=== PATIENT | female | born 1955 | race Caucasian/White ===

== ENCOUNTER 2016-04-29 13:07 | Inpatient (IN) | payer MEDICARE ==
[2016-04-29] MEDS ORDERED: Zithromax 500 MG/ 250 ML NaCl Premix 250 ML IV ONE ×2 (13:36→14:13)
[2016-04-29] MEDS ORDERED: DUONEB 0.5-3 MG/3 ml Neb IH ONE ×2 (13:36→13:44)
[2016-04-29] MEDS ORDERED: solu-MEDROL 125 MG IV ONE (13:36)
[2016-04-29] MEDS ORDERED: ROCEPHIN 1 Gm-D5w 50 ml Bag** 50 ML IV ONE ×2 (13:36→14:13)
[2016-04-29] MEDS ORDERED: Sodium Chloride 0.9% 1000 ML 1,000 ML IV SCH (13:45)
[2016-04-29 13:57] LABS: INR 1.05 (0.8-3.0); Mean Cell Volume 76.1 fl (78-100); Mean Platelet Volume 9.9 fl (6-9.5); PROTIME 11.7 SECONDS (9.95-12.35); Platelet Count 793 K/mm3 (150-450); Red Blood Count 4.47 M/mm3 (4.1-5.4); Red Cell Distribution Width 16.5 % (11.5-14.0); White Blood Count 11.4 K/mm3 (4.0-10.5)
[2016-04-29 14:02] LABS: Mean Corpuscular Hemoglobin 22.5 pg (26-32)
[2016-04-29 14:04] LABS: Eosinophil 5 % (0.00-3.0); Platelet Estimate NORMAL (NORMAL); Total Cells Counted 100
[2016-04-29 14:11] LABS: ALKALINE PHOSPHATASE 93 U/L (46-116); BILIRUBIN,TOTAL 0.1 mg/dL (0.2-1.0); BLOOD UREA NITROGEN 7 mg/dL (9-20); CHLORIDE 103 mEq/L (98-107); Carbon Dioxide 29.5 mEq/L (21-32); Glucose 93 MG/DL (70-110); MAGNESIUM 1.8 mg/dL (1.8-2.4); SGOT/AST 79 U/L (15-37); SGPT/ALT 92 U/L (12-78); SODIUM 142 mEq/L (136-145); Total Protein 7.9 gm/dL (6.4-8.2)
[2016-04-29] MEDS ORDERED: Zofran 4 MG/2 ML VIAL IV ONE (14:12)
[2016-04-29] MEDS ORDERED: Zofran 4 MG/2 ML VIAL ONE (14:12)
[2016-04-29] MEDS ORDERED: Sodium Chloride 0.9% 1000 ML 1,000 ML ONE (14:13)
[2016-04-29] MEDS ORDERED: SUBLIMAZE 100 MCG/2 ML ONE (14:13)
[2016-04-29] MEDS ORDERED: SUBLIMAZE 100 MCG/2 ML IV ONE (14:13)
[2016-04-29 14:16] LABS: TROPONIN < 0.017 ng/ml (0.000-0.056)
[2016-04-29 14:17] LABS: A-aADO2 73; ARTERIAL BLOOD GAS BASE EXCESS 5.9 (-2.0-2.0); ARTERIAL BLOOD GAS FIO2 32 %; ARTERIAL BLOOD GAS PO2 106 mmHg (75-100); ARTERIAL BLOOD GAS pH 7.49 (7.35-7.45); Lactic Acid 0.9 (0.4-2.0)
[2016-04-29 14:18] LABS: ALLEN TEST OK? YES
[2016-04-29] MEDS ORDERED: solu-MEDROL 125 MG ONE (14:21)
--- NOTE | 2016-04-29 15:00 | ERPHSYRPT ---
- History of Present Illness Time Seen by Provider: 04/29/16 13:15 Source: patient Exam Limitations: clinical condition Patient Subjective Stated Complaint: STATES HAS HAD NUMBNESS TO RIGHT SIDE OF FACE AND PAIN TO RIGHT ARM AND LEG FOR TWO DAYS. ALSO HAVING INCREASED SOB TODAY. HX COPD. Triage Nursing Assessment: TO ROOM PER EMS. SKIN W/D, COLOR NORMAL, RESP SLIGHTLY LABORED. WEARS O2 AT HOME. EXP WHEEZES HEARD ANTERIOR CHEST. GOOD ROTOR WINDER EQUAL BILATERAL. MOVING LEGS NORMALLY. Physician History: PATIENT WITH HISTORY OF COPD, COMPLAINS OF PROGRESSIVE DYSPNEA, PRODUCTIVE COUGH FOR 3-4 DAYS ASSOCIATED WITH RIGHT SIDED NUMBNESS AND WEAKNESS OVER FACE AND EXTREMITIES. SON STATES PAIN HAD TRANSIENT SLURRED SPEECH YESTERDAY. Timing/Duration: day(s) Activities at Onset: none Severity of Dyspnea-Max: moderate Severity of Dyspnea-Current: moderate Possible Cause: occasional episodes Modifying Factors: Improves With: activity, coughing, deep breath Associated Symptoms: cough, productive cough Allergies/Adverse Reactions: Iodinated Contrast Media - Oral and [Iodinated Contrast Media - IV Dye] Allergy (Verified 04/29/16 13:20) iodine Allergy (Verified 04/29/16 13:20) propoxyphene [From Darvon] Allergy (Verified 04/29/16 13:20) acetaminophen [From Vicodin] Adverse Reaction (Verified 04/29/16 13:20) hydrocodone [From Vicodin] Adverse Reaction (Verified 04/29/16 13:20) Home Medications: Albuterol/Ipratropium Mdi [Combivent Inhaler] 2 puff IH Q4HPRN PRN 11/29/12 [History] Enalapril Maleate 10 mg [Vasotec 10 MG] 10 mg PO DAILY 11/29/12 [History] Omeprazole 20 MG [Prilosec 20 mg] 20 mg PO DAILY 11/29/12 [History] Pravastatin Sodium 20 mg PO HS 11/29/12 [History] Albuterol 2.5 mg/3 ml Neb [Proventil 2.5 mg/3 ml Neb] 1 neb IH Q6HPRN PRN 07/30/13 [History] Sucralfate [Carafate] 1 g PO QID 03/28/14 [History] Fluticasone/Vilanterol [Breo Ellipta 200-25 Mcg INH] 1 each IH DAILY 02/09/16 [ History] Hx Tetanus, Diphtheria Vaccination/Date Given: No Hx Influenza Vaccination/Date Given: Yes Hx Pneumococcal Vaccination/Date Given: Yes - Review of Systems Constitutional: No Fever, No Chills Eyes: No Symptoms Ears, Nose, & Throat: No Symptoms Respiratory: No Cough, No Dyspnea Cardiac: No Symptoms, No Chest Pain, No Edema, No Syncope Abdominal/Gastrointestinal: No Symptoms, No Abdominal Pain, No Nausea, No Vomiting, No Diarrhea Genitourinary Symptoms: No Symptoms, No Dysuria Musculoskeletal: No Symptoms, No Back Pain, No Neck Pain Skin: No Symptoms, No Rash Neurological: Parasthesia, No Dizziness, No Focal Weakness, No Sensory Changes Psychological: No Symptoms Endocrine: No Symptoms All Other Systems: Reviewed and Negative - Past Medical History Pertinent Past Medical History: Yes Neurological History: TIA ENT History: No Pertinent History Cardiac History: High Cholesterol, Hypertension Respiratory History: COPD, Other Endocrine Medical History: No Pertinent History Musculoskeletal History: Degenerative Disk Disease, Osteoarthritis GI Medical History: GERD, Hernia History: No Pertinent History Psycho-Social History: No Pertinent History Female Reproductive Disorders: No Pertinent History Other Medical History: hiatal hernia - Past Surgical History Past Surgical History: Yes Neuro Surgical History: No Pertinent History Cardiac: No Pertinent History Respiratory: No Pertinent History Gastrointestinal: Appendectomy, Cholecystectomy Genitourinary: No Pertinent History Musculoskeletal: Orthopedic Surgery Female Surgical History: Hysterectomy Other Surgical History: RIGHT FOOT SURGERY - Social History Smoking Status: Former smoker How long have you smoked: 30 yrs Exposure to second hand smoke: Yes Drug Use: none Patient Lives Alone: No - Female History Hx Now: No - Nursing Vital Signs Nursing Vital Signs: Initial Vital Signs Temperature 97.9 F Temperature Source Oral Pulse Rate 121 Respiratory Rate 24 Blood Pressure [] 137/81 Pain Intensity 5 - Physical Exam General Appearance: no apparent distress, alert Eye Exam: PERRL/EOMI Ears, Nose, Throat Exam: hearing grossly normal Neck Exam: normal inspection, supple Respiratory Exam: diminished breath sounds, wheezing Cardiovascular/Chest Exam: normal heart sounds, regular rate/rhythm Abdominal/Gastrointestinal Exam: soft, normal bowel sounds, No tenderness, No distention, No mass Extremity Exam: non-tender, normal range of motion, normal inspection, no calf tenderness, no pedal edema Peripheral Pulses Exam: carotid (R): 2+, carotid (L): 2+, femoral (R): 2+, femoral (L): 2+, dorsalis-pedis (R): 2+ Neurologic Exam: alert, oriented x 3, cooperative, oil tester II-XII nml as tested, normal mood/affect, other (THERE IS A RIGHT HEMIPARESIS, MINIMAL WEAKNESS RIGHT 4/5, COMPARED TO LEFT 5/5) Skin Exam: normal color, warm, No dry SpO2 Interpretation: normal SpO2: 97 Oxygen Delivery: Nasal Cannula - Course EKG Interpreted by Me: RATE, Sinus Rhythm, Sinus Tach, NORMAL AXIS - Radiology Exams Chest X-ray Interpretation: Interpreted by me (COPD, FLAT DIAPHRAMS, NO INFILTRATE) - CT Exams Head CT Interpretation: Discussed w/radiologist (THERE IS STABLE NONACUTE SENILE BRAIN WITH A REMOTE LEFT EXTERNAL CAPSULAR LACUNAR INFARCT) Ordered Tests: Active Orders 24 hr Category Date Time Status Bedrest with BRP/BSC TOLERATED Activity 04/29/16 17:41 Active Admission/Status Order ROUTINE Care 04/29/16 17:41 Active Cylinder Checker STAT Care 04/29/16 13:36 Active Code Status Order ROUTINE Care 04/29/16 17:41 Active EKG-ER Only STAT Care 04/29/16 13:36 Active IV Insertion STAT Care 04/29/16 13:36 Active Neuro Checks Q4H Care 04/29/16 17:41 Active Oxygen-ED Only NASAL CANNULA 2 lpm Care 04/29/16 13:36 Active Telemetry CONTINUOUS Care 04/29/16 17:42 Active Vital Signs Q4H Care 04/29/16 17:41 Active Cardiac Diet Diet 04/29/16 Breakfast Active CHEST 1 VIEW (PORTABLE) Stat Exams 04/29/16 13:37 Taken HEAD WITHOUT CONTRAST [CT] Stat Exams 04/29/16 14:34 Taken ARTERIAL BLOOD GASES Stat Lab 04/29/16 13:47 Ordered ARTERIAL BLOOD GASES Urgent Lab 04/29/16 13:36 Completed BLOOD CULTURE Stat Lab 04/29/16 13:46 Received CBC W DIFF Stat Lab 04/29/16 13:36 Completed CMP Stat Lab 04/29/16 13:36 Completed Lactic Acid Urgent Lab 04/29/16 13:36 Completed MAGNESIUM Stat Lab 04/29/16 13:36 Completed Manual Differential NC Stat Lab 04/29/16 13:36 Completed NT PRO BNP Stat Lab 04/29/16 13:36 Completed PROTIME WITH INR Stat Lab 04/29/16 13:36 Completed TROPONIN Stat Lab 04/29/16 13:36 Completed Oxygen NASAL CANNULA 2 lpm RT 04/29/16 17:41 Active Respiratory Nebulizer STAT RT 04/29/16 13:39 Completed Transfer Order Routine Transfer 04/29/16 17:41 Ordered Medication Summary Generic Name Dose Route Start Last Admin Trade Name Freq PRN Reason Stop Dose Admin Acetaminophen 650 mg 04/29/16 17:41 Tylenol 325 Mg PO 05/29/16 17:40 Q4H PRN PRN PAIN, FEVER, HEADACHE Albuterol/Ipratropium 3 ml 04/29/16 17:45 Duoneb 0.5-3 Mg/3 Ml Neb IH 05/29/16 17:44 Q4HPRN PRN SHORTNESS OF BREATH/WHEEZING Aspirin 81 mg 04/30/16 10:00 Baby Aspirin 81 Mg Chew PO 05/30/16 09:59 DAILY MONICA Enalapril Maleate 10 mg 04/30/16 10:00 Vasotec 10 Mg PO 05/30/16 09:59 DAILY MONICA Sodium Chloride 1,000 mls @ 100 mls/hr 04/29/16 13:45 04/29/16 14:15 Sodium Chloride 0.9% 1000 Ml IV 05/29/16 13:44 100 mls/hr .Q10H MONICA Administration Sodium Chloride 1,000 mls @ 50 mls/hr 04/29/16 17:45 Sodium Chloride 0.9% 1000 Ml IV 05/29/16 17:44 .Q20H MONICA Levalbuterol HCl 1.25 mg 04/29/16 17:45 Xopenex 1.25 Mg/0.5 Ml Ud Nebule IH 05/29/16 17:44 Q2HPRN PRN DIFFICULTY BREATHING Oxycodone/Acetaminophen 1 tab 04/29/16 17:44 Percocet Tablet 5/325mg PO 05/04/16 17:43 Q4H PRN PRN PAIN Sucralfate 1 g 04/29/16 22:00 Carafate 1 Gm PO 05/29/16 21:59 ACHS MONICA Discontinued Medications Generic Name Dose Route Start Last Admin Trade Name Shauna PRN Reason Stop Dose Admin Albuterol/Ipratropium 3 ml 04/29/16 13:36 04/29/16 14:00 Duoneb 0.5-3 Mg/3 Ml Neb IH 04/29/16 13:37 3 ml STAT ONE Administration Albuterol/Ipratropium Confirm 04/29/16 13:44 Duoneb 0.5-3 Mg/3 Ml Neb Administered 04/29/16 13:45 Dose 3 ml IH .STK-MED ONE Fentanyl Citrate 50 mcg 04/29/16 14:13 04/29/16 14:17 Sublimaze 100 Mcg/2 Ml IV 04/29/16 14:14 50 mcg STAT ONE Administration Fentanyl Citrate Confirm 04/29/16 14:13 Sublimaze 100 Mcg/2 Ml Administered 04/29/16 14:14 Dose 100 mcg .ROUTE .STK-MED ONE Azithromycin 250 mls @ 125 mls/hr 04/29/16 13:36 04/29/16 14:22 Zithromax 500 Mg/ 250 Ml Nacl Premix IV 04/29/16 15:35 125 mls/hr STAT ONE Administration Ceftriaxone Sodium/Dextrose 50 mls @ 100 mls/hr 04/29/16 13:36 04/29/16 14:19 Rocephin 1 Gm-D5w 50 Ml Bag IV 04/29/16 14:05 100 mls/hr STAT ONE Administration Azithromycin Confirm 04/29/16 14:13 Zithromax 500 Mg/ 250 Ml Nacl Premix Administered 04/29/16 14:14 Dose 250 mls @ ud IV .STK-MED ONE Sodium Chloride Confirm 04/29/16 14:13 Sodium Chloride 0.9% 1000 Ml Administered 04/29/16 14:14 Dose 1,000 mls @ ud .ROUTE .STK-MED ONE Ceftriaxone Sodium/Dextrose Confirm 04/29/16 14:13 Rocephin 1 Gm-D5w 50 Ml Bag Administered 04/29/16 14:14 Dose 50 mls @ ud IV .STK-MED ONE Methylprednisolone Sodium Succinate 125 mg 04/29/16 13:36 04/29/16 14:22 Solu-Medrol 125 Mg IV 04/29/16 13:37 125 mg STAT ONE Administration Methylprednisolone Sodium Succinate Confirm 04/29/16 14:21 Solu-Medrol 125 Mg Administered 04/29/16 14:22 Dose 125 mg .ROUTE .STK-MED ONE Ondansetron HCl 4 mg 04/29/16 14:12 04/29/16 14:16 Zofran 4 Mg/2 Ml Vial IV 04/29/16 14:13 4 mg STAT ONE Administration Ondansetron HCl Confirm 04/29/16 14:12 Zofran 4 Mg/2 Ml Vial Administered 04/29/16 14:13 Dose 4 mg .ROUTE .STK-MED ONE Lab/Rad Data: Laboratory Result Diagrams 04/29/16 13:36 04/29/16 13:36 Laboratory Results 04/29/16 04/29/16 04/29/16 Range/Units 13:36 13:36 13:36 WBC (4.0-10.5) K/mm3 RBC (4.1-5.4) M/mm3 Hgb (12.0-16.0) gm/dl Hct (35-47) % MCV (78-100) fl MCH (26-32) pg MCHC (32-36) g/dl RDW (11.5-14.0) % Plt Count (150-450) K/mm3 MPV (6-9.5) fl Segmented Neutrophils (36.0-66.0) % Lymphocytes (Manual) (24-44) % Monocytes (Manual) (0.0-12.0) % Eosinophils (Manual) (0.00-3.0) % Differential Comment Platelet Estimate (NORMAL) INR 1.05 (0.8-3.0) Puncture Site RIGHT RADIAL pCO2 39 (35-45) mmHg pO2 106 H (75-100) mmHg Base Excess 5.9 H (-2.0-2.0) O2 Saturation 96.0 (94-100) g/dF ABG pH 7.49 H (7.35-7.45) ABG HCO3 29.7 H* (22-28) ABG O2 Sat (Measured) 99.0 (95-100) % Fuad Test YES A-a Gradient 73 a/A Ratio 0.59 Hemoglobin 9.7 Carboxyhemoglobin 1.5 (0.0-6.9) % THgb Methemoglobin 1.5 (1.4-1.5) % Potassium 3.9 4.0 (3.5-5.1) Temperature 37.0 C POC O2 Flow Rate 32 % Sodium 142 (136-145) mEq/L Chloride 103 (98-107) mEq/L Carbon Dioxide 29.5 (21-32) mEq/L Anion Gap 13.0 (5-15) MEQ/L BUN 7 L (9-20) mg/dL Creatinine 0.76 (0.55-1.30) mg/dl Estimated GFR > 60 ML/MIN Glucose 93 (70-110) MG/DL Lactic Acid 0.9 (0.4-2.0) Calcium 9.2 (8.5-10.1) mg/dL Magnesium 1.8 (1.8-2.4) mg/dL Total Bilirubin 0.1 L (0.2-1.0) mg/dL AST 79 H (15-37) U/L ALT 92 H (12-78) U/L Alkaline Phosphatase 93 (46-116) U/L Troponin I < 0.017 (0.000-0.056) ng/ml NT-Pro-B Natriuret Pep 27 (0-125) pg/ml Serum Total Protein 7.9 (6.4-8.2) gm/dL Albumin 4.0 (3.4-5.0) g/dL 04/29/16 Range/Units 13:36 WBC 11.4 H (4.0-10.5) K/mm3 RBC 4.47 (4.1-5.4) M/mm3 Hgb 10.1 L (12.0-16.0) gm/dl Hct 34.0 L (35-47) % MCV 76.1 L (78-100) fl MCH 22.5 L (26-32) pg MCHC 29.7 L (32-36) g/dl RDW 16.5 H (11.5-14.0) % Plt Count 793 H (150-450) K/mm3 MPV 9.9 H (6-9.5) fl Segmented Neutrophils 60 (36.0-66.0) % Lymphocytes (Manual) 27 (24-44) % Monocytes (Manual) 8 (0.0-12.0) % Eosinophils (Manual) 5 H (0.00-3.0) % Differential Comment NORMAL Platelet Estimate NORMAL (NORMAL) INR (0.8-3.0) Puncture Site pCO2 (35-45) mmHg pO2 (75-100) mmHg Base Excess (-2.0-2.0) O2 Saturation (94-100) g/dF ABG pH (7.35-7.45) ABG HCO3 (22-28) ABG O2 Sat (Measured) (95-100) % Fuad Test A-a Gradient a/A Ratio Hemoglobin Carboxyhemoglobin (0.0-6.9) % THgb Methemoglobin (1.4-1.5) % Potassium (3.5-5.1) Temperature C POC O2 Flow Rate % Sodium (136-145) mEq/L Chloride (98-107) mEq/L Carbon Dioxide (21-32) mEq/L Anion Gap (5-15) MEQ/L BUN (9-20) mg/dL Creatinine (0.55-1.30) mg/dl Estimated GFR ML/MIN Glucose (70-110) MG/DL Lactic Acid (0.4-2.0) Calcium (8.5-10.1) mg/dL Magnesium (1.8-2.4) mg/dL Total Bilirubin (0.2-1.0) mg/dL AST (15-37) U/L ALT (12-78) U/L Alkaline Phosphatase (46-116) U/L Troponin I (0.000-0.056) ng/ml NT-Pro-B Natriuret Pep (0-125) pg/ml Serum Total Protein (6.4-8.2) gm/dL Albumin (3.4-5.0) g/dL - Progress Air Movement: good Progress Note: 04/29/16 15:01 PATIENT GIVEN IV NORMAL SALINE 100ML/HR SOLUMEDROL 125MG. ROCEPHIN 1GM, ZITHROMAX 500MG IVPB, DUONEB AEROSOL TREATMENT 04/29/16 17:36 Blood Culture(s) Obtained: Yes Antibiotics given: Yes Discussed with DrJorge: Other (DISCUSSED WITH DR Manuel BUCHANAN AT 1715 FOR ADMISSION) - Departure Time of Disposition: 17:37 Departure Disposition: Observation Clinical Impression: ACUTE EXACERBATION COPD, TRANSIENT ISCHEMIC ATTACK Condition: Stable Critical Care Time: No Referrals: KENNETH POWELL MD [Primary Care Provider] -
[2016-04-29] MEDS ORDERED: TYLENOL 325 MG PO PRN (17:41)
[2016-04-29] MEDS ORDERED: PERCOCET TABLET 5/325MG PO PRN (17:44)
[2016-04-29] MEDS ORDERED: Xopenex 1.25 MG/0.5 ML UD NEBULE IH PRN (17:45)
--- NOTE | 2016-04-29 19:55 | XRAY ---
Indication: Right-sided pain, numbness, and weakness. Multiple contiguous axial images obtained through the head without contrast. Comparison: June 13, 2015. Stable age-appropriate global atrophy and minimal periventricular degenerative microvascular ischemia. Remote lacunar infarct in the left external capsule. No acute intracranial hemorrhage, abnormal extra-axial fluid collection, or mass effect. Leyva-white matter differentiation maintained. Fourth ventricle is midline without hydrocephalus. Bony calvarium intact. Visualized paranasal sinuses and mastoid air cells are clear. Impression: Stable nonacute senile brain with remote left external capsule lacunar infarct. CTDI 68.81
--- NOTE | 2016-04-29 19:59 | XRAY ---
Indication: Cough. Comparison: February 09, 2016. Portable chest again hyperinflated and clear. Heart and mediastinal structures within normal limits. Bony thorax intact again with mild osteopenia and degenerative changes. Impression: Stable nonacute hyperinflated chest.
[2016-04-29] MEDS: Carafate 1 GM PO SCH (21:30)
[2016-04-29] MEDS: ZOFRAN ODT 4 MG PO PRN (21:31)
[2016-04-29] MEDS: Levofloxacin 500MG/100ML D5W 100 ML IV SCH (21:31)
[2016-04-29] MEDS: PERCOCET TABLET 5/325MG PO PRN (23:59)
[2016-04-30] MEDS: Sodium Chloride 0.9% 1000 ML 1,000 ML IV SCH ×2 (04:05→21:02)
[2016-04-30] MEDS: DUONEB 0.5-3 MG/3 ml Neb IH PRN ×2 (04:06→07:03)
[2016-04-30] MEDS: PERCOCET TABLET 5/325MG PO PRN ×4 (06:12→20:36)
[2016-04-30] MEDS: Advair Hfa 115/21 Common canister IH SCH ×3 (07:03→22:14)
[2016-04-30] MEDS: Carafate 1 GM PO SCH ×4 (08:10→23:35)
[2016-04-30] MEDS: ZOFRAN ODT 4 MG PO PRN ×2 (08:42→18:06)
[2016-04-30] MEDS ORDERED: ECOTRIN 81 MG PO SCH (10:00)
[2016-04-30] MEDS ORDERED: BABY ASPIRIN 81 MG CHEW PO SCH (10:00)
[2016-04-30] MEDS: Vasotec 10 MG PO SCH (10:25)
[2016-04-30] MEDS: DUONEB 0.5-3 MG/3 ml Neb IH SCH ×3 (10:39→18:47)
--- NOTE | 2016-04-30 13:03 | PCM.HP ---
History of Present Illness - Chief Complaint Chief Complaint: c/o shortness of breath History of Present Illness: is a 61 year old female came to ER with c/o shortness of breath and slurred speech. c/o generalised weakness - Review of Systems Constitutional: No Fever, No Chills Eyes: No Symptoms Ears, Nose, & Throat: No Symptoms Respiratory: No Cough, No Short Of Breath Cardiac: No Chest Pain, No Edema, No Syncope Abdominal/Gastrointestinal: No Abdominal Pain, No Nausea, No Vomiting, No Diarrhea Genitourinary Symptoms: No Dysuria Musculoskeletal: No Back Pain, No Neck Pain Skin: No Rash Neurological: No Dizziness, No Focal Weakness, No Sensory Changes Psychological: No Symptoms Endocrine: No Symptoms Hematologic/Lymphatic: No Symptoms Immunological/Allergic: No Symptoms Medications & Allergies Home Medications: Home Medication List Albuterol/Ipratropium Mdi [Combivent Inhaler] 2 puff IH Q4HPRN PRN 11/29/12 [History Confirmed 04/29/16] Enalapril Maleate 10 mg [Vasotec 10 MG] 10 mg PO DAILY 11/29/12 [History Confirmed 04/29/16] Omeprazole 20 MG [Prilosec 20 mg] 20 mg PO DAILY 11/29/12 [History Confirmed ] Pravastatin Sodium 20 mg PO HS 11/29/12 [History Confirmed 04/29/16] Albuterol 2.5 mg/3 ml Neb [Proventil 2.5 mg/3 ml Neb] 1 neb IH Q6HPRN PRN 07/30/13 [History Confirmed 04/29/16] Sucralfate [Carafate] 1 g PO QID 03/28/14 [History Confirmed 04/29/16] Fluticasone/Vilanterol [Breo Ellipta 200-25 Mcg INH] 1 each IH DAILY 02/09/16 [ History Confirmed 04/29/16] Zolpidem Tartrate [Ambien] 10 mg PO HS 04/29/16 [History Confirmed 04/29/16] Allergies/Adverse Reactions: Allergies Allergy/AdvReac Type Severity Reaction Status Date / Time Iodinated Contrast Media - Allergy Verified 04/29/16 13:20 Oral and [Iodinated Contrast Media - IV Dye] iodine Allergy Verified 04/29/16 13:20 propoxyphene [From Darvon] Allergy Verified 04/29/16 13:20 acetaminophen [From Vicodin] AdvReac Verified 04/29/16 13:20 hydrocodone [From Vicodin] AdvReac Verified 04/29/16 13:20 - Past Medical History Past Medical History: Yes Neurological History: TIA ENT History: No Pertinent History Cardiac History: High Cholesterol, Hypertension Respiratory History: COPD, Other Endocrine Medical History: No Pertinent History Musculoskelatal History: Degenerative Disk Disease, Osteoarthritis GI Medical History: GERD, Hernia History: No Pertinent History Pyscho-Social History: No Pertinent History Reproductive Disorders: No Pertinent History Comment: hiatal hernia - Female History Are you now?: No - Past Surgical History Past Surgical History: Yes Neuro Surgical History: No Pertinent History Cardiac History: No Pertinent History Respiratory Surgery: No Pertinent History GI Surgical History: Appendectomy, Cholecystectomy Genitourinary Surgical Hx: No Pertinent History Musculskeletal Surgical Hx: Orthopedic Surgery Female Surgical History: Hysterectomy Other Surgical History: RIGHT FOOT SURGERY - Social History Smoking Status: Former smoker How long have you smoked: 30 yrs Exposure to second hand smoke: Yes Alcohol: None Drug Use: none - Physical Exam Vital Signs: Vital Signs - 24 hr Temp Pulse Resp BP Pulse Ox 04/30/16 12:20 98 F 108 H 22 158/99 96 04/30/16 10:39 98 H 20 97 04/30/16 10:00 20 04/30/16 08:02 97.5 F 82 20 149/68 92 L 04/30/16 07:05 96 H 20 95 04/30/16 05:47 22 04/30/16 04:06 80 22 97 04/30/16 04:00 97.6 F 82 16 137/63 98 04/30/16 02:00 24 04/30/16 00:00 97.5 F 95 H 24 144/79 96 04/29/16 22:50 87 20 96 04/29/16 22:00 16 04/29/16 18:34 98.8 F 103 H 16 146/77 96 04/29/16 17:49 97 04/29/16 16:45 121 H 24 95 04/29/16 15:03 86 22 137/81 96 04/29/16 15:02 78 18 96 04/29/16 14:06 98 H 22 142/72 97 04/29/16 13:11 20 94 L 04/29/16 13:08 97.9 F 105 H 20 142/72 94 L Oxygen-Last 24 hours O2 Percentage 3 Liters = 32% O2 Percentage 2 Liters = 28% O2 Percentage 2 Liters = 28% O2 Percentage 2 Liters = 28% O2 Percentage 3 Liters = 32% O2 Percentage 3 Liters = 32% O2 Percentage 3 Liters = 32% O2 Percentage 2 Liters = 28% O2 Percentage 3 Liters = 32% General Appearance: no apparent distress, alert Neurologic Exam: alert, oriented x 3, cooperative, normal mood/affect, nml cerebellar function, nml station & gait, sensation nml, No motor deficits Eye Exam: PERRL/EOMI, eyes nml inspection Ears, Nose, Throat Exam: normal ENT inspection, TMs normal, pharynx normal, moist mucous membranes Neck Exam: normal inspection, non-tender, supple, full range of motion Respiratory Exam: diminished breath sounds, crackles/rales, rhonchi, No respiratory distress Cardiovascular Exam: regular rate/rhythm, normal heart sounds, normal peripheral pulses Gastrointestinal/Abdomen Exam: soft, normal bowel sounds, No tenderness, No mass Back Exam: normal inspection, normal range of motion, No CVA tenderness, No vertebral tenderness Extremity Exam: normal inspection, normal range of motion, pelvis stable Skin Exam: normal color, warm, dry, No rash Lymphatic Exam: No adenopathy Results - Other Procedures and Tests Respiratory Therapy 04/29/16 17:41 Oxygen NASAL CANNULA 2 lpm 04/30/16 00:42 neb [Respiratory Nebulizer] QID 04/30/16 01:48 Respiratory MDI BID Assessment/Plan (1) Acute exacerbation of chronic obstructive pulmonary disease (COPD) Current Visit: Yes Status: Acute Code(s): J44.1 - CHRONIC OBSTRUCTIVE PULMONARY DISEASE W (ACUTE) EXACERBATION (2) Gastroesophageal reflux disease Current Visit: No Status: Chronic Code(s): K21.9 - GASTRO-ESOPHAGEAL REFLUX DISEASE WITHOUT ESOPHAGITIS (3) Hypertension Current Visit: No Status: Chronic Qualifiers: Hypertension type: essential hypertension Qualified Code(s): I10 - Essential (primary) hypertension Code(s): I10 - ESSENTIAL (PRIMARY) HYPERTENSION
[2016-04-30] MEDS ORDERED: PREVNAR 13 SYRINGE IM ONE (14:00)
[2016-04-30] MEDS ORDERED: PROVENTIL 2.5 MG/3 ML NEB IH PRN (16:47)
[2016-04-30] MEDS: Protonix 40MG Tablet PO SCH (17:00)
[2016-04-30] MEDS ORDERED: Ecotrin 325 MG PO SCH (20:00)
[2016-04-30 20:10] LABS: BASOPHIL % 0.2 % (0.0-0.4); Eosinophil % 0.2 % (0.00-5.0); Granulocytes % 77.3 % (36.0-66.0); Lymphocytes % 15.4 % (24.0-44.0); Mean Cell Volume 76.9 fl (78-100); Mean Corpuscular Hemoglobin 23.1 pg (26-32); Mean Platelet Volume 8.8 fl (6-9.5); Monocytes % 6.9 % (0.0-12.0); Platelet Count 655 K/mm3 (150-450); Red Blood Count 3.63 M/mm3 (4.1-5.4); Red Cell Distribution Width 16.4 % (11.5-14.0); White Blood Count 18.9 K/mm3 (4.0-10.5)
[2016-04-30 20:54] LABS: ALBUMIN 3.5 g/dL (3.4-5.0); ALKALINE PHOSPHATASE 64 U/L (46-116); ANION GAP 10.8 MEQ/L (5-15); BLOOD UREA NITROGEN 14 mg/dL (9-20); CHLORIDE 105 mEq/L (98-107); Glucose 137 MG/DL (70-110); Potassium 3.8 mEq/L (3.5-5.1); SGOT/AST 29 U/L (15-37); SGPT/ALT 63 U/L (12-78); SODIUM 141 mEq/L (136-145); Total Protein 6.9 gm/dL (6.4-8.2)
[2016-04-30 21:09] LABS: BILIRUBIN,TOTAL < 0.1 mg/dL (0.2-1.0); TROPONIN < 0.017 ng/ml (0.000-0.056)
[2016-04-30] MEDS ORDERED: NON-FORMULARY ITEM (Pravastatin Sodium [Pravastatin Sodium] 20 MG) PO SCH (22:00)
--- NOTE | 2016-04-30 22:25 | PCM.NOTE ---
Date and Time: 04/30/162219 Subjective Assessment: patient developed sudden onset of right side weakness upper and lower extrimity. CT head reveal possible hemorrhagic stroke in ternal capsule which is new change. MRI ordered. SCD boots ordered. plavix and aspirin given, - Review of Systems Neurological: Focal Weakness Objective Exam Neurologic Exam: alert, oriented x 3, cooperative, motor weakness (right upper and lower extrimity) OBJECTIVE DATA Vital Signs: Vital Signs - 24 hr Temp Pulse Resp BP Pulse Ox 04/30/16 19:54 98.7 F 91 H 19 130/60 100 04/30/16 18:52 89 16 98 04/30/16 18:00 20 04/30/16 16:25 97.8 F 100 H 20 157/80 96 04/30/16 14:58 105 H 16 97 04/30/16 14:19 98 F 04/30/16 14:00 16 04/30/16 12:20 98 F 108 H 22 158/99 96 04/30/16 10:39 98 H 20 97 04/30/16 10:00 20 04/30/16 08:02 97.5 F 82 20 149/68 92 L 04/30/16 07:05 96 H 20 95 04/30/16 05:47 22 04/30/16 04:06 80 22 97 04/30/16 04:00 97.6 F 82 16 137/63 98 04/30/16 02:00 24 04/30/16 00:00 97.5 F 95 H 24 144/79 96 04/29/16 22:50 87 20 96 Oxygen-Last 24 hours O2 Percentage 3 Liters = 32% O2 Percentage 3 Liters = 32% O2 Percentage 2 Liters = 28% O2 Percentage 2 Liters = 28% O2 Percentage 2 Liters = 28% Pain Assessment - Last Documented Pain Intensity 9 Pain Scale Used 0-10 Pain Scale Intake and Output: Intake & Output 04/28/16 04/29/16 04/30/16 05/01/16 11:59 11:59 11:59 11:59 Intake Total 1084 1706 Balance 1084 1706 Weight 81.284 kg Lab Results: Lab Results-Last 24 Hours 04/30/16 04/30/16 Range/Units 20:05 20:05 WBC 18.9 H (4.0-10.5) K/mm3 RBC 3.63 L (4.1-5.4) M/mm3 Hgb 8.4 L (12.0-16.0) gm/dl Hct 27.9 L (35-47) % MCV 76.9 L (78-100) fl MCH 23.1 L (26-32) pg MCHC 30.1 L (32-36) g/dl RDW 16.4 H (11.5-14.0) % Plt Count 655 H (150-450) K/mm3 MPV 8.8 (6-9.5) fl Gran % 77.3 H (36.0-66.0) % Lymphocytes % 15.4 L (24.0-44.0) % Monocytes % 6.9 (0.0-12.0) % Eosinophils % 0.2 (0.00-5.0) % Basophils % 0.2 (0.0-0.4) % Basophils # 0.03 (0-0.4) Sodium 141 (136-145) mEq/L Potassium 3.8 (3.5-5.1) mEq/L Chloride 105 (98-107) mEq/L Carbon Dioxide 29.0 (21-32) mEq/L Anion Gap 10.8 (5-15) MEQ/L BUN 14 (9-20) mg/dL Creatinine 0.93 (0.55-1.30) mg/dl Estimated GFR > 60 ML/MIN Glucose 137 H (70-110) MG/DL Calcium 8.9 (8.5-10.1) mg/dL Total Bilirubin < 0.1 L (0.2-1.0) mg/dL AST 29 (15-37) U/L ALT 63 (12-78) U/L Alkaline Phosphatase 64 (46-116) U/L Troponin I < 0.017 (0.000-0.056) ng/ml Serum Total Protein 6.9 (6.4-8.2) gm/dL Albumin 3.5 (3.4-5.0) g/dL Radiology Exams: Radiology Procedures Category Date Time Status HEAD WITHOUT CONTRAST [CT] Stat Exams 04/30/16 19:53 Taken MRI BRAIN W & W/O CONTRAST [MRI] Routine Exams 04/30/16 21:49 Ordered Assessment/Plan (1) CVA (cerebral vascular accident) Current Visit: Yes Status: Acute Qualifiers: CVA mechanism: unspecified Qualified Code(s): I63.9 - Cerebral infarction, unspecified Assessment & Plan: neurocheck q4hrs, MRI of brain, teleneuro consult Code(s): I63.9 - CEREBRAL INFARCTION, UNSPECIFIED (2) Acute exacerbation of chronic obstructive pulmonary disease (COPD) Current Visit: Yes Status: Acute Code(s): J44.1 - CHRONIC OBSTRUCTIVE PULMONARY DISEASE W (ACUTE) EXACERBATION (3) Gastroesophageal reflux disease Current Visit: No Status: Chronic Code(s): K21.9 - GASTRO-ESOPHAGEAL REFLUX DISEASE WITHOUT ESOPHAGITIS (4) Hypertension Current Visit: No Status: Chronic Qualifiers: Hypertension type: essential hypertension Qualified Code(s): I10 - Essential (primary) hypertension Code(s): I10 - ESSENTIAL (PRIMARY) HYPERTENSION
[2016-04-30] MEDS: PLAVIX 75 MG Tablet PO SCH (23:34)
[2016-04-30] MEDS: Levofloxacin 500MG/100ML D5W 100 ML IV SCH (23:34)
[2016-04-30] MEDS: ZOCOR 20MG PO SCH (23:35)
[2016-04-30] MEDS: Ambien 10 MG PO SCH (23:35)
[2016-04-30] MEDS: BABY ASPIRIN 81 MG CHEW PO SCH (23:36)
[2016-05-01] MEDS: DUONEB 0.5-3 MG/3 ml Neb IH SCH ×4 (07:19→19:03)
[2016-05-01] MEDS: Advair Hfa 115/21 Common canister IH SCH ×2 (07:24→19:05)
[2016-05-01] MEDS: Carafate 1 GM PO SCH ×4 (07:46→22:46)
--- NOTE | 2016-05-01 08:52 | XRAY ---
Indication: Worsening weakness. Possible TIA. Multiple contiguous axial images obtained through the head without contrast. Comparison: One day earlier. Stable normal aging brain including global atrophy and minimal periventricular degenerative micro-ischemia. In the right posterior basal ganglia adjacent to the perimesencephalic cistern, there is new 10 mm focus of petechial hyperdensities concerning for hemorrhage. No mass effect, midline shift, or hydrocephalus. Bony calvarium remains intact. Impression: 1. New tiny focus of petechial hemorrhage in the right posterior basal ganglia as detailed. 2. Stable age-appropriate atrophy and degenerative micro-ischemia. Comment: Preliminary interpretation was made by [facility]. No discrepancy. CTDI 67.80
[2016-05-01] MEDS ORDERED: NON-FORMULARY ITEM (Omeprazole 20 Mg [Prilosec 20 Mg] 20 MG) PO SCH (10:00)
[2016-05-01 10:02] LABS: Mean Cell Volume 77.9 fl (78-100); Platelet Count 669 K/mm3 (150-450); Red Blood Count 3.76 M/mm3 (4.1-5.4); Red Cell Distribution Width 16.6 % (11.5-14.0); White Blood Count 13.2 K/mm3 (4.0-10.5)
[2016-05-01 10:04] LABS: Mean Corpuscular Hemoglobin 22.8 pg (26-32)
[2016-05-01] MEDS: PERCOCET TABLET 5/325MG PO PRN ×3 (10:49→22:47)
[2016-05-01] MEDS: Protonix 40MG Tablet PO SCH (10:50)
[2016-05-01] MEDS: Vasotec 10 MG PO SCH (10:50)
[2016-05-01] MEDS: PLAVIX 75 MG Tablet PO SCH (10:50)
[2016-05-01] MEDS: BABY ASPIRIN 81 MG CHEW PO SCH (10:50)
[2016-05-01] MEDS ORDERED: DUONEB 0.5-3 MG/3 ml Neb IH ONE (10:56)
--- NOTE | 2016-05-01 11:09 | XRAY ---
Indication: Right-sided weakness. Two-dimensional sonogram and color Doppler imaging of the carotid arteries of the neck was performed. Comparison: None Examination of the right carotid circulation demonstrates minimal heterogeneous eccentric plaquing at the level of the bulb slightly extending into the origin of internal and external carotid arteries. PSV of the CCA is 85 cm/s. PSV of the ICA is 160 cm/s. ICA/CCA ratio is 1.9. Normal antegrade vertebral artery flow. Examination of the left carotid circulation demonstrates mild heterogeneous plaquing at the level of the bulb extending into the origin of the internal and external carotid arteries. PSV of the CCA is 115 cm/s. PSV of the ICA is 89 cm/s. ICA/CCA ratio is 0.8. Normal antegrade vertebral artery flow. Impression: Minimal/mild arteriosclerotic plaquing bilaterally. Velocity measurements and ratios suggest 50-69% stenosis on the right. No hemodynamically significant flow-limiting stenosis on the left.
--- NOTE | 2016-05-01 11:27 | PCM.NOTE ---
Date and Time: 05/01/16 1125 Subjective Assessment: last 24 hours events noted, patient is feeling better - Review of Systems Constitutional: No Fever, No Chills Eyes: No Symptoms Ears, Nose, & Throat: No Symptoms Respiratory: No Cough, No Short Of Breath Cardiac: No Chest Pain, No Edema, No Syncope Abdominal/Gastrointestinal: No Abdominal Pain, No Nausea, No Vomiting, No Diarrhea Genitourinary Symptoms: No Dysuria Musculoskeletal: No Back Pain, No Neck Pain Skin: No Rash Neurological: Focal Weakness, No Dizziness, No Sensory Changes Psychological: No Symptoms Endocrine: No Symptoms Hematologic/Lymphatic: No Symptoms Immunological/Allergic: No Symptoms Objective Exam General Appearance: no apparent distress, alert Neurologic Exam: alert, oriented x 3, cooperative, normal mood/affect, sensation nml, motor deficits (right side weakness) Skin Exam: normal color, warm, dry Eye Exam: PERRL, EOMI, eyes nml inspection Ears, Nose, Throat Exam: normal ENT inspection, pharynx normal, moist mucous membranes Neck Exam: normal inspection, non-tender, supple, full range of motion Respiratory Exam: normal breath sounds, lungs clear, No respiratory distress Cardiovascular Exam: regular rate/rhythm, normal heart sounds Gastrointestinal/Abdomen Exam: soft, No tenderness, No mass Extremity Exam: normal inspection, normal range of motion Back Exam: normal inspection, normal range of motion, No CVA tenderness, No vertebral tenderness Pelvic Exam: deferred Rectal Exam: deferred OBJECTIVE DATA Vital Signs: Vital Signs - 24 hr Temp Pulse Resp BP Pulse Ox 05/01/16 11:07 86 20 96 05/01/16 08:00 97.9 F 101 H 24 144/67 94 L 05/01/16 07:29 101 H 24 94 L 05/01/16 06:00 19 05/01/16 04:00 98.1 F 82 19 146/65 95 05/01/16 02:00 19 05/01/16 00:00 98.6 F 91 H 18 140/74 96 04/30/16 22:00 20 04/30/16 19:54 98.7 F 91 H 19 130/60 100 04/30/16 18:52 89 16 98 04/30/16 18:00 20 04/30/16 16:25 97.8 F 100 H 20 157/80 96 04/30/16 14:58 105 H 16 97 04/30/16 14:19 98 F 04/30/16 14:00 16 04/30/16 12:20 98 F 108 H 22 158/99 96 Oxygen-Last 24 hours O2 Percentage 3 Liters = 32% O2 Percentage 3 Liters = 32% O2 Percentage 3 Liters = 32% O2 Percentage 3 Liters = 32% O2 Percentage 3 Liters = 32% Pain Assessment - Last Documented Pain Intensity 10 Pain Scale Used 0-10 Pain Scale Intake and Output: Intake & Output 04/28/16 04/29/16 04/30/16 05/01/16 11:59 11:59 11:59 11:59 Intake Total 1084 2600 Balance 1084 2600 Weight 81.284 kg Lab Results: Lab Results-Last 24 Hours 04/30/16 04/30/16 05/01/16 Range/Units 20:05 20:05 09:45 WBC 18.9 H 13.2 H (4.0-10.5) K/mm3 RBC 3.63 L 3.76 L (4.1-5.4) M/mm3 Hgb 8.4 L 8.6 L (12.0-16.0) gm/dl Hct 27.9 L 29.3 L (35-47) % MCV 76.9 L 77.9 L (78-100) fl MCH 23.1 L 22.8 L (26-32) pg MCHC 30.1 L 29.4 L (32-36) g/dl RDW 16.4 H 16.6 H (11.5-14.0) % Plt Count 655 H 669 H (150-450) K/mm3 MPV 8.8 9.0 (6-9.5) fl Gran % 77.3 H (36.0-66.0) % Lymphocytes % 15.4 L (24.0-44.0) % Monocytes % 6.9 (0.0-12.0) % Eosinophils % 0.2 (0.00-5.0) % Basophils % 0.2 (0.0-0.4) % Basophils # 0.03 (0-0.4) Sodium 141 (136-145) mEq/L Potassium 3.8 (3.5-5.1) mEq/L Chloride 105 (98-107) mEq/L Carbon Dioxide 29.0 (21-32) mEq/L Anion Gap 10.8 (5-15) MEQ/L BUN 14 (9-20) mg/dL Creatinine 0.93 (0.55-1.30) mg/dl Estimated GFR > 60 ML/MIN Glucose 137 H (70-110) MG/DL Calcium 8.9 (8.5-10.1) mg/dL Total Bilirubin < 0.1 L (0.2-1.0) mg/dL AST 29 (15-37) U/L ALT 63 (12-78) U/L Alkaline Phosphatase 64 (46-116) U/L Troponin I < 0.017 (0.000-0.056) ng/ml Serum Total Protein 6.9 (6.4-8.2) gm/dL Albumin 3.5 (3.4-5.0) g/dL Radiology Exams: Radiology Procedures Category Date Time Status CAROTID BILATERAL [US] Urgent Exams 05/01/16 09:22 Completed ECHO W/2D AND DOPPLER [US] Urgent Exams 05/01/16 09:17 Taken HEAD WITHOUT CONTRAST [CT] Stat Exams 04/30/16 19:53 Completed MRI BRAIN W & W/O CONTRAST [MRI] Routine Exams 05/02/16 Ordered Assessment/Plan (1) CVA (cerebral vascular accident) Current Visit: Yes Status: Acute Qualifiers: CVA mechanism: unspecified Qualified Code(s): I63.9 - Cerebral infarction, unspecified Assessment & Plan: [facility] stroke protocol. Code(s): I63.9 - CEREBRAL INFARCTION, UNSPECIFIED (2) Acute exacerbation of chronic obstructive pulmonary disease (COPD) Current Visit: Yes Status: Acute Code(s): J44.1 - CHRONIC OBSTRUCTIVE PULMONARY DISEASE W (ACUTE) EXACERBATION (3) Gastroesophageal reflux disease Current Visit: No Status: Chronic Code(s): K21.9 - GASTRO-ESOPHAGEAL REFLUX DISEASE WITHOUT ESOPHAGITIS (4) Hypertension Current Visit: No Status: Chronic Qualifiers: Hypertension type: essential hypertension Qualified Code(s): I10 - Essential (primary) hypertension Code(s): I10 - ESSENTIAL (PRIMARY) HYPERTENSION
[2016-05-01] MEDS: ZOFRAN ODT 4 MG PO PRN (12:48)
[2016-05-01] MEDS: Sodium Chloride 0.9% 1000 ML 1,000 ML IV SCH (18:11)
[2016-05-01] MEDS: Ambien 10 MG PO SCH (22:30)
[2016-05-01] MEDS: Levofloxacin 500MG/100ML D5W 100 ML IV SCH (22:30)
[2016-05-01] MEDS: ZOCOR 20MG PO SCH (22:31)
[2016-05-02] MEDS: ZOFRAN ODT 4 MG PO PRN ×2 (00:33→17:22)
[2016-05-02] MEDS: PERCOCET TABLET 5/325MG PO PRN ×3 (04:25→20:22)
[2016-05-02] MEDS: DUONEB 0.5-3 MG/3 ml Neb IH SCH ×4 (06:59→19:03)
[2016-05-02] MEDS: Advair Hfa 115/21 Common canister IH SCH ×2 (07:00→19:03)
[2016-05-02] MEDS: Carafate 1 GM PO SCH ×4 (07:34→22:53)
[2016-05-02 08:02] LABS: COMPLETE URINE MICROSCOPIC? NO; Collection Type VOID
[2016-05-02] MEDS ORDERED: Valium 5 MG PO SCH (09:15)
[2016-05-02] MEDS: Vasotec 10 MG PO SCH (09:34)
[2016-05-02] MEDS: PLAVIX 75 MG Tablet PO SCH (09:34)
[2016-05-02] MEDS: ENOXAPARIN SODIUM SQ SCH (09:34)
[2016-05-02] MEDS: Protonix 40MG Tablet PO SCH (09:34)
[2016-05-02] MEDS: Ecotrin 325 MG PO SCH (09:34)
[2016-05-02] MEDS: solu-MEDROL 40 MG IV SCH ×2 (09:34→22:53)
--- NOTE | 2016-05-02 11:14 | XRAY ---
Indication: Weakness. Possible stroke. Sagittal, coronal, and axial MRI brain was performed without contrast using T1, T2, FLAIR, diffusion, and ADC sequences. Examination was ordered with contrast but patient reports known contrast allergy. Comparison: April 06, 2010. Stable age-appropriate global atrophy and mild periventricular degenerative micro-ischemia bilaterally. Stable left external capsule remote lacunar infarct. No acute intracranial hemorrhage, abnormal extra-axial fluid collection, or mass effect. Diffusion images are negative for restricted signal. Fourth ventricle is midline without hydrocephalus. 7/8 cranial nerve complex bilaterally symmetric. Normal flow void signal within the major intracerebral circulation. Normal-appearing craniocervical junction and sella turcica. Visualized paranasal sinuses are essentially clear. There is again fluid signal in the right mastoid air cells. Impression: 1. No acute intracranial abnormalities or evidence for evolving large vessel territorial stroke. 2. Stable normal aging brain with again atrophy and degenerative micro-ischemia. Also stable left external capsule remote lacunar infarct. 3. Stable right mastoid air cell fluid signal again presumed inflammatory.
--- NOTE | 2016-05-02 20:01 | PCM.NOTE ---
Date and Time: 05/02/161999 Subjective Assessment: doing better - Review of Systems Constitutional: No Fever, No Chills Eyes: No Symptoms Ears, Nose, & Throat: No Symptoms Respiratory: No Cough, No Short Of Breath Cardiac: No Chest Pain, No Edema, No Syncope Abdominal/Gastrointestinal: No Abdominal Pain, No Nausea, No Vomiting, No Diarrhea Genitourinary Symptoms: No Dysuria Musculoskeletal: No Back Pain, No Neck Pain Skin: No Rash Neurological: No Dizziness, No Focal Weakness, No Sensory Changes Psychological: No Symptoms Endocrine: No Symptoms Hematologic/Lymphatic: No Symptoms Immunological/Allergic: No Symptoms Objective Exam General Appearance: no apparent distress, alert Neurologic Exam: alert, oriented x 3, cooperative, normal mood/affect, nml cerebellar function, sensation nml, No motor deficits Skin Exam: normal color, warm, dry Eye Exam: PERRL, EOMI, eyes nml inspection Ears, Nose, Throat Exam: normal ENT inspection, pharynx normal, moist mucous membranes Neck Exam: normal inspection, non-tender, supple, full range of motion Respiratory Exam: normal breath sounds, lungs clear, No respiratory distress Cardiovascular Exam: regular rate/rhythm, normal heart sounds Gastrointestinal/Abdomen Exam: soft, No tenderness, No mass Extremity Exam: normal inspection, normal range of motion Back Exam: normal inspection, normal range of motion, No CVA tenderness, No vertebral tenderness Pelvic Exam: deferred Rectal Exam: deferred OBJECTIVE DATA Vital Signs: Vital Signs - 24 hr Temp Pulse Resp BP Pulse Ox 05/02/16 19:06 120 H 20 95 05/02/16 16:00 96.9 F 103 H 19 166/70 97 05/02/16 14:41 94 H 18 96 05/02/16 12:00 98.9 F 89 18 175/77 98 05/02/16 11:12 89 20 98 05/02/16 08:00 98.3 F 82 20 127/61 99 05/02/16 07:07 87 20 96 05/02/16 04:00 98.3 F 61 20 135/63 99 05/02/16 00:00 20 05/01/16 23:34 98.0 F 87 20 133/57 100 Oxygen-Last 24 hours O2 Percentage 3 Liters = 32% O2 Percentage 3 Liters = 32% O2 Percentage 3 Liters = 32% O2 Percentage 2 Liters = 28% O2 Percentage 2 Liters = 28% Pain Assessment - Last Documented Pain Intensity 3 Pain Scale Used 0-10 Pain Scale Intake and Output: Intake & Output 04/30/16 05/01/16 05/02/16 05/03/16 11:59 11:59 11:59 11:59 Intake Total 3278 960 Output Total 2099 1999 Balance 1178 -1040 Lab Results: Lab Results-Last 24 Hours 05/02/16 Range/Units 07:37 Ur Collection Type VOID Urine Color YELLOW (YELLOW) Urine Appearance CLEAR (CLEAR) Urine pH 5.0 (5-6) Ur Specific [place] 1.010 (1.005-1.025) Urine Protein NEGATIVE (Negative) Urine Glucose (UA) NEGATIVE (NEGATIVE) mg/dL Urine Ketones NEGATIVE (NEGATIVE) Urine Nitrite NEGATIVE (NEGATIVE) Urine Bilirubin NEGATIVE (NEGATIVE) Urine Urobilinogen 0.2 (0-1) mg/dL Urine WBC (Auto) NEGATIVE (NEGATIVE) Urine RBC (Auto) NEGATIVE (0-5) [place]/ul Specimen Received 05/02/16 0737 Assessment/Plan (1) CVA (cerebral vascular accident) Current Visit: Yes Status: Acute Qualifiers: CVA mechanism: unspecified Qualified Code(s): I63.9 - Cerebral infarction, unspecified Code(s): I63.9 - CEREBRAL INFARCTION, UNSPECIFIED (2) Acute exacerbation of chronic obstructive pulmonary disease (COPD) Current Visit: Yes Status: Acute Code(s): J44.1 - CHRONIC OBSTRUCTIVE PULMONARY DISEASE W (ACUTE) EXACERBATION (3) Gastroesophageal reflux disease Current Visit: Yes Status: Chronic Code(s): K21.9 - GASTRO-ESOPHAGEAL REFLUX DISEASE WITHOUT ESOPHAGITIS (4) Hypertension Current Visit: Yes Status: Chronic Qualifiers: Hypertension type: essential hypertension Qualified Code(s): I10 - Essential (primary) hypertension Code(s): I10 - ESSENTIAL (PRIMARY) HYPERTENSION
[2016-05-02] MEDS: Ambien 10 MG PO SCH (22:53)
[2016-05-02] MEDS: ZOCOR 20MG PO SCH (22:53)
[2016-05-02] MEDS: Levofloxacin 500MG/100ML D5W 100 ML IV SCH (22:53)
[2016-05-02] MEDS: Sodium Chloride 0.9% 10 ML FLUSH Syringe IV SCH (22:54)
[2016-05-03] MEDS: PERCOCET TABLET 5/325MG PO PRN ×5 (01:20→21:52)
[2016-05-03] MEDS: Sodium Chloride 0.9% 10 ML FLUSH Syringe IV SCH ×3 (05:46→22:16)
[2016-05-03] MEDS: DUONEB 0.5-3 MG/3 ml Neb IH SCH ×4 (06:54→18:44)
[2016-05-03] MEDS: Advair Hfa 115/21 Common canister IH SCH ×2 (06:55→18:44)
[2016-05-03] MEDS: Carafate 1 GM PO SCH ×4 (08:25→21:53)
[2016-05-03] MEDS: ZOFRAN ODT 4 MG PO PRN ×2 (08:29→16:52)
[2016-05-03] MEDS: solu-MEDROL 40 MG IV SCH ×2 (09:40→21:53)
[2016-05-03] MEDS: Ecotrin 325 MG PO SCH (09:40)
[2016-05-03] MEDS: ENOXAPARIN SODIUM SQ SCH (09:40)
[2016-05-03] MEDS: Protonix 40MG Tablet PO SCH (09:40)
[2016-05-03] MEDS: Vasotec 10 MG PO SCH (09:40)
[2016-05-03] MEDS: PLAVIX 75 MG Tablet PO SCH (09:45)
--- NOTE | 2016-05-03 12:24 | PCM.NOTE ---
Date and Time: 05/03/16 1223 Subjective Assessment: doing better - Review of Systems Constitutional: No Fever, No Chills Eyes: No Symptoms Ears, Nose, & Throat: No Symptoms Respiratory: No Cough, No Short Of Breath Cardiac: No Chest Pain, No Edema, No Syncope Abdominal/Gastrointestinal: No Abdominal Pain, No Nausea, No Vomiting, No Diarrhea Genitourinary Symptoms: No Dysuria Musculoskeletal: No Back Pain, No Neck Pain Skin: No Rash Neurological: No Dizziness, No Focal Weakness, No Sensory Changes Psychological: No Symptoms Endocrine: No Symptoms Hematologic/Lymphatic: No Symptoms Immunological/Allergic: No Symptoms Objective Exam General Appearance: no apparent distress, alert Neurologic Exam: alert, oriented x 3, cooperative, normal mood/affect, nml cerebellar function, sensation nml, No motor deficits Skin Exam: normal color, warm, dry Eye Exam: PERRL, EOMI, eyes nml inspection Ears, Nose, Throat Exam: normal ENT inspection, pharynx normal, moist mucous membranes Neck Exam: normal inspection, non-tender, supple, full range of motion Respiratory Exam: normal breath sounds, lungs clear, No respiratory distress Cardiovascular Exam: regular rate/rhythm, normal heart sounds Gastrointestinal/Abdomen Exam: soft, No tenderness, No mass Extremity Exam: normal inspection, normal range of motion Back Exam: normal inspection, normal range of motion, No CVA tenderness, No vertebral tenderness Pelvic Exam: deferred Rectal Exam: deferred OBJECTIVE DATA Vital Signs: Vital Signs - 24 hr Temp Pulse Resp BP Pulse Ox 05/03/16 11:54 98.5 F 100 H 19 143/65 95 05/03/16 10:47 98 H 20 96 05/03/16 07:35 98.3 F 93 H 20 153/67 95 05/03/16 06:56 83 20 97 05/03/16 04:00 98.4 F 87 20 139/64 99 05/03/16 00:00 98.2 F 91 H 22 131/65 100 05/02/16 20:00 97.9 F 96 H 22 153/69 99 05/02/16 19:06 120 H 20 95 05/02/16 16:00 96.9 F 103 H 19 166/70 97 05/02/16 14:41 94 H 18 96 Oxygen-Last 24 hours O2 Percentage 3 Liters = 32% O2 Percentage 3 Liters = 32% O2 Percentage 2 Liters = 28% O2 Percentage 2 Liters = 28% O2 Percentage 2 Liters = 28% O2 Percentage 3 Liters = 32% Pain Assessment - Last Documented Pain Intensity 4 Pain Scale Used 0-10 Pain Scale Intake and Output: Intake & Output 05/01/16 05/02/16 05/03/16 05/04/16 11:59 11:59 11:59 11:59 Intake Total 3278 2110 Output Total 2100 2000 Balance 1178 110 Weight 81.284 kg Lab Results: Lab Results-Last 24 Hours 05/01/16 Range/Units 15:38 C-Reactive Prot, Quant 2.43 (0.00-10.00) mg/L CODI IgG Screen Pending Assessment/Plan (1) CVA (cerebral vascular accident) Current Visit: Yes Status: Resolved Qualifiers: CVA mechanism: unspecified Qualified Code(s): I63.9 - Cerebral infarction, unspecified Code(s): I63.9 - CEREBRAL INFARCTION, UNSPECIFIED (2) Acute exacerbation of chronic obstructive pulmonary disease (COPD) Current Visit: Yes Status: Acute Code(s): J44.1 - CHRONIC OBSTRUCTIVE PULMONARY DISEASE W (ACUTE) EXACERBATION (3) Gastroesophageal reflux disease Current Visit: Yes Status: Resolved Code(s): K21.9 - GASTRO-ESOPHAGEAL REFLUX DISEASE WITHOUT ESOPHAGITIS (4) Hypertension Current Visit: Yes Status: Chronic Qualifiers: Hypertension type: essential hypertension Qualified Code(s): I10 - Essential (primary) hypertension Code(s): I10 - ESSENTIAL (PRIMARY) HYPERTENSION
[2016-05-03] MEDS: Levofloxacin 500MG/100ML D5W 100 ML IV SCH (21:53)
[2016-05-03] MEDS: Ambien 10 MG PO SCH (21:53)
[2016-05-03] MEDS: ZOCOR 20MG PO SCH (21:53)
[2016-05-04] MEDS: ZOFRAN ODT 4 MG PO PRN ×2 (05:13→12:17)
[2016-05-04] MEDS: Sodium Chloride 0.9% 10 ML FLUSH Syringe IV SCH ×2 (05:13→08:42)
[2016-05-04] MEDS: PERCOCET TABLET 5/325MG PO PRN ×2 (05:13→09:42)
[2016-05-04] MEDS: Advair Hfa 115/21 Common canister IH SCH (06:36)
[2016-05-04] MEDS: DUONEB 0.5-3 MG/3 ml Neb IH SCH ×3 (06:36→14:31)
[2016-05-04] MEDS: Carafate 1 GM PO SCH ×2 (07:49→11:58)
[2016-05-04] MEDS: Ecotrin 325 MG PO SCH (08:37)
[2016-05-04] MEDS: PLAVIX 75 MG Tablet PO SCH (08:37)
[2016-05-04] MEDS: ENOXAPARIN SODIUM SQ SCH (08:38)
[2016-05-04] MEDS: solu-MEDROL 40 MG IV SCH (08:38)
[2016-05-04] MEDS: Vasotec 10 MG PO SCH (08:38)
[2016-05-04] MEDS: Protonix 40MG Tablet PO SCH (08:39)
--- NOTE | 2016-05-04 09:08 | ECHO ---
DATE: 05/01/16 A transthoracic echocardiograph examination with color Doppler study was done. INDICATION: Hypertension and transient ischemic attacks. The left ventricle was only partially visualized. Estimated global left ventricular ejection fraction of around 50%. Color flow study shows trace mitral regurgitation and trace tricuspid regurgitation with right ventricular systolic pressure of 20 mm Hg. This is a fairly limited study which precludes adequate assessment of the intracardiac anatomy and physiology.
[2016-05-04 11:28] VITALS: BP 186/84
[2016-05-04 14:33] VITALS: PULSE 92; O2SAT 98
--- NOTE | 2016-05-04 17:24 | PCM.DS ---
Discharge Summary Date of Admission: 05/01/16 11:30 Date of Discharge: 05/04/2016 Admitting Physician: KENNETH POWELL Primary Care Provider: KENNETH POWELL Allergies Allergies Iodinated Contrast Media - Oral and [Iodinated Contrast Media - IV Dye] Allergy (Verified 04/29/16 13:20) iodine Allergy (Verified 04/29/16 13:20) propoxyphene [From Darvon] Allergy (Verified 04/29/16 13:20) acetaminophen [From Vicodin] Adverse Reaction (Verified 04/29/16 13:20) hydrocodone [From Vicodin] Adverse Reaction (Verified 04/29/16 13:20) Hospital Summary - Hospital Course Hospital Course: Patient was admitted with shortness of breath, slurred speech. Patient had another episode of TIA next evening, Teleneuroconsult , MRI brain didnot reveal any significant findings.Patient is being transferred to [facility] rehab today. Chief Complaint Diagnosis CVA Allergies Allergy/AdvReac Type Severity Reaction Status Date / Time Iodinated Contrast Media - Allergy Verified 04/29/16 13:20 Oral and [Iodinated Contrast Media - IV Dye] iodine Allergy Verified 04/29/16 13:20 propoxyphene [From Darvon] Allergy Verified 04/29/16 13:20 acetaminophen [From Vicodin] AdvReac Verified 04/29/16 13:20 hydrocodone [From Vicodin] AdvReac Verified 04/29/16 13:20 Vital Signs (Last 24 hours) Temp Pulse Resp BP Pulse Ox 05/04/16 14:33 92 H 18 98 05/04/16 12:00 22 05/04/16 11:27 98.4 F 108 H 22 186/84 96 05/04/16 11:07 70 18 98 05/04/16 07:46 18 05/04/16 07:42 97.6 F 81 18 146/77 99 05/04/16 06:38 93 H 20 98 05/04/16 04:00 98.5 F 93 H 20 133/62 97 05/04/16 00:00 98.5 F 86 18 142/65 98 05/03/16 20:00 98.3 F 102 H 16 152/92 93 L 05/03/16 18:46 105 H 16 93 L Home Medications Medication Instructions Recorded Confirmed Last Taken Type Zolpidem Tartrate [Ambien] 10 mg PO HS 04/29/16 04/29/16 04/28/16 21:00 History Acetaminophen [Tylenol Extra 500 mg PO Q6HPRN PRN #120 tablet 05/04/16 Unknown Rx Strength] Albuterol/Ipratropium 3ml Neb* 3 ml IH QIDRT #0 ampul.neb 05/04/16 Unknown Rx [DUONEB 0.5-3 MG/3 ml Neb] Aspirin EC 325 mg [Ecotrin 325 325 mg PO QAM #30 tablet.ec 05/04/16 Unknown Rx MG] Clopidogrel Bisulfate 75 mg 75 mg PO DAILY #30 tablet 05/04/16 Unknown Rx [PLAVIX 75 MG Tablet] Levofloxacin [Levaquin] 250 mg PO DAILY #5 tablet 05/04/16 Unknown Rx Methylprednisolone [Medrol Dose 4 mg PO UD #0 packet 05/04/16 Unknown Rx Pack] Current Medications Discontinued Medications Generic Name Dose Route Start Last Admin Trade Name Freq PRN Reason Stop Dose Admin Acetaminophen 650 mg 04/29/16 17:41 Tylenol 325 Mg PO 05/29/16 17:40 Q4H PRN PRN PAIN, FEVER, HEADACHE Albuterol Sulfate 2.5 mg 04/30/16 16:47 Proventil 2.5 Mg/3 Ml Neb IH 05/30/16 16:46 Q6HPRN PRN sob Albuterol/Ipratropium 3 ml 04/29/16 13:36 04/29/16 14:00 Duoneb 0.5-3 Mg/3 Ml Neb IH 04/29/16 13:37 3 ml STAT ONE Administration Albuterol/Ipratropium Confirm 04/29/16 13:44 Duoneb 0.5-3 Mg/3 Ml Neb Administered 04/29/16 13:45 Dose 3 ml IH .STK-MED ONE Albuterol/Ipratropium 3 ml 04/29/16 17:45 04/30/16 07:03 Duoneb 0.5-3 Mg/3 Ml Neb IH 05/29/16 17:44 3 ml Q4HPRN PRN Administration SHORTNESS OF BREATH/WHEEZING Albuterol/Ipratropium 3 ml 04/30/16 11:00 05/04/16 14:31 Duoneb 0.5-3 Mg/3 Ml Neb IH 05/30/16 10:59 3 ml QIDRT MONICA Administration Albuterol/Ipratropium Confirm 05/01/16 10:56 Duoneb 0.5-3 Mg/3 Ml Neb Administered 05/01/16 10:57 Dose 3 ml IH .STK-MED ONE Aspirin 81 mg 04/30/16 10:00 Baby Aspirin 81 Mg Chew PO 05/30/16 09:59 DAILY MONICA Aspirin 81 mg 04/30/16 10:00 04/30/16 10:25 Ecotrin 81 Mg PO 05/30/16 09:59 81 mg DAILY MONICA Administration Aspirin 325 mg 04/30/16 20:00 04/30/16 23:07 Ecotrin 325 Mg PO 05/30/16 19:59 Not Given HS [facility] Aspirin 81 mg 04/30/16 22:00 05/01/16 10:50 Baby Aspirin 81 Mg Chew PO 05/30/16 21:59 81 mg DAILY MONICA Administration Aspirin 325 mg 05/02/16 10:00 05/04/16 08:37 Ecotrin 325 Mg PO 06/01/16 09:59 325 mg QAM MONICA Administration Clopidogrel Bisulfate 75 mg 04/30/16 20:00 05/04/16 08:37 Plavix 75 Mg Tablet PO 05/30/16 19:59 75 mg DAILY MONICA Administration Diazepam 10 mg 05/02/16 09:15 05/02/16 09:34 Valium 5 Mg PO 05/02/16 12:00 10 mg 1XONLY MONICA Administration Enalapril Maleate 10 mg 04/30/16 10:00 05/04/16 08:38 Vasotec 10 Mg PO 05/30/16 09:59 10 mg DAILY MONICA Administration Enoxaparin Sodium 40 mg 05/02/16 10:00 05/04/16 08:38 Enoxaparin Sodium SQ 06/01/16 09:59 40 mg DAILY MONICA Administration Fentanyl Citrate 50 mcg 04/29/16 14:13 04/29/16 14:17 Sublimaze 100 Mcg/2 Ml IV 04/29/16 14:14 50 mcg STAT ONE Administration Fentanyl Citrate Confirm 04/29/16 14:13 Sublimaze 100 Mcg/2 Ml Administered 04/29/16 14:14 Dose 100 mcg .ROUTE .STK-MED ONE Azithromycin 250 mls @ 125 mls/hr 04/29/16 13:36 04/29/16 14:22 Zithromax 500 Mg/ 250 Ml Nacl Premix IV 04/29/16 15:35 125 mls/hr STAT ONE Administration Ceftriaxone Sodium/Dextrose 50 mls @ 100 mls/hr 04/29/16 13:36 04/29/16 14:19 Rocephin 1 Gm-D5w 50 Ml Bag IV 04/29/16 14:05 100 mls/hr STAT ONE Administration Sodium Chloride 1,000 mls @ 100 mls/hr 04/29/16 13:45 04/29/16 14:15 Sodium Chloride 0.9% 1000 Ml IV 05/29/16 13:44 100 mls/hr .Q10H MONICA Administration Azithromycin Confirm 04/29/16 14:13 Zithromax 500 Mg/ 250 Ml Nacl Premix Administered 04/29/16 14:14 Dose 250 mls @ ud IV .STK-MED ONE Sodium Chloride Confirm 04/29/16 14:13 Sodium Chloride 0.9% 1000 Ml Administered 04/29/16 14:14 Dose 1,000 mls @ ud .ROUTE .STK-MED ONE Ceftriaxone Sodium/Dextrose Confirm 04/29/16 14:13 Rocephin 1 Gm-D5w 50 Ml Bag Administered 04/29/16 14:14 Dose 50 mls @ ud IV .STK-MED ONE Sodium Chloride 1,000 mls @ 50 mls/hr 04/29/16 17:45 05/01/16 18:11 Sodium Chloride 0.9% 1000 Ml IV 05/29/16 17:44 50 mls/hr .Q20H MONICA Administration Levofloxacin/Dextrose 100 mls @ 100 mls/hr 04/29/16 22:00 05/03/16 21:53 Levofloxacin 500mg/100ml D5w IV 05/29/16 21:59 100 mls/hr Q24H MONICA Administration Levalbuterol HCl 1.25 mg 04/29/16 17:45 Xopenex 1.25 Mg/0.5 Ml Ud Nebule IH 05/29/16 17:44 Q2HPRN PRN DIFFICULTY BREATHING Methylprednisolone Sodium Succinate 125 mg 04/29/16 13:36 04/29/16 14:22 Solu-Medrol 125 Mg IV 04/29/16 13:37 125 mg STAT ONE Administration Methylprednisolone Sodium Succinate Confirm 04/29/16 14:21 Solu-Medrol 125 Mg Administered 04/29/16 14:22 Dose 125 mg .ROUTE .STK-MED ONE Methylprednisolone Sodium Succinate 40 mg 05/02/16 10:00 05/04/16 08:38 Solu-Medrol 40 Mg IV 06/01/16 09:59 40 mg Q12HT MONICA Administration Ondansetron HCl 4 mg 04/29/16 14:12 04/29/16 14:16 Zofran 4 Mg/2 Ml Vial IV 04/29/16 14:13 4 mg STAT ONE Administration Ondansetron HCl Confirm 04/29/16 14:12 Zofran 4 Mg/2 Ml Vial Administered 04/29/16 14:13 Dose 4 mg .ROUTE .STK-MED ONE Ondansetron HCl 4 mg 04/29/16 20:43 05/04/16 12:17 Zofran Odt 4 Mg PO 05/29/16 20:42 4 mg Q6H PRN PRN Administration NAUSEA/VOMITING Oxycodone/Acetaminophen 1 tab 04/29/16 17:44 04/29/16 19:01 Percocet Tablet 5/325mg PO 05/04/16 17:43 1 tab Q4H PRN PRN Administration PAIN Oxycodone/Acetaminophen 1.5 tab 04/29/16 20:54 05/04/16 09:42 Percocet Tablet 5/325mg PO 05/04/16 20:53 1.5 tab Q4H PRN PRN Administration PAIN Pantoprazole Sodium 40 mg 04/30/16 17:00 05/04/16 08:39 Protonix 40mg Tablet PO 05/30/16 16:59 40 mg DAILY MONICA Administration Pneumococcal 13-Valent Conj Vacc 0.5 ml 04/30/16 14:00 04/30/16 14:19 Prevnar 13 Syringe IM 04/30/16 14:01 0.5 ml .ONCE ONE Administration Fluticasone/Salmeterol 2 puff 04/30/16 07:00 05/04/16 06:36 Advair Hfa 115/21 Common Canister* IH 05/30/16 06:59 2 puff BIDRT MONICA Administration Simvastatin 20 mg 04/30/16 22:00 05/03/16 21:53 Zocor 20mg PO 05/30/16 21:59 20 mg HS MONICA Administration Sodium Chloride 10 ml 05/02/16 22:00 05/04/16 08:42 Sodium Chloride 0.9% 10 Ml Flush Syringe IV 06/01/16 21:59 10 ml Q8HT MONICA Administration Sucralfate 1 g 04/29/16 22:00 05/04/16 11:58 Carafate 1 Gm PO 05/29/16 21:59 1 g ACHS MONICA Administration Zolpidem Tartrate 10 mg 04/30/16 22:00 05/03/16 21:53 Ambien 10 Mg PO 05/30/16 21:59 10 mg HS MONICA Administration Intake & Output (Last 24 hours) 05/02/16 05/03/16 05/04/16 05/05/16 11:59 11:59 11:59 11:59 Intake Total 3278 2110 2100 360 Output Total 2100 2000 3800 Balance 1178 110 -1700 360 Weight 81.284 kg Microbiology Results (Last 24 hours) 04/29/16 13:46 Blood - Final Not Reportable 04/29/16 13:46 Blood Blood Culture - Final NO GROWTH 04/29/16 13:50 Blood - Final Not Reportable 04/29/16 13:50 Blood Blood Culture - Final NO GROWTH Orders (Last 24 hours) Category Date Time Status Discharge Routine Discharge 05/04/16 08:57 Ordered Discharge/Telephone Order Routine Discharge 05/04/16 08:57 Active Patient Care Notes (Last 24 hours) 05/04/16 09:45 (created 05/04/16 14:51) Case Management Note by Jayshree Sahu MD ORDER TO DC TO [facility] TODAY. PT REPORTS THAT HER FAMILY IS NOT ABLE TO PROVIDE TRANSPORT TODAY. REQUESTS [facility] [facility] FOR TRANSPORT. CALL TO [facility]. REPORTS THAT THEY WILL BE ABLE TO TRANSPORT PT THIS AFTERNOON. Initialized on 05/04/16 14:51 - END OF NOTE - Vitals & Intake/Output Vital Signs: Vital Signs Temperature 98.4 F 05/04/16 11:27 Pulse Rate 92 H 05/04/16 14:33 Respiratory Rate 18 05/04/16 14:33 Blood Pressure 186/84 05/04/16 11:27 O2 Sat by Pulse Oximetry 98 05/04/16 14:33 Oxygen-Last Documented O2 Percentage 3 Liters = 32% Intake & Output: Intake & Output 05/02/16 05/03/16 05/04/16 05/05/16 11:59 11:59 11:59 11:59 Intake Total 3278 2110 2100 360 Output Total 2100 1999 3800 Balance 1178 110 -1700 360 Weight 81.284 kg - Lab Result Diagrams: 05/01/16 09:45 04/30/16 20:05 Discharge Exam General Appearance: no apparent distress, alert Neurologic Exam: alert, oriented x 3, cooperative, normal mood/affect, nml cerebellar function, sensation nml, No motor deficits Skin Exam: normal color, warm, dry Eye Exam: PERRL, EOMI, eyes nml inspection Ears, Nose, Throat Exam: normal ENT inspection, pharynx normal, moist mucous membranes Neck Exam: normal inspection, non-tender, supple, full range of motion Respiratory Exam: normal breath sounds, lungs clear, No respiratory distress Cardiovascular Exam: regular rate/rhythm, normal heart sounds Gastrointestinal/Abdomen Exam: soft, No tenderness, No mass Extremity Exam: normal inspection, normal range of motion Back Exam: normal inspection, normal range of motion, No CVA tenderness, No vertebral tenderness Pelvic Exam: deferred Rectal Exam: deferred Final Diagnosis/Problem List - Final Discharge Diagnosis/Problem (1) CVA (cerebral vascular accident) Status: Resolved (2) Acute exacerbation of chronic obstructive pulmonary disease (COPD) Status: Resolved (3) Gastroesophageal reflux disease Status: Chronic (4) Hypertension Status: Chronic - Discharge Disposition: Skilled Care @ [place]' Condition: Stable Prescriptions: New Albuterol/Ipratropium 3ml Neb* [DUONEB 0.5-3 MG/3 ml Neb] 3 ml IH QIDRT #0 ampul.neb Aspirin EC 325 mg [Ecotrin 325 MG] 325 mg PO QAM #30 tablet.ec Levofloxacin [Levaquin] 250 mg PO DAILY #5 tablet Methylprednisolone [Medrol Dose Pack] 4 mg PO UD #0 packet Clopidogrel Bisulfate 75 mg [PLAVIX 75 MG Tablet] 75 mg PO DAILY #30 tablet Acetaminophen [Tylenol Extra Strength] 500 mg PO Q6HPRN PRN #120 tablet PRN Reason: Pain Continue Pravastatin Sodium 20 mg PO HS Omeprazole 20 MG [Prilosec 20 mg] 20 mg PO DAILY Enalapril Maleate 10 mg [Vasotec 10 MG] 10 mg PO DAILY Albuterol/Ipratropium Mdi [Combivent Inhaler] 2 puff IH Q4HPRN PRN PRN Reason: sob Albuterol 2.5 mg/3 ml Neb [Proventil 2.5 mg/3 ml Neb] 1 neb IH Q6HPRN PRN PRN Reason: sob Sucralfate [Carafate] 1 g PO QID Fluticasone/Vilanterol [Breo Ellipta 200-25 Mcg INH] 1 each IH DAILY Zolpidem Tartrate [Ambien] 10 mg PO HS Instructions: Chronic Obstructive Pulmonary Disease, Transient Ischemic Attack Additional Instructions: MANOLO MINAYA ORDERS: PT/OT EVAL AND TREAT CARDIAC DIET SEE ATTACHED MED LIST 2L PER NC, KEEP SPO2 Follow up with: KENNETH POWELL MD [Primary Care Provider] - (DR. POWELL WILL FOLLOW WHILE AT [facility]) Forms: Discharge Instructions, Patient Portal Information, Transfer Record Care Home
== END 2016-05-04 14:40 | DRG 65 ==
LOC: ED 13:07 → MED SURG 18:20 → OBSVTOIN 05-01 11:30
PROVIDERS: ADMIT General Practice; ATTEND General Practice
DX: I63.9 Cerebral infarction, unspecified (principal); J44.1 Chronic obstructive pulmonary disease with (acute) exacerbation; K21.9 Gastro-esophageal reflux disease without esophagitis; I10 Essential (primary) hypertension; E78.00 Pure hypercholesterolemia, unspecified; M19.90 Unspecified osteoarthritis, unspecified site; Z79.899 Other long term (current) drug therapy; Z86.73 Personal history of transient ischemic attack (TIA), and cerebral infarction without residual deficits; Z87.891 Personal history of nicotine dependence
CPT/HCPCS: 36415; 36600; 70450; 70551; 71010; 80053; 80061; 81002; 82375; 82803; 83036; 83605; 83721; 83735; 83880; 84443; 84484; 85025; 85027; 85610; 85652; 86038; 86140; 86430; 87040; 90670; 93005; 93041; 93268; 93306; 93880; 94640; 94668; 94760; 96360; 96361; 96365; 96366; 96367; 96374; 96375; 99285; G0009; G0378; J0456; J0696; J1650; J1956; J2405; J2920; J2930; J3010; Q0162; A9270-GY

== ENCOUNTER 2016-12-25 20:26 | Emergency (ER) | payer MEDICARE ==
[2016-12-25] MEDS ORDERED: Sodium Chloride 0.9% 1000 ML 1,000 ML IV SCH (20:30)
[2016-12-25] MEDS ORDERED: SUBLIMAZE 100 MCG/2 ML IV ONE (20:30)
[2016-12-25] MEDS ORDERED: Phenergan 25 MG INJ IV ONE (20:30)
--- NOTE | 2016-12-25 20:35 | ERPHSYRPT ---
- History of Present Illness Time Seen by Provider: 12/25/16 20:26 Source: patient Exam Limitations: no limitations Physician History: FOR THE PAST 2 HOURS PT HAS HAD NAUSEA, DIZZINESS(VERTIGO), GENERALIZED ACHES AND A FRONTAL HEADACHE; DENIES CHEST PAIN, ABDOMINAL PAIN, DIARRHEA, FEVER. Allergies/Adverse Reactions: Iodinated Contrast- Oral and IV Dye [Iodinated Contrast Media - IV Dye] Allergy (Verified 12/25/16 20:28) iodine Allergy (Verified 12/25/16 20:28) propoxyphene [From Darvon] Allergy (Verified 12/25/16 20:28) acetaminophen [From Vicodin] Adverse Reaction (Verified 12/25/16 20:28) hydrocodone [From Vicodin] Adverse Reaction (Verified 12/25/16 20:) Home Medications: Albuterol/Ipratropium Mdi [Combivent Inhaler] 2 puff IH Q4HPRN PRN 11/29/12 [History] Enalapril Maleate 10 mg [Vasotec 10 MG] 10 mg PO DAILY 11/29/12 [History] Pravastatin Sodium 20 mg PO HS 11/29/12 [History] Albuterol 2.5 mg/3 ml Neb [Proventil 2.5 mg/3 ml Neb] 1 neb IH Q6HPRN PRN 07/30/13 [History] Fluticasone/Vilanterol [Breo Ellipta 200-25 Mcg INH] 1 each IH DAILY 02/09/16 [ History] Zolpidem Tartrate [Ambien] 10 mg PO HS 04/29/16 [History] Acetaminophen [Tylenol Extra Strength] 1,000 mg PO Q4HPRN PRN 12/03/16 [History] Aspirin [Aspir-Low] 81 mg PO QAM 12/03/16 [History] Omeprazole 20 MG [Prilosec 20 mg] 20 mg PO DAILY 12/03/16 [History] Tramadol HCl 50 mg [Ultram 50 mg] 50 mg PO Q8HPRN PRN 12/03/16 [History] Hx Tetanus, Diphtheria Vaccination/Date Given: No Hx Influenza Vaccination/Date Given: Yes Hx Pneumococcal Vaccination/Date Given: Yes - Review of Systems Constitutional: No Fever Cardiac: No Chest Pain Abdominal/Gastrointestinal: Nausea, No Abdominal Pain, No Diarrhea Musculoskeletal: Other (GENERALIZED ACHES) Neurological: Dizziness, Headache All Other Systems: Reviewed and Negative - Past Medical History Pertinent Past Medical History: Yes Neurological History: TIA ENT History: No Pertinent History Cardiac History: High Cholesterol, Hypertension Respiratory History: COPD Endocrine Medical History: No Pertinent History Musculoskeletal History: Degenerative Disk Disease, Osteoarthritis GI Medical History: GERD, Hernia History: No Pertinent History Psycho-Social History: No Pertinent History Female Reproductive Disorders: No Pertinent History Other Medical History: hiatal hernia - Past Surgical History Past Surgical History: Yes Neuro Surgical History: No Pertinent History Cardiac: No Pertinent History Respiratory: No Pertinent History Gastrointestinal: Appendectomy, Cholecystectomy Genitourinary: No Pertinent History Musculoskeletal: Orthopedic Surgery Female Surgical History: Hysterectomy Other Surgical History: RIGHT FOOT SURGERY - Social History Smoking Status: Former smoker How long have you smoked: 30 yrs Exposure to second hand smoke: No Drug Use: none Patient Lives Alone: Yes - Female History Hx Now: No - Nursing Vital Signs Nursing Vital Signs: Initial Vital Signs Temperature 98.2 F 12/25/16 20:28 Pulse Rate 94 H 12/25/16 20:28 Respiratory Rate 16 12/25/16 20:28 Blood Pressure 160/81 12/25/16 20:28 O2 Sat by Pulse Oximetry 99 12/25/16 20:28 Pain Scale Pain Intensity 8 - Physical Exam General Appearance: alert Eye Exam: PERRL/EOMI Ears, Nose, Throat Exam: TMs normal, moist mucous membranes, pharyngeal erythema (MILD) Neck Exam: normal inspection Respiratory Exam: lungs clear Cardiovascular Exam: normal heart sounds Gastrointestinal/Abdomen Exam: soft, normal bowel sounds Back Exam: normal inspection Extremity Exam: normal inspection, No pedal edema Neurologic Exam: alert, cooperative Skin Exam: warm, dry - Course Nursing assessment & vital signs reviewed: Yes - Radiology Exams Chest X-ray Interpretation: Interpreted by me, No Pneumonia - CT Exams Head CT Interpretation: Discussed w/radiologist (COMPARED TO MULTIPLE CT HEAD EXAMS MOST RECENT 12/03/16. STABLE NONACUTE SENILE BRAIN WITH AGAIN LEFT EXTERNAL CAPSULE LACUNAR INFARCT.) Ordered Tests: Active Orders 24 hr Category Date Time Status Clean Catch Urine Specimen STAT Care 12/25/16 20:30 Active IV Insertion STAT Care 12/25/16 20:30 Active CHEST 2 VIEWS (PA AND LAT) Stat Exams 12/25/16 22:48 Taken HEAD WITHOUT CONTRAST [CT] Stat Exams 12/25/16 20:33 Taken AMYLASE Stat Lab 12/25/16 20:30 Completed CBC W DIFF Stat Lab 12/25/16 20:30 Results CMP Stat Lab 12/25/16 20:30 Completed CULTURE, THROAT Stat Lab 12/25/16 21:12 Received LIPASE Stat Lab 12/25/16 20:30 Completed Lactic Acid Stat Lab 12/25/16 23:00 Completed MAG [MAGNESIUM] Stat Lab 12/25/16 20:30 Completed Manual Differential NC Stat Lab 12/25/16 20:30 Results Price Screen Stat Lab 12/25/16 Completed Pathologist Review Stat Lab 12/25/16 20:30 Results STREP SCREEN-BETA A Stat Lab 12/25/16 21:12 Completed UA W/RFX UR CULTURE Stat Lab 12/25/16 22:00 Completed Medication Summary Generic Name Dose Route Start Last Admin Trade Name Freq PRN Reason Stop Dose Admin Sodium Chloride 1,000 mls @ 300 mls/hr 12/25/16 20:30 12/25/16 20:42 Sodium Chloride 0.9% 1000 Ml IV 01/24/17 20:29 300 mls/hr .Q3H20M MONICA Administration Discontinued Medications Generic Name Dose Route Start Last Admin Trade Name Freq PRN Reason Stop Dose Admin Fentanyl Citrate 50 mcg 12/25/16 20:30 12/25/16 20:47 Sublimaze 100 Mcg/2 Ml IV 12/25/16 20:31 50 mcg STAT ONE Administration Fentanyl Citrate Confirm 12/25/16 20:40 Sublimaze 100 Mcg/2 Ml Administered 12/25/16 20:41 Dose 100 mcg .ROUTE .STK-MED ONE Promethazine HCl 12.5 mg 12/25/16 20:30 12/25/16 20:43 Phenergan 25 Mg Inj IV 12/25/16 20:31 12.5 mg STAT ONE Administration Promethazine HCl Confirm 12/25/16 20:40 Phenergan 25 Mg Inj Administered 12/25/16 20:41 Dose 25 mg .ROUTE .STK-MED ONE Lab/Rad Data: Laboratory Result Diagrams 12/25/16 20:30 12/25/16 20:30 Laboratory Results 12/25/16 12/25/1617 Range/Units Unknown Unknown 23:00 WBC (4.0-10.5) K/mm3 RBC (4.1-5.4) M/mm3 Hgb (12.0-16.0) gm/dl Hct (35-47) % MCV (78-100) fl MCH (26-32) pg MCHC (32-36) g/dl RDW (11.5-14.0) % Plt Count (150-450) K/mm3 MPV (6-9.5) fl Segmented Neutrophils (36.0-66.0) % Band Neutrophils (0.0-2.0) % Lymphocytes (Manual) (24-44) % Monocytes (Manual) (0.0-12.0) % Eosinophils (Manual) (0.00-3.0) % Basophils (Manual) (0.0-1.0) % Differential Comment Platelet Estimate (NORMAL) Hypochromasia Poikilocytosis Anisocytosis Smear Path Review Sodium (136-145) mEq/L Potassium (3.5-5.1) mEq/L Chloride (98-107) mEq/L Carbon Dioxide (21-32) mEq/L Anion Gap (5-15) MEQ/L BUN (9-20) mg/dL Creatinine (0.55-1.30) mg/dl Estimated GFR ML/MIN Glucose (70-110) MG/DL Lactic Acid 0.9 (0.4-2.0) Calcium (8.5-10.1) mg/dL Magnesium (1.8-2.4) mg/dL Total Bilirubin (0.2-1.0) mg/dL AST (15-37) U/L ALT (12-78) U/L Alkaline Phosphatase (46-116) U/L Serum Total Protein (6.4-8.2) gm/dL Albumin (3.4-5.0) g/dL Amylase (25-115) U/L Lipase (73-393) U/L Ur Collection Type Urine Color (YELLOW) Urine Appearance (CLEAR) Urine pH (5-6) Ur Specific [place] (1.005-1.025) Urine Protein (Negative) Urine Ketones (NEGATIVE) Urine Blood (0-5) [place]/ul Urine Nitrite (NEGATIVE) Urine Bilirubin (NEGATIVE) Urine Urobilinogen (0-1) mg/dL Ur Leukocyte Esterase (NEGATIVE) Urine Culture Reflexed (NO) Urine Glucose (NEGATIVE) mg/dL Monoscreen NEGATIVE (Negative) Influenza Type A Ag NEGATIVE (NEGATIVE) Influenza Type B Ag NEGATIVE (NEGATIVE) RSV (PCR) NEGATIVE (Negative) Streptococcus Screen (Negative) Specimen Received 12/25/16 12/25/16 12/25/16 Range/Units 22:00 21:12 20:30 WBC (4.0-10.5) K/mm3 RBC (4.1-5.4) M/mm3 Hgb (12.0-16.0) gm/dl Hct (35-47) % MCV (78-100) fl MCH (26-32) pg MCHC (32-36) g/dl RDW (11.5-14.0) % Plt Count (150-450) K/mm3 MPV (6-9.5) fl Segmented Neutrophils (36.0-66.0) % Band Neutrophils (0.0-2.0) % Lymphocytes (Manual) (24-44) % Monocytes (Manual) (0.0-12.0) % Eosinophils (Manual) (0.00-3.0) % Basophils (Manual) (0.0-1.0) % Differential Comment Platelet Estimate (NORMAL) Hypochromasia Poikilocytosis Anisocytosis Smear Path Review Sodium (136-145) mEq/L Potassium (3.5-5.1) mEq/L Chloride (98-107) mEq/L Carbon Dioxide (21-32) mEq/L Anion Gap (5-15) MEQ/L BUN (9-20) mg/dL Creatinine (0.55-1.30) mg/dl Estimated GFR ML/MIN Glucose (70-110) MG/DL Lactic Acid (0.4-2.0) Calcium (8.5-10.1) mg/dL Magnesium 1.8 (1.8-2.4) mg/dL Total Bilirubin (0.2-1.0) mg/dL AST (15-37) U/L ALT (12-78) U/L Alkaline Phosphatase (46-116) U/L Serum Total Protein (6.4-8.2) gm/dL Albumin (3.4-5.0) g/dL Amylase (25-115) U/L Lipase (73-393) U/L Ur Collection Type CCMS Urine Color YELLOW (YELLOW) Urine Appearance CLEAR (CLEAR) Urine pH 6.0 (5-6) Ur Specific [place] 1.010 (1.005-1.025) Urine Protein NEGATIVE (Negative) Urine Ketones NEGATIVE (NEGATIVE) Urine Blood NEGATIVE (0-5) [place]/ul Urine Nitrite NEGATIVE (NEGATIVE) Urine Bilirubin NEGATIVE (NEGATIVE) Urine Urobilinogen NORMAL (0-1) mg/dL Ur Leukocyte Esterase NEGATIVE (NEGATIVE) Urine Culture Reflexed NO (NO) Urine Glucose NEGATIVE (NEGATIVE) mg/dL Monoscreen (Negative) Influenza Type A Ag (NEGATIVE) Influenza Type B Ag (NEGATIVE) RSV (PCR) (Negative) Streptococcus Screen NEGATIVE (Negative) Specimen Received 12-25-16 2200 12/25/16 12/25/16 Range/Units 20:30 20:30 WBC 18.4 H (4.0-10.5) K/mm3 RBC 5.10 (4.1-5.4) M/mm3 Hgb 11.2 L (12.0-16.0) gm/dl Hct 37.2 (35-47) % MCV 72.9 L (78-100) fl MCH 21.9 L (26-32) pg MCHC 30.1 L (32-36) g/dl RDW 24.8 H (11.5-14.0) % Plt Count 1038 H* (150-450) K/mm3 MPV 8.8 (6-9.5) fl Segmented Neutrophils 72 H (36.0-66.0) % Band Neutrophils 3 H (0.0-2.0) % Lymphocytes (Manual) 15 L (24-44) % Monocytes (Manual) 5 (0.0-12.0) % Eosinophils (Manual) 4 H (0.00-3.0) % Basophils (Manual) 1 (0.0-1.0) % Differential Comment ABNORMAL Platelet Estimate INCREASED (NORMAL) Hypochromasia 1+ Poikilocytosis 1+ Anisocytosis 1+ Smear Path Review Pending Sodium 139 (136-145) mEq/L Potassium 3.7 (3.5-5.1) mEq/L Chloride 100 (98-107) mEq/L Carbon Dioxide 28.6 (21-32) mEq/L Anion Gap 13.6 (5-15) MEQ/L BUN 14 (9-20) mg/dL Creatinine 0.73 (0.55-1.30) mg/dl Estimated GFR > 60 ML/MIN Glucose 121 H (70-110) MG/DL Lactic Acid (0.4-2.0) Calcium 9.8 (8.5-10.1) mg/dL Magnesium (1.8-2.4) mg/dL Total Bilirubin 0.20 (0.2-1.0) mg/dL AST 17 (15-37) U/L ALT 27 (12-78) U/L Alkaline Phosphatase 83 (46-116) U/L Serum Total Protein 8.6 H (6.4-8.2) gm/dL Albumin 3.9 (3.4-5.0) g/dL Amylase 25 (25-115) U/L Lipase 77 (73-393) U/L Ur Collection Type Urine Color (YELLOW) Urine Appearance (CLEAR) Urine pH (5-6) Ur Specific [place] (1.005-1.025) Urine Protein (Negative) Urine Ketones (NEGATIVE) Urine Blood (0-5) [place]/ul Urine Nitrite (NEGATIVE) Urine Bilirubin (NEGATIVE) Urine Urobilinogen (0-1) mg/dL Ur Leukocyte Esterase (NEGATIVE) Urine Culture Reflexed (NO) Urine Glucose (NEGATIVE) mg/dL Monoscreen (Negative) Influenza Type A Ag (NEGATIVE) Influenza Type B Ag (NEGATIVE) RSV (PCR) (Negative) Streptococcus Screen (Negative) Specimen Received - Departure Time of Disposition: 23:33 Departure Disposition: Home Clinical Impression: HEADACHE, VERTIGO, LEUKOCYTOSIS, THROMBOCYTOSIS, HTN, COPD, GERD, ARTHRITIS Condition: Stable Critical Care Time: No Referrals: YU PORRAS [Primary Care Provider] - Instructions: Vertigo, Nausea -- Adult, Headache Additional Instructions: FOLLOW UP WITH PRIVATE DOCTOR TOMORROW. Prescriptions: Meclizine HCl 25 mg [Antivert 25 mg] 25 mg PO Q8H PRN PRN #30 tablet PRN Reason: Dizziness
[2016-12-25 20:38] LABS: Mean Cell Volume 72.9 fl (78-100); Mean Platelet Volume 8.8 fl (6-9.5); Red Cell Distribution Width 24.8 % (11.5-14.0); White Blood Count 18.4 K/mm3 (4.0-10.5)
[2016-12-25] MEDS ORDERED: Sodium Chloride 0.9% 1000 ML 1,000 ML ONE (20:40)
[2016-12-25] MEDS ORDERED: SUBLIMAZE 100 MCG/2 ML ONE (20:40)
[2016-12-25] MEDS ORDERED: Phenergan 25 MG INJ ONE (20:40)
[2016-12-25 20:58] LABS: ALBUMIN 3.9 g/dL (3.4-5.0); ALKALINE PHOSPHATASE 83 U/L (46-116); ANION GAP 13.6 MEQ/L (5-15); BLOOD UREA NITROGEN 14 mg/dL (9-20); CHLORIDE 100 mEq/L (98-107); Carbon Dioxide 28.6 mEq/L (21-32); Glucose 121 MG/DL (70-110); LIPASE 77 U/L (73-393); Potassium 3.7 mEq/L (3.5-5.1); SGOT/AST 17 U/L (15-37); SGPT/ALT 27 U/L (12-78); SODIUM 139 mEq/L (136-145); Total Protein 8.6 gm/dL (6.4-8.2)
[2016-12-25 21:06] LABS: Mean Corpuscular Hemoglobin 21.9 pg (26-32)
[2016-12-25 21:08] LABS: Platelet Count 1038 K/mm3 (150-450)
[2016-12-25 22:08] LABS: BAND 3 % (0.0-2.0); Basophil 1 % (0.0-1.0); Eosinophil 4 % (0.00-3.0); Total Cells Counted 100
[2016-12-25 22:08] LABS: ADD URINE CULTURE? NO (NO); Bilirubin NEGATIVE (NEGATIVE); Blood NEGATIVE Ery/ul (0-5); COMPLETE URINE MICROSCOPIC? NO; Collection Type CCMS; Glucose NEGATIVE (NEGATIVE); Leukocyte Esterase NEGATIVE (NEGATIVE)
[2016-12-25 22:09] LABS: ANISOCYTOSIS 1+; Platelet Estimate INCREASED (NORMAL); Poikilocytosis 1+
[2016-12-25 22:10] LABS: Hypochromia 1+
[2016-12-26 00:07] VITALS: BP 112/74; PULSE 84; O2SAT 98
--- NOTE | 2016-12-26 08:42 | XRAY ---
Indication: Headache, nausea, and dizziness. History TIA and hypertension. Multiple contiguous images obtained through the head without contrast. Comparison: December 03, 2016. Stable normal aging brain including global atrophy and minimal periventricular degenerative micro-ischemia. Stable tiny left external capsule remote lacunar infarct. Again no acute intracranial hemorrhage, abnormal extra fluid collection, or mass effect. Leyva-white matter differentiation preserved. Fourth ventricle is midline without hydrocephalus. Bony calvarium intact. Visualized paranasal sinuses and mastoid air cells clear. Impression: Stable nonacute senile brain with again left external capsule remote lacunar infarct. CTDI 67.99
--- NOTE | 2016-12-26 08:44 | XRAY ---
Indication: Leukocytosis. Comparison: December 03, 2016. PA/lateral chest unchanged again hyperinflated and clear. Heart is not enlarged. No new/acute findings.
== END 2016-12-26 00:05 | disposition home or self-care (01) ==
LOC: ED 20:26
DX: R51 Headache (principal); R42 Dizziness and giddiness; D72.829 Elevated white blood cell count, unspecified; D47.3 Essential (hemorrhagic) thrombocythemia; I10 Essential (primary) hypertension; J44.9 Chronic obstructive pulmonary disease, unspecified; K21.9 Gastro-esophageal reflux disease without esophagitis; M19.90 Unspecified osteoarthritis, unspecified site; R11.0 Nausea; Z79.899 Other long term (current) drug therapy; E78.00 Pure hypercholesterolemia, unspecified; Z86.73 Personal history of transient ischemic attack (TIA), and cerebral infarction without residual deficits
CPT/HCPCS: 36000; 36415; 70450; 71020; 80053; 81002; 82150; 83605; 83690; 83735; 85025; 86308; 87070; 87430; 87631; 96360; 96361; 96374; 96375; 99284; J2550; J3010

== ENCOUNTER 2017-06-04 05:42 | Day surgery (SDC) | payer MEDICARE ==
[2017-06-04] MEDS ORDERED: DIPRIVAN 200 MG/20 ML IV ONE (05:43)
[2017-06-04] MEDS ORDERED: Ketamine HCl 50 MG/ML IV ONE (05:43)
[2017-06-04] MEDS ORDERED: Lactated Ringers 1,000 ML IV SCH (06:30)
[2017-06-04 08:18] VITALS: BP 133/71; PULSE 78; O2SAT 96
--- NOTE | 2017-06-04 09:48 | OP ---
SURGERY DATE/TIME: 06/04/2017 0656 PREOPERATIVE DIAGNOSIS: Screening exam. POSTOPERATIVE DIAGNOSIS: Normal colon. PROCEDURE: Colonoscopy. SURGEON: Dr. Adam. ANESTHESIA: MAC. Medications given by anesthesia department. HISTORY: The patient is a 62 year-old white female presenting now for screening colonoscopy. She was appraised of the risks of the procedure including the risk of perforation, phlebitis, untoward reaction to medication, bleeding and missed lesions. The patient verbalized her understanding and desired to have the procedure performed. DESCRIPTION OF PROCEDURE: The patient was given the medications by the anesthesia department. She had continuous pulse oximetry, ECG monitoring, intermittent blood pressure monitoring and tidal CO2 monitoring during the examination. She was placed in the left lateral decubitus position. A digital rectal examination was performed and revealed normal anal sphincter tone and no masses. The flexible Olympus pediatric colonoscope was used to intubate the rectum. A view of the colon was developed sequentially to the cecum. Upon insertion and withdrawal, including a retroflex view in the rectum was noted sigmoid diverticula. Otherwise no mucosal lesions were encountered. The scope was removed from the patient who tolerated the procedure well and was sent back to OP recovery in good condition. The prep was note to be fair to good.
== END 2017-06-04 08:15 | disposition home or self-care (01) ==
LOC: SDC 05:42
PROVIDERS: ATTEND Family Medicine
PROC: 0DJD8ZZ Inspection of Lower Intestinal Tract, Via Natural or Artificial Opening Endoscopic (ICD-10-PCS; principal; 2017-06-04)
DX: Z12.11 Encounter for screening for malignant neoplasm of colon (principal); I10 Essential (primary) hypertension; K21.9 Gastro-esophageal reflux disease without esophagitis
CPT/HCPCS: J2704

== ENCOUNTER 2017-08-02 19:09 | Emergency (ER) | payer MEDICARE ==
[2017-08-02] MEDS ORDERED: SUBLIMAZE 100 MCG/2 ML IV ONE (19:54)
[2017-08-02] MEDS ORDERED: Reglan 10 MG/2 ML IV ONE (19:54)
[2017-08-02] MEDS ORDERED: Pepcid 20 MG VIAL IV ONE ×2 (19:54→20:05)
[2017-08-02] MEDS ORDERED: Sodium Chloride 0.9% 1000 ML 1,000 ML IV SCH (20:00)
[2017-08-02 20:02] LABS: BASOPHIL % 0.1 % (0.0-0.4); Basophil (Absolute #) 0.02 (0-0.4); Eosinophil % 1.9 % (0.00-5.0); Eosinophil (Absolute #) 0.27 (0-0.5); Granulocytes % 78.8 % (36.0-66.0); Hematocrit 40.7 % (35-47); Hemoglobin 12.8 gm/dl (12.0-16.0); Lymphocyte (Absolute #) 1.96 (1.0-4.6); Lymphocytes % 13.5 % (24.0-44.0); Mean Cell Volume 75.7 fl (78-100); Mean Corpuscular Hemoglobin 23.8 pg (26-32); Mean Corpuscular Hgb Concent. 31.4 g/dl (32-36); Mean Platelet Volume 9.1 fl (6-9.5); Monocyte (Absolute #) 0.83 (0.0-1.3); Monocytes % 5.7 % (0.0-12.0); Platelet Count 977 K/mm3 (150-450); Red Blood Count 5.38 M/mm3 (4.1-5.4); Red Cell Distribution Width 19.8 % (11.5-14.0); White Blood Count 14.5 K/mm3 (4.0-10.5)
[2017-08-02] MEDS ORDERED: Reglan 10 MG/2 ML ONE (20:05)
[2017-08-02] MEDS ORDERED: Sodium Chloride 0.9% 1000 ML 1,000 ML ONE (20:05)
[2017-08-02] MEDS ORDERED: SUBLIMAZE 100 MCG/2 ML ONE (20:05)
[2017-08-02 20:13] LABS: INR 1.11 (0.8-3.0)
[2017-08-02 20:18] LABS: ALBUMIN 4.9 g/dL (3.5-5.0); ALKALINE PHOSPHATASE 109 U/L (38-126); AMYLASE 42 U/L (30-110); ANION GAP 17.7 MEQ/L (5-15); BLOOD UREA NITROGEN 21 mg/dL (7-17); CHLORIDE 100 mmol/L (98-107); Calcium 9.7 mg/dL (8.4-10.2); Carbon Dioxide 28 mmol/L (22-30); Creatinine 1 0.72 mg/dL (0.52-1.04); Glucose 125 mg/dL (74-106); LIPASE 37 U/L (23-300); SGOT/AST 22 U/L (14-36); SGPT/ALT 23 U/L (0-35); SODIUM 141 mmol/L (137-145); Total Protein 8.7 g/dL (6.3-8.2)
--- NOTE | 2017-08-02 20:19 | ERPHSYRPT ---
- History of Present Illness Time Seen by Provider: 08/02/17 19:46 Historian: patient Exam Limitations: no limitations Patient Subjective Stated Complaint: pt states she has been having n/v/d since last night with abd pain. pain increaasing through the day Triage Nursing Assessment: pt alert and oriented, answers questions approp. pt arrive per ambulance and transfer to stretcher with minimal assist. respirations nonlabored withl lungs cta, o2 on at 3l per nasal can- wears at home. abd soft, nontender to light palpation. bowel sounds x4 quads. Physician History: Pt started c/o left sided abdominal pain, radiating to her left flank since last night, vomiting, and diarrhea. She has been vomiting brownish liquid, denies hematemesis, no fever, chills, chest pain, or SOB, other complaints. She was administered iv saline and Zofran by EMS. Timing/Duration: yesterday Activities at Onset: none Quality: cramping Abdominal Pain Onset Location: [facility] Pain Radiation: flank (left) Severity of Pain-Max: severe Severity of Pain-Current: severe Modifying Factors: Improves With: nothing Associated Symptoms: diarrhea, nausea, vomiting Previous symptoms: no prior history Allergies/Adverse Reactions: Iodinated Contrast- Oral and IV Dye [Iodinated Contrast Media - IV Dye] Allergy (Verified 08/02/17 19:32) Itching iodine Allergy (Verified 08/02/17 19:32) Itching propoxyphene [From Darvon] Allergy (Verified 08/02/17 19:32) Nausea and Vomiting acetaminophen [From Vicodin] Adverse Reaction (Verified 08/02/17 19:32) Nausea and Vomiting hydrocodone [From Vicodin] Adverse Reaction (Verified 08/02/17 19:32) Nausea and Vomiting Home Medications: Albuterol/Ipratropium Mdi [Combivent Inhaler] 2 puff IH Q4HPRN PRN 11/29/12 [History] Pravastatin Sodium 20 mg PO HS 11/29/12 [History] Albuterol 2.5 mg/3 ml Neb [Proventil 2.5 mg/3 ml Neb] 1 neb IH Q6HPRN PRN 07/30/13 [History] Zolpidem Tartrate [Ambien] 10 mg PO HS 04/29/16 [History] Omeprazole 20 MG [Prilosec 20 mg] 20 mg PO DAILY 12/03/16 [History] Tramadol HCl 50 mg [Ultram 50 mg] 50 mg PO Q8HPRN PRN 12/03/16 [History] Albuterol/Ipratropium 3ml Neb* [DUONEB 0.5-3 MG/3 ml Neb] 3 ml IH QIDRT [History] Enalapril Maleate [Vasotec] 20 mg PO DAILY 06/04/17 [History] Ferrous Sulfate [Iron] 325 mg PO BID 06/04/17 [History] Fluticasone/Vilanterol [Breo Ellipta 200-25 Mcg INH] 1 each IH DAILY 06/04/17 [ History] Hx Tetanus, Diphtheria Vaccination/Date Given: No Hx Influenza Vaccination/Date Given: Yes Hx Pneumococcal Vaccination/Date Given: Yes Immunizations Up to Date: No - Review of Systems Constitutional: No Symptoms Abdominal/Gastrointestinal: Abdominal Pain, Nausea, Vomiting, Diarrhea All Other Systems: Reviewed and Negative - Past Medical History Pertinent Past Medical History: Yes Neurological History: TIA ENT History: No Pertinent History Cardiac History: High Cholesterol, Hypertension Respiratory History: COPD Endocrine Medical History: No Pertinent History Musculoskeletal History: Degenerative Disk Disease, Osteoarthritis GI Medical History: GERD, Hernia History: No Pertinent History Psycho-Social History: No Pertinent History Female Reproductive Disorders: No Pertinent History Other Medical History: hiatal hernia - Past Surgical History Past Surgical History: Yes Neuro Surgical History: No Pertinent History Cardiac: No Pertinent History Respiratory: No Pertinent History Gastrointestinal: Appendectomy, Cholecystectomy Genitourinary: No Pertinent History Musculoskeletal: Orthopedic Surgery Female Surgical History: Hysterectomy Other Surgical History: RIGHT FOOT SURGERY - Social History Smoking Status: Former smoker How long have you smoked: 30 yrs Exposure to second hand smoke: No Drug Use: none Patient Lives Alone: Yes - Nursing Vital Signs Nursing Vital Signs: Initial Vital Signs Temperature 98.3 F 08/02/17 19:19 Pulse Rate 113 H 08/02/17 19:19 Respiratory Rate 18 08/02/17 19:19 Blood Pressure 103/71 08/02/17 19:19 O2 Sat by Pulse Oximetry 97 08/02/17 19:19 Pain Scale Pain Intensity 4 - Physical Exam General Appearance: no apparent distress Eye Exam: eyes nml inspection Ears, Nose, Throat Exam: normal ENT inspection, moist mucous membranes Neck Exam: normal inspection, non-tender, supple, No JVD Respiratory Exam: normal breath sounds, lungs clear, airway intact, No chest tenderness, No respiratory distress Cardiovascular Exam: regular rate/rhythm, normal heart sounds, normal peripheral pulses, No murmur Gastrointestinal/Abdomen Exam: soft, tenderness (diffuse, mod.), distention, other (diminished bowel sounds), No mass, No guarding, No ecchymosis, No pulsatile mass, No rebound, No hernia Back Exam: normal inspection, CVA tenderness (left) Extremity Exam: normal inspection, No calf tenderness Neurologic Exam: alert, oriented x 3, normal mood/affect Skin Exam: normal color, warm, dry, No rash Lymphatic Exam: No adenopathy SpO2 Interpretation: normal SpO2: 97 Oxygen Delivery: Room Air - Course Nursing assessment & vital signs reviewed: Yes EKG Interpreted by Me: RATE (113/min), Sinus Tach, NORMAL AXIS, Non-specific ST Changes - Radiology Exams Chest X-ray Interpretation: Interpreted by me, Negative - CT Exams Abdomen/Pelvis CT Interpretation: Negative, Tele-radiologist Report Ordered Tests: Active Orders 24 hr Category Date Time Status EKG-ER Only STAT Care 08/02/17 19:54 Active IV Insertion STAT Care 08/02/17 19:54 Active NPO (ED) STAT Care 08/02/17 19:54 Active ABDOMEN AND PELVIS W/0 CONTRAS [CT] Stat Exams 08/02/17 19:55 Taken CHEST 1 VIEW (PORTABLE) Stat Exams 08/02/17 19:54 Taken AMYLASE Stat Lab 08/02/17 19:30 Completed CBC W DIFF Stat Lab 08/02/17 19:30 Completed CMP Stat Lab 08/02/17 19:30 Completed CULTURE,URINE Stat Lab 08/02/17 21:25 Received LIPASE Stat Lab 08/02/17 19:30 Completed Lactic Acid Stat Lab 08/02/17 20:35 Completed MAGNESIUM Stat Lab 08/02/17 19:30 Completed Occult Blood,Stool Other Stat Lab 08/02/17 21:20 Completed PROTIME WITH INR Stat Lab 08/02/17 19:30 Completed UA W/ MICROSCOPIC Stat Lab 08/02/17 21:25 Completed Medication Summary Generic Name Dose Route Start Last Admin Trade Name Freq PRN Reason Stop Dose Admin Sodium Chloride 1,000 mls @ 100 mls/hr 08/02/17 20:00 08/02/17 20:23 Sodium Chloride 0.9% 1000 Ml IV 09/01/17 19:59 100 mls/hr .Q10H MONICA Administration Discontinued Medications Generic Name Dose Route Start Last Admin Trade Name Shauna MCFARLANEN Reason Stop Dose Admin Famotidine 20 mg 08/02/17 19:54 08/02/17 20:23 Pepcid 20 Mg Vial IV 08/02/17 19:55 20 mg STAT ONE Administration Famotidine Confirm 08/02/17 20:05 Pepcid 20 Mg Vial Administered 08/02/17 20:06 Dose 20 mg IV .STK-MED ONE Fentanyl Citrate 50 mcg 08/02/17 19:54 08/02/17 20:22 Sublimaze 100 Mcg/2 Ml IV 08/02/17 19:55 50 mcg STAT ONE Administration Fentanyl Citrate Confirm 08/02/17 20:05 Sublimaze 100 Mcg/2 Ml Administered 08/02/17 20:06 Dose 100 mcg .ROUTE .STK-MED ONE Metoclopramide HCl 10 mg 08/02/17 19:54 08/02/17 20:23 Reglan 10 Mg/2 Ml IV 08/02/17 19:55 10 mg STAT ONE Administration Metoclopramide HCl Confirm 08/02/17 20:05 Reglan 10 Mg/2 Ml Administered 08/02/17 20:06 Dose 10 mg .ROUTE .STK-MED ONE Lab/Rad Data: Laboratory Result [facility] 08/02/17 19:30 08/02/17 19:30 Laboratory Results 08/02/17 08/02/17 08/02/17 Range/Units 21:25 21:20 20:35 WBC (4.0-10.5) K/mm3 RBC (4.1-5.4) M/mm3 Hgb (12.0-16.0) gm/dl Hct (35-47) % MCV (78-100) fl MCH (26-32) pg MCHC (32-36) g/dl RDW (11.5-14.0) % Plt Count (150-450) K/mm3 MPV (6-9.5) fl Gran % (36.0-66.0) % Eos # (Auto) (0-0.5) Absolute Lymphs (auto) (1.0-4.6) Absolute Monos (auto) (0.0-1.3) Lymphocytes % (24.0-44.0) % Monocytes % (0.0-12.0) % Eosinophils % (0.00-5.0) % Basophils % (0.0-0.4) % Absolute Granulocytes (1.4-6.9) Basophils # (0-0.4) PT (9.95-12.35) SECONDS INR (0.8-3.0) Sodium (137-145) mmol/L Potassium (3.5-5.1) mmol/L Chloride (98-107) mmol/L Carbon Dioxide (22-30) mmol/L Anion Gap (5-15) MEQ/L BUN (7-17) mg/dL Creatinine (0.52-1.04) mg/dL Estimated GFR ML/MIN Glucose (74-106) mg/dL Lactic Acid 1.0 (0.4-2.0) Calcium (8.4-10.2) mg/dL Magnesium (1.6-2.3) mg/dL Total Bilirubin (0.2-1.3) mg/dL AST (14-36) U/L ALT (0-35) U/L Alkaline Phosphatase (38-126) U/L Serum Total Protein (6.3-8.2) g/dL Albumin (3.5-5.0) g/dL Amylase (30-110) U/L Lipase (23-300) U/L Ur Collection Type VOID Urine Color DARK YELLOW (YELLOW) Urine Appearance HAZY (CLEAR) Urine pH 5.0 (5-6) Ur Specific [place] 1.025 (1.005-1.025) Urine Protein TRACE (Negative) Urine Ketones NEGATIVE (NEGATIVE) Urine Blood NEGATIVE (0-5) [place]/ul Urine Nitrite NEGATIVE (NEGATIVE) Urine Bilirubin SMALL (NEGATIVE) Urine Urobilinogen NORMAL (0-1) mg/dL Ur Leukocyte Esterase NEGATIVE (NEGATIVE) Urine Microscopic WBC 0-2 (0-5) /HPF Ur Epithelial Cells FEW (FEW) /HPF Urine Bacteria FEW (NEGATIVE) /HPF Urine Culture Reflexed YES (NO) Urine Glucose NEGATIVE (NEGATIVE) mg/dL Stool Occult Blood NEGATIVE (Negative) Specimen Received 08/02 219908/02/17 08/02/17 08/02/17 Range/Units 19:30 19:30 19:30 WBC (4.0-10.5) K/mm3 RBC (4.1-5.4) M/mm3 Hgb (12.0-16.0) gm/dl Hct (35-47) % MCV (78-100) fl MCH (26-32) pg MCHC (32-36) g/dl RDW (11.5-14.0) % Plt Count (150-450) K/mm3 MPV (6-9.5) fl Gran % (36.0-66.0) % Eos # (Auto) (0-0.5) Absolute Lymphs (auto) (1.0-4.6) Absolute Monos (auto) (0.0-1.3) Lymphocytes % (24.0-44.0) % Monocytes % (0.0-12.0) % Eosinophils % (0.00-5.0) % Basophils % (0.0-0.4) % Absolute Granulocytes (1.4-6.9) Basophils # (0-0.4) PT 12.9 H (9.95-12.35) SECONDS INR 1.11 (0.8-3.0) Sodium 141 (137-145) mmol/L Potassium 4.0 (3.5-5.1) mmol/L Chloride 100 (98-107) mmol/L Carbon Dioxide 28 (22-30) mmol/L Anion Gap 17.7 H (5-15) MEQ/L BUN 21 H (7-17) mg/dL Creatinine 0.72 (0.52-1.04) mg/dL Estimated GFR > 60.0 ML/MIN Glucose 125 H (74-106) mg/dL Lactic Acid (0.4-2.0) Calcium 9.7 (8.4-10.2) mg/dL Magnesium 2.1 (1.6-2.3) mg/dL Total Bilirubin 0.40 (0.2-1.3) mg/dL AST 22 (14-36) U/L ALT 23 (0-35) U/L Alkaline Phosphatase 109 (38-126) U/L Serum Total Protein 8.7 H (6.3-8.2) g/dL Albumin 4.9 (3.5-5.0) g/dL Amylase 42 (30-110) U/L Lipase 37 (23-300) U/L Ur Collection Type Urine Color (YELLOW) Urine Appearance (CLEAR) Urine pH (5-6) Ur Specific [place] (1.005-1.025) Urine Protein (Negative) Urine Ketones (NEGATIVE) Urine Blood (0-5) [place]/ul Urine Nitrite (NEGATIVE) Urine Bilirubin (NEGATIVE) Urine Urobilinogen (0-1) mg/dL Ur Leukocyte Esterase (NEGATIVE) Urine Microscopic WBC (0-5) /HPF Ur Epithelial Cells (FEW) /HPF Urine Bacteria (NEGATIVE) /HPF Urine Culture Reflexed (NO) Urine Glucose (NEGATIVE) mg/dL Stool Occult Blood (Negative) Specimen Received 08/02/17 Range/Units 19:30 WBC 14.5 H (4.0-10.5) K/mm3 RBC 5.38 (4.1-5.4) M/mm3 Hgb 12.8 (12.0-16.0) gm/dl Hct 40.7 (35-47) % MCV 75.7 L (78-100) fl MCH 23.8 L (26-32) pg MCHC 31.4 L (32-36) g/dl RDW 19.8 H (11.5-14.0) % Plt Count 977 H (150-450) K/mm3 MPV 9.1 (6-9.5) fl Gran % 78.8 H (36.0-66.0) % Eos # (Auto) 0.27 (0-0.5) Absolute Lymphs (auto) 1.96 (1.0-4.6) Absolute Monos (auto) 0.83 (0.0-1.3) Lymphocytes % 13.5 L (24.0-44.0) % Monocytes % 5.7 (0.0-12.0) % Eosinophils % 1.9 (0.00-5.0) % Basophils % 0.1 (0.0-0.4) % Absolute Granulocytes 11.40 H (1.4-6.9) Basophils # 0.02 (0-0.4) PT (9.95-12.35) SECONDS INR (0.8-3.0) Sodium (137-145) mmol/L Potassium (3.5-5.1) mmol/L Chloride (98-107) mmol/L Carbon Dioxide (22-30) mmol/L Anion Gap (5-15) MEQ/L BUN (7-17) mg/dL Creatinine (0.52-1.04) mg/dL Estimated GFR ML/MIN Glucose (74-106) mg/dL Lactic Acid (0.4-2.0) Calcium (8.4-10.2) mg/dL Magnesium (1.6-2.3) mg/dL Total Bilirubin (0.2-1.3) mg/dL AST (14-36) U/L ALT (0-35) U/L Alkaline Phosphatase (38-126) U/L Serum Total Protein (6.3-8.2) g/dL Albumin (3.5-5.0) g/dL Amylase (30-110) U/L Lipase (23-300) U/L Ur Collection Type Urine Color (YELLOW) Urine Appearance (CLEAR) Urine pH (5-6) Ur Specific [place] (1.005-1.025) Urine Protein (Negative) Urine Ketones (NEGATIVE) Urine Blood (0-5) [place]/ul Urine Nitrite (NEGATIVE) Urine Bilirubin (NEGATIVE) Urine Urobilinogen (0-1) mg/dL Ur Leukocyte Esterase (NEGATIVE) Urine Microscopic WBC (0-5) /HPF Ur Epithelial Cells (FEW) /HPF Urine Bacteria (NEGATIVE) /HPF Urine Culture Reflexed (NO) Urine Glucose (NEGATIVE) mg/dL Stool Occult Blood (Negative) Specimen Received - Progress Progress: improved Progress Note: 08/02/17 22:29 Pt improved, pain resolved, denies nausea, afebrile, stable. I called Dr Adam , discussed her results and current condition, he agreed with our plan to discharge her, and he will follow up next week. I discussed this with patient, she agreed, will rest x 2-3 days, continue liquid diet, return if severe pain, vomiting, fever> 102F. Discussed with : Kia Will see patient in: office Counseled pt/family regarding: lab results, diagnosis, need for follow-up, rad results - Departure Time of Disposition: 22:31 Departure Disposition: Home Clinical Impression: Vomiting Qualifiers: Vomiting type: unspecified Vomiting Intractability: non-intractable Nausea presence: with nausea Qualified Code(s): R11.2 - Nausea with vomiting, unspecified Condition: Stable Critical Care Time: No Referrals: YU ADAM [Primary Care Provider] - Instructions: Nausea and Vomiting, Adult (DC) Additional Instructions: Rest x 2-3 days, drink plenty of fluids and diet, return if severe pain, vomiting, or fever> 102 F, follow up with your PCP in 2-3 days! Prescriptions: Metoclopramide HCl 10 mg [Reglan 10 MG] 10 mg PO TID PRN #15 tablet PRN Reason: Nausea/Vomiting
[2017-08-02 22:00] LABS: Appearance HAZY (CLEAR); Bilirubin SMALL (NEGATIVE); Glucose NEGATIVE (NEGATIVE); Ketones NEGATIVE (NEGATIVE); Leukocyte Esterase NEGATIVE (NEGATIVE); Nitrite NEGATIVE (NEGATIVE); Protein,Urine Dip TRACE (Negative); Specific Gravity 1.025 (1.005-1.025); Urobilinogen NORMAL mg/dL (0-1)
[2017-08-02 22:01] LABS: Blood NEGATIVE Ery/ul (0-5)
[2017-08-02 22:06] LABS: Bacteria FEW /HPF (NEGATIVE); Epithelial Cells FEW /HPF (FEW); WBC 0-2 /HPF (0-5)
[2017-08-02 22:25] VITALS: PULSE 101
--- NOTE | 2017-08-02 22:37 | XRAY ---
Indication: Short of breath. Comparison: December 25, 2016. Portable chest remains hyperinflated and clear. Heart and mediastinal structures within normal limits. Bony thorax intact again with osteopenia and degenerative changes. Impression: Stable nonacute hyperinflated chest.
[2017-08-02 22:44] VITALS: BP 116/72; O2SAT 98
--- NOTE | 2017-08-02 23:08 | XRAY ---
Indication: Abdomen pain, nausea, vomiting, and diarrhea. Multiple contiguous axial images obtained through the abdomen and pelvis without contrast as ordered. Comparison: December 06, 2016. Lung bases remain clear. Heart is not enlarged. Stomach is moderately distended with fluid. Noncontrasted stomach and bowel loops appear nonobstructed. Again minimal sigmoid diverticulosis without diverticulitis. Previous appendectomy, cholecystectomy, and hysterectomy. No free fluid/air. Remaining liver, pancreas, spleen, adrenal glands, kidneys, ureters, and bladder appear unremarkable for noncontrast exam. There remains mild aortoiliac calcifications without AAA. Osseous structures intact again with minimal degenerative changes throughout the spine. Impression: 1. Stable sigmoid diverticulosis. 2. No new or acute intra-abdominal/pelvic abnormalities on this noncontrast exam. Comment: Preliminary interpretation was made by C. No discrepancy. CTDI 21.96
== END 2017-08-02 22:54 | disposition home or self-care (01) ==
LOC: ED 19:09
DX: R11.2 Nausea with vomiting, unspecified (principal); R10.12 Left upper quadrant pain; R19.7 Diarrhea, unspecified; Z79.899 Other long term (current) drug therapy
CPT/HCPCS: 36000; 36415; 71045; 74176; 80053; 81000; 82150; 82272; 83605; 83690; 83735; 85025; 85610; 87086; 93005; 96360; 96361; 96374; 96375; 99285; J3010

== ENCOUNTER 2017-11-07 09:13 | Emergency (ER) | payer MEDICARE ==
--- NOTE | 2017-11-07 09:26 | ERPHSYRPT ---
- History of Present Illness Time Seen by Provider: 11/07/17 09:25 Source: patient Physician History: 62 y/o white female presents with 2 week h/o worsening soa. pt has copd. pt denies cp. pt does have mild upper abd tenderness in a bandlike fashion. pt has been recently worked up for tarry stools without findings of a dx. pt is on plavix. pt has h/o tia and hiatal hernia. sx worse since yesterday. soa is the worse sx. pt states she has a chronically elevated wbc. i reviewed old pt records and found pts wbc ranges 13,000 to 18,000 over last few years. wbc has been as high as 32, 000 Timing/Duration: day(s) (one day ago worse), week(s) (noticed sx worsening.) Activities at Onset: none Severity of Dyspnea-Max: mild Severity of Dyspnea-Current: mild Possible Cause: occasional episodes Modifying Factors: Improves With: nothing Associated Symptoms: intermittent, No anxiety, No chest pain/discomfort, No lightheadedness, No wheezing, No weakness, No hemoptysis, No heaviness, No heart racing, No lightheadedness Allergies/Adverse Reactions: Iodinated Contrast- Oral and IV Dye [Iodinated Contrast Media - IV Dye] Allergy (Verified 08/02/17 19:32) Itching iodine Allergy (Verified 08/02/17 19:32) Itching propoxyphene [From Darvon] Allergy (Verified 08/02/17 19:32) Nausea and Vomiting acetaminophen [From Vicodin] Adverse Reaction (Verified 08/02/17 19:32) Nausea and Vomiting hydrocodone [From Vicodin] Adverse Reaction (Verified 08/02/17 19:32) Nausea and Vomiting Home Medications: Albuterol/Ipratropium Mdi [Combivent Inhaler] 2 puff IH Q4HPRN PRN 11/29/12 [History] Pravastatin Sodium 20 mg PO HS 11/29/12 [History] Albuterol 2.5 mg/3 ml Neb [Proventil 2.5 mg/3 ml Neb] 1 neb IH Q6HPRN PRN 07/30/13 [History] Zolpidem Tartrate [Ambien] 10 mg PO HS 04/29/16 [History] Omeprazole 20 MG [Prilosec 20 mg] 20 mg PO DAILY 12/03/16 [History] Tramadol HCl 50 mg [Ultram 50 mg] 50 mg PO Q8HPRN PRN 12/03/16 [History] Albuterol/Ipratropium 3ml Neb* [DUONEB 0.5-3 MG/3 ml Neb] 3 ml IH QIDRT [History] Enalapril Maleate [Vasotec] 20 mg PO DAILY 06/04/17 [History] Ferrous Sulfate [Iron] 325 mg PO BID 06/04/17 [History] Fluticasone/Vilanterol [Breo Ellipta 200-25 Mcg INH] 1 each IH DAILY 06/04/17 [ History] Hx Tetanus, Diphtheria Vaccination/Date Given: No Hx Influenza Vaccination/Date Given: Yes Hx Pneumococcal Vaccination/Date Given: Yes - Review of Systems Constitutional: No Symptoms Eyes: No Symptoms Ears, Nose, & Throat: No Symptoms Respiratory: Dyspnea, No Cough, No Stridor, No Wheezing Cardiac: No Symptoms, No Chest Pain, No Palpitations, No Syncope Abdominal/Gastrointestinal: Abdominal Pain, Nausea, Other (chronic tary stools) , No Vomiting, No Diarrhea Genitourinary Symptoms: No Symptoms, No Dysuria, No Frequency, No Hematuria Musculoskeletal: No Symptoms Skin: No Symptoms Neurological: No Symptoms Psychological: No Symptoms Endocrine: No Symptoms Hematologic/Lymphatic: No Symptoms Immunological/Allergic: No Symptoms All Other Systems: Reviewed and Negative - Past Medical History Pertinent Past Medical History: Yes Neurological History: TIA ENT History: No Pertinent History Cardiac History: High Cholesterol, Hypertension Respiratory History: COPD Endocrine Medical History: No Pertinent History Musculoskeletal History: Degenerative Disk Disease, Osteoarthritis GI Medical History: GERD, Hernia History: No Pertinent History Psycho-Social History: No Pertinent History Female Reproductive Disorders: No Pertinent History Other Medical History: hiatal hernia - Past Surgical History Past Surgical History: Yes Neuro Surgical History: No Pertinent History Cardiac: No Pertinent History Respiratory: No Pertinent History Gastrointestinal: Appendectomy, Cholecystectomy Genitourinary: No Pertinent History Musculoskeletal: Orthopedic Surgery Female Surgical History: Hysterectomy Other Surgical History: RIGHT FOOT SURGERY - Social History Smoking Status: Former smoker How long have you smoked: 30 yrs Exposure to second hand smoke: No Drug Use: none Patient Lives Alone: Yes - Nursing Vital Signs Nursing Vital Signs: Initial Vital Signs Temperature 97.8 F 11/07/17 09:45 Pulse Rate 110 H 11/07/17 09:45 Respiratory Rate 22 11/07/17 09:45 Blood Pressure 180/114 11/07/17 09:45 O2 Sat by Pulse Oximetry 98 11/07/17 09:45 Pain Scale Pain Intensity 3 - Physical Exam General Appearance: mild distress, alert, anxiety Eye Exam: PERRL/EOMI Ears, Nose, Throat Exam: hearing grossly normal, normal ENT inspection, normal pharynx Neck Exam: normal inspection, non-tender, supple, full range of motion Respiratory Exam: normal breath sounds, lungs clear, airway intact, No chest tenderness, No respiratory distress, No diminished breath sounds, No accessory muscle use, No rhonchi, No wheezing, No stridor, No pleural rub Cardiovascular/Chest Exam: normal heart sounds, regular rate/rhythm Abdominal/Gastrointestinal Exam: soft, normal bowel sounds, tenderness (mild upper), No distention, No mass, No guarding, No rebound Rectal Exam: not done Extremity Exam: non-tender, normal range of motion, normal inspection, normal capillary refill Neurologic Exam: alert, oriented x 3, cooperative, fish packer II-XII nml as tested, normal mood/affect, nml cerebellar function Skin Exam: normal color, warm, dry Lymphatic Exam: No adenopathy SpO2 Interpretation: normal Oxygen Delivery: Room Air - Course Nursing assessment & vital signs reviewed: Yes EKG Interpreted by Me: RATE (95), Sinus Rhythm, NORMAL AXIS, NORMAL INTERVALS, NORMAL QRS, NORMAL ST-T, Other (compared to ekg 08/02/17-tachycardia has resolved ) Ordered Tests: Active Orders 24 hr Category Date Time Status Dry Kiln Operator STAT Care 11/07/17 09:46 Active Clean Catch Urine Specimen STAT Care 11/07/17 12:38 Active EKG-ER Only STAT Care 11/07/17 09:43 Active IV Insertion STAT Care 11/07/17 09:43 Active CHEST 1 VIEW (PORTABLE) Stat Exams 11/07/17 09:54 Completed CBC W DIFF Stat Lab 11/07/17 09:55 Completed CMP Stat Lab 11/07/17 09:55 Completed D-DIMER QUANTITATION Stat Lab 11/07/17 09:55 Completed Manual Differential NC Stat Lab 11/07/17 09:55 Completed NT PRO BNP Stat Lab 11/07/17 09:55 Completed TROPONIN Q3H Lab 11/07/17 09:55 Completed TROPONIN Q3H Lab 11/07/17 12:32 Completed TROPONIN Q3H Lab 11/07/17 15:45 Ordered TROPONIN Q3H Lab 11/07/17 18:45 Ordered TROPONIN Q3H Lab 11/07/17 21:45 Ordered UA W/RFX UR CULTURE Stat Lab 11/07/17 13:45 Completed Medication Summary Discontinued Medications Generic Name Dose Route Start Last Admin Trade Name Freq PRN Reason Stop Dose Admin Hydromorphone HCl 0.5 mg 11/07/17 10:28 11/07/17 10:33 Hydromorphone 1 Mg/Ml Ampule IV 11/07/17 10:29 0.5 mg STAT ONE Administration Hydromorphone HCl Confirm 11/07/17 10:32 Hydromorphone 1 Mg/Ml Ampule Administered 11/07/17 10:33 Dose 1 mg .ROUTE .STK-MED ONE Ondansetron HCl 4 mg 11/07/17 09:46 11/07/17 09:57 Zofran 4 Mg/2 Ml Vial IV 11/07/17 09:47 4 mg STAT ONE Administration Ondansetron HCl Confirm 11/07/17 09:56 Zofran 4 Mg/2 Ml Vial Administered 11/07/17 09:57 Dose 4 mg .ROUTE .STK-MED ONE Lab/Rad Data: Laboratory Result Diagrams 11/07/17 09:55 11/07/17 09:55 Laboratory Results 11/07/17 11/07/17 11/07/17 Range/Units 13:45 12:32 09:55 WBC (4.0-10.5) K/mm3 RBC (4.1-5.4) M/mm3 Hgb (12.0-16.0) gm/dl Hct (35-47) % MCV (78-100) fl MCH (26-32) pg MCHC (32-36) g/dl RDW (11.5-14.0) % Plt Count (150-450) K/mm3 MPV (6-9.5) fl Absolute Granulocytes (1.4-6.9) D-Dimer (215-500) ng/mL Sodium (137-145) mmol/L Potassium (3.5-5.1) mmol/L Chloride (98-107) mmol/L Carbon Dioxide (22-30) mmol/L Anion Gap (5-15) MEQ/L BUN (7-17) mg/dL Creatinine (0.52-1.04) mg/dL Estimated GFR ML/MIN Glucose (74-106) mg/dL Calcium (8.4-10.2) mg/dL Total Bilirubin (0.2-1.3) mg/dL AST (14-36) U/L ALT (0-35) U/L Alkaline Phosphatase (38-126) U/L Troponin I < 0.012 < 0.012 (0.000-0.034) ng/mL NT-Pro-B Natriuret Pep (0-900) pg/mL Serum Total Protein (6.3-8.2) g/dL Albumin (3.5-5.0) g/dL Urine Color YELLOW (YELLOW) Urine Appearance CLEAR (CLEAR) Urine pH 7.0 (5-6) Ur Specific [place] 1.011 (1.005-1.025) Urine Protein NEGATIVE (Negative) Urine Ketones NEGATIVE (NEGATIVE) Urine Blood NEGATIVE (0-5) [place]/ul Urine Nitrite NEGATIVE (NEGATIVE) Urine Bilirubin NEGATIVE (NEGATIVE) Urine Urobilinogen NEGATIVE (0-1) mg/dL Ur Leukocyte Esterase NEGATIVE (NEGATIVE) U Epithel Cells (Auto) NONE SEEN (FEW) /HPF Urine Culture Reflexed NO (NO) Urine Glucose NEGATIVE (NEGATIVE) mg/dL 11/07/17 11/07/17 11/07/17 Range/Units 09:55 09:55 09:55 WBC 20.4 H (4.0-10.5) K/mm3 RBC 4.86 (4.1-5.4) M/mm3 Hgb 12.6 (12.0-16.0) gm/dl Hct 39.2 (35-47) % MCV 80.7 (78-100) fl MCH 25.9 L (26-32) pg MCHC 32.1 (32-36) g/dl RDW 17.9 H (11.5-14.0) % Plt Count 776 H (150-450) K/mm3 MPV 9.3 (6-9.5) fl Absolute Granulocytes 12.27 H (1.4-6.9) D-Dimer < 215 L (215-500) ng/mL Sodium 139 (137-145) mmol/L Potassium 3.9 (3.5-5.1) mmol/L Chloride 99 (98-107) mmol/L Carbon Dioxide 29 (22-30) mmol/L Anion Gap 15.1 H (5-15) MEQ/L BUN 19 H (7-17) mg/dL Creatinine 0.54 (0.52-1.04) mg/dL Estimated GFR > 60.0 ML/MIN Glucose 100 (74-106) mg/dL Calcium 9.6 (8.4-10.2) mg/dL Total Bilirubin 0.30 (0.2-1.3) mg/dL AST 18 (14-36) U/L ALT 23 (0-35) U/L Alkaline Phosphatase 79 (38-126) U/L Troponin I (0.000-0.034) ng/mL NT-Pro-B Natriuret Pep 75.2 (0-900) pg/mL Serum Total Protein 7.7 (6.3-8.2) g/dL Albumin 4.8 (3.5-5.0) g/dL Urine Color (YELLOW) Urine Appearance (CLEAR) Urine pH (5-6) Ur Specific [place] (1.005-1.025) Urine Protein (Negative) Urine Ketones (NEGATIVE) Urine Blood (0-5) [place]/ul Urine Nitrite (NEGATIVE) Urine Bilirubin (NEGATIVE) Urine Urobilinogen (0-1) mg/dL Ur Leukocyte Esterase (NEGATIVE) U Epithel Cells (Auto) (FEW) /HPF Urine Culture Reflexed (NO) Urine Glucose (NEGATIVE) mg/dL cxr-no acute process - Progress Progress: improved, re-examined Progress Note: 11/07/17 14:17 pt improved. pts wbc is chronically high and has been higher than todays value. per pt dr. ham is aware and she has an appt to see a compress engineer. i see nothing in todays workup to place pt on antibiotics Blood Culture(s) Obtained: No Antibiotics given: No Counseled pt/family regarding: lab results, diagnosis, need for follow-up - Departure Time of Disposition: 14:19 Departure Disposition: Home Clinical Impression: Shortness of breath, Leukocytosis Condition: Stable Critical Care Time: No Referrals: YU HAM [Primary Care Provider] - Additional Instructions: follow up with dr. ham tomorrow for further management. take all your medications as prescribed.
[2017-11-07] MEDS ORDERED: Zofran 4 MG/2 ML VIAL IV ONE (09:46)
[2017-11-07] MEDS ORDERED: Zofran 4 MG/2 ML VIAL ONE (09:56)
--- NOTE | 2017-11-07 10:21 | XRAY ---
Exam: AP upright portable chest film from 11/07/2017. Comparison: Two-view chest from 10/22/2017. Indication: Shortness of breath, history of COPD. Findings: The lungs are again noted to be mildly hyperinflated with relative radiolucency overlying both upper lung alvarado. Correlate clinically regarding COPD/emphysema. The heart size is normal. A small epicardial fat-pad is seen at the left cardiophrenic angle. The vivek and mediastinal structures appear unremarkable. The pulmonary vessels are not congested. No infiltrates, pneumothorax, or pleural fluid is seen. No acute osseous process is seen. Impression: 1. Mild hyperinflation of lungs with relative radiolucency overlying both upper lung alvarado. This is suggestive of COPD/emphysema. Correlate clinically. 2. No infiltrates, heart failure, or other acute cardiopulmonary disease is seen.
[2017-11-07] MEDS ORDERED: Hydromorphone 1 mg/ml Ampule IV ONE (10:28)
[2017-11-07 10:30] LABS: Granulocyte Absolute (ANC) 12.27 (1.4-6.9); Hematocrit 39.2 % (35-47); Hemoglobin 12.6 gm/dl (12.0-16.0); Mean Cell Volume 80.7 fl (78-100); Mean Corpuscular Hemoglobin 25.9 pg (26-32); Mean Corpuscular Hgb Concent. 32.1 g/dl (32-36); Mean Platelet Volume 9.3 fl (6-9.5); Platelet Count 776 K/mm3 (150-450); Red Blood Count 4.86 M/mm3 (4.1-5.4); Red Cell Distribution Width 17.9 % (11.5-14.0); White Blood Count 20.4 K/mm3 (4.0-10.5)
[2017-11-07] MEDS ORDERED: Hydromorphone 1 mg/ml Ampule ONE (10:32)
[2017-11-07 11:15] LABS: ALBUMIN 4.8 g/dL (3.5-5.0); ALKALINE PHOSPHATASE 79 U/L (38-126); ANION GAP 15.1 MEQ/L (5-15); BLOOD UREA NITROGEN 19 mg/dL (7-17); CHLORIDE 99 mmol/L (98-107); Calcium 9.6 mg/dL (8.4-10.2); Carbon Dioxide 29 mmol/L (22-30); Creatinine 1 0.54 mg/dL (0.52-1.04); Glucose 100 mg/dL (74-106); NT PRO BNP 75.2 pg/mL (0-900); Potassium 3.9 mmol/L (3.5-5.1); SGOT/AST 18 U/L (14-36); SGPT/ALT 23 U/L (0-35); SODIUM 139 mmol/L (137-145); Total Protein 7.7 g/dL (6.3-8.2)
[2017-11-07 13:50] LABS: Appearance CLEAR (CLEAR); Bilirubin NEGATIVE (NEGATIVE); Blood NEGATIVE Ery/ul (0-5); Glucose NEGATIVE (NEGATIVE); Ketones NEGATIVE (NEGATIVE); Leukocyte Esterase NEGATIVE (NEGATIVE); Nitrite NEGATIVE (NEGATIVE); Protein,Urine Dip NEGATIVE (Negative); Specific Gravity 1.011 (1.005-1.025); Urobilinogen NEGATIVE mg/dL (0-1)
[2017-11-07 14:26] LABS: ANISOCYTOSIS 1+; Eosinophil 2 % (0.00-3.0); Lymphocytes 33 % (24-44); Monocyte 8 % (0.0-12.0); Neutrophils 57 % (36.0-66.0); Platelet Estimate INCREASED (NORMAL); Poikilocytosis 1+; Total Cells Counted 100
[2017-11-07 14:38] VITALS: BP 135/75; PULSE 78; O2SAT 98
== END 2017-11-07 14:37 | disposition home or self-care (01) ==
LOC: ED 09:13
DX: R06.02 Shortness of breath (principal); D72.829 Elevated white blood cell count, unspecified; J44.9 Chronic obstructive pulmonary disease, unspecified; M19.90 Unspecified osteoarthritis, unspecified site; K21.9 Gastro-esophageal reflux disease without esophagitis; K44.9 Diaphragmatic hernia without obstruction or gangrene; I10 Essential (primary) hypertension; E78.00 Pure hypercholesterolemia, unspecified; Z86.73 Personal history of transient ischemic attack (TIA), and cerebral infarction without residual deficits
CPT/HCPCS: 36000; 36415; 71045; 80053; 81003; 83880; 84484; 85025; 85379; 93005; 93041; 96374; 96375; 99284; J1170; J2405

== ENCOUNTER 2018-07-08 05:36 | Day surgery (SDC) | payer MEDICARE ==
[2018-07-08] MEDS ORDERED: Ketamine HCl 50 MG/ML IV ONE (05:37)
[2018-07-08] MEDS ORDERED: DIPRIVAN 200 MG/20 ML IV ONE (05:37)
[2018-07-08] MEDS ORDERED: Lactated Ringers 1,000 ML IV ONE (06:09)
[2018-07-08] MEDS ORDERED: Lactated Ringers 1,000 ML IV SCH (06:30)
[2018-07-08 09:38] VITALS: BP 118/68; PULSE 82; O2SAT 98
--- NOTE | 2018-07-08 11:05 | OP ---
SURGERY DATE/TIME: 07/08/2018 0805 PREOPERATIVE DIAGNOSIS: Dysphagia and dyspepsia. POSTOPERATIVE DIAGNOSIS: Mild gastritis and hiatal hernia. PROCEDURE: Esophagogastroduodenoscopy with cold forceps biopsy. SURGEON: Dr. Adam. ANESTHESIA: Medications were given by the anesthesia department. BRIEF HISTORY: The patient is a 63 year old white female who reports she is having trouble with reflux and early satiety and epigastric pain. The patient was felt the need to have endoscopic evaluation and appraised of the risks of the procedure including the risk of perforation, phlebitis, untoward reaction to medication, bleeding and missed lesions. The patient verbalized her understanding and desired to have the procedure performed. DESCRIPTION OF PROCEDURE: The patient was given the medications by the anesthesia department. She had continuous pulse oximetry, ECG monitoring, intermittent blood pressure monitoring and tidal CO2 monitoring during the examination. She was placed in the left lateral decubitus position. A bite block was placed and the flexible Olympus gastroscope was used to intubate the oropharynx. A view of the larynx was obtained and was normal. The scope was introduced in the esophagus which was normal to the gastroesophageal junction where there appeared to be hiatal hernia. The scope was passed in the stomach where normal gastric rugal folds were seen and these distended nicely with insufflation of air. The scope was passed along the greater curvature of the stomach to the antrum. The pylorus was encountered and intubated. Duodenum inspected and found to be normal. The scope is withdrawn towards the stomach. A retroflex view was obtained of the lesser curvature, fundus and cardia regions of the stomach and reconfirmed the presence of hiatal hernia. The scope was then redirected towards the gastric antrum where biopsies were obtained to rule out the presence of Helicobacter pylori-type organisms with cold biopsy forceps. The scope was then removed from the patient who tolerated the procedure well and was sent back to the [facility] good condition.
== END 2018-07-08 09:35 | disposition home or self-care (01) ==
LOC: SDC 05:36
PROVIDERS: ATTEND Family Medicine
DX: K29.70 Gastritis, unspecified, without bleeding (principal); K44.9 Diaphragmatic hernia without obstruction or gangrene; R13.10 Dysphagia, unspecified; R10.13 Epigastric pain
CPT/HCPCS: 88305; J2704

== ENCOUNTER 2018-11-25 10:10 | Emergency (ER) | payer MEDICARE ==
--- NOTE | 2018-11-25 10:15 | ERPHSYRPT ---
- History of Present Illness Time Seen by Provider: 11/25/18 10:14 Source: patient Exam Limitations: no limitations Physician History: 63 y/o white female presents with multiple complaints including waking up with a headache, heaviness in right arm, soa, and a nosebleed. pt has h/o htn and copd. pt also has a h/o chronically elevated wbc. pt denies head injury. she had an episode of vomitus. no urinary sx Timing/Duration: today Activities at Onset: other (woke up with sx) Possible Cause: occasional episodes Associated Symptoms: heaviness (right upper ext), No chest pain/discomfort, No hemoptysis International travel in last 2 weeks: No Allergies/Adverse Reactions: Iodinated Contrast Media [Iodinated Contrast Media - IV Dye] Allergy (Verified 07/08/18 06:37) Itching iodine Allergy (Verified 07/08/18 06:37) Itching propoxyphene [From Darvon] Allergy (Verified 07/08/18 06:37) Nausea and Vomiting acetaminophen [From Vicodin] Adverse Reaction (Verified 07/08/18 06:37) Nausea and Vomiting hydrocodone [From Vicodin] Adverse Reaction (Verified 07/08/18 06:37) Nausea and Vomiting Home Medications: Albuterol/Ipratropium Mdi [Combivent Inhaler] 1 puff IH Q4HPRN PRN 11/29/12 [History] Pravastatin Sodium 20 mg PO HS 11/29/12 [History] Zolpidem Tartrate [Ambien] 10 mg PO HS 04/29/16 [History] Omeprazole 20 MG [Prilosec 20 mg] 20 mg PO DAILY 12/03/16 [History] Tramadol HCl 50 mg [Ultram 50 mg] 50 mg PO Q8HPRN PRN 12/03/16 [History] Albuterol/Ipratropium 3ml Neb* [DUONEB 0.5-3 MG/3 ml Neb] 3 ml IH QIDRT [History] Enalapril Maleate [Vasotec] 20 mg PO DAILY 06/04/17 [History] Fluticasone/Vilanterol [Breo Ellipta 200-25 Mcg INH] 1 each IH DAILY 04/24/18 [ History] Cyanocobalamin (Vitamin B-12) [Vitamin B12] 5,000 mcg PO DAILY 11/25/18 [History ] Gabapentin 300 mg PO DAILY 11/25/18 [History] Hx Tetanus, Diphtheria Vaccination/Date Given: No Hx Influenza Vaccination/Date Given: Yes Hx Pneumococcal Vaccination/Date Given: Yes - Review of Systems Constitutional: No Symptoms Eyes: No Symptoms Ears, Nose, & Throat: Epistaxis (one episode this am) Respiratory: Dyspnea Cardiac: No Symptoms, No Chest Pain Abdominal/Gastrointestinal: Nausea, Vomiting (one episode) Genitourinary Symptoms: No Symptoms Musculoskeletal: No Symptoms Skin: No Symptoms Neurological: Headache Psychological: Anxiety Endocrine: No Symptoms Hematologic/Lymphatic: No Symptoms Immunological/Allergic: No Symptoms All Other Systems: Reviewed and Negative - Past Medical History Pertinent Past Medical History: Yes Neurological History: TIA ENT History: No Pertinent History Cardiac History: High Cholesterol, Hypertension Respiratory History: Bronchitis, COPD, Emphysema, Pneumonia Endocrine Medical History: No Pertinent History Musculoskeletal History: No Pertinent History GI Medical History: GERD, Gallbladder Disease, Hernia History: No Pertinent History Psycho-Social History: No Pertinent History Female Reproductive Disorders: No Pertinent History Other Medical History: hiatal hernia,anemia, - Past Surgical History Past Surgical History: Yes Neuro Surgical History: No Pertinent History Cardiac: No Pertinent History Respiratory: No Pertinent History Gastrointestinal: Appendectomy, Cholecystectomy Genitourinary: No Pertinent History Musculoskeletal: Orthopedic Surgery Female Surgical History: Hysterectomy Other Surgical History: RIGHT FOOT SURGERY times 3, - Social History Smoking Status: Former smoker How long have you smoked: 30 yrs Exposure to second hand smoke: No Drug Use: none Patient Lives Alone: Yes - Nursing Vital Signs Nursing Vital Signs: Initial Vital Signs Temperature 98.0 F 11/25/18 10:12 Pulse Rate 101 H 11/25/18 10:12 Respiratory Rate 20 11/25/18 10:12 Blood Pressure 103/85 11/25/18 10:12 O2 Sat by Pulse Oximetry 100 11/25/18 10:12 Pain Scale Pain Intensity 8 - Physical Exam General Appearance: mild distress, alert, anxiety Eye Exam: PERRL/EOMI, eyes nml inspection Ears, Nose, Throat Exam: hearing grossly normal, normal ENT inspection, normal pharynx Neck Exam: normal inspection, non-tender, supple, full range of motion Respiratory Exam: normal breath sounds, lungs clear, airway intact, No chest tenderness, No respiratory distress Cardiovascular/Chest Exam: normal heart sounds, regular rate/rhythm, normal peripheral pulses Abdominal/Gastrointestinal Exam: soft, normal bowel sounds, No tenderness Rectal Exam: not done Extremity Exam: non-tender, normal range of motion, normal inspection Neurologic Exam: alert, oriented x 3, cooperative, motor equipment sergeant II-XII nml as tested Skin Exam: normal color, warm, dry Lymphatic Exam: No adenopathy SpO2 Interpretation: normal O2 Delivery: Nasal Cannula - Course EKG Interpreted by Me: RATE (102), Sinus Rhythm, NORMAL AXIS, NORMAL INTERVALS, NORMAL QRS, Other (no changes when compared to EKG dated 11/07/17) Ordered Tests: Active Orders 24 hr Category Date Time Status ACCUCHECK [Accucheck] STAT Care 11/25/18 10:46 Active EKG-ER Only STAT Care 11/25/18 10:31 Active IV Insertion STAT Care 11/25/18 10:31 Active NPO (ED) STAT Care 11/25/18 10:31 Active NPO (ED) STAT Care 11/25/18 10:46 Active Pulse Oximetry (ED) STAT Care 11/25/18 10:31 Active CHEST 1 VIEW (PORTABLE) Stat Exams 11/25/18 10:31 Completed HEAD WITHOUT CONTRAST [CT] Stat Exams 11/25/18 10:31 Completed CBC W DIFF Stat Lab 11/25/18 10:30 Completed CMP Routine Lab 11/25/18 10:30 Completed NT PRO BNP Routine Lab 11/25/18 10:30 Completed PROTIME WITH INR Stat Lab 11/25/18 10:46 Completed PTT Stat Lab 11/25/18 10:46 Completed TROPONIN Q3H Lab 11/25/18 10:30 Completed TROPONIN Q3H Lab 11/25/18 13:45 Ordered TROPONIN Q3H Lab 11/25/18 16:45 Ordered TROPONIN Q3H Lab 11/25/18 19:45 Ordered TROPONIN Q3H Lab 11/25/18 22:45 Ordered Medication Summary Discontinued Medications Generic Name Dose Route Start Last Admin Trade Name Freq PRN Reason Stop Dose Admin Ondansetron HCl 4 mg 11/25/18 11:52 11/25/18 12:01 Zofran 4 Mg/2 Ml Vial IV 11/25/18 11:53 4 mg STAT ONE Administration Ondansetron HCl Confirm 11/25/18 11:57 Zofran 4 Mg/2 Ml Vial Administered 11/25/18 11:58 Dose 4 mg .ROUTE .STK-MED ONE Tramadol HCl 50 mg 11/25/18 11:52 11/25/18 12:01 Ultram 50 Mg PO 11/25/18 11:53 50 mg STAT ONE Administration Tramadol HCl Confirm 11/25/18 11:57 Ultram 50 Mg Administered 11/25/18 11:58 Dose 50 mg .ROUTE .STK-MED ONE Lab/Rad Data: Laboratory Result Diagrams 11/25/18 10:30 11/25/18 10:30 Laboratory Results 11/25/18 11/25/18 11/25/18 Range/Units 10:46 10:30 10:30 WBC 13.7 H (4.0-10.5) K/mm3 RBC 4.48 (4.1-5.4) M/mm3 Hgb 10.6 L (12.0-16.0) gm/dl Hct 35.3 (35-47) % MCV 78.8 (78-100) fl MCH 23.6 L (26-32) pg MCHC 30.0 L (32-36) g/dl RDW 16.0 H (11.5-14.0) % Plt Count 850 H (150-450) K/mm3 MPV 9.0 (6-9.5) fl Gran % 62.5 (36.0-66.0) % Eos # (Auto) 0.45 (0-0.5) Absolute Lymphs (auto) 3.59 (1.0-4.6) Absolute Monos (auto) 1.01 (0.0-1.3) Lymphocytes % 26.3 (24.0-44.0) % Monocytes % 7.4 (0.0-12.0) % Eosinophils % 3.3 (0.00-5.0) % Basophils % 0.5 (0.0-0.4) % Absolute Granulocytes 8.55 H (1.4-6.9) Basophils # 0.07 (0-0.4) PT 12.2 (9.95-12.35) SECONDS INR 1.08 (0.8-3.0) APTT 42.6 H (25.3-37.0) SECONDS Sodium 142 (137-145) mmol/L Potassium 4.4 (3.5-5.1) mmol/L Chloride 103 (98-107) mmol/L Carbon Dioxide 27 (22-30) mmol/L Anion Gap 17.4 H (5-15) MEQ/L BUN 12 (7-17) mg/dL Creatinine 0.58 (0.52-1.04) mg/dL Estimated GFR > 60.0 ML/MIN Glucose 111 H (74-106) mg/dL Calcium 9.6 (8.4-10.2) mg/dL Total Bilirubin 0.30 (0.2-1.3) mg/dL AST 26 (14-36) U/L ALT 21 (0-35) U/L Alkaline Phosphatase 74 (38-126) U/L Troponin I < 0.012 (0.000-0.034) ng/mL NT-Pro-B Natriuret Pep 33.7 (0-900) pg/mL Serum Total Protein 8.1 (6.3-8.2) g/dL Albumin 4.6 (3.5-5.0) g/dL Slides for Path Review YES - Progress Progress: improved, re-examined Air Movement: good Progress Note: 11/25/18 11:54 cxr-no acute process. ct head-no acute intracranial abnormality Blood Culture(s) Obtained: No Antibiotics given: No Counseled pt/family regarding: lab results, diagnosis, need for follow-up, rad results - Departure Departure Disposition: Home Clinical Impression: Shortness of breath, Headache Condition: Stable Critical Care Time: No Referrals: YU PORRAS [Primary Care Provider] - Additional Instructions: drink plenty of fluids. follow up with primary doctor for further management Prescriptions: Ondansetron HCl [Zofran] 4 mg PO TID PRN #10 tablet PRN Reason: Nausea/Vomiting
[2018-11-25 10:36] LABS: Absolute Neutrophil Ct (ANC) 8.55 (1.4-6.9); BASOPHIL % 0.5 % (0.0-0.4); Basophil (Absolute #) 0.07 (0-0.4); Eosinophil % 3.3 % (0.00-5.0); Eosinophil (Absolute #) 0.45 (0-0.5); Hematocrit 35.3 % (35-47); Hemoglobin 10.6 gm/dl (12.0-16.0); Lymphocyte (Absolute #) 3.59 (1.0-4.6); Lymphocytes % 26.3 % (24.0-44.0); Mean Cell Volume 78.8 fl (78-100); Monocyte (Absolute #) 1.01 (0.0-1.3); Monocytes % 7.4 % (0.0-12.0); Neutrophil % 62.5 % (36.0-66.0); Platelet Count 850 K/mm3 (150-450); Red Blood Count 4.48 M/mm3 (4.1-5.4); White Blood Count 13.7 K/mm3 (4.0-10.5)
[2018-11-25 10:39] LABS: Mean Corpuscular Hemoglobin 23.6 pg (26-32)
[2018-11-25 10:57] LABS: INR 1.08 (0.8-3.0); PROTIME 12.2 SECONDS (9.95-12.35)
[2018-11-25 11:00] LABS: ALBUMIN 4.6 g/dL (3.5-5.0); ALKALINE PHOSPHATASE 74 U/L (38-126); ANION GAP 17.4 MEQ/L (5-15); BLOOD UREA NITROGEN 12 mg/dL (7-17); CHLORIDE 103 mmol/L (98-107); Calcium 9.6 mg/dL (8.4-10.2); Carbon Dioxide 27 mmol/L (22-30); Creatinine 1 0.58 mg/dL (0.52-1.04); Glucose 111 mg/dL (74-106); NT PRO BNP 33.7 pg/mL (0-900); Potassium 4.4 mmol/L (3.5-5.1); SGOT/AST 26 U/L (14-36); SGPT/ALT 21 U/L (0-35); SODIUM 142 mmol/L (137-145); TROPONIN < 0.012 ng/mL (0.000-0.034); Total Protein 8.1 g/dL (6.3-8.2)
[2018-11-25 11:00] LABS: PTT 42.6 SECONDS (25.3-37.0)
--- NOTE | 2018-11-25 11:01 | XRAY ---
Indication: Short of breath. Stroke. Comparison: November 07, 2017. Portable chest remains hyperinflated and clear. Heart and mediastinal structures within normal limits. Bony thorax intact again with old left 4/5 rib fractures. Impression: Stable nonacute hyperinflated chest.
--- NOTE | 2018-11-25 11:05 | XRAY ---
Indication: Headache and heaviness in arms. Nosebleed. Multiple contiguous axial images obtained through the head without contrast. Comparison: December 25, 2016. Stable age-appropriate global atrophy, minimal periventricular degenerative micro-ischemia bilaterally, and tiny left external capsule remote lacunar infarct. No acute intracranial hemorrhage, abnormal extra-axial fluid collection, or mass effect. Fourth ventricle is midline without hydrocephalus. Leyva-white matter differentiation preserved. Bony calvarium intact. Visualized paranasal sinuses are clear. Again minimal opacification of the inferior right mastoid air cells. Impression: 1. Stable nonacute senile brain with left external capsule remote lacunar infarct. 2. Again partial opacification of the right mastoid air cells presumed inflammatory. CT DI 66.37
[2018-11-25 11:41] LABS: Slide Review 1 YES
[2018-11-25] MEDS ORDERED: Zofran 4 MG/2 ML VIAL IV ONE (11:52)
[2018-11-25] MEDS ORDERED: ULTRAM 50 MG PO ONE (11:52)
[2018-11-25] MEDS ORDERED: ULTRAM 50 MG ONE (11:57)
[2018-11-25] MEDS ORDERED: Zofran 4 MG/2 ML VIAL ONE (11:57)
[2018-11-25 12:12] VITALS: PULSE 74; O2SAT 98
[2018-11-25] MEDS ORDERED: MORPHINE SULFATE 4 MG INJ IV ONE (12:15)
[2018-11-25] MEDS ORDERED: MORPHINE SULFATE 4 MG INJ ONE (12:45)
[2018-11-25 13:16] VITALS: BP 127/70
== END 2018-11-25 13:16 | disposition home or self-care (01) ==
LOC: ED 10:10
DX: R06.02 Shortness of breath (principal); R51 Headache; I10 Essential (primary) hypertension; J44.9 Chronic obstructive pulmonary disease, unspecified; Z79.899 Other long term (current) drug therapy; Z79.84 Long term (current) use of oral hypoglycemic drugs; R11.2 Nausea with vomiting, unspecified; E78.00 Pure hypercholesterolemia, unspecified
CPT/HCPCS: 36000; 36415; 70450; 71045; 80053; 82962; 83880; 84484; 85025; 85610; 85730; 93005; 94760; 96374; 99284; J2270; J2405; A9270-GY

== ENCOUNTER 2019-01-18 10:20 | Emergency (ER) | payer MEDICARE ==
--- NOTE | 2019-01-18 10:34 | ERPHSYRPT ---
- History of Present Illness Time Seen by Provider: 01/18/19 10:34 Source: patient Exam Limitations: no limitations Physician History: 63 y/o white female, former smoker of cigarettes and with h/o copd, presents with soa and mild epigastric pressure. began last pm and sl worse soa this am. no cp, has nausea but denies vomiting and diarrhea. never had this before. Timing/Duration: yesterday, worse Activities at Onset: none Severity of Dyspnea-Max: moderate Severity of Dyspnea-Current: moderate Possible Cause: no prior episodes Modifying Factors: Improves With: nothing Associated Symptoms: wheezing (last pm) Allergies/Adverse Reactions: Iodinated Contrast Media [Iodinated Contrast Media - IV Dye] Allergy (Verified 01/18/19 10:23) Itching iodine Allergy (Verified 01/18/19 10:23) Itching propoxyphene [From Darvon] Allergy (Verified 01/18/19 10:23) Nausea and Vomiting acetaminophen [From Vicodin] Adverse Reaction (Verified 01/18/19 10:23) Nausea and Vomiting hydrocodone [From Vicodin] Adverse Reaction (Verified 01/18/19 10:23) Nausea and Vomiting Home Medications: Albuterol/Ipratropium Mdi [Combivent Inhaler] 1 puff IH Q4HPRN PRN 11/29/12 [History] Pravastatin Sodium 20 mg PO HS 11/29/12 [History] Zolpidem Tartrate [Ambien] 10 mg PO HS 04/29/16 [History] Omeprazole 20 MG [Prilosec 20 mg] 20 mg PO DAILY 12/03/16 [History] Albuterol/Ipratropium 3ml Neb* [DUONEB 0.5-3 MG/3 ml Neb] 3 ml IH QIDRT [History] Enalapril Maleate [Vasotec] 20 mg PO DAILY 06/04/17 [History] Gabapentin 300 mg PO HS 11/25/18 [History] Fluticasone/Umeclidin/Vilanter [Trelegy Ellipta 100-62.5-25] 25 - 200 mcg IH DAILY 01/18/19 [History] Hx Tetanus, Diphtheria Vaccination/Date Given: No Hx Influenza Vaccination/Date Given: Yes Hx Pneumococcal Vaccination/Date Given: Yes - Review of Systems Constitutional: No Symptoms Eyes: No Symptoms Ears, Nose, & Throat: No Symptoms Respiratory: Dyspnea Cardiac: No Symptoms Abdominal/Gastrointestinal: No Symptoms Genitourinary Symptoms: No Symptoms Musculoskeletal: No Symptoms Skin: No Symptoms Neurological: No Symptoms Psychological: No Symptoms Endocrine: No Symptoms Hematologic/Lymphatic: No Symptoms Immunological/Allergic: No Symptoms All Other Systems: Reviewed and Negative - Past Medical History Pertinent Past Medical History: Yes Neurological History: TIA ENT History: No Pertinent History Cardiac History: High Cholesterol, Hypertension Respiratory History: Bronchitis, COPD, Emphysema, Pneumonia Endocrine Medical History: No Pertinent History Musculoskeletal History: No Pertinent History GI Medical History: GERD, Gallbladder Disease, Hernia History: No Pertinent History Psycho-Social History: No Pertinent History Female Reproductive Disorders: No Pertinent History Other Medical History: hiatal hernia,anemia, - Past Surgical History Past Surgical History: Yes Neuro Surgical History: No Pertinent History Cardiac: No Pertinent History Respiratory: No Pertinent History Gastrointestinal: Appendectomy, Cholecystectomy Genitourinary: No Pertinent History Musculoskeletal: Orthopedic Surgery Female Surgical History: Hysterectomy Other Surgical History: RIGHT FOOT SURGERY times 3, - Social History Smoking Status: Former smoker How long have you smoked: 30 yrs Exposure to second hand smoke: No Drug Use: none Patient Lives Alone: Yes - Nursing Vital Signs Nursing Vital Signs: Initial Vital Signs Temperature 97.8 F 01/18/19 10:24 Pulse Rate 107 H 01/18/19 10:24 Respiratory Rate 22 01/18/19 10:24 Blood Pressure 110/81 01/18/19 10:24 O2 Sat by Pulse Oximetry 99 01/18/19 10:24 Pain Scale Pain Intensity 0 - Physical Exam General Appearance: mild distress, alert, anxiety Eye Exam: PERRL/EOMI, eyes nml inspection Ears, Nose, Throat Exam: hearing grossly normal, normal ENT inspection, normal pharynx Neck Exam: normal inspection, non-tender, supple, full range of motion Respiratory Exam: normal breath sounds, lungs clear, airway intact, No chest tenderness, No respiratory distress Cardiovascular/Chest Exam: normal heart sounds, regular rate/rhythm, murmur Abdominal/Gastrointestinal Exam: soft, normal bowel sounds, No tenderness Rectal Exam: not done Extremity Exam: non-tender, normal range of motion, normal inspection Neurologic Exam: alert, oriented x 3, cooperative, lead person II-XII nml as tested Skin Exam: normal color, warm, dry Lymphatic Exam: No adenopathy SpO2 Interpretation: normal SpO2: 99 O2 Delivery: Room Air - Course Nursing assessment & vital signs reviewed: Yes EKG Interpreted by Me: RATE (97), Sinus Rhythm, NORMAL AXIS, NORMAL INTERVALS, NORMAL QRS, Other (no changes from comparison ekg dated 11/25/18) Ordered Tests: Active Orders 24 hr Category Date Time Status Respiratory Care Faculty STAT Care 01/18/19 11:08 Active EKG-ER Only STAT Care 01/18/19 11:07 Active IV Insertion STAT Care 01/18/19 11:07 Active Pulse Oximetry (ED) STAT Care 01/18/19 11:07 Active CHEST 1 VIEW (PORTABLE) Stat Exams 01/18/19 11:08 Taken CBC W DIFF Stat Lab 01/18/19 11:07 Completed CMP Stat Lab 01/18/19 11:07 Completed D-DIMER QUANTITATION Stat Lab 01/18/19 11:07 Completed NT PRO BNP Stat Lab 01/18/19 11:07 Completed PROTIME WITH INR Stat Lab 01/18/19 11:07 Completed TROPONIN Q3H Lab 01/18/19 11:07 Completed TROPONIN Q3H Lab 01/18/19 14:15 Ordered TROPONIN Q3H Lab 01/18/19 17:15 Ordered TROPONIN Q3H Lab 01/18/19 20:15 Ordered TROPONIN Q3H Lab 01/18/19 23:15 Ordered Peak Expiratory Flow Rate ONCE RT 01/18/19 12:16 Completed Respiratory Therapy Assessment DAILY RT 01/18/19 12:15 Completed Medication Summary Discontinued Medications Generic Name Dose Route Start Last Admin Trade Name Freq PRN Reason Stop Dose Admin Albuterol/Ipratropium 3 ml 01/18/19 12:15 01/18/19 12:23 Duoneb 0.5-3 Mg/3 Ml Neb IH 01/18/19 12:16 3 ml STAT ONE Administration Albuterol/Ipratropium Confirm 01/18/19 12:21 Duoneb 0.5-3 Mg/3 Ml Neb Administered 01/18/19 12:22 Dose 3 ml IH .STK-MED ONE Ceftriaxone Sodium/Dextrose 1 g in 50 mls @ 100 mls/hr 01/18/19 12:19 12:26 Rocephin 1 Gm-D5w 50 Ml Bag IV 01/18/19 12:48 100 mls/hr STAT STA 100 mls/hr Administration Ceftriaxone Sodium/Dextrose Confirm 01/18/19 12:25 Rocephin 1 Gm-D5w 50 Ml Bag Administered 01/18/19 12:26 Dose 1 g in 50 mls @ ud IV .STK-MED ONE Ondansetron HCl 4 mg 01/18/19 11:07 01/18/19 11:15 Zofran 4 Mg/2 Ml Vial IV 01/18/19 11:08 4 mg STAT ONE Administration Ondansetron HCl Confirm 01/18/19 11:15 Zofran 4 Mg/2 Ml Vial Administered 01/18/19 11:16 Dose 4 mg .ROUTE .STK-MED ONE Lab/Rad Data: Laboratory Result Diagrams 01/18/19 11:07 01/18/19 11:07 Laboratory Results 01/18/19 01/18/19 01/18/19 Range/Units 11:07 11:07 11:07 WBC (4.0-10.5) K/mm3 RBC (4.1-5.4) M/mm3 Hgb (12.0-16.0) gm/dl Hct (35-47) % MCV (78-100) fl MCH (26-32) pg MCHC (32-36) g/dl RDW (11.5-14.0) % Plt Count (150-450) K/mm3 MPV (6-9.5) fl Gran % (36.0-66.0) % Eos # (Auto) (0-0.5) Absolute Lymphs (auto) (1.0-4.6) Absolute Monos (auto) (0.0-1.3) Lymphocytes % (24.0-44.0) % Monocytes % (0.0-12.0) % Eosinophils % (0.00-5.0) % Basophils % (0.0-0.4) % Absolute Granulocytes (1.4-6.9) Basophils # (0-0.4) PT 12.8 H (9.95-12.35) SECONDS INR 1.13 (0.8-3.0) D-Dimer 343 (215-500) ng/mL Sodium 144 (137-145) mmol/L Potassium 4.1 (3.5-5.1) mmol/L Chloride 103 (98-107) mmol/L Carbon Dioxide 29 (22-30) mmol/L Anion Gap 16.5 H (5-15) MEQ/L BUN 10 (7-17) mg/dL Creatinine 0.57 (0.52-1.04) mg/dL Estimated GFR > 60.0 ML/MIN Glucose 126 H (74-106) mg/dL Calcium 10.2 (8.4-10.2) mg/dL Total Bilirubin 0.50 (0.2-1.3) mg/dL AST 26 (14-36) U/L ALT 25 (0-35) U/L Alkaline Phosphatase 73 (38-126) U/L Troponin I < 0.012 (0.000-0.034) ng/mL NT-Pro-B Natriuret Pep 35.6 (0-900) pg/mL Serum Total Protein 8.8 H (6.3-8.2) g/dL Albumin 4.8 (3.5-5.0) g/dL 01/18/19 Range/Units 11:07 WBC 12.4 H (4.0-10.5) K/mm3 RBC 4.76 (4.1-5.4) M/mm3 Hgb 10.5 L (12.0-16.0) gm/dl Hct 35.5 (35-47) % MCV 74.6 L (78-100) fl MCH 22.1 L (26-32) pg MCHC 29.6 L (32-36) g/dl RDW 16.8 H (11.5-14.0) % Plt Count 934 H (150-450) K/mm3 MPV 9.2 (6-9.5) fl Gran % 66.4 H (36.0-66.0) % Eos # (Auto) 0.54 H (0-0.5) Absolute Lymphs (auto) 2.65 (1.0-4.6) Absolute Monos (auto) 0.90 (0.0-1.3) Lymphocytes % 21.4 L (24.0-44.0) % Monocytes % 7.3 (0.0-12.0) % Eosinophils % 4.4 (0.00-5.0) % Basophils % 0.5 (0.0-0.4) % Absolute Granulocytes 8.23 H (1.4-6.9) Basophils # 0.06 (0-0.4) PT (9.95-12.35) SECONDS INR (0.8-3.0) D-Dimer (215-500) ng/mL Sodium (137-145) mmol/L Potassium (3.5-5.1) mmol/L Chloride (98-107) mmol/L Carbon Dioxide (22-30) mmol/L Anion Gap (5-15) MEQ/L BUN (7-17) mg/dL Creatinine (0.52-1.04) mg/dL Estimated GFR ML/MIN Glucose (74-106) mg/dL Calcium (8.4-10.2) mg/dL Total Bilirubin (0.2-1.3) mg/dL AST (14-36) U/L ALT (0-35) U/L Alkaline Phosphatase (38-126) U/L Troponin I (0.000-0.034) ng/mL NT-Pro-B Natriuret Pep (0-900) pg/mL Serum Total Protein (6.3-8.2) g/dL Albumin (3.5-5.0) g/dL - Progress Progress: improved Air Movement: good Progress Note: 01/18/19 12:14 cxr-no acute process. 01/18/19 12:15 pt informed us she is out of her oxygen she wears 24/7. will come up with a plan for obtaining oxygen for her. 01/18/19 12:17 pt has leukocytosis with a left shift. pt does not have cxr findings of pneumonia. pt has h/o recurrent pneumonia. will give rocephin iv then outpt antibx tx 01/18/19 13:21 pt states she is feeling much better. denies cp. soa sig improved. Blood Culture(s) Obtained: No Antibiotics given: No Counseled pt/family regarding: lab results, diagnosis, need for follow-up, rad results - Departure Departure Disposition: Home Clinical Impression: Shortness of breath, Leukocytosis Condition: Stable Critical Care Time: No Referrals: YU PORRAS [Primary Care Provider] - Additional Instructions: take medications as prescribed. follow up with primary doctor for further management. return to ED if symptoms worsen Prescriptions: Azithromycin 250 mg [Zithromax 250 MG TABLET] 250 mg PO ZPACK #6 tablet
[2019-01-18] MEDS ORDERED: Zofran 4 MG/2 ML VIAL IV ONE (11:07)
[2019-01-18] MEDS ORDERED: Zofran 4 MG/2 ML VIAL ONE (11:15)
[2019-01-18 11:17] LABS: Absolute Neutrophil Ct (ANC) 8.23 (1.4-6.9); BASOPHIL % 0.5 % (0.0-0.4); Basophil (Absolute #) 0.06 (0-0.4); Eosinophil % 4.4 % (0.00-5.0); Eosinophil (Absolute #) 0.54 (0-0.5); Hematocrit 35.5 % (35-47); Hemoglobin 10.5 gm/dl (12.0-16.0); Lymphocyte (Absolute #) 2.65 (1.0-4.6); Lymphocytes % 21.4 % (24.0-44.0); Mean Cell Volume 74.6 fl (78-100); Mean Corpuscular Hemoglobin 22.1 pg (26-32); Mean Corpuscular Hgb Concent. 29.6 g/dl (32-36); Mean Platelet Volume 9.2 fl (6-9.5); Monocytes % 7.3 % (0.0-12.0); Neutrophil % 66.4 % (36.0-66.0); Platelet Count 934 K/mm3 (150-450); Red Blood Count 4.76 M/mm3 (4.1-5.4); Red Cell Distribution Width 16.8 % (11.5-14.0); White Blood Count 12.4 K/mm3 (4.0-10.5)
[2019-01-18 11:25] LABS: INR 1.13 (0.8-3.0); PROTIME 12.8 SECONDS (9.95-12.35)
[2019-01-18 11:38] LABS: ALBUMIN 4.8 g/dL (3.5-5.0); ALKALINE PHOSPHATASE 73 U/L (38-126); ANION GAP 16.5 MEQ/L (5-15); BLOOD UREA NITROGEN 10 mg/dL (7-17); CHLORIDE 103 mmol/L (98-107); Calcium 10.2 mg/dL (8.4-10.2); Carbon Dioxide 29 mmol/L (22-30); Creatinine 1 0.57 mg/dL (0.52-1.04); Glucose 126 mg/dL (74-106); NT PRO BNP 35.6 pg/mL (0-900); Potassium 4.1 mmol/L (3.5-5.1); SGOT/AST 26 U/L (14-36); SGPT/ALT 25 U/L (0-35); SODIUM 144 mmol/L (137-145); Total Protein 8.8 g/dL (6.3-8.2)
[2019-01-18] MEDS ORDERED: DUONEB 0.5-3 MG/3 ml Neb IH ONE ×2 (12:15→12:21)
[2019-01-18] MEDS ORDERED: ROCEPHIN 1 Gm-D5w 50 ml Bag** 1 G/50 ML IVPB IV STA (12:19)
[2019-01-18] MEDS ORDERED: ROCEPHIN 1 Gm-D5w 50 ml Bag** 1 G/50 ML IVPB IV ONE (12:25)
[2019-01-18 13:14] VITALS: BP 113/83; PULSE 90
[2019-01-18 13:24] VITALS: O2SAT 99
[2019-01-18 13:41] LABS: Slide Review 1 YES
--- NOTE | 2019-01-18 20:48 | XRAY ---
Indication: Short of breath. Comparison: November 25, 2018. Portable chest limited as both lung bases not included in the [id number]. Visualized lungs remain hyperinflated and clear. Heart and mediastinal structures within normal limits. No new/acute findings. Impression: Nonacute limited hyperinflated chest.
== END 2019-01-18 13:43 | disposition home or self-care (01) ==
LOC: ED 10:20
DX: R06.02 Shortness of breath (principal); D72.829 Elevated white blood cell count, unspecified; J44.9 Chronic obstructive pulmonary disease, unspecified; Z79.899 Other long term (current) drug therapy
CPT/HCPCS: 36000; 36415; 71045; 80053; 83880; 84484; 85025; 85379; 85610; 93005; 93041; 94150; 94640; 94760; 96374; 99284; J0696; J2405; A9270-GY

== ENCOUNTER 2019-02-05 10:08 | Emergency (ER) | payer MEDICARE ==
[2019-02-05] MEDS ORDERED: DUONEB 0.5-3 MG/3 ml Neb IH ONE ×2 (10:48→10:59)
[2019-02-05] MEDS ORDERED: MORPHINE SULFATE 2 MG INJ IM ONE (11:15)
[2019-02-05 11:17] LABS: Absolute Neutrophil Ct (ANC) 10.83 (1.4-6.9); BASOPHIL % 0.4 % (0.0-0.4); Basophil (Absolute #) 0.06 (0-0.4); Eosinophil % 2.2 % (0.00-5.0); Eosinophil (Absolute #) 0.32 (0-0.5); Hematocrit 33.7 % (35-47); Hemoglobin 9.8 gm/dl (12.0-16.0); Lymphocyte (Absolute #) 2.34 (1.0-4.6); Mean Cell Volume 73.6 fl (78-100); Mean Corpuscular Hemoglobin 21.4 pg (26-32); Mean Corpuscular Hgb Concent. 29.1 g/dl (32-36); Mean Platelet Volume 8.8 fl (6-9.5); Monocyte (Absolute #) 1.09 (0.0-1.3); Monocytes % 7.4 % (0.0-12.0); Platelet Count 884 K/mm3 (150-450); Red Blood Count 4.58 M/mm3 (4.1-5.4); Red Cell Distribution Width 16.7 % (11.5-14.0); White Blood Count 14.6 K/mm3 (4.0-10.5)
[2019-02-05] MEDS ORDERED: MORPHINE SULFATE 2 MG INJ ONE (11:21)
[2019-02-05 11:27] LABS: ALBUMIN 4.5 g/dL (3.5-5.0); ALKALINE PHOSPHATASE 72 U/L (38-126); ANION GAP 15.4 MEQ/L (5-15); BLOOD UREA NITROGEN 13 mg/dL (7-17); CHLORIDE 103 mmol/L (98-107); Carbon Dioxide 26 mmol/L (22-30); Glucose 94 mg/dL (74-106); Potassium 4.5 mmol/L (3.5-5.1); SGOT/AST 23 U/L (14-36); SGPT/ALT 17 U/L (0-35); SODIUM 140 mmol/L (137-145); Total Protein 8.1 g/dL (6.3-8.2)
[2019-02-05 11:41] LABS: Slide Review 1 YES
--- NOTE | 2019-02-05 11:54 | ERPHSYRPT ---
- History of Present Illness Time Seen by Provider: 02/05/19 10:09 Historian: patient Exam Limitations: no limitations Patient Subjective Stated Complaint: Pt states 'I woke up this morning and my left side hurts, It really really hurts when I move, take a deep breath or anything touches it." Triage Nursing Assessment: Pt presented alert and oriented x 3, skin pwd. Pt holding right side, able to speak in clear full sentnces Pt in no apparent respiratory distress, lung sounds clear. PT tender to lower left rib area, pt denied falling or injury Physician History: awoke this am with LT UPPER QUADRANT PAIN NEGATIVE FEVERT POS: COUGH Timing/Duration: today Quality: aching, cramping Abdominal Pain Onset Location: LUQ, suprapubic Severity of Pain-Max: moderate Associated Symptoms: other (COUGH) Previous symptoms: no prior history Allergies/Adverse Reactions: Iodinated Contrast Media [Iodinated Contrast Media - IV Dye] Allergy (Verified 01/18/19 10:23) Itching iodine Allergy (Verified 01/18/19 10:23) Itching propoxyphene [From Darvon] Allergy (Verified 01/18/19 10:23) Nausea and Vomiting acetaminophen [From Vicodin] Adverse Reaction (Verified 01/18/19 10:23) Nausea and Vomiting hydrocodone [From Vicodin] Adverse Reaction (Verified 01/18/19 10:23) Nausea and Vomiting Home Medications: Albuterol/Ipratropium Mdi [Combivent Inhaler] 1 puff IH Q4HPRN PRN 11/29/12 [History] Pravastatin Sodium 20 mg PO HS 11/29/12 [History] Zolpidem Tartrate [Ambien] 10 mg PO HS 04/29/16 [History] Omeprazole 20 MG [Prilosec 20 mg] 20 mg PO DAILY 12/03/16 [History] Albuterol/Ipratropium 3ml Neb* [DUONEB 0.5-3 MG/3 ml Neb] 3 ml IH QIDRT [History] Enalapril Maleate [Vasotec] 20 mg PO DAILY 06/04/17 [History] Gabapentin 300 mg PO HS 11/25/18 [History] Fluticasone/Umeclidin/Vilanter [Trelegy Ellipta 100-62.5-25] 25 - 200 mcg IH DAILY 01/18/19 [History] Hx Tetanus, Diphtheria Vaccination/Date Given: No Hx Influenza Vaccination/Date Given: Yes Hx Pneumococcal Vaccination/Date Given: Yes Immunizations Up to Date: Yes - Review of Systems Constitutional: No Symptoms Eyes: No Symptoms Ears, Nose, & Throat: No Symptoms Respiratory: Cough, Other (O2 DEP COPD) Cardiac: No Symptoms Abdominal/Gastrointestinal: Abdominal Pain, Nausea, No Vomiting, No Diarrhea, No Constipation, No Hematemesis Genitourinary Symptoms: No Symptoms Musculoskeletal: Arthralgias, Back Pain Skin: No Symptoms Neurological: No Symptoms Psychological: No Symptoms Endocrine: No Symptoms Hematologic/Lymphatic: No Symptoms Immunological/Allergic: No Symptoms All Other Systems: Reviewed and Negative - Past Medical History Pertinent Past Medical History: Yes Neurological History: TIA ENT History: No Pertinent History Cardiac History: High Cholesterol, Hypertension Respiratory History: Bronchitis, COPD, Emphysema, Pneumonia Endocrine Medical History: No Pertinent History Musculoskeletal History: No Pertinent History GI Medical History: GERD, Gallbladder Disease, Hernia History: No Pertinent History Psycho-Social History: No Pertinent History Female Reproductive Disorders: No Pertinent History Other Medical History: hiatal hernia,anemia, - Past Surgical History Past Surgical History: Yes Neuro Surgical History: No Pertinent History Cardiac: No Pertinent History Respiratory: No Pertinent History Gastrointestinal: Appendectomy, Cholecystectomy Genitourinary: No Pertinent History Musculoskeletal: Orthopedic Surgery Female Surgical History: Hysterectomy Other Surgical History: RIGHT FOOT SURGERY times 3, - Social History Smoking Status: Former smoker How long have you smoked: 30 yrs Exposure to second hand smoke: No Drug Use: none Patient Lives Alone: Yes - Female History Hx Now: No - Nursing Vital Signs Nursing Vital Signs: Initial Vital Signs Temperature 98.4 F 02/05/19 10:09 Pulse Rate 90 02/05/19 10:09 Respiratory Rate 20 02/05/19 10:09 Blood Pressure 120/77 02/05/19 10:09 O2 Sat by Pulse Oximetry 98 02/05/19 10:09 Pain Scale Pain Intensity [Left Chest] 7 Pain Intensity 4 - Physical Exam General Appearance: mild distress Eye Exam: PERRL/EOMI Ears, Nose, Throat Exam: normal ENT inspection, TMs normal, pharynx normal Neck Exam: normal inspection, other (MILD DJD WITH DECREASED ROM) Respiratory Exam: diminished breath sounds, prolonged expirations, crackles/ rales, wheezing (END EXP BASES L>R), No respiratory distress, No accessory muscle use Cardiovascular Exam: regular rate/rhythm, normal heart sounds, No murmur Gastrointestinal/Abdomen Exam: soft, normal bowel sounds, tenderness (LUQ/LLQ , SUPRAPUBIC ) Pelvic Exam: deferred Rectal Exam: deferred Extremity Exam: normal inspection, normal range of motion, pelvis stable Neurologic Exam: alert, oriented x 3, cooperative, microbiology instructor II-XII nml as tested Skin Exam: normal color Lymphatic Exam: adenopathy SpO2 Interpretation: normal SpO2: 98 O2 Delivery: Room Air - Course Nursing assessment & vital signs reviewed: Yes Ordered Tests: Active Orders 24 hr Category Date Time Status ABDOMEN AND PELVIS W/0 CONTRAS [CT] Stat Exams 02/05/19 11:49 Completed CHEST 1 VIEW (PORTABLE) Stat Exams 02/05/19 10:32 Completed CHEST 2 VIEWS (PA AND LAT) Stat Exams 02/05/19 11:52 Completed KUB Stat Exams 02/05/19 11:52 Completed LUMBAR LIMITED (2 OR 3 VIEWS) Stat Exams 02/05/19 10:35 Completed CBC W DIFF Stat Lab 02/05/19 11:00 Completed CMP Stat Lab 02/05/19 11:00 Completed LIPASE Stat Lab 02/05/19 11:00 Completed UA W/RFX UR CULTURE Stat Lab 02/05/19 12:11 Completed Peak Expiratory Flow Rate ONCE RT 02/05/19 11:05 Active Respiratory Therapy Assessment DAILY RT 02/05/19 11:05 Active Medication Summary Discontinued Medications Generic Name Dose Route Start Last Admin Trade Name Shauna PRN Reason Stop Dose Admin Albuterol/Ipratropium 3 ml 02/05/19 10:48 02/05/19 11:01 Duoneb 0.5-3 Mg/3 Ml Neb IH 02/05/19 10:49 3 ml STAT ONE Administration Albuterol/Ipratropium Confirm 02/05/19 10:59 Duoneb 0.5-3 Mg/3 Ml Neb Administered 02/05/19 11:00 Dose 3 ml IH .STK-MED ONE Morphine Sulfate 1 mg 02/05/19 11:15 02/05/19 11:32 Morphine Sulfate 2 Mg Inj IM 02/05/19 11:16 1 mg STAT ONE Administration Morphine Sulfate Confirm 02/05/19 11:21 Morphine Sulfate 2 Mg Inj Administered 02/05/19 11:22 Dose 2 mg .ROUTE .STK-MED ONE Lab/Rad Data: Laboratory Result Diagrams 02/05/19 11:00 02/05/19 11:00 Laboratory Results 02/05/19 02/05/19 02/05/19 Range/Units 12:11 11:00 11:00 WBC (4.0-10.5) K/mm3 RBC (4.1-5.4) M/mm3 Hgb (12.0-16.0) gm/dl Hct (35-47) % MCV (78-100) fl MCH (26-32) pg MCHC (32-36) g/dl RDW (11.5-14.0) % Plt Count (150-450) K/mm3 MPV (6-9.5) fl Gran % (36.0-66.0) % Eos # (Auto) (0-0.5) Absolute Lymphs (auto) (1.0-4.6) Absolute Monos (auto) (0.0-1.3) Lymphocytes % (24.0-44.0) % Monocytes % (0.0-12.0) % Eosinophils % (0.00-5.0) % Basophils % (0.0-0.4) % Absolute Granulocytes (1.4-6.9) Basophils # (0-0.4) Sodium 140 (137-145) mmol/L Potassium 4.5 (3.5-5.1) mmol/L Chloride 103 (98-107) mmol/L Carbon Dioxide 26 (22-30) mmol/L Anion Gap 15.4 H (5-15) MEQ/L BUN 13 (7-17) mg/dL Creatinine 0.50 L (0.52-1.04) mg/dL Estimated GFR > 60.0 ML/MIN Glucose 94 (74-106) mg/dL Calcium 9.0 (8.4-10.2) mg/dL Total Bilirubin 0.40 (0.2-1.3) mg/dL AST 23 (14-36) U/L ALT 17 (0-35) U/L Alkaline Phosphatase 72 (38-126) U/L Serum Total Protein 8.1 (6.3-8.2) g/dL Albumin 4.5 (3.5-5.0) g/dL Lipase 28 (23-300) U/L Urine Color STRAW (YELLOW) Urine Appearance CLEAR (CLEAR) Urine pH 7.0 (5-6) Ur Specific [place] 1.004 (1.005-1.025) Urine Protein NEGATIVE (Negative) Urine Ketones NEGATIVE (NEGATIVE) Urine Blood NEGATIVE (0-5) [place]/ul Urine Nitrite NEGATIVE (NEGATIVE) Urine Bilirubin NEGATIVE (NEGATIVE) Urine Urobilinogen NEGATIVE (0-1) mg/dL Ur Leukocyte Esterase NEGATIVE (NEGATIVE) Urine WBC (Auto) NONE (0-5) /HPF Urine RBC (Auto) NONE (0-2) /HPF U Epithel Cells (Auto) NONE (FEW) /HPF Urine Bacteria (Auto) NONE (NEGATIVE) /HPF Urine Culture Reflexed NO (NO) Urine Glucose NEGATIVE (NEGATIVE) mg/dL Slides for Path Review 02/05/19 Range/Units 11:00 WBC 14.6 H (4.0-10.5) K/mm3 RBC 4.58 (4.1-5.4) M/mm3 Hgb 9.8 L (12.0-16.0) gm/dl Hct 33.7 L (35-47) % MCV 73.6 L (78-100) fl MCH 21.4 L (26-32) pg MCHC 29.1 L (32-36) g/dl RDW 16.7 H (11.5-14.0) % Plt Count 884 H (150-450) K/mm3 MPV 8.8 (6-9.5) fl Gran % 74.0 H (36.0-66.0) % Eos # (Auto) 0.32 (0-0.5) Absolute Lymphs (auto) 2.34 (1.0-4.6) Absolute Monos (auto) 1.09 (0.0-1.3) Lymphocytes % 16.0 L (24.0-44.0) % Monocytes % 7.4 (0.0-12.0) % Eosinophils % 2.2 (0.00-5.0) % Basophils % 0.4 (0.0-0.4) % Absolute Granulocytes 10.83 H (1.4-6.9) Basophils # 0.06 (0-0.4) Sodium (137-145) mmol/L Potassium (3.5-5.1) mmol/L Chloride (98-107) mmol/L Carbon Dioxide (22-30) mmol/L Anion Gap (5-15) MEQ/L BUN (7-17) mg/dL Creatinine (0.52-1.04) mg/dL Estimated GFR ML/MIN Glucose (74-106) mg/dL Calcium (8.4-10.2) mg/dL Total Bilirubin (0.2-1.3) mg/dL AST (14-36) U/L ALT (0-35) U/L Alkaline Phosphatase (38-126) U/L Serum Total Protein (6.3-8.2) g/dL Albumin (3.5-5.0) g/dL Lipase (23-300) U/L Urine Color (YELLOW) Urine Appearance (CLEAR) Urine pH (5-6) Ur Specific [place] (1.005-1.025) Urine Protein (Negative) Urine Ketones (NEGATIVE) Urine Blood (0-5) [place]/ul Urine Nitrite (NEGATIVE) Urine Bilirubin (NEGATIVE) Urine Urobilinogen (0-1) mg/dL Ur Leukocyte Esterase (NEGATIVE) Urine WBC (Auto) (0-5) /HPF Urine RBC (Auto) (0-2) /HPF U Epithel Cells (Auto) (FEW) /HPF Urine Bacteria (Auto) (NEGATIVE) /HPF Urine Culture Reflexed (NO) Urine Glucose (NEGATIVE) mg/dL Slides for Path Review YES - Progress Progress: improved - Departure Departure Disposition: Home Clinical Impression: Hiatal hernia with gastroesophageal reflux, Diverticulosis, Leukemoid reaction Condition: Stable Critical Care Time: No Referrals: YU PORRAS [Primary Care Provider] - Additional Instructions: NO DIARY IN DIET DISCUSSED , LIQUID DIET DISCUSSED FOLLOW UP WITH [facility] DOCTOR NEXT WEEK RETURN TO ER IF SYMP[TOMS RETURN OR INCREASES DISCUSSED Prescriptions: Ondansetron ODT 4 MG [Zofran Odt 4 mg] 4 mg PO Q6H PRN PRN #10 tab.rapdis PRN Reason: Vomiting Famotidine [Pepcid] 40 mg PO BID 30 Days #60 tablet
[2019-02-05 12:51] LABS: Appearance CLEAR (CLEAR); Bilirubin NEGATIVE (NEGATIVE); Blood NEGATIVE Ery/ul (0-5); Glucose NEGATIVE (NEGATIVE); Ketones NEGATIVE (NEGATIVE); Leukocyte Esterase NEGATIVE (NEGATIVE); Nitrite NEGATIVE (NEGATIVE); Protein,Urine Dip NEGATIVE (Negative); Specific Gravity 1.004 (1.005-1.025); Urobilinogen NEGATIVE mg/dL (0-1)
--- NOTE | 2019-02-05 13:12 | XRAY ---
Indication: Low back pain. Comparison: December 03, 2017. 3 views of the lumbar spine unchanged again demonstrating normal alignment with vertebral body heights/disc spaces maintained, minimal multilevel endplate spurring, and vascular calcifications. No new/acute findings.
--- NOTE | 2019-02-05 13:13 | XRAY ---
Indication: Left abdomen pain. Comparison: None KUB nonacute and nonobstructed with mild fecal debris in the right hemicolon and calcified splenic granuloma. Solid organs and osseous structures unremarkable.
--- NOTE | 2019-02-05 13:15 | XRAY ---
Indication: Left chest pain. Comparison: Taken earlier in the day. PA/lateral chest unchanged again hyperinflated and clear with incidental tiny calcified granulomas. Heart and mediastinal structures within normal limits. No new/acute findings.
--- NOTE | 2019-02-05 13:17 | XRAY ---
Indication: Left chest pain. Comparison: January 18, 2019. Portable chest remains clear. Heart is not enlarged. Bony thorax intact. No new/acute findings.
[2019-02-05 15:15] VITALS: PULSE 76
[2019-02-05 16:22] VITALS: BP 126/70; O2SAT 98
--- NOTE | 2019-02-05 16:41 | XRAY ---
Indication: Abdomen pain. Multiple contiguous axial images obtained through the abdomen and pelvis using oral contrast only as ordered. Comparison: August 02, 2017. Lung bases remain clear. Heart is not enlarged. Contrasted stomach and bowel loops appear nonobstructed. Previous reported appendectomy, cholecystectomy, and hysterectomy. Mild scattered colonic fecal debris predominantly in the ascending and transverse colon. Stable minimal sigmoid diverticulosis. No free fluid/air. Remaining liver, pancreas, spleen, degenerative glands, kidneys, ureters, and bladder appear unremarkable for noncontrast exam. Stable mild aortoiliac calcifications without AAA. Osseous structures intact again with minimal degenerative changes throughout the spine. Impression: 1. Stable sigmoid diverticulosis. 2. Remaining CT abdomen/pelvis without contrast exam is negative. CTDI 11.41
[2019-02-05] MEDS ORDERED: ANASPAZ 0.125 MG PO ONE (17:17)
== END 2019-02-05 17:56 | disposition home or self-care (01) ==
LOC: ED 10:08
DX: K44.9 Diaphragmatic hernia without obstruction or gangrene (principal); K21.9 Gastro-esophageal reflux disease without esophagitis; K57.90 Diverticulosis of intestine, part unspecified, without perforation or abscess without bleeding; D72.823 Leukemoid reaction; Z79.899 Other long term (current) drug therapy; I10 Essential (primary) hypertension; J44.9 Chronic obstructive pulmonary disease, unspecified; E78.00 Pure hypercholesterolemia, unspecified
CPT/HCPCS: 36415; 71045; 71046; 72100; 74018; 74176; 80053; 81001; 83690; 85025; 94150; 94640; 96372; 99284; J2270; A9270-GY

== ENCOUNTER 2021-04-25 09:28 | Emergency (ER) | payer MEDICARE ==
[2021-04-25] MEDS ORDERED: Zofran 4 MG/2 ML VIAL IV ONE (09:47)
[2021-04-25] MEDS ORDERED: Sodium Chloride 0.9% 1000 ML 1,000 ML IV STA (09:47)
--- NOTE | 2021-04-25 09:47 | ERPHSYRPT ---
- History of Present Illness Time Seen by Provider: 04/25/21 09:46 Source: patient Exam Limitations: no limitations Patient Subjective Stated Complaint: PT states "I went to Dr. Adam office because my belly has been hurting and they told me to come here because my heart rate was up. I have also had some diarrhea and a headache." Triage Nursing Assessment: Pt presented alert and oriented X 3, skin pwd Pt ambulates with a slow gait, able to speak in clear full sentences. Pt voice slightly raspy. PT resting comfortably on the bed. Physician History: This is a 66-year-old white female patient of Dr. Adam who was seen by him in the office this morning at a scheduled appointment because she has "not been feeling well" for approximately 1 week. Symptoms include nausea, body aches, headache, weakness, shortness of breath, abdominal pain and diarrhea. Patient has history of COPD, gastroesophageal reflux disease, elevated cholesterol, hypertension, TIAs and anemia. Timing/Duration: week(s) (1) Severity: moderate Associated Symptoms: nausea, abdominal pain, shortness of breath, headaches, loss of appetite, weakness, No chest pain Allergies/Adverse Reactions: Iodinated Contrast Media [Iodinated Contrast Media - IV Dye] Allergy (Verified 01/18/19 10:23) Itching iodine Allergy (Verified 01/18/19 10:23) Itching propoxyphene [From Darvon] Allergy (Verified 01/18/19 10:23) Nausea and Vomiting acetaminophen [From Vicodin] Adverse Reaction (Verified 01/18/19 10:23) Nausea and Vomiting hydrocodone [From Vicodin] Adverse Reaction (Verified 01/18/19 10:23) Nausea and Vomiting Home Medications: Albuterol/Ipratropium Mdi [Combivent Inhaler] 1 puff IH Q4HPRN PRN 11/29/12 [History] Pravastatin Sodium 20 mg PO HS 11/29/12 [History] Zolpidem Tartrate [Ambien] 10 mg PO HS 04/29/16 [History] Omeprazole 20 MG [Prilosec 20 mg] 20 mg PO DAILY 12/03/16 [History] Albuterol/Ipratropium 3ml Neb* [DUONEB 0.5-3 MG/3 ml Neb] 3 ml IH QIDRT 06/04/17 [History] Enalapril Maleate [Vasotec] 20 mg PO DAILY 06/04/17 [History] Fluticasone/Umeclidin/Vilanter [Trelegy Ellipta 100-62.5-25] 25 - 200 mcg IH DAILY 01/18/19 [History] Hx Tetanus, Diphtheria Vaccination/Date Given: No Hx Influenza Vaccination/Date Given: Yes Hx Pneumococcal Vaccination/Date Given: Yes Immunizations Up to Date: Yes Travel Risk - International Travel Have you traveled outside of the country in past 3 weeks: No - Coronavirus Screening Are you exhibiting any of the following symptoms?: Yes Symptoms: Shortness of Breath, Vomiting/Diarrhea, Headaches/Body Aches/Fatigue Close contact with a COVID-19 positive Pt in past 14-21 Days: No - Vaccine Status Have you recieved a Covid-19 vaccination: Yes Aircraft [employer]: [employer] - Vaccination Dates Date of 2cond Vaccination (if applicable): 05/2020 - Review of Systems Constitutional: Weakness Eyes: No Symptoms Ears, Nose, & Throat: No Symptoms Respiratory: Dyspnea, No Cough Cardiac: No No Symptoms Abdominal/Gastrointestinal: Abdominal Pain, Nausea, Diarrhea, No Vomiting Genitourinary Symptoms: No Symptoms Musculoskeletal: Arthralgias, Myalgias Skin: No Symptoms Neurological: Headache Psychological: No Symptoms Endocrine: No Symptoms Hematologic/Lymphatic: No Symptoms Immunological/Allergic: No Symptoms All Other Systems: Reviewed and Negative - Past Medical History Pertinent Past Medical History: Yes Neurological History: TIA ENT History: No Pertinent History Cardiac History: High Cholesterol, Hypertension Respiratory History: Bronchitis, COPD, Emphysema, Pneumonia Endocrine Medical History: No Pertinent History Musculoskeletal History: No Pertinent History GI Medical History: GERD, Gallbladder Disease, Hernia History: No Pertinent History Psycho-Social History: No Pertinent History Female Reproductive Disorders: No Pertinent History Other Medical History: hiatal hernia,anemia, - Past Surgical History Past Surgical History: Yes Neuro Surgical History: No Pertinent History Cardiac: No Pertinent History Respiratory: No Pertinent History Gastrointestinal: Appendectomy, Cholecystectomy Genitourinary: No Pertinent History Musculoskeletal: Orthopedic Surgery Female Surgical History: Hysterectomy Other Surgical History: RIGHT FOOT SURGERY times 3, - Social History Smoking Status: Former smoker How long have you smoked: 30 yrs Exposure to second hand smoke: No Drug Use: none Patient Lives Alone: Yes - Nursing Vital Signs Nursing Vital Signs: Initial Vital Signs Temperature 97.8 F 03/15/22 09:29 Pulse Rate 104 H 04/25/21 09:29 Respiratory Rate 26 H 04/25/21 09:29 Blood Pressure 136/76 04/25/21 09:29 O2 Sat by Pulse Oximetry 94 L 04/25/21 09:29 Pain Scale Pain Intensity 2 - Physical Exam General Appearance: mild distress, alert, anxiety Eye Exam: PERRL/EOMI, eyes nml inspection Ears, Nose, Throat Exam: normal ENT inspection, moist mucous membranes Neck Exam: normal inspection, non-tender, supple, full range of motion Respiratory Exam: normal breath sounds, lungs clear, airway intact, No chest tenderness, No respiratory distress Cardiovascular Exam: normal peripheral pulses, tachycardia Gastrointestinal/Abdomen Exam: soft, normal bowel sounds, tenderness, guarding (Mild diffuse), No rebound Pelvic Exam: not done Rectal Exam: not done Back Exam: normal inspection, normal range of motion, No CVA tenderness, No vertebral tenderness Extremity Exam: normal inspection, normal range of motion, pelvis stable Neurologic Exam: alert, oriented x 3, cooperative, safety council director II-XII nml as tested, normal mood/affect, nml cerebellar function, nml station & gait, sensation nml Skin Exam: normal color, warm, dry Lymphatic Exam: No adenopathy SpO2 Interpretation: borderline oxygenation SpO2: 94 O2 Delivery: Room Air - Course Nursing assessment & vital signs reviewed: Yes EKG Interpreted by Me: RATE ([id number]), Sinus Rhythm, NORMAL AXIS, NORMAL INTERVALS, NORMAL QRS, NORMAL ST-T, Other (Acute ischemic changes.) Ordered Tests: Active Orders 24 hr Category Date Time Status EKG-ER Only STAT Care 04/25/21 09:48 Active IV Insertion STAT Care 04/25/21 09:47 Active ABDOMEN AND PELVIS W/0 CONTRAS [CT] Stat Exams 04/25/21 09:47 Completed AMYLASE Stat Lab 04/25/21 10:03 Completed BLOOD CULTURE Stat Lab 04/25/21 09:47 Received CBC W DIFF Stat Lab 04/25/21 10:03 Completed CMP Stat Lab 04/25/21 10:03 Completed D-DIMER QUANTITATIVE Stat Lab 04/25/21 10:00 Completed LIPASE Stat Lab 04/25/21 10:03 Completed Lactic Acid Stat Lab 04/25/21 09:47 Completed [place] Screen Stat Lab 04/25/21 10:03 Completed TROPONIN Q3H Lab 04/25/21 10:03 Completed TROPONIN Q3H Lab 04/25/21 13:20 Received TROPONIN Q3H Lab 04/25/21 16:00 Ordered TROPONIN Q3H Lab 04/25/21 19:00 Ordered TROPONIN Q3H Lab 04/25/21 22:00 Ordered UA W/RFX UR CULTURE Stat Lab 04/25/21 09:52 Completed Medication Summary Generic Name Dose Route Start Last Admin Trade Name Freq PRN Reason Stop Dose Admin Sodium Chloride 500 mls @ 500 mls/hr 04/25/21 13:00 04/25/21 13:03 Sodium Chloride 0.9% 500 Ml IV 04/25/21 13:59 500 mls/hr .Q1H ONE Administration Discontinued Medications Generic Name Dose Route Start Last Admin Trade Name Freq PRN Reason Stop Dose Admin Diphenhydramine HCl 50 mg 04/25/21 12:44 04/25/21 12:48 Diphenhydramine Hcl 50 Mg/Ml Vial IV 04/25/21 12:45 50 mg STAT ONE Administration Diphenhydramine HCl Confirm 04/25/21 12:44 Diphenhydramine Hcl 50 Mg/Ml Vial Administered 04/25/21 12:45 Dose 50 mg .ROUTE .STK-MED ONE Hydromorphone HCl 1 mg 04/25/21 09:57 04/25/21 10:11 Hydromorphone 1 Mg/1ml Inj 1 Mg/Ml Syringe IV 04/25/21 09:58 1 mg STAT ONE Administration Hydromorphone HCl Confirm 04/25/21 10:07 Hydromorphone 1 Mg/1ml Inj 1 Mg/Ml Syringe Administered 04/25/21 10:08 Dose 1 mg .ROUTE .STK-MED ONE Sodium Chloride 1,000 mls @ 999 mls/hr 04/25/21 09:47 04/25/21 10:57 Sodium Chloride 0.9% 1000 Ml IV 04/25/21 10:47 Infused .Q1H1M STA Infusion Sodium Chloride Confirm 04/25/21 09:53 Sodium Chloride 0.9% 1000 Ml Administered 04/25/21 09:54 Dose 1,000 mls @ ud .ROUTE .STK-MED ONE Sodium Chloride Confirm 04/25/21 13:02 Sodium Chloride 0.9% 500 Ml Administered 04/25/21 13:03 Dose 500 mls @ ud IV .STK-MED ONE Lorazepam 0.5 mg 04/25/21 12:45 04/25/21 13:01 Lorazepam 2 Mg/1 Ml 2 Mg Vial IV 04/25/21 12:46 0.5 mg STAT ONE Administration Lorazepam Confirm 04/25/21 12:45 Lorazepam 2 Mg/1 Ml 2 Mg Vial Administered 04/25/21 12:46 Dose 2 mg .ROUTE .STK-MED ONE Ondansetron HCl 4 mg 04/25/21 09:47 04/25/21 09:55 Ondansetron Hcl 4 Mg/2 Ml Vial IV 04/25/21 09:48 4 mg STAT ONE Administration Ondansetron HCl Confirm 04/25/21 09:52 Ondansetron Hcl 4 Mg/2 Ml Vial Administered 04/25/21 09:53 Dose 4 mg .ROUTE .STK-MED ONE Prochlorperazine Edisylate 10 mg 04/25/21 12:10 04/25/21 12:13 Prochlorperazine Edisylate 10 Mg/2 Ml Vial IV 04/25/21 12:11 10 mg STAT ONE Administration Prochlorperazine Edisylate Confirm 04/25/21 12:11 Prochlorperazine Edisylate 10 Mg/2 Ml Vial Administered 04/25/21 12:12 Dose 10 mg .ROUTE .STK-MED ONE Lab/Rad Data: Laboratory Result Diagrams 04/25/21 10:03 04/25/21 10:03 Laboratory Results 04/25/21 04/25/21 04/25/21 Range/Units 10:27 10:04 10:03 WBC (4.0-10.5) K/mm3 RBC (4.1-5.4) M/mm3 Hgb (12.0-16.0) gm/dl Hct (35-47) % MCV (78-100) fl MCH (26-32) pg MCHC (32-36) g/dl RDW (11.5-14.0) % Plt Count (150-450) K/mm3 MPV (7.5-11.0) fl Gran % (36.0-66.0) % Eos # (Auto) (0-0.5) Absolute Lymphs (auto) (1.0-4.6) Absolute Monos (auto) (0.0-1.3) Lymphocytes % (24.0-44.0) % Monocytes % (0.0-12.0) % Eosinophils % (0.00-5.0) % Basophils % (0.0-0.4) % Absolute Granulocytes (1.4-6.9) Basophils # (0-0.4) D-Dimer (215-500) ng/mL Sodium (137-145) mmol/L Potassium (3.5-5.1) mmol/L Chloride (98-107) mmol/L Carbon Dioxide (22-30) mmol/L Anion Gap (5-15) MEQ/L BUN (7-17) mg/dL Creatinine (0.52-1.04) mg/dL Estimated GFR ML/MIN Glucose (74-106) mg/dL Lactic Acid (0.4-2.0) Calcium (8.4-10.2) mg/dL Total Bilirubin (0.2-1.3) mg/dL AST (14-36) U/L ALT (0-35) U/L Alkaline Phosphatase (38-126) U/L Troponin I < 0.012 (0.000-0.034) ng/mL Serum Total Protein (6.3-8.2) g/dL Albumin (3.5-5.0) g/dL Amylase (30-110) U/L Lipase (23-300) U/L Urine Color (YELLOW) Urine Appearance (CLEAR) Urine pH (5-6) Ur Specific [place] (1.005-1.025) Urine Protein (Negative) Urine Ketones (NEGATIVE) Urine Blood (0-5) [place]/ul Urine Nitrite (NEGATIVE) Urine Bilirubin (NEGATIVE) Urine Urobilinogen (0-1) mg/dL Ur Leukocyte Esterase (NEGATIVE) Urine WBC (Auto) (0-5) /HPF Urine RBC (Auto) (0-2) /HPF U Epithel Cells (Auto) (FEW) /HPF Urine Bacteria (Auto) (NEGATIVE) /HPF Urine Culture Reflexed (NO) Urine Glucose (NEGATIVE) mg/dL Monoscreen (Negative) Influenza Type A Ag NEGATIVE (NEGATIVE) Influenza Type B Ag NEGATIVE (NEGATIVE) RSV (PCR) NEGATIVE (Negative) SARS-CoV-2 (PCR) NEGATIVE (NEGATIVE) Group A Strep Antibody NOT DETECTED (NEGATIVE) 04/25/21 04/25/21 04/25/21 Range/Units 10:03 10:03 10:03 WBC 11.0 H (4.0-10.5) K/mm3 RBC 4.67 (4.1-5.4) M/mm3 Hgb 12.4 (12.0-16.0) gm/dl Hct 39.6 (35-47) % MCV 84.8 (78-100) fl MCH 26.6 (26-32) pg MCHC 31.3 L (32-36) g/dl RDW 15.0 H (11.5-14.0) % Plt Count 719 H (150-450) K/mm3 MPV 9.2 (7.5-11.0) fl Gran % 62.7 (36.0-66.0) % Eos # (Auto) 0.45 (0-0.5) Absolute Lymphs (auto) 2.79 (1.0-4.6) Absolute Monos (auto) 0.82 (0.0-1.3) Lymphocytes % 25.3 (24.0-44.0) % Monocytes % 7.4 (0.0-12.0) % Eosinophils % 4.1 (0.00-5.0) % Basophils % 0.5 (0.0-0.4) % Absolute Granulocytes 6.90 (1.4-6.9) Basophils # 0.05 (0-0.4) D-Dimer (215-500) ng/mL Sodium 142 (137-145) mmol/L Potassium 4.2 (3.5-5.1) mmol/L Chloride 104 (98-107) mmol/L Carbon Dioxide 24 (22-30) mmol/L Anion Gap 17.8 H (5-15) MEQ/L BUN 15 (7-17) mg/dL Creatinine 0.58 (0.52-1.04) mg/dL Estimated GFR > 60.0 ML/MIN Glucose 107 H (74-106) mg/dL Lactic Acid (0.4-2.0) Calcium 10.0 (8.4-10.2) mg/dL Total Bilirubin 0.50 (0.2-1.3) mg/dL AST 25 (14-36) U/L ALT 23 (0-35) U/L Alkaline Phosphatase 72 (38-126) U/L Troponin I (0.000-0.034) ng/mL Serum Total Protein 7.9 (6.3-8.2) g/dL Albumin 4.9 (3.5-5.0) g/dL Amylase 48 (30-110) U/L Lipase 51 (23-300) U/L Urine Color (YELLOW) Urine Appearance (CLEAR) Urine pH (5-6) Ur Specific [place] (1.005-1.025) Urine Protein (Negative) Urine Ketones (NEGATIVE) Urine Blood (0-5) [place]/ul Urine Nitrite (NEGATIVE) Urine Bilirubin (NEGATIVE) Urine Urobilinogen (0-1) mg/dL Ur Leukocyte Esterase (NEGATIVE) Urine WBC (Auto) (0-5) /HPF Urine RBC (Auto) (0-2) /HPF U Epithel Cells (Auto) (FEW) /HPF Urine Bacteria (Auto) (NEGATIVE) /HPF Urine Culture Reflexed (NO) Urine Glucose (NEGATIVE) mg/dL Monoscreen NEGATIVE (Negative) Influenza Type A Ag (NEGATIVE) Influenza Type B Ag (NEGATIVE) RSV (PCR) (Negative) SARS-CoV-2 (PCR) (NEGATIVE) Group A Strep Antibody (NEGATIVE) 04/25/21 04/25/21 04/25/21 Range/Units 10:00 09:52 09:47 WBC (4.0-10.5) K/mm3 RBC (4.1-5.4) M/mm3 Hgb (12.0-16.0) gm/dl Hct (35-47) % MCV (78-100) fl MCH (26-32) pg MCHC (32-36) g/dl RDW (11.5-14.0) % Plt Count (150-450) K/mm3 MPV (7.5-11.0) fl Gran % (36.0-66.0) % Eos # (Auto) (0-0.5) Absolute Lymphs (auto) (1.0-4.6) Absolute Monos (auto) (0.0-1.3) Lymphocytes % (24.0-44.0) % Monocytes % (0.0-12.0) % Eosinophils % (0.00-5.0) % Basophils % (0.0-0.4) % Absolute Granulocytes (1.4-6.9) Basophils # (0-0.4) D-Dimer 333 (215-500) ng/mL Sodium (137-145) mmol/L Potassium (3.5-5.1) mmol/L Chloride (98-107) mmol/L Carbon Dioxide (22-30) mmol/L Anion Gap (5-15) MEQ/L BUN (7-17) mg/dL Creatinine (0.52-1.04) mg/dL Estimated GFR ML/MIN Glucose (74-106) mg/dL Lactic Acid 1.7 (0.4-2.0) Calcium (8.4-10.2) mg/dL Total Bilirubin (0.2-1.3) mg/dL AST (14-36) U/L ALT (0-35) U/L Alkaline Phosphatase (38-126) U/L Troponin I (0.000-0.034) ng/mL Serum Total Protein (6.3-8.2) g/dL Albumin (3.5-5.0) g/dL Amylase (30-110) U/L Lipase (23-300) U/L Urine Color YELLOW (YELLOW) Urine Appearance CLEAR (CLEAR) Urine pH 6.0 (5-6) Ur Specific [place] 1.009 (1.005-1.025) Urine Protein NEGATIVE (Negative) Urine Ketones NEGATIVE (NEGATIVE) Urine Blood NEGATIVE (0-5) [place]/ul Urine Nitrite NEGATIVE (NEGATIVE) Urine Bilirubin NEGATIVE (NEGATIVE) Urine Urobilinogen NEGATIVE (0-1) mg/dL Ur Leukocyte Esterase NEGATIVE (NEGATIVE) Urine WBC (Auto) 0-2 (0-5) /HPF Urine RBC (Auto) 0-2 (0-2) /HPF U Epithel Cells (Auto) FEW (FEW) /HPF Urine Bacteria (Auto) FEW (NEGATIVE) /HPF Urine Culture Reflexed NO (NO) Urine Glucose NEGATIVE (NEGATIVE) mg/dL Monoscreen (Negative) Influenza Type A Ag (NEGATIVE) Influenza Type B Ag (NEGATIVE) RSV (PCR) (Negative) SARS-CoV-2 (PCR) (NEGATIVE) Group A Strep Antibody (NEGATIVE) - Progress Progress: improved Progress Note: 04/25/21 10:59 CAT scan of the abdomen pelvis shows colonic diverticulosis without diverticulitis. There are no acute intra-abdominal or intrapelvic findings 04/25/21 12:48 Patient states that she is feeling better. Her abdominal pain is nearly completely gone and her nausea is improved but still present. We did give her Compazine after we gave her Zofran intravenously. After the Compazine she seems a little agitated and this may be a side effect of the Compazine. We will give her intravenous Benadryl and wait for the remainder of the testing done. Patient states that she feels well enough to go home and wants to go home. Patient does not have shortness of breath at this time and her oxygenation on room air is 98%. She denies chest pain. 04/25/21 13:52 Patient is now significantly less irritated and agitated. She states she is actually feeling pretty good. She has no nausea. She has no abdominal pain. She has no chest pain. Her heart rate is in the low to high 90s. Her oxygen saturation on room air is 98%. Patient wants to go home. Counseled pt/family regarding: lab results, diagnosis, rad results - Departure Departure Disposition: Home Clinical Impression: Diarrhea, Tachycardia, Arthralgia, Headache Condition: Stable Critical Care Time: No Referrals: YU ADAM [Primary Care Provider] - Follow up/PCP as directed Additional Instructions: Drink plenty of fluids. Take all your medication as prescribed. Return to the emergency department if your symptoms worsen. Follow-up with Dr. Adam in his office by phone to make arrangements for another follow-up appointment for further evaluation and management. Prescriptions: Ondansetron ODT 4 MG [Zofran Odt 4 mg] 4 mg PO Q6H PRN PRN #10 tablet PRN Reason: Vomiting
[2021-04-25] MEDS ORDERED: Zofran 4 MG/2 ML VIAL ONE (09:52)
[2021-04-25] MEDS ORDERED: Sodium Chloride 0.9% 1000 ML 1,000 ML ONE (09:53)
[2021-04-25] MEDS ORDERED: Hydromorphone 1 mg/ml Injection IV ONE (09:57)
[2021-04-25 10:00] LABS: Appearance CLEAR (CLEAR); Bilirubin NEGATIVE (NEGATIVE); Blood NEGATIVE Ery/ul (0-5); Glucose NEGATIVE (NEGATIVE); Ketones NEGATIVE (NEGATIVE); Leukocyte Esterase NEGATIVE (NEGATIVE); Nitrite NEGATIVE (NEGATIVE); Protein,Urine Dip NEGATIVE (Negative); Specific Gravity 1.009 (1.005-1.025); Urobilinogen NEGATIVE mg/dL (0-1)
[2021-04-25 10:04] LABS: Bacteria FEW /HPF (NEGATIVE); Epithelial Cells FEW /HPF (FEW); RBC 0-2 /HPF (0-2); WBC 0-2 /HPF (0-5)
[2021-04-25] MEDS ORDERED: Hydromorphone 1 mg/ml Injection ONE (10:07)
[2021-04-25 10:14] LABS: ALBUMIN 4.9 g/dL (3.5-5.0); ALKALINE PHOSPHATASE 72 U/L (38-126); AMYLASE 48 U/L (30-110); ANION GAP 17.8 MEQ/L (5-15); BLOOD UREA NITROGEN 15 mg/dL (7-17); CHLORIDE 104 mmol/L (98-107); Carbon Dioxide 24 mmol/L (22-30); Creatinine 1 0.58 mg/dL (0.52-1.04); EST GLOMERULAR FILTRATION RATE > 60.0 ML/MIN; Glucose 107 mg/dL (74-106); LIPASE 51 U/L (23-300); Potassium 4.2 mmol/L (3.5-5.1); SGOT/AST 25 U/L (14-36); SGPT/ALT 23 U/L (0-35); SODIUM 142 mmol/L (137-145); Total Protein 7.9 g/dL (6.3-8.2)
[2021-04-25 10:16] LABS: Basophil (Absolute #) 0.05 (0-0.4); Eosinophil % 4.1 % (0.00-5.0); Eosinophil (Absolute #) 0.45 (0-0.5); Hematocrit 39.6 % (35-47); Hemoglobin 12.4 gm/dl (12.0-16.0); Lymphocyte (Absolute #) 2.79 (1.0-4.6); Lymphocytes % 25.3 % (24.0-44.0); Mean Cell Volume 84.8 fl (78-100); Mean Corpuscular Hemoglobin 26.6 pg (26-32); Mean Corpuscular Hgb Concent. 31.3 g/dl (32-36); Mean Platelet Volume 9.2 fl (7.5-11.0); Monocyte (Absolute #) 0.82 (0.0-1.3); Monocytes % 7.4 % (0.0-12.0); Neutrophil % 62.7 % (36.0-66.0); Platelet Count 719 K/mm3 (150-450); Red Blood Count 4.67 M/mm3 (4.1-5.4)
--- NOTE | 2021-04-25 10:42 | XRAY ---
Indication: Abdomen pain. Nausea, diarrhea, and low blood pressure. Multiple contiguous axial images obtained through the abdomen and pelvis without contrast. Comparison: February 05, 2019. Lung bases demonstrates minimal fibrosis/scarring. No infiltrate or effusion. Heart not enlarged. Noncontrasted stomach and bowel loops are nonobstructed. There remains scattered sigmoid and lesser degree descending colonic diverticulosis without diverticulitis. Again appendectomy, cholecystectomy, and hysterectomy. No free fluid/air. Remaining liver, pancreas, spleen, adrenal glands, kidneys, ureters, and bladder are unremarkable for noncontrast exam. There remains mild scattered aortoiliac calcifications without AAA. Osseous structures intact again with minimal degenerative changes throughout the spine. No ventral or inguinal hernias. Impression: 1. Again colonic diverticulosis and minimal degenerative spondylosis. 2. Remaining CT abdomen/pelvis without contrast exam is again negative.
[2021-04-25 11:29] LABS: INFLUENZA A NEGATIVE (NEGATIVE); INFLUENZA B NEGATIVE (NEGATIVE); RESPIRATORY SYNCTIAL VIRUS NEGATIVE (Negative); SARS-CoV-2 Xpert Express NEGATIVE (NEGATIVE)
[2021-04-25] MEDS ORDERED: Compazine 10 MG/2 ML IV ONE (12:10)
[2021-04-25] MEDS ORDERED: Compazine 10 MG/2 ML ONE (12:11)
[2021-04-25] MEDS ORDERED: BENADRYL 50 MG/ML IV ONE (12:44)
[2021-04-25] MEDS ORDERED: BENADRYL 50 MG/ML ONE (12:44)
[2021-04-25] MEDS ORDERED: Ativan 2 MG/1 ML VIAL IV ONE (12:45)
[2021-04-25] MEDS ORDERED: Ativan 2 MG/1 ML VIAL ONE (12:45)
[2021-04-25] MEDS ORDERED: Sodium Chloride 0.9% 500 ML 500 ML IV ONE ×2 (13:00→13:02)
[2021-04-25 14:26] VITALS: BP 103/62; PULSE 86; O2SAT 99
== END 2021-04-25 14:41 | disposition home or self-care (01) ==
LOC: ED 09:28
DX: R51.9 Headache, unspecified (principal); R19.7 Diarrhea, unspecified; R00.0 Tachycardia, unspecified; M25.50 Pain in unspecified joint; R11.0 Nausea; R53.1 Weakness; R06.02 Shortness of breath; R10.9 Unspecified abdominal pain; E78.5 Hyperlipidemia, unspecified; I10 Essential (primary) hypertension; J43.9 Emphysema, unspecified; K21.9 Gastro-esophageal reflux disease without esophagitis; Z79.899 Other long term (current) drug therapy; K57.30 Diverticulosis of large intestine without perforation or abscess without bleeding
CPT/HCPCS: 0241U; 36000; 36415; 74176; 80053; 81001; 82150; 83605; 83690; 84484; 85025; 85379; 86308; 87040; 87651; 93005; 96360; 96374; 96375; 99285; 87086; J1170; J1200; J2060; J2405

== ENCOUNTER 2021-10-30 05:51 | Day surgery (SDC) | payer MEDICARE ==
[2021-10-30] MEDS ORDERED: Lactated Ringers 1,000 ML IV SCH (06:30)
[2021-10-30] MEDS ORDERED: DIPRIVAN 200 MG/20 ML IV ONE (08:02)
[2021-10-30 08:59] VITALS: O2SAT 97
[2021-10-30 09:18] VITALS: BP 136/88; PULSE 94
--- NOTE | 2021-10-30 13:31 | OP ---
SURGERY DATE/TIME: 10/30/2021 0808 PREOPERATIVE DIAGNOSIS: Epigastric pain and gastroesophageal reflux disease. POSTOPERATIVE DIAGNOSIS: Mild gastritis. PROCEDURE: Esophagogastroduodenoscopy with cold forceps biopsy. SURGEON: Dr. Adam. ANESTHESIA: Medications were given by the anesthesia department. BRIEF HISTORY: The patient is a 66-year-old white female who presents now for endoscopic evaluation. She has tried outpatient management for her abdominal discomfort but she describes gastroesophageal reflux and epigastric pain. The patient is felt the need to have endoscopic evaluation. She was appraised of the risks of the procedure including the risk of perforation, phlebitis, untoward reaction to medication, bleeding and missed lesions. The patient verbalized her understanding and desired to have the procedure performed. DESCRIPTION OF PROCEDURE: The patient was given the medications by the anesthesia department. She had continuous pulse oximetry, ECG monitoring, intermittent blood pressure monitoring during the examination. The patient was placed in the left lateral decubitus position. A bite block was placed and the flexible Olympus gastroscope was used to intubate the oropharynx which appeared to be normal. The scope was easily introduced in the esophagus which also likewise appeared to be normal. The stomach was entered where normal gastric rugal folds were seen and these distended nicely with insufflation of air. The scope was passed along the greater curvature of the stomach to the antrum. The pylorus was encountered and intubated. The duodenum inspected and found to be normal. The scope is withdrawn towards the stomach. A retroflex view was obtained of the lesser curvature, fundus and cardia regions of the stomach and these appeared to be essentially normal as well. The scope was then redirected towards the gastric antrum and biopsies were obtained to rule out the presence of Helicobacter pylori-type organisms. The scope was then removed from the patient who tolerated the procedure well and was sent back to outpatient recovery in good condition.
== END 2021-10-30 09:10 | disposition home or self-care (01) ==
LOC: SDC 05:51
PROVIDERS: ATTEND Family Medicine
DX: K29.70 Gastritis, unspecified, without bleeding (principal); R10.13 Epigastric pain; K21.9 Gastro-esophageal reflux disease without esophagitis
CPT/HCPCS: J2704

== ENCOUNTER 2021-12-22 14:39 | Emergency (ER) | payer MEDICARE ==
--- NOTE | 2021-12-22 14:43 | ERPHSYRPT ---
- History of Present Illness Source: patient, EMS Exam Limitations: no limitations Timing/Duration: week(s) (2), worse (Palpitations last couple of days) Quality: other (No chest pain) Location: other (No chest pain) Chest Pain Radiation: no radiation Severity of Pain-Max: none Severity of Pain-Current: none Nitro Today/Relief: no nitro taken today Aspirin Treatment Today: no aspirin today Associated Symptoms: denies symptoms Hx Tetanus, Diphtheria Vaccination/Date Given: No Hx Influenza Vaccination/Date Given: Yes Hx Pneumococcal Vaccination/Date Given: Yes - History of Present Illness Time Seen by Provider: 12/22/21 14:43 Physician History: This is a 66-year-old white female patient of Dr. Porras who was brought to the emergency department by ambulance service because of cardiac palpitations. She stated that yesterday she was feeling intermittent palpitations but then coughed and they went away. Today, she has had persistent palpitations. Patient was brought into the emergency room by ambulance service. Upon arrival in the emergency room she has been in normal sinus rhythm on both her twelve-lead EKG and on the rhythm monitor. In the last 2 weeks, the patient has had a cough and sore throat and she has been on a Z-Gerardo and prednisone approximately 2 weeks ago. Approximately [address] Orellana, her blueprint reproducer, called and amoxicillin and prednisone for her. Patient's primary care provider is Dr. Porras and her bladder trimmer is Dr. Yoder. Patient currently denies chest pain and denies shortness of breath. Patient has a history of COPD, gastroesophageal reflux disease, hyperlipidemia, hypertension, TIAs and chronic anemia. She denies fever. She denies vomiting. She states that the last 2 mornings she has had loose stools. (ZUNILDA PUGH) Allergies/Adverse Reactions: Iodinated Contrast Media [Iodinated Contrast Media - IV Dye] Allergy (Severe, Verified 12/22/21 14:47) Itching acetaminophen [From Vicodin] Allergy (Verified 10/30/21 06:57) Nausea and Vomiting Pt can take plain tylenol. hydrocodone [From Vicodin] Allergy (Verified 10/30/21 06:57) Nausea and Vomiting iodine Allergy (Verified 10/30/21 06:57) Itching prochlorperazine [From Compazine] Allergy (Verified 10/30/21 06:57) propoxyphene [From Darvon] Allergy (Verified 10/30/21 06:57) Nausea and Vomiting Home Medications: Albuterol/Ipratropium Mdi [Combivent Inhaler] 1 puff IH Q4HPRN PRN 11/29/12 [History] Pravastatin Sodium 20 mg PO HS 11/29/12 [History] Zolpidem Tartrate [Ambien] 10 mg PO HS 04/29/16 [History] Albuterol/Ipratropium 3ml Neb* [DUONEB 0.5-3 MG/3 ml Neb] 3 ml IH QIDRT 06/04/17 [History] Enalapril Maleate [Vasotec] 20 mg PO DAILY 06/04/17 [History] Fluticasone/Umeclidin/Vilanter [Trelegy Ellipta 100-62.5-25] 25 - 200 mcg IH DAILY 01/18/19 [History] Apixaban [Eliquis 5 mg Tablet] 1 tab PO BID 10/30/21 [History] Metoprolol Tartrate 25 mg [Lopressor 25MG Tab] 1 mg PO DAILY 10/30/21 [History] Omeprazole 1 cap PO BID 10/30/21 [History] Promethazine HCl 25 mg [Phenergan 25 mg] 1 tab PO Q4H 10/30/21 [History] Travel Risk - International Travel Have you traveled outside of the country in past 3 weeks: No - Coronavirus Screening Are you exhibiting any of the following symptoms?: Yes Symptoms: Cough: New Onset, Vomiting/Diarrhea Close contact with a COVID-19 positive Pt in past 14-21 Days: No - Vaccine Status Have you recieved a Covid-19 vaccination: Yes 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 - Vaccination Dates Date of 2cond Vaccination (if applicable): 05/2020 - Review of Systems Constitutional: No Symptoms Eyes: No Symptoms Ears, Nose, & Throat: No Symptoms Respiratory: No Symptoms Cardiac: Palpitations, No Chest Pain Abdominal/Gastrointestinal: No Symptoms Genitourinary Symptoms: No Symptoms Musculoskeletal: No Symptoms Skin: No Symptoms Neurological: No Symptoms Psychological: No Symptoms Endocrine: No Symptoms Hematologic/Lymphatic: No Symptoms Immunological/Allergic: No Symptoms All Other Systems: Reviewed and Negative - Past Medical History Pertinent Past Medical History: Yes Neurological History: TIA ENT History: No Pertinent History Cardiac History: Arrhythmia, High Cholesterol, Hypertension Respiratory History: COPD Endocrine Medical History: No Pertinent History Musculoskeletal History: No Pertinent History GI Medical History: GERD, Hernia History: No Pertinent History Psycho-Social History: No Pertinent History Female Reproductive Disorders: No Pertinent History Other Medical History: hiatal hernia,anemia, - Past Surgical History Past Surgical History: Yes Neuro Surgical History: No Pertinent History Cardiac: No Pertinent History Respiratory: No Pertinent History Gastrointestinal: Appendectomy, Cholecystectomy, Exploratory Laparoscopy Genitourinary: No Pertinent History Musculoskeletal: Orthopedic Surgery Female Surgical History: Hysterectomy Other Surgical History: 4 surgeries on right foot - Social History Smoking Status: Former smoker How long have you smoked: 30 yrs Exposure to second hand smoke: No Drug Use: none Patient Lives Alone: Yes - Physical Exam General Appearance: no apparent distress, alert, anxiety Eye Exam: PERRL/EOMI, eyes nml inspection Ears, Nose, Throat Exam: normal ENT inspection, moist mucous membranes Neck Exam: normal inspection, non-tender, supple, full range of motion Respiratory Exam: normal breath sounds, lungs clear, airway intact, No chest tenderness, No respiratory distress Cardiovascular Exam: regular rate/rhythm, normal heart sounds, normal peripheral pulses Gastrointestinal/Abdomen Exam: soft, normal bowel sounds, No tenderness Pelvic Exam: not done Rectal Exam: not done Back Exam: normal inspection, normal range of motion, vertebral tenderness, No CVA tenderness Extremity Exam: normal inspection, normal range of motion, pelvis stable Neurologic Exam: alert, oriented x 3, cooperative, grocery clerk stocking II-XII nml as tested, normal mood/affect, nml cerebellar function, nml station & gait, sensation nml Skin Exam: normal color, warm, dry Lymphatic Exam: No adenopathy SpO2 Interpretation: normal O2 Delivery: Room Air - Nursing Vital Signs Nursing Vital Signs: Initial Vital Signs O2 Sat by Pulse Oximetry 96 12/22/21 15:07 Pain Scale Pain Intensity 0 - Course Nursing assessment & vital signs reviewed: Yes EKG Interpreted by Me: RATE (75), Sinus Rhythm, NORMAL AXIS, NORMAL INTERVALS, NORMAL QRS, NORMAL ST-T, Other (Acute ischemic changes on today's EKG.) Ordered Tests: Active Orders 24 hr Category Date Time Status EKG-ER Only STAT Care 12/22/21 14:56 Active IV Insertion STAT Care 12/22/21 14:56 Active Pulse Oximetry (ED) STAT Care 12/22/21 14:56 Active CHEST 1 VIEW (PORTABLE) Routine Exams 12/22/21 15:33 Completed CBC W DIFF Stat Lab 12/22/21 15:18 Completed CMP Stat Lab 12/22/21 15:18 Completed D-DIMER QUANTITATIVE Stat Lab 12/22/21 15:18 Completed [place] Screen Stat Lab 12/22/21 15:18 Completed NT PRO BNP Stat Lab 12/22/21 15:18 Completed TROPONIN Q4H Lab 12/22/21 15:18 Completed TROPONIN Q4H Lab 12/22/21 19:00 Ordered TROPONIN Q4H Lab 12/22/21 23:00 Ordered Lab/Rad Data: Laboratory Result Diagrams 12/22/21 15:18 12/22/21 15:18 Laboratory Results 12/22/21 12/22/21 12/22/21 Range/Units 15:18 15:18 15:18 WBC (4.0-10.5) x10^3/uL RBC (4.1-5.4) x10^6/uL Hgb (12.0-16.0) g/dL Hct (35-47) % MCV (78-100) fL MCH (26-32) pg MCHC (32-36) g/dL RDW (11.5-14.0) % Plt Count (150-450) x10^3/uL MPV (7.5-11.0) fL Gran % (36.0-66.0) % Immature Gran % (Auto) (0.00-0.4) % Nucleat RBC Rel Count (0.00-0.1) % Eos # (Auto) (0-0.5) x10^3/uL Immature Gran # (Auto) (0.00-0.03) x10^3u/L Absolute Lymphs (auto) (1.0-4.6) x10^3/uL Absolute Monos (auto) (0.0-1.3) x10^3/uL Absolute Nucleated RBC (0.00-0.01) x10^3u/L Lymphocytes % (24.0-44.0) % Monocytes % (0.0-12.0) % Eosinophils % (0.00-5.0) % Basophils % (0.0-0.4) % Absolute Granulocytes (1.4-6.9) x10^3/uL Basophils # (0-0.4) x10^3/uL D-Dimer < 0.19 (0.0-0.50) mg/L Sodium 138 (137-145) mmol/L Potassium 4.1 (3.5-5.1) mmol/L Chloride 101 (98-107) mmol/L Carbon Dioxide 26 (22-30) mmol/L Anion Gap 14.8 (5-15) MEQ/L BUN 11 (7-17) mg/dL Creatinine 0.56 (0.52-1.04) mg/dL Estimated GFR > 60.0 ML/MIN Glucose 113 H (74-106) mg/dL Calcium 9.5 (8.4-10.2) mg/dL Total Bilirubin 0.30 (0.2-1.3) mg/dL AST 26 (14-36) U/L ALT 22 (0-35) U/L Alkaline Phosphatase 85 (38-126) U/L Troponin I < 0.012 (0.000-0.034) ng/mL NT-Pro-B Natriuret Pep 42.4 (0-900) pg/mL Serum Total Protein 8.1 (6.3-8.2) g/dL Albumin 4.7 (3.5-5.0) g/dL Monoscreen (Negative) Influenza Type A Ag (NEGATIVE) Influenza Type B Ag (NEGATIVE) RSV (PCR) (Negative) SARS-CoV-2 (PCR) (NEGATIVE) 12/22/21 12/22/21 12/22/21 Range/Units 15:18 15:18 15:18 WBC 13.6 H (4.0-10.5) x10^3/uL RBC 4.35 (4.1-5.4) x10^6/uL Hgb 10.3 L (12.0-16.0) g/dL Hct 35.0 (35-47) % MCV 80.5 (78-100) fL MCH 23.7 L (26-32) pg MCHC 29.4 L (32-36) g/dL RDW 15.6 H (11.5-14.0) % Plt Count 822 H (150-450) x10^3/uL MPV 8.5 (7.5-11.0) fL Gran % 72.5 H (36.0-66.0) % Immature Gran % (Auto) 0.4 (0.00-0.4) % Nucleat RBC Rel Count 0.0 (0.00-0.1) % Eos # (Auto) 0.04 (0-0.5) x10^3/uL Immature Gran # (Auto) 0.06 H (0.00-0.03) x10^3u/L Absolute Lymphs (auto) 2.31 (1.0-4.6) x10^3/uL Absolute Monos (auto) 1.29 (0.0-1.3) x10^3/uL Absolute Nucleated RBC 0.00 (0.00-0.01) x10^3u/L Lymphocytes % 17.0 L (24.0-44.0) % Monocytes % 9.5 (0.0-12.0) % Eosinophils % 0.3 (0.00-5.0) % Basophils % 0.3 (0.0-0.4) % Absolute Granulocytes 9.88 H (1.4-6.9) x10^3/uL Basophils # 0.04 (0-0.4) x10^3/uL D-Dimer (0.0-0.50) mg/L Sodium (137-145) mmol/L Potassium (3.5-5.1) mmol/L Chloride (98-107) mmol/L Carbon Dioxide (22-30) mmol/L Anion Gap (5-15) MEQ/L BUN (7-17) mg/dL Creatinine (0.52-1.04) mg/dL Estimated GFR ML/MIN Glucose (74-106) mg/dL Calcium (8.4-10.2) mg/dL Total Bilirubin (0.2-1.3) mg/dL AST (14-36) U/L ALT (0-35) U/L Alkaline Phosphatase (38-126) U/L Troponin I (0.000-0.034) ng/mL NT-Pro-B Natriuret Pep (0-900) pg/mL Serum Total Protein (6.3-8.2) g/dL Albumin (3.5-5.0) g/dL Monoscreen NEGATIVE (Negative) Influenza Type A Ag NEGATIVE (NEGATIVE) Influenza Type B Ag NEGATIVE (NEGATIVE) RSV (PCR) POSITIVE (Negative) SARS-CoV-2 (PCR) NEGATIVE (NEGATIVE) - Progress Progress: improved, re-examined Air Movement: good Blood Culture(s) Obtained: Yes Antibiotics given: No Counseled pt/family regarding: lab results, diagnosis, need for follow-up, rad results - Progress Progress Note: 12/22/21 15:48 Chest x-ray shows no acute cardiopulmonary process. 12/22/21 15:49 I am signing out this patient to Dr. Pagan at the time of shift change. He will follow-up on the remaining test results and make final disposition. (ZUNILDA PUGH) - Departure Departure Disposition: Home Critical Care Time: No - Departure Clinical Impression: Palpitations, RSV (respiratory syncytial virus infection), Bronchiolitis due to respiratory syncytial virus (RSV) Condition: Stable Referrals: YU PORRAS [Primary Care Provider] - Follow up/PCP as directed Instructions: Respiratory Syncytial Virus, Adult (DC) Additional Instructions: Discharge/Care Plan STEPHANIE COBB was seen on 12/22/21 in the Emergency Room. The patient was counseled regarding Diagnosis,Lab results, Imaging studies, need for follow up and when to return to the Emergency Room. Prescriptions given: Discharge Note I have spoken with the patient and/or caregivers. I have explained the patient's condition, diagnosis and treatment plan based on the information available to me at this time. I have answered the patient's and/or caregiver's questions and addressed any concerns. The patient and/or caregivers have as good understanding of the patient's diagnosis, condition and treatment plan as can be expected at this point. The vital signs have been stable. The patient's condition is stable and appropriate for discharge from the emergency department. The patient will pursue further outpatient evaluation with the primary care physician or other designated or consulting physician as outlined in the discharge instructions. The patient and/or caregivers are agreeable to this plan of care and follow-up instructions have been explained in detail. The patient and/or caregivers have received these instruction. The patient/and or caregivers are aware that any significant change in condition or worsening of symptoms should prompt an immediate return to this or the closest emergency department or call 911. STEPHANIE COBB was seen on 12/22/21 n the Emergency Room. At that time you were treated for an emergent condition, during your visit Laboratory, Radiology and/or other procedures may have been ordered. It is very important that you follow-up with your Primary Care Physician YU PORRAS within the next 24-48 hours to review your Emergency Room visit and the final results of testing that was ordered. Some test results such as Urine Cultures, Blood Cultures, and other cultures if ordered will not be finalized for 24-48 hours. If you do not have a Primary Care Provider please call the medical records department at [phone] to obtain a copy of your results or you may sign into our patient portal to obtain these results by visiting us @ [email or web address] and completing the following steps: 1. Click on the Patient Portal link 2. Click the Patient Self Enrollment Link to complete the enrollment form and en tering your 3. Once the enrollment form is completed you will receive an email with a temporary ID and password at the email address you provided. 4. Next choose a user name and password. Your user name must be at least 4 characters long and your password must be at least 4 characters long. 5. Choose a security question from the list and provide your answer to the question. If you already have signed into the Health Portal you may access your Health Care Information 03/09 by the following steps: 1. Login to our website @ [email or web address] 2. Enter your original user name and password. FAQS The [facility] Health Portal is an online tool that contains your Lab Results, Radiology Reports, Visit History, Discharge Instructions and Health Summary Lab and Radiology Results will not be available for 72 hours on the portal. The Portal is a secure site, passwords are encryted and URLs are re-written so they cannot be copied and pasted. You and authorized family members are the only ones who can access your Portal. Also there is a timeout feature that protects your information if you leave the Portal page open. If you have technical difficulty please use the Contact Us link on the page this will allow you to submit any questions you have regarding the Portal or you may contact the Medical Record Department at [phone] ext [phone].
[2021-12-22 15:27] LABS: Absolute Neutrophil Ct (ANC) 9.88 x10^3/uL (1.4-6.9); Basophil (Absolute #) 0.04 x10^3/uL (0-0.4); Eosinophil % 0.3 % (0.00-5.0); Eosinophil (Absolute #) 0.04 x10^3/uL (0-0.5); Hemoglobin 10.3 g/dL (12.0-16.0); Lymphocyte (Absolute #) 2.31 x10^3/uL (1.0-4.6); Mean Cell Volume 80.5 fL (78-100); Mean Corpuscular Hemoglobin 23.7 pg (26-32); Mean Corpuscular Hgb Concent. 29.4 g/dL (32-36); Mean Platelet Volume 8.5 fL (7.5-11.0); Monocyte (Absolute #) 1.29 x10^3/uL (0.0-1.3); Monocytes % 9.5 % (0.0-12.0); Neutrophil % 72.5 % (36.0-66.0); Platelet Count 822 x10^3/uL (150-450); Red Blood Count 4.35 x10^6/uL (4.1-5.4); Red Cell Distribution Width 15.6 % (11.5-14.0); White Blood Count 13.6 x10^3/uL (4.0-10.5)
[2021-12-22 15:38] LABS: ALBUMIN 4.7 g/dL (3.5-5.0); ALKALINE PHOSPHATASE 85 U/L (38-126); ANION GAP 14.8 MEQ/L (5-15); BLOOD UREA NITROGEN 11 mg/dL (7-17); CHLORIDE 101 mmol/L (98-107); Calcium 9.5 mg/dL (8.4-10.2); Carbon Dioxide 26 mmol/L (22-30); Creatinine 1 0.56 mg/dL (0.52-1.04); EST GLOMERULAR FILTRATION RATE > 60.0 ML/MIN; Glucose 113 mg/dL (74-106); Potassium 4.1 mmol/L (3.5-5.1); SGOT/AST 26 U/L (14-36); SGPT/ALT 22 U/L (0-35); SODIUM 138 mmol/L (137-145); Total Protein 8.1 g/dL (6.3-8.2)
--- NOTE | 2021-12-22 15:47 | XRAY ---
Indication: Cough. Comparison: October 10, 2021 Portable chest remains hyperinflated and clear with incidental lingula suture material. Heart not enlarged. Bony thorax intact. No new/acute findings.
[2021-12-22 16:03] LABS: INFLUENZA A NEGATIVE (NEGATIVE); INFLUENZA B NEGATIVE (NEGATIVE); SARS-CoV-2 Xpert Express NEGATIVE (NEGATIVE)
[2021-12-22 16:07] LABS: NT PRO BNP 42.4 pg/mL (0-900)
[2021-12-22 16:10] LABS: RESPIRATORY SYNCTIAL VIRUS POSITIVE (Negative)
[2021-12-22 16:28] VITALS: BP 120/68; PULSE 74; O2SAT 94
== END 2021-12-22 16:35 | disposition home or self-care (01) ==
LOC: ED 14:39
DX: J21.0 Acute bronchiolitis due to respiratory syncytial virus (principal); R00.2 Palpitations; R05.9 Cough, unspecified; E78.5 Hyperlipidemia, unspecified; I10 Essential (primary) hypertension; Z79.01 Long term (current) use of anticoagulants; Z79.899 Other long term (current) drug therapy; Z20.828 Contact with and (suspected) exposure to other viral communicable diseases
CPT/HCPCS: 0241U; 36000; 36415; 71045; 80053; 83880; 84484; 85025; 85379; 86308; 93005; 94760; 99284

== ENCOUNTER 2022-01-01 12:07 | Emergency (ER) | payer MEDICARE ==
--- NOTE | 2022-01-01 12:52 | ERPHSYRPT ---
- History of Present Illness Source: patient Exam Limitations: no limitations Patient Subjective Stated Complaint: PT statesa "I was told I have RSV a week ago and I am just tired, cant breath, weak, do not want to do anything." Triage Nursing Assessment: Pt presented alert and oriented X 3, skin pwd. Pt ambulates with an upright steady gait, able to speak in clear full sentences pt in no apparent respiratory distress at this time. Physician History: 66 yo wf who is 2L O2 dep at night presents w worsening cough x 2 wks. Pt was diagnosed w RSV during an ER visit and just finished Amoxil per her bus boy. She denies fever/chest pain/N/ V/D/melena/hematochezia/dysuria/hematuria but does have mild coryza. She is requiring O2 during the day. Timing/Duration: other (2 wks) Activities at Onset: rest Severity of Dyspnea-Max: moderate Severity of Dyspnea-Current: mild Possible Cause: occasional episodes Modifying Factors: Improves With: coughing, exertion Associated Symptoms: denies symptoms Allergies/Adverse Reactions: Iodinated Contrast Media [Iodinated Contrast Media - IV Dye] Allergy (Severe, Verified 12/22/21 14:47) Itching acetaminophen [From Vicodin] Allergy (Verified 10/30/21 06:57) Nausea and Vomiting Pt can take plain tylenol. hydrocodone [From Vicodin] Allergy (Verified 10/30/21 06:57) Nausea and Vomiting iodine Allergy (Verified 10/30/21 06:57) Itching prochlorperazine [From Compazine] Allergy (Verified 10/30/21 06:57) propoxyphene [From Darvon] Allergy (Verified 10/30/21 06:57) Nausea and Vomiting Home Medications: Albuterol/Ipratropium Mdi [Combivent Inhaler] 1 puff IH Q4HPRN PRN 11/29/12 [History] Pravastatin Sodium 20 mg PO HS 11/29/12 [History] Zolpidem Tartrate [Ambien] 10 mg PO HS 04/29/16 [History] Albuterol/Ipratropium 3ml Neb* [DUONEB 0.5-3 MG/3 ml Neb] 3 ml IH QIDRT 06/04/17 [History] Enalapril Maleate [Vasotec] 20 mg PO DAILY 06/04/17 [History] Fluticasone/Umeclidin/Vilanter [Trelegy Ellipta 100-62.5-25] 25 - 200 mcg IH DAILY 01/18/19 [History] Apixaban [Eliquis 5 mg Tablet] 1 tab PO BID 10/30/21 [History] Metoprolol Tartrate 25 mg [Lopressor 25MG Tab] 1 mg PO DAILY 10/30/21 [History] Omeprazole 1 cap PO BID 10/30/21 [History] Promethazine HCl 25 mg [Phenergan 25 mg] 1 tab PO Q4H 10/30/21 [History] Hx Tetanus, Diphtheria Vaccination/Date Given: No Hx Influenza Vaccination/Date Given: Yes Hx Pneumococcal Vaccination/Date Given: Yes Immunizations Up to Date: Yes Travel Risk - International Travel Have you traveled outside of the country in past 3 weeks: No - Coronavirus Screening Are you exhibiting any of the following symptoms?: Yes Symptoms: Fever, Cough: New Onset, Shortness of Breath - Vaccine Status Have you recieved a Covid-19 vaccination: Yes Drum Sprayer: Moderna - Vaccination Dates Date of 2cond Vaccination (if applicable): 05/2020 - Review of Systems Constitutional: No Symptoms, Chills, Fatigue, Lethargy Eyes: No Symptoms Ears, Nose, & Throat: No Symptoms, Nose Pain, Nose Congestion, Nose Discharge Respiratory: No Symptoms, Cough, Dyspnea Cardiac: No Symptoms Abdominal/Gastrointestinal: No Symptoms Genitourinary Symptoms: No Symptoms Musculoskeletal: No Symptoms Skin: No Symptoms Neurological: No Symptoms Psychological: No Symptoms Endocrine: No Symptoms Hematologic/Lymphatic: No Symptoms Immunological/Allergic: No Symptoms - Past Medical History Pertinent Past Medical History: Yes Neurological History: TIA ENT History: No Pertinent History Cardiac History: Arrhythmia, High Cholesterol, Hypertension Respiratory History: COPD Endocrine Medical History: No Pertinent History Musculoskeletal History: No Pertinent History GI Medical History: GERD, Hernia History: No Pertinent History Psycho-Social History: No Pertinent History Female Reproductive Disorders: No Pertinent History Other Medical History: hiatal hernia,anemia, - Past Surgical History Past Surgical History: Yes Neuro Surgical History: No Pertinent History Cardiac: No Pertinent History Respiratory: No Pertinent History Gastrointestinal: Appendectomy, Cholecystectomy, Exploratory Laparoscopy Genitourinary: No Pertinent History Musculoskeletal: Orthopedic Surgery Female Surgical History: Hysterectomy Other Surgical History: 4 surgeries on right foot - Social History Smoking Status: Former smoker How long have you smoked: 30 yrs Exposure to second hand smoke: No Drug Use: none Patient Lives Alone: Yes - Nursing Vital Signs Nursing Vital Signs: Initial Vital Signs Temperature 97.7 F 01/01/22 12:11 Pulse Rate 80 01/01/22 12:11 Respiratory Rate 24 01/01/22 12:11 Blood Pressure 164/80 01/01/22 12:11 O2 Sat by Pulse Oximetry 98 01/01/22 12:11 Pain Scale Pain Intensity 0 Hypertensive - Physical Exam General Appearance: no apparent distress Eye Exam: PERRL/EOMI, eyes nml inspection Ears, Nose, Throat Exam: hearing grossly normal, normal ENT inspection, normal pharynx Neck Exam: normal inspection, non-tender, supple, full range of motion, No Brudzinski, No Kernig's, No meningismus, No carotid bruit Respiratory Exam: airway intact, diminished breath sounds (Decreased BS at bases B but overall clear), No chest tenderness, No respiratory distress Cardiovascular/Chest Exam: normal heart sounds, regular rate/rhythm, normal peripheral pulses, No murmur Abdominal/Gastrointestinal Exam: soft, normal bowel sounds, No tenderness Extremity Exam: non-tender, normal range of motion, normal inspection, normal capillary refill, no calf tenderness Peripheral Pulses Exam: carotid (R): 2+, carotid (L): 2+ Neurologic Exam: alert, oriented x 3, cooperative, state director II-XII nml as tested, normal mood/affect, nml cerebellar function, nml station & gait, sensation nml Skin Exam: normal color, warm, dry, No rash Lymphatic Exam: No adenopathy SpO2 Interpretation: normal SpO2: 99 O2 Delivery: Room Air - Course Nursing assessment & vital signs reviewed: Yes EKG Interpreted by Me: RATE (NSR/R65/Normal QT-QTc/Incomplete RBBB/No acute ST- Twave changes) - Radiology Exams Chest X-ray Interpretation: Discussed w/ radiologist (NAD) Ordered Tests: Active Orders 24 hr Category Date Time Status EKG-ER Only STAT Care 01/01/22 12:44 Completed CHEST 1 VIEW (PORTABLE) Stat Exams 01/01/22 12:45 Completed CHEST WITHOUT CONTRAST [CT] Stat Exams 01/01/22 14:29 Completed CBC W DIFF Stat Lab 01/01/22 12:55 Completed CMP Stat Lab 01/01/22 12:55 Completed Lactic Acid Stat Lab 01/01/22 13:00 Completed NT PRO BNP Stat Lab 01/01/22 12:55 Completed PROTIME WITH INR Stat Lab 01/01/22 12:55 Completed PTT Stat Lab 01/01/22 12:55 Completed TROPONIN Q4H Lab 01/01/22 12:55 Completed UA W/RFX CULTURE Stat Lab 01/01/22 13:31 Completed Respiratory Therapy Assessment DAILY RT 01/01/22 16:02 Active Medication Summary Discontinued Medications Generic Name Dose Route Start Last Admin Trade Name Freq PRN Reason Stop Dose Admin Albuterol/Ipratropium 3 ml 01/01/22 15:21 01/01/22 15:34 Ipratropium/Albuterol Sulfate 3 Ml Ampul.Neb IH 01/01/22 15:22 3 ml STAT ONE Administration Albuterol/Ipratropium Confirm 01/01/22 15:26 Ipratropium/Albuterol Sulfate 3 Ml Ampul.Neb Administered 01/01/22 15:27 Dose 3 ml IH .STK-MED ONE Lab/Rad Data: Laboratory Result Diagrams 01/01/22 12:55 01/01/22 12:55 Laboratory Results 01/01/22 01/01/22 01/01/22 Range/Units 13:31 13:00 12:55 WBC (4.0-10.5) x10^3/uL RBC (4.1-5.4) x10^6/uL Hgb (12.0-16.0) g/dL Hct (35-47) % MCV (78-100) fL MCH (26-32) pg MCHC (32-36) g/dL RDW (11.5-14.0) % Plt Count (150-450) x10^3/uL MPV (7.5-11.0) fL Gran % (36.0-66.0) % Immature Gran % (Auto) (0.00-0.4) % Nucleat RBC Rel Count (0.00-0.1) % Eos # (Auto) (0-0.5) x10^3/uL Immature Gran # (Auto) (0.00-0.03) x10^3u/L Absolute Lymphs (auto) (1.0-4.6) x10^3/uL Absolute Monos (auto) (0.0-1.3) x10^3/uL Absolute Nucleated RBC (0.00-0.01) x10^3u/L Lymphocytes % (24.0-44.0) % Monocytes % (0.0-12.0) % Eosinophils % (0.00-5.0) % Basophils % (0.0-0.4) % Absolute Granulocytes (1.4-6.9) x10^3/uL Basophils # (0-0.4) x10^3/uL PT (9.4-12.5) SECONDS INR (0.8-3.0) APTT (25.1-36.5) SECONDS Sodium (137-145) mmol/L Potassium (3.5-5.1) mmol/L Chloride (98-107) mmol/L Carbon Dioxide (22-30) mmol/L Anion Gap (5-15) MEQ/L BUN (7-17) mg/dL Creatinine (0.52-1.04) mg/dL Estimated GFR ML/MIN Glucose (74-106) mg/dL Lactic Acid 1.4 (0.4-2.0) Calcium (8.4-10.2) mg/dL Total Bilirubin (0.2-1.3) mg/dL AST (14-36) U/L ALT (0-35) U/L Alkaline Phosphatase (38-126) U/L Troponin I (0.000-0.034) ng/mL NT-Pro-B Natriuret Pep (0-900) pg/mL Serum Total Protein (6.3-8.2) g/dL Albumin (3.5-5.0) g/dL Urinalys Dipstick Clnc MAIN LAB Urine Color YELLOW (YELLOW) Urine Appearance CLEAR (CLEAR) Urine pH 7.0 (5-6) Ur Specific [place] 1.010 (1.005-1.025) POC Urine Protein Conf NEGATIVE (Negative) Urine Ketones NEGATIVE (NEGATIVE) Urine Nitrite NEGATIVE (NEGATIVE) Urine Bilirubin NEGATIVE (NEGATIVE) Urine Urobilinogen 0.2 (0-1) mg/dL Urine Leukocytes NEGATIVE (NEGATIVE) Urine WBC (Auto) NONE (0-5) /HPF Urine RBC (Auto) NONE (0-2) /HPF U Epithel Cells (Auto) NONE (FEW) /HPF Urine Bacteria (Auto) RARE (NEGATIVE) /HPF Urine RBC NEGATIVE (0-5) [place]/ul Ur Culture Indicated? NO Urine Glucose NEGATIVE (NEGATIVE) mg/dL Influenza Type A Ag NEGATIVE (NEGATIVE) Influenza Type B Ag NEGATIVE (NEGATIVE) RSV (PCR) NEGATIVE (Negative) SARS-CoV-2 (PCR) NEGATIVE (NEGATIVE) 01/01/22 01/01/22 01/01/22 Range/Units 12:55 12:55 12:55 WBC (4.0-10.5) x10^3/uL RBC (4.1-5.4) x10^6/uL Hgb (12.0-16.0) g/dL Hct (35-47) % MCV (78-100) fL MCH (26-32) pg MCHC (32-36) g/dL RDW (11.5-14.0) % Plt Count (150-450) x10^3/uL MPV (7.5-11.0) fL Gran % (36.0-66.0) % Immature Gran % (Auto) (0.00-0.4) % Nucleat RBC Rel Count (0.00-0.1) % Eos # (Auto) (0-0.5) x10^3/uL Immature Gran # (Auto) (0.00-0.03) x10^3u/L Absolute Lymphs (auto) (1.0-4.6) x10^3/uL Absolute Monos (auto) (0.0-1.3) x10^3/uL Absolute Nucleated RBC (0.00-0.01) x10^3u/L Lymphocytes % (24.0-44.0) % Monocytes % (0.0-12.0) % Eosinophils % (0.00-5.0) % Basophils % (0.0-0.4) % Absolute Granulocytes (1.4-6.9) x10^3/uL Basophils # (0-0.4) x10^3/uL PT 11.3 (9.4-12.5) SECONDS INR 1.07 (0.8-3.0) APTT 33.0 (25.1-36.5) SECONDS Sodium 138 (137-145) mmol/L Potassium 4.5 (3.5-5.1) mmol/L Chloride 104 (98-107) mmol/L Carbon Dioxide 27 (22-30) mmol/L Anion Gap 12.5 (5-15) MEQ/L BUN 10 (7-17) mg/dL Creatinine 0.48 L (0.52-1.04) mg/dL Estimated GFR > 60.0 ML/MIN Glucose 100 (74-106) mg/dL Lactic Acid (0.4-2.0) Calcium 9.5 (8.4-10.2) mg/dL Total Bilirubin 0.60 (0.2-1.3) mg/dL AST 23 (14-36) U/L ALT 22 (0-35) U/L Alkaline Phosphatase 90 (38-126) U/L Troponin I < 0.012 (0.000-0.034) ng/mL NT-Pro-B Natriuret Pep 33.6 (0-900) pg/mL Serum Total Protein 7.6 (6.3-8.2) g/dL Albumin 4.7 (3.5-5.0) g/dL Urinalys Dipstick Clnc Urine Color (YELLOW) Urine Appearance (CLEAR) Urine pH (5-6) Ur Specific [place] (1.005-1.025) POC Urine Protein Conf (Negative) Urine Ketones (NEGATIVE) Urine Nitrite (NEGATIVE) Urine Bilirubin (NEGATIVE) Urine Urobilinogen (0-1) mg/dL Urine Leukocytes (NEGATIVE) Urine WBC (Auto) (0-5) /HPF Urine RBC (Auto) (0-2) /HPF U Epithel Cells (Auto) (FEW) /HPF Urine Bacteria (Auto) (NEGATIVE) /HPF Urine RBC (0-5) [place]/ul Ur Culture Indicated? Urine Glucose (NEGATIVE) mg/dL Influenza Type A Ag (NEGATIVE) Influenza Type B Ag (NEGATIVE) RSV (PCR) (Negative) SARS-CoV-2 (PCR) (NEGATIVE) 01/01/22 Range/Units 12:55 WBC 18.5 H (4.0-10.5) x10^3/uL RBC 4.24 (4.1-5.4) x10^6/uL Hgb 10.2 L (12.0-16.0) g/dL Hct 34.0 L (35-47) % MCV 80.2 (78-100) fL MCH 24.1 L (26-32) pg MCHC 30.0 L (32-36) g/dL RDW 15.9 H (11.5-14.0) % Plt Count 800 H (150-450) x10^3/uL MPV 8.7 (7.5-11.0) fL Gran % 76.7 H (36.0-66.0) % Immature Gran % (Auto) 0.9 H (0.00-0.4) % Nucleat RBC Rel Count 0.0 (0.00-0.1) % Eos # (Auto) 0.26 (0-0.5) x10^3/uL Immature Gran # (Auto) 0.16 H (0.00-0.03) x10^3u/L Absolute Lymphs (auto) 2.91 (1.0-4.6) x10^3/uL Absolute Monos (auto) 0.88 (0.0-1.3) x10^3/uL Absolute Nucleated RBC 0.00 (0.00-0.01) x10^3u/L Lymphocytes % 15.7 L (24.0-44.0) % Monocytes % 4.8 (0.0-12.0) % Eosinophils % 1.4 (0.00-5.0) % Basophils % 0.5 (0.0-0.4) % Absolute Granulocytes 14.21 H (1.4-6.9) x10^3/uL Basophils # 0.09 (0-0.4) x10^3/uL PT (9.4-12.5) SECONDS INR (0.8-3.0) APTT (25.1-36.5) SECONDS Sodium (137-145) mmol/L Potassium (3.5-5.1) mmol/L Chloride (98-107) mmol/L Carbon Dioxide (22-30) mmol/L Anion Gap (5-15) MEQ/L BUN (7-17) mg/dL Creatinine (0.52-1.04) mg/dL Estimated GFR ML/MIN Glucose (74-106) mg/dL Lactic Acid (0.4-2.0) Calcium (8.4-10.2) mg/dL Total Bilirubin (0.2-1.3) mg/dL AST (14-36) U/L ALT (0-35) U/L Alkaline Phosphatase (38-126) U/L Troponin I (0.000-0.034) ng/mL NT-Pro-B Natriuret Pep (0-900) pg/mL Serum Total Protein (6.3-8.2) g/dL Albumin (3.5-5.0) g/dL Urinalys Dipstick Clnc Urine Color (YELLOW) Urine Appearance (CLEAR) Urine pH (5-6) Ur Specific [place] (1.005-1.025) POC Urine Protein Conf (Negative) Urine Ketones (NEGATIVE) Urine Nitrite (NEGATIVE) Urine Bilirubin (NEGATIVE) Urine Urobilinogen (0-1) mg/dL Urine Leukocytes (NEGATIVE) Urine WBC (Auto) (0-5) /HPF Urine RBC (Auto) (0-2) /HPF U Epithel Cells (Auto) (FEW) /HPF Urine Bacteria (Auto) (NEGATIVE) /HPF Urine RBC (0-5) [place]/ul Ur Culture Indicated? Urine Glucose (NEGATIVE) mg/dL Influenza Type A Ag (NEGATIVE) Influenza Type B Ag (NEGATIVE) RSV (PCR) (Negative) SARS-CoV-2 (PCR) (NEGATIVE) - Progress Progress Note: 01/01/22 15:24 Pt stable during entire stay w sats mid-upper 90's on 2L O2 NC Duoneb x1 before discharge Counseled pt/family regarding: lab results, diagnosis, need for follow-up, rad results - Departure Departure Disposition: Home Clinical Impression: COPD (chronic obstructive pulmonary disease) Condition: Stable Critical Care Time: No Referrals: YU PORRAS [Primary Care Provider] - Follow up/PCP as directed Instructions: Chronic Obstructive Pulmonary Disease, Shortness of Breath (Dyspnea) (DC), Exacerbation of COPD (DC) Additional Instructions: Follow up with your bus boy Return to ER for increasing shortness of breath or temperature greater than 100.5
[2022-01-01 13:02] LABS: Absolute Neutrophil Ct (ANC) 14.21 x10^3/uL (1.4-6.9); Basophil (Absolute #) 0.09 x10^3/uL (0-0.4); Eosinophil % 1.4 % (0.00-5.0); Eosinophil (Absolute #) 0.26 x10^3/uL (0-0.5); Hemoglobin 10.2 g/dL (12.0-16.0); Lymphocyte (Absolute #) 2.91 x10^3/uL (1.0-4.6); Lymphocytes % 15.7 % (24.0-44.0); Mean Cell Volume 80.2 fL (78-100); Mean Corpuscular Hemoglobin 24.1 pg (26-32); Mean Platelet Volume 8.7 fL (7.5-11.0); Monocyte (Absolute #) 0.88 x10^3/uL (0.0-1.3); Monocytes % 4.8 % (0.0-12.0); Neutrophil % 76.7 % (36.0-66.0); Platelet Count 800 x10^3/uL (150-450); Red Blood Count 4.24 x10^6/uL (4.1-5.4); Red Cell Distribution Width 15.9 % (11.5-14.0); White Blood Count 18.5 x10^3/uL (4.0-10.5)
--- NOTE | 2022-01-01 13:03 | XRAY ---
Indication: Cough. Comparison: December 12, 2021 Portable chest remains hyperinflated and clear with incidental lingula suture material. Heart not enlarged. Bony thorax intact. No new/acute findings.
[2022-01-01 13:21] LABS: INR 1.07 (0.8-3.0); PROTIME 11.3 SECONDS (9.4-12.5)
[2022-01-01 13:39] LABS: ALBUMIN 4.7 g/dL (3.5-5.0); ALKALINE PHOSPHATASE 90 U/L (38-126); ANION GAP 12.5 MEQ/L (5-15); BLOOD UREA NITROGEN 10 mg/dL (7-17); CHLORIDE 104 mmol/L (98-107); Calcium 9.5 mg/dL (8.4-10.2); Carbon Dioxide 27 mmol/L (22-30); Creatinine 1 0.48 mg/dL (0.52-1.04); EST GLOMERULAR FILTRATION RATE > 60.0 ML/MIN; Glucose 100 mg/dL (74-106); NT PRO BNP 33.6 pg/mL (0-900); Potassium 4.5 mmol/L (3.5-5.1); SGOT/AST 23 U/L (14-36); SGPT/ALT 22 U/L (0-35); SODIUM 138 mmol/L (137-145); Total Protein 7.6 g/dL (6.3-8.2)
[2022-01-01 14:01] LABS: INFLUENZA A NEGATIVE (NEGATIVE); INFLUENZA B NEGATIVE (NEGATIVE); RESPIRATORY SYNCTIAL VIRUS NEGATIVE (Negative); SARS-CoV-2 Xpert Express NEGATIVE (NEGATIVE)
[2022-01-01 14:36] LABS: Bacteria RARE /HPF (NEGATIVE)
[2022-01-01 14:37] LABS: Appearance CLEAR (CLEAR); Bilirubin NEGATIVE (NEGATIVE); Glucose NEGATIVE (NEGATIVE); Ketones NEGATIVE (NEGATIVE)
[2022-01-01 14:38] LABS: Dipstick done @ ? MAIN LAB; Nitrite NEGATIVE (NEGATIVE); Protein,Urine Dip NEGATIVE (Negative); RBC NEGATIVE Ery/ul (0-5); Urine Cultured Indicated? NO; Urobilinogen 0.2 mg/dL (0-1)
--- NOTE | 2022-01-01 15:23 | XRAY ---
Indication: Short of breath. Positive RSV. Multiple contiguous images obtained through the chest without contrast. Comparison: None Lungs demonstrates moderate diffuse pulmonary emphysema with left lower lobe suture material and minimal pleural thickening. Right upper lobe demonstrates 5 mm indeterminate noncalcified nodule. No other pulmonary mass/nodule, infiltrate, effusion, or pneumothorax. Heart not enlarged with scattered coronary calcifications. Aorta mildly atherosclerotic without aneurysm. No pathologic mediastinal lymphadenopathy. Bony thorax intact. Limited upper abdomen including adrenal glands are unremarkable. Impression: 1. Right upper lobe 5 mm indeterminate noncalcified micronodule. Outside comparison studies recommended if available. If not, follow-up per Fleischner guidelines recommended. 2. Pulmonary emphysema, left lower lobe suture material, and scattered arteriosclerotic disease. 3. Remaining CT chest without contrast exam is negative.
[2022-01-01 15:25] VITALS: BP 128/47
[2022-01-01] MEDS ORDERED: DUONEB 0.5-3 MG/3 ml Neb IH ONE (15:26)
[2022-01-01] MEDS: DUONEB 0.5-3 MG/3 ml Neb IH ONE (15:34)
[2022-01-01 16:04] VITALS: PULSE 86
[2022-01-01 21:54] VITALS: O2SAT 99
== END 2022-01-01 15:48 | disposition home or self-care (01) ==
LOC: ED 12:07
DX: J44.9 Chronic obstructive pulmonary disease, unspecified (principal); R05.9 Cough, unspecified; R09.81 Nasal congestion; Z99.81 Dependence on supplemental oxygen; E78.5 Hyperlipidemia, unspecified; I10 Essential (primary) hypertension; Z79.01 Long term (current) use of anticoagulants; Z79.899 Other long term (current) drug therapy; Z20.828 Contact with and (suspected) exposure to other viral communicable diseases
CPT/HCPCS: 0241U; 36415; 71045; 71250; 80053; 81015; 83605; 83880; 84484; 85025; 85610; 85730; 93005; 94640; 99284; A9270-GY

== ENCOUNTER 2022-02-16 13:54 | Emergency (ER) | payer MEDICARE ==
--- NOTE | 2022-02-16 14:03 | ERPHSYRPT ---
- History of Present Illness Time Seen by Provider: 02/16/22 14:03 Source: patient, family Exam Limitations: no limitations Physician History: This is a 67-year-old white female patient of Dr. Adam who was seen by Dr. Adam yesterday and labs were drawn yesterday afternoon. Patient has not been feeling well over the last few weeks and has lost 18 pounds. She has had decreased appetite, decreased energy, and increasing shortness of breath. She also states her hands and feet are cold. She has had intermittent diarrhea for 2 days. She has had urinary frequency without dysuria. She denies fever. She denies vomiting. She has no chest pain. She has no neurologic complaints. She does have a history of TIA in the past. She has a history of atrial fibril lation and is on Eliquis. She also has a history of iron deficiency anemia and states that she cannot take intravenous iron. She has a history of COPD and hypertension and hyperlipidemia. Patient states that she has not seen a maxillofacial surgeon/oncologist for several years. Patient did see 1 in [facility] many years ago. His name is Dr. Blevins ([id number]). Patient has a longstanding history of elevated platelet count. Patient's elevated platelet count typically/chronically runs between 800 and 900. Yesterday's level was approximately 1050. Patient also is chronically anemic with her hemoglobin running between 8 and 11 Severity: mild (To moderate) Associated Symptoms: abdominal pain (Mild epigastric), shortness of breath, malaise, weakness, No vomiting, No chest pain, No headaches Allergies/Adverse Reactions: Iodinated Contrast Media [Iodinated Contrast Media - IV Dye] Allergy (Severe, Verified 12/22/21 14:47) Itching acetaminophen [From Vicodin] Allergy (Verified 10/30/21 06:57) Nausea and Vomiting Pt can take plain tylenol. hydrocodone [From Vicodin] Allergy (Verified 10/30/21 06:57) Nausea and Vomiting iodine Allergy (Verified 10/30/21 06:57) Itching prochlorperazine [From Compazine] Allergy (Verified 10/30/21 06:57) propoxyphene [From Darvon] Allergy (Verified 10/30/21 06:57) Nausea and Vomiting Home Medications: Albuterol/Ipratropium Mdi [Combivent Inhaler] 1 puff IH Q4HPRN PRN 11/29/12 [History] Pravastatin Sodium 20 mg PO HS 11/29/12 [History] Zolpidem Tartrate [Ambien] 10 mg PO HS 04/29/16 [History] Albuterol/Ipratropium 3ml Neb* [DUONEB 0.5-3 MG/3 ml Neb] 3 ml IH QIDRT 06/04/17 [History] Enalapril Maleate [Vasotec] 20 mg PO DAILY 06/04/17 [History] Fluticasone/Umeclidin/Vilanter [Trelegy Ellipta 100-62.5-25] 25 - 200 mcg IH DAILY 01/18/19 [History] Apixaban [Eliquis 5 mg Tablet] 1 tab PO BID 10/30/21 [History] Metoprolol Tartrate 25 mg [Lopressor 25MG Tab] 1 mg PO DAILY 10/30/21 [History] Omeprazole 1 cap PO BID 10/30/21 [History] Promethazine HCl 25 mg [Phenergan 25 mg] 1 tab PO Q4H 10/30/21 [History] Hx Tetanus, Diphtheria Vaccination/Date Given: No Hx Influenza Vaccination/Date Given: Yes Hx Pneumococcal Vaccination/Date Given: Yes Travel Risk - International Travel Have you traveled outside of the country in past 3 weeks: No - Coronavirus Screening Are you exhibiting any of the following symptoms?: No Symptoms: Shortness of Breath, Vomiting/Diarrhea (Diarrhea has been present inte rmittently for 2 days), Headaches/Body Aches/Fatigue Close contact with a COVID-19 positive Pt in past 14-21 Days: No - Vaccine Status Have you recieved a Covid-19 vaccination: Yes Transit Specialist: Moderna - Vaccination Dates Date of 2cond Vaccination (if applicable): 05/2020 - Review of Systems Constitutional: Weakness Eyes: No Symptoms Ears, Nose, & Throat: No Symptoms Respiratory: Dyspnea Cardiac: No Symptoms (Mild) Abdominal/Gastrointestinal: Abdominal Pain (Mild epigastric), Diarrhea, No Vomiting Genitourinary Symptoms: No Symptoms Musculoskeletal: Arthralgias, Myalgias Neurological: No Symptoms Psychological: No Symptoms Endocrine: No Symptoms Hematologic/Lymphatic: No Symptoms Immunological/Allergic: No Symptoms All Other Systems: Reviewed and Negative - Past Medical History Pertinent Past Medical History: Yes Neurological History: TIA ENT History: No Pertinent History Cardiac History: Arrhythmia, High Cholesterol, Hypertension Respiratory History: COPD Endocrine Medical History: No Pertinent History Musculoskeletal History: No Pertinent History GI Medical History: GERD, Hernia History: No Pertinent History Psycho-Social History: No Pertinent History Female Reproductive Disorders: No Pertinent History Other Medical History: hiatal hernia,anemia, - Past Surgical History Past Surgical History: Yes Neuro Surgical History: No Pertinent History Cardiac: No Pertinent History Respiratory: No Pertinent History Gastrointestinal: Appendectomy, Cholecystectomy, Exploratory Laparoscopy Genitourinary: No Pertinent History Musculoskeletal: Orthopedic Surgery Female Surgical History: Hysterectomy Other Surgical History: 4 surgeries on right foot - Social History Smoking Status: Former smoker How long have you smoked: 30 yrs Exposure to second hand smoke: No Drug Use: none Patient Lives Alone: Yes - Nursing Vital Signs Nursing Vital Signs: Initial Vital Signs Temperature 98.4 F 02/16/22 14:09 Pulse Rate 100 H 02/16/22 14:09 Respiratory Rate 22 02/16/22 14:09 Blood Pressure 164/92 02/16/22 14:09 O2 Sat by Pulse Oximetry 96 02/16/22 14:09 Pain Scale Pain Intensity 0 - Physical Exam General Appearance: no apparent distress, alert Eye Exam: PERRL/EOMI, eyes nml inspection Ears, Nose, Throat Exam: normal ENT inspection, moist mucous membranes Neck Exam: normal inspection, non-tender, supple, full range of motion Respiratory Exam: normal breath sounds, lungs clear, airway intact, No chest tenderness, No respiratory distress Cardiovascular Exam: regular rate/rhythm, normal heart sounds, normal peripheral pulses Gastrointestinal/Abdomen Exam: soft, normal bowel sounds, tenderness (Mild epigastric), No guarding, No rebound Pelvic Exam: not done Rectal Exam: not done Back Exam: normal inspection, normal range of motion, No CVA tenderness, No vertebral tenderness Extremity Exam: normal inspection, normal range of motion, pelvis stable Neurologic Exam: alert, oriented x 3, cooperative, planner scheduler II-XII nml as tested, normal mood/affect, nml cerebellar function, nml station & gait, sensation nml Skin Exam: normal color, warm, dry Lymphatic Exam: No adenopathy SpO2 Interpretation: normal O2 Delivery: Room Air - Course Nursing assessment & vital signs reviewed: Yes EKG Interpreted by Me: RATE (75), Sinus Rhythm, NORMAL AXIS, NORMAL INTERVALS, NORMAL QRS, NORMAL ST-T, Other (No acute ischemic changes on today's EKG.) Ordered Tests: Active Orders 24 hr Category Date Time Status IV Insertion STAT Care 02/16/22 14:25 Active Oxygen-ED Only Nasal Cannula 2 lpm Care 02/16/22 15:04 Active CBC W DIFF Stat Lab 02/16/22 14:23 Completed CMP Stat Lab 02/16/22 14:23 Completed PT INR [PROTIME WITH INR] Stat Lab 02/16/22 14:23 Completed T4 (Thyroxine) Stat Lab 02/16/22 14:23 Completed TSH [TSH, 3RD Generation] Stat Lab 02/16/22 14:23 Completed UA W/RFX UR CULTURE Stat Lab 02/16/22 14:44 Completed Medication Summary Discontinued Medications Generic Name Dose Route Start Last Admin Trade Name Freq PRN Reason Stop Dose Admin Sodium Chloride 500 mls @ 500 mls/hr 02/16/22 14:44 02/16/22 15:49 Sodium Chloride 0.9% 500 Ml IV 02/16/22 15:43 Infused .Q1H ONE Infusion Sodium Chloride Confirm 02/16/22 14:48 Sodium Chloride 0.9% 500 Ml Administered 02/16/22 14:49 Dose 500 mls @ ud IV .STK-MED ONE Lab/Rad Data: Laboratory Result Diagrams 02/16/22 14:23 02/16/22 14:23 Laboratory Results 02/16/22 02/16/22 02/16/22 Range/Units 14:44 14:31 14:23 WBC (4.0-10.5) x10^3/uL RBC (4.1-5.4) x10^6/uL Hgb (12.0-16.0) g/dL Hct (35-47) % MCV (78-100) fL MCH (26-32) pg MCHC (32-36) g/dL RDW (11.5-14.0) % Plt Count (150-450) x10^3/uL MPV (7.5-11.0) fL Gran % (36.0-66.0) % Immature Gran % (Auto) (0.00-0.4) % Nucleat RBC Rel Count (0.00-0.1) % Eos # (Auto) (0-0.5) x10^3/uL Immature Gran # (Auto) (0.00-0.03) x10^3u/L Absolute Lymphs (auto) (1.0-4.6) x10^3/uL Absolute Monos (auto) (0.0-1.3) x10^3/uL Absolute Nucleated RBC (0.00-0.01) x10^3u/L Lymphocytes % (24.0-44.0) % Monocytes % (0.0-12.0) % Eosinophils % (0.00-5.0) % Basophils % (0.0-0.4) % Absolute Granulocytes (1.4-6.9) x10^3/uL Basophils # (0-0.4) x10^3/uL PT (9.4-12.5) SECONDS INR (0.8-3.0) Sodium (137-145) mmol/L Potassium (3.5-5.1) mmol/L Chloride (98-107) mmol/L Carbon Dioxide (22-30) mmol/L Anion Gap (5-15) MEQ/L BUN (7-17) mg/dL Creatinine (0.52-1.04) mg/dL Estimated GFR ML/MIN Glucose (74-106) mg/dL Calcium (8.4-10.2) mg/dL Total Bilirubin (0.2-1.3) mg/dL AST (14-36) U/L ALT (0-35) U/L Alkaline Phosphatase (38-126) U/L Serum Total Protein (6.3-8.2) g/dL Albumin (3.5-5.0) g/dL Thyroxine (T4) 13.3 H (5.53-10.96) ug/dL TSH 3rd Generation (0.47-4.68) mIU/L Urine Color Yellow (Yellow) Urine Appearance Clear (Clear) Urine pH 7.0 (4.6-8.0) Ur Specific [place] 1.010 (1.005-1.030) Urine Protein Negative (Negative) Urine Ketones Negative (Negative) Urine Blood Negative (Negative) Urine Nitrite Negative (Negative) Urine Bilirubin Negative (Negative) Urine Urobilinogen 1.0 A (0.2) mg/dL Ur Leukocyte Esterase Negative (Negative) U Hyaline Cast (Auto) 0-2 (0-2) /LPF Urine Microscopic RBC 0-2 (0-5) /HPF Urine Microscopic WBC 0-2 (0-5) /HPF Ur Epithelial Cells None Seen (None Seen) /HPF Urine Bacteria None Seen (None Seen) /HPF Urine Culture Reflexed NO (NO) Urine Glucose Negative (Negative) mg/dL Influenza Type A Ag NEGATIVE (NEGATIVE) Influenza Type B Ag NEGATIVE (NEGATIVE) RSV (PCR) NEGATIVE (Negative) SARS-CoV-2 (PCR) NEGATIVE (NEGATIVE) 02/16/22 02/16/22 02/16/22 Range/Units 14:23 14:23 14:23 WBC (4.0-10.5) x10^3/uL RBC (4.1-5.4) x10^6/uL Hgb (12.0-16.0) g/dL Hct (35-47) % MCV (78-100) fL MCH (26-32) pg MCHC (32-36) g/dL RDW (11.5-14.0) % Plt Count (150-450) x10^3/uL MPV (7.5-11.0) fL Gran % (36.0-66.0) % Immature Gran % (Auto) (0.00-0.4) % Nucleat RBC Rel Count (0.00-0.1) % Eos # (Auto) (0-0.5) x10^3/uL Immature Gran # (Auto) (0.00-0.03) x10^3u/L Absolute Lymphs (auto) (1.0-4.6) x10^3/uL Absolute Monos (auto) (0.0-1.3) x10^3/uL Absolute Nucleated RBC (0.00-0.01) x10^3u/L Lymphocytes % (24.0-44.0) % Monocytes % (0.0-12.0) % Eosinophils % (0.00-5.0) % Basophils % (0.0-0.4) % Absolute Granulocytes (1.4-6.9) x10^3/uL Basophils # (0-0.4) x10^3/uL PT 11.4 (9.4-12.5) SECONDS INR 1.08 (0.8-3.0) Sodium 135 L (137-145) mmol/L Potassium 4.2 (3.5-5.1) mmol/L Chloride 101 (98-107) mmol/L Carbon Dioxide 25 (22-30) mmol/L Anion Gap 13.7 (5-15) MEQ/L BUN 11 (7-17) mg/dL Creatinine 0.45 L (0.52-1.04) mg/dL Estimated GFR > 60.0 ML/MIN Glucose 113 H (74-106) mg/dL Calcium 9.4 (8.4-10.2) mg/dL Total Bilirubin 0.50 (0.2-1.3) mg/dL AST 28 (14-36) U/L ALT 25 (0-35) U/L Alkaline Phosphatase 89 (38-126) U/L Serum Total Protein 8.0 (6.3-8.2) g/dL Albumin 4.7 (3.5-5.0) g/dL Thyroxine (T4) (5.53-10.96) ug/dL TSH 3rd Generation 1.500 (0.47-4.68) mIU/L Urine Color (Yellow) Urine Appearance (Clear) Urine pH (4.6-8.0) Ur Specific [place] (1.005-1.030) Urine Protein (Negative) Urine Ketones (Negative) Urine Blood (Negative) Urine Nitrite (Negative) Urine Bilirubin (Negative) Urine Urobilinogen (0.2) mg/dL Ur Leukocyte Esterase (Negative) U Hyaline Cast (Auto) (0-2) /LPF Urine Microscopic RBC (0-5) /HPF Urine Microscopic WBC (0-5) /HPF Ur Epithelial Cells (None Seen) /HPF Urine Bacteria (None Seen) /HPF Urine Culture Reflexed (NO) Urine Glucose (Negative) mg/dL Influenza Type A Ag (NEGATIVE) Influenza Type B Ag (NEGATIVE) RSV (PCR) (Negative) SARS-CoV-2 (PCR) (NEGATIVE) 02/16/22 Range/Units 14:23 WBC 15.2 H (4.0-10.5) x10^3/uL RBC 4.12 (4.1-5.4) x10^6/uL Hgb 9.4 L (12.0-16.0) g/dL Hct 31.9 L (35-47) % MCV 77.4 L (78-100) fL MCH 22.8 L (26-32) pg MCHC 29.5 L (32-36) g/dL RDW 15.9 H (11.5-14.0) % Plt Count 905 H (150-450) x10^3/uL MPV 8.6 (7.5-11.0) fL Gran % 65.2 (36.0-66.0) % Immature Gran % (Auto) 0.3 (0.00-0.4) % Nucleat RBC Rel Count 0.0 (0.00-0.1) % Eos # (Auto) 0.37 (0-0.5) x10^3/uL Immature Gran # (Auto) 0.05 H (0.00-0.03) x10^3u/L Absolute Lymphs (auto) 3.71 (1.0-4.6) x10^3/uL Absolute Monos (auto) 1.09 (0.0-1.3) x10^3/uL Absolute Nucleated RBC 0.00 (0.00-0.01) x10^3u/L Lymphocytes % 24.4 (24.0-44.0) % Monocytes % 7.2 (0.0-12.0) % Eosinophils % 2.4 (0.00-5.0) % Basophils % 0.5 (0.0-0.4) % Absolute Granulocytes 9.88 H (1.4-6.9) x10^3/uL Basophils # 0.08 (0-0.4) x10^3/uL PT (9.4-12.5) SECONDS INR (0.8-3.0) Sodium (137-145) mmol/L Potassium (3.5-5.1) mmol/L Chloride (98-107) mmol/L Carbon Dioxide (22-30) mmol/L Anion Gap (5-15) MEQ/L BUN (7-17) mg/dL Creatinine (0.52-1.04) mg/dL Estimated GFR ML/MIN Glucose (74-106) mg/dL Calcium (8.4-10.2) mg/dL Total Bilirubin (0.2-1.3) mg/dL AST (14-36) U/L ALT (0-35) U/L Alkaline Phosphatase (38-126) U/L Serum Total Protein (6.3-8.2) g/dL Albumin (3.5-5.0) g/dL Thyroxine (T4) (5.53-10.96) ug/dL TSH 3rd Generation (0.47-4.68) mIU/L Urine Color (Yellow) Urine Appearance (Clear) Urine pH (4.6-8.0) Ur Specific [place] (1.005-1.030) Urine Protein (Negative) Urine Ketones (Negative) Urine Blood (Negative) Urine Nitrite (Negative) Urine Bilirubin (Negative) Urine Urobilinogen (0.2) mg/dL Ur Leukocyte Esterase (Negative) U Hyaline Cast (Auto) (0-2) /LPF Urine Microscopic RBC (0-5) /HPF Urine Microscopic WBC (0-5) /HPF Ur Epithelial Cells (None Seen) /HPF Urine Bacteria (None Seen) /HPF Urine Culture Reflexed (NO) Urine Glucose (Negative) mg/dL Influenza Type A Ag (NEGATIVE) Influenza Type B Ag (NEGATIVE) RSV (PCR) (Negative) SARS-CoV-2 (PCR) (NEGATIVE) - Progress Progress: improved, re-examined Progress Note: 02/16/22 17:16 Medical decision making: This patient has chronic thrombocytosis. A repeat platelet count shows the value to be in her typical range for elevated platelet count. She also has chronic leukocytosis and is in the range of her typical lab value for elevated white count. She also has chronic anemia. I reviewed old charts and old labs to determine that her values are fairly chronic. There is no obvious acute issues. We have made an appointment to see an maxillofacial surgeon on cologist. We will discharge the patient home. Counseled pt/family regarding: lab results, diagnosis, need for follow-up - Departure Departure Disposition: Home Clinical Impression: Thrombocytosis, Leukocytosis, Chronic anemia Condition: Stable Critical Care Time: No Referrals: YU ADAM [Primary Care Provider] - Follow up/PCP as directed Additional Instructions: Follow-up with maxillofacial surgeon on February 22 at 3 PM. This appointment is with Dr. Blevins in [facility]. The office phone number is [phone]
[2022-02-16 14:31] LABS: Absolute Neutrophil Ct (ANC) 9.88 x10^3/uL (1.4-6.9); Basophil (Absolute #) 0.08 x10^3/uL (0-0.4); Eosinophil % 2.4 % (0.00-5.0); Eosinophil (Absolute #) 0.37 x10^3/uL (0-0.5); Hematocrit 31.9 % (35-47); Hemoglobin 9.4 g/dL (12.0-16.0); Lymphocyte (Absolute #) 3.71 x10^3/uL (1.0-4.6); Lymphocytes % 24.4 % (24.0-44.0); Mean Cell Volume 77.4 fL (78-100); Mean Corpuscular Hemoglobin 22.8 pg (26-32); Mean Corpuscular Hgb Concent. 29.5 g/dL (32-36); Mean Platelet Volume 8.6 fL (7.5-11.0); Monocyte (Absolute #) 1.09 x10^3/uL (0.0-1.3); Monocytes % 7.2 % (0.0-12.0); Neutrophil % 65.2 % (36.0-66.0); Platelet Count 905 x10^3/uL (150-450); Red Blood Count 4.12 x10^6/uL (4.1-5.4); Red Cell Distribution Width 15.9 % (11.5-14.0); White Blood Count 15.2 x10^3/uL (4.0-10.5)
[2022-02-16] MEDS ORDERED: Sodium Chloride 0.9% 500 ML 500 ML IV ONE ×2 (14:44→14:48)
[2022-02-16 14:46] LABS: ALBUMIN 4.7 g/dL (3.5-5.0); ALKALINE PHOSPHATASE 89 U/L (38-126); ANION GAP 13.7 MEQ/L (5-15); BLOOD UREA NITROGEN 11 mg/dL (7-17); CHLORIDE 101 mmol/L (98-107); Calcium 9.4 mg/dL (8.4-10.2); Carbon Dioxide 25 mmol/L (22-30); Creatinine 1 0.45 mg/dL (0.52-1.04); EST GLOMERULAR FILTRATION RATE > 60.0 ML/MIN; Glucose 113 mg/dL (74-106); Potassium 4.2 mmol/L (3.5-5.1); SGOT/AST 28 U/L (14-36); SGPT/ALT 25 U/L (0-35); SODIUM 135 mmol/L (137-145)
[2022-02-16 14:50] LABS: INR 1.08 (0.8-3.0); PROTIME 11.4 SECONDS (9.4-12.5)
[2022-02-16 15:13] LABS: INFLUENZA A NEGATIVE (NEGATIVE); INFLUENZA B NEGATIVE (NEGATIVE); RESPIRATORY SYNCTIAL VIRUS NEGATIVE (Negative); SARS-CoV-2 Xpert Express NEGATIVE (NEGATIVE)
[2022-02-16 16:03] VITALS: O2SAT 100
[2022-02-16 16:57] LABS: Appearance Clear (Clear); Bilirubin Negative (Negative); Blood Negative (Negative); Glucose Negative (Negative); Ketones Negative (Negative); Leukocyte Esterase Negative (Negative); Nitrite Negative (Negative); Protein,Urine Dip Negative (Negative)
[2022-02-16 17:02] VITALS: BP 127/63; PULSE 67
[2022-02-16 17:04] LABS: Bacteria None Seen /HPF (None Seen); Epithelial Cells None Seen /HPF (None Seen); Hyaline Casts 0-2 /LPF (0-2); RBC 0-2 /HPF (0-5); WBC 0-2 /HPF (0-5)
[2022-02-16 17:07] LABS: ADD URINE CULTURE? NO (NO)
== END 2022-02-16 17:43 | disposition home or self-care (01) ==
LOC: ED 13:54
DX: D75.839 Thrombocytosis, unspecified (principal); D72.829 Elevated white blood cell count, unspecified; D50.9 Iron deficiency anemia, unspecified; R53.83 Other fatigue; R06.02 Shortness of breath; R35.0 Frequency of micturition; I10 Essential (primary) hypertension; E78.5 Hyperlipidemia, unspecified; Z79.01 Long term (current) use of anticoagulants; Z79.899 Other long term (current) drug therapy
CPT/HCPCS: 0241U; 36000; 36415; 80053; 81001; 84436; 84443; 85025; 85610; 99283

== ENCOUNTER 2022-04-28 11:02 | Emergency (ER) | payer MEDICARE ==
[2022-04-28 11:15] VITALS: BP 109/62; O2SAT 98
[2022-04-28] MEDS ORDERED: DUONEB 0.5-3 MG/3 ml Neb IH ONE ×2 (11:24→11:31)
--- NOTE | 2022-04-28 11:29 | ERPHSYRPT ---
- History of Present Illness Time Seen by Provider: 04/28/22 11:26 Source: patient Exam Limitations: no limitations Patient Subjective Stated Complaint: pt sent from [facility] for increase sob since sat, coughing up green sputum. no fever Triage Nursing Assessment: pt alert, arrived per wc, resp labored with excertion, skin w/d/p.no edema noted, Physician History: Patient is 67-year-old female with significant past medical history of COPD started having a shortness of breath cough for last 2 to 3 days. She went to the [facility] where her COVID test was negative. Her shortness of breath and cough with greenish-yellow sputum got worse so she came to the emergency room. She denies any fever chills nausea vomiting diarrhea abdominal pain or chest pain. Timing/Duration: day(s) (2-3 days) Activities at Onset: none Severity of Dyspnea-Max: moderate Severity of Dyspnea-Current: moderate Possible Cause: frequent episodes Associated Symptoms: cough, fever, wheezing, No chest pain/discomfort, No insomnia, No hemoptysis, No heart racing, No leg swelling, No muscle spasms feet Allergies/Adverse Reactions: Iodinated Contrast Media [Iodinated Contrast Media - IV Dye] Allergy (Severe, Verified 04/28/22 11:15) Itching acetaminophen [From Vicodin] Allergy (Verified 04/28/22 11:15) Nausea and Vomiting Pt can take plain tylenol. hydrocodone [From Vicodin] Allergy (Verified 04/28/22 11:15) Nausea and Vomiting iodine Allergy (Verified 04/28/22 11:15) Itching prochlorperazine [From Compazine] Allergy (Verified 04/28/22 11:15) propoxyphene [From Darvon] Allergy (Verified 04/28/22 11:15) Nausea and Vomiting Home Medications: Albuterol/Ipratropium Mdi [Combivent Inhaler] 1 puff IH Q4HPRN PRN 11/29/12 [History] Pravastatin Sodium 20 mg PO HS 11/29/12 [History] Zolpidem Tartrate [Ambien] 10 mg PO HS 04/29/16 [History] Albuterol/Ipratropium 3ml Neb* [DUONEB 0.5-3 MG/3 ml Neb] 3 ml IH QIDRT 0 06/04/17 [History] Enalapril Maleate [Vasotec] 20 mg PO DAILY 06/04/17 [History] Fluticasone/Umeclidin/Vilanter [Trelegy Ellipta 100-62.5-25] 25 - 200 mcg IH DAILY 01/18/19 [History] Apixaban [Eliquis 5 mg Tablet] 1 tab PO BID 10/30/21 [History] Metoprolol Tartrate 25 mg [Lopressor 25MG Tab] 1 mg PO DAILY 10/30/21 [History] Omeprazole 1 cap PO BID 10/30/21 [History] Promethazine HCl 25 mg [Phenergan 25 mg] 1 tab PO Q4H 10/30/21 [History] Hx Tetanus, Diphtheria Vaccination/Date Given: No Hx Influenza Vaccination/Date Given: Yes Hx Pneumococcal Vaccination/Date Given: Yes Immunizations Up to Date: Yes Travel Risk - International Travel Have you traveled outside of the country in past 3 weeks: No - Coronavirus Screening Are you exhibiting any of the following symptoms?: Yes Symptoms: Cough: New Onset, Shortness of Breath, Headaches/Body Aches/Fatigue Close contact with a COVID-19 positive Pt in past 14-21 Days: No - Vaccine Status Have you recieved a Covid-19 vaccination: Yes Medical Transcriber: Moderna - Vaccination Dates Date of 2cond Vaccination (if applicable): 05/2020 - Review of Systems Constitutional: Fever, No Chills Eyes: No Symptoms Ears, Nose, & Throat: No Symptoms Respiratory: Cough, Dyspnea, Dyspnea on Exertion (HORTA) Cardiac: No Chest Pain, No Edema, No Syncope Abdominal/Gastrointestinal: No Abdominal Pain, No Nausea, No Vomiting, No Diarrhea Genitourinary Symptoms: No Dysuria Musculoskeletal: No Back Pain, No Neck Pain Skin: No Rash Neurological: No Dizziness, No Focal Weakness, No Sensory Changes Psychological: No Symptoms Endocrine: No Symptoms All Other Systems: Reviewed and Negative - Past Medical History Pertinent Past Medical History: Yes Neurological History: TIA ENT History: No Pertinent History Cardiac History: Arrhythmia, High Cholesterol, Hypertension Respiratory History: COPD Endocrine Medical History: No Pertinent History Musculoskeletal History: No Pertinent History GI Medical History: GERD, Hernia History: No Pertinent History Psycho-Social History: No Pertinent History Female Reproductive Disorders: No Pertinent History Other Medical History: hiatal hernia,anemia, - Past Surgical History Past Surgical History: Yes Neuro Surgical History: No Pertinent History Cardiac: No Pertinent History Respiratory: No Pertinent History Gastrointestinal: Appendectomy, Cholecystectomy, Exploratory Laparoscopy Genitourinary: No Pertinent History Musculoskeletal: Orthopedic Surgery Female Surgical History: Hysterectomy Other Surgical History: 4 surgeries on right foot - Social History Smoking Status: Former smoker How long have you smoked: 30 yrs Exposure to second hand smoke: No Drug Use: none Patient Lives Alone: Yes - Nursing Vital Signs Nursing Vital Signs: Initial Vital Signs Temperature 99.4 F 04/28/22 11:14 Pulse Rate 105 H 04/28/22 11:14 Respiratory Rate 18 04/28/22 11:14 Blood Pressure 109/62 04/28/22 11:14 O2 Sat by Pulse Oximetry 98 04/28/22 11:14 Pain Scale Pain Intensity 8 - Physical Exam General Appearance: no apparent distress, alert Eye Exam: PERRL/EOMI Neck Exam: normal inspection, supple Respiratory Exam: diminished breath sounds, crackles/rales, rhonchi Cardiovascular/Chest Exam: normal heart sounds, regular rate/rhythm Abdominal/Gastrointestinal Exam: soft, No tenderness, No distention, No mass Extremity Exam: non-tender, normal range of motion, normal inspection, no calf tenderness, no pedal edema Neurologic Exam: alert, oriented x 3, cooperative, golf club weigher II-XII nml as tested, sensation nml, No motor deficits Skin Exam: normal color, warm, No dry SpO2 Interpretation: normal SpO2: 98 O2 Delivery: Room Air - Course Nursing assessment & vital signs reviewed: Yes EKG Interpreted by Me: Sinus Rhythm - Radiology Exams Chest X-ray Interpretation: Reviewed by me, Negative, No Pneumonia Ordered Tests: Active Orders 24 hr Category Date Time Status EKG-ER Only STAT Care 04/28/22 11:24 Active EKG-ER Only STAT Care 04/28/22 11:25 Active Oxygen-ED Only Nasal Cannula 2 lpm Care 04/28/22 11:24 Active CHEST 2 VIEWS (PA AND LAT) Stat Exams 04/28/22 11:24 Taken CBC W DIFF Stat Lab 04/28/22 11:37 Completed CMP Stat Lab 04/28/22 11:37 Completed TROPONIN Q4H Lab 04/28/22 11:37 Completed TROPONIN Q4H Lab 04/28/22 15:30 Ordered TROPONIN Q4H Lab 04/28/22 19:30 Ordered Respiratory Therapy Assessment DAILY RT 04/28/22 11:37 Active Medication Summary Generic Name Dose Route Start Last Admin Trade Name Freq PRN Reason Stop Dose Admin Sodium Chloride 1,000 mls @ 50 mls/hr 04/28/22 11:30 04/28/22 11:53 Sodium Chloride 0.9% 1000 Ml IV 05/28/22 11:29 50 mls/hr .Q20H MONICA Administration Azithromycin 500 mg in 250 mls @ 250 mls/hr 04/28/22 12:05 Zithromax 500 Mg/ 250 Ml Nacl Premix IV 04/28/22 13:04 STAT STA Discontinued Medications Generic Name Dose Route Start Last Admin Trade Name Freq PRN Reason Stop Dose Admin Albuterol/Ipratropium 3 ml 04/28/22 11:24 04/28/22 11:34 Ipratropium/Albuterol Sulfate 3 Ml Ampul.Neb IH 04/28/22 11:25 3 ml STAT ONE Administration Albuterol/Ipratropium Confirm 04/28/22 11:31 Ipratropium/Albuterol Sulfate 3 Ml Ampul.Neb Administered 04/28/22 11:32 Dose 3 ml IH .STK-MED ONE Ceftriaxone Sodium/Dextrose 1 g in 50 mls @ 100 mls/hr 04/28/22 12:05 04/28/22 12:43 Rocephin 1 Gm-D5w 50 Ml Bag IV 04/28/22 12:34 100 ml/hr STAT STA 100 mls/hr Administration Ceftriaxone Sodium/Dextrose Confirm 04/28/22 12:42 Rocephin 1 Gm-D5w 50 Ml Bag Administered 04/28/22 12:43 Dose 1 g in 50 mls @ ud IV .STK-MED ONE Lab/Rad Data: Laboratory Result Diagrams 04/28/22 11:37 04/28/22 11:37 Laboratory Results 04/28/22 04/28/22 04/28/22 Range/Units 11:37 11:37 11:37 WBC 19.5 H (4.0-10.5) x10^3/uL RBC 4.16 (4.1-5.4) x10^6/uL Hgb 10.8 L (12.0-16.0) g/dL Hct 34.9 L (35-47) % MCV 83.9 (78-100) fL MCH 26.0 (26-32) pg MCHC 30.9 L (32-36) g/dL RDW 22.5 H (11.5-14.0) % Plt Count 646 H (150-450) x10^3/uL MPV 8.8 (7.5-11.0) fL Gran % 80.7 H (36.0-66.0) % Immature Gran % (Auto) 0.7 H (0.00-0.4) % Nucleat RBC Rel Count 0.0 (0.00-0.1) % Eos # (Auto) 0.11 (0-0.5) x10^3/uL Immature Gran # (Auto) 0.14 H (0.00-0.03) x10^3u/L Absolute Lymphs (auto) 1.93 (1.0-4.6) x10^3/uL Absolute Monos (auto) 1.52 H (0.0-1.3) x10^3/uL Absolute Nucleated RBC 0.00 (0.00-0.01) x10^3u/L Lymphocytes % 9.9 L (24.0-44.0) % Monocytes % 7.8 (0.0-12.0) % Eosinophils % 0.6 (0.00-5.0) % Basophils % 0.3 (0.0-0.4) % Absolute Granulocytes 15.75 H (1.4-6.9) x10^3/uL Basophils # 0.06 (0-0.4) x10^3/uL Sodium 139 (137-145) mmol/L Potassium 4.2 (3.5-5.1) mmol/L Chloride 100 (98-107) mmol/L Carbon Dioxide 28 (22-30) mmol/L Anion Gap 14.9 (5-15) MEQ/L BUN 12 (7-17) mg/dL Creatinine 0.38 L (0.52-1.04) mg/dL Estimated GFR > 60.0 ML/MIN Glucose 111 H (74-106) mg/dL Calcium 9.4 (8.4-10.2) mg/dL Total Bilirubin 0.40 (0.2-1.3) mg/dL AST 26 (14-36) U/L ALT 25 (0-35) U/L Alkaline Phosphatase 126 (38-126) U/L Troponin I < 0.012 (0.000-0.034) ng/mL Serum Total Protein 8.1 (6.3-8.2) g/dL Albumin 4.6 (3.5-5.0) g/dL - Progress Progress: improved Air Movement: good Blood Culture(s) Obtained: No Antibiotics given: Yes Counseled pt/family regarding: lab results, diagnosis, need for follow-up, rad results Medical Desision Making - Discussion of managment Reviewed:: Test results, Need for additional workup Agreed on:: Treatment plan, need for follow-up - Diagnostic Testing Diagnostic test were ordered, analyzed, and reviewed by me: Yes Radiological Interpretation: Interpreted by me, Reviewed by me - Departure Departure Disposition: Home Clinical Impression: Acute exacerbation of chronic obstructive pulmonary disease (COPD) Condition: Stable Critical Care Time: Yes Critical Care Time(excluding separately billable procedures): Critical 30-74 mins Referrals: YU PORRAS [Primary Care Provider] - Follow up/PCP as directed Instructions: Chronic Obstructive Pulmonary Disease, Exacerbation of COPD (DC) Additional Instructions: Discharge/Care Plan JORDYNSTEPHANIE COTTO was seen on 04/28/22 in the Emergency Room. The patient was counseled regarding Diagnosis,Lab results, Imaging studies, need for follow up and when to return to the Emergency Room. Prescriptions given: Discharge Note I have spoken with the patient and/or caregivers. I have explained the patient's condition, diagnosis and treatment plan based on the information available to me at this time. I have answered the patient's and/or caregiver's questions and addressed any concerns. The patient and/or caregivers have as good understanding of the patient's diagnosis, condition and treatment plan as can be expected at this point. The vital signs have been stable. The patient's condition is stable and appropriate for discharge from the emergency department. The patient will pursue further outpatient evaluation with the primary care physician or other designated or consulting physician as outlined in the discharge instructions. The patient and/or caregivers are agreeable to this plan of care and follow-up instructions have been explained in detail. The patient and/or caregivers have received these instruction. The patient/and or caregivers are aware that any significant change in condition or worsening of symptoms should prompt an immediate return to this or the closest emergency department or call 911. STEPHANIE COBB was seen on 04/28/22 n the Emergency Room. At that time you were treated for an emergent condition, during your visit Laboratory, Radiology and/or other procedures may have been ordered. It is very important that you follow-up with your Primary Care Physician YU PORRAS within the next 24-48 hours to review your Emergency Room visit and the final results of testing that was ordered. Some test results such as Urine Cultures, Blood Cultures, and other cultures if ordered will not be finalized for 24-48 hours. If you do not have a Primary Care Provider please call the medical records department at [phone] ext [phone] to obtain a copy of your results or you may sign into our patient portal to obtain these results by visiting us @ [email or web address] and completing the following steps: 1. Click on the Patient Portal link 2. Click the Patient Self Enrollment Link to complete the enrollment form and en tering your 3. Once the enrollment form is completed you will receive an email with a temporary ID and password at the email address you provided. 4. Next choose a user name and password. Your user name must be at least 4 characters long and your password must be at least 4 characters long. 5. Choose a security question from the list and provide your answer to the question. If you already have signed into the Health Portal you may access your Health Care Information 03/09 by the following steps: 1. Login to our website @ [email or web address] 2. Enter your original user name and password. FAQS The [facility] Health Portal is an online tool that contains your Lab Results, Radiology Reports, Visit History, Discharge Instructions and Health Summary Lab and Radiology Results will not be available for 72 hours on the portal. The Portal is a secure site, passwords are encryted and URLs are re-written so they cannot be copied and pasted. You and authorized family members are the only ones who can access your Portal. Also there is a timeout feature that protects your information if you leave the Portal page open. If you have technical difficulty please use the Contact Us link on the page this will allow you to submit any questions you have regarding the Portal or you may contact the Medical Record Department at [phone]. Prescriptions: Cephalexin Mh 500 mg [Keflex 500 mg] 500 mg PO Q6H #40 cap Methylprednisolone Packet [Medrol Dosepack] 4 mg PO UD #21 packet
[2022-04-28] MEDS ORDERED: Sodium Chloride 0.9% 1000 ML 1,000 ML IV SCH (11:30)
[2022-04-28 11:38] LABS: Absolute Neutrophil Ct (ANC) 15.75 x10^3/uL (1.4-6.9); BASOPHIL % 0.3 % (0.0-0.4); Basophil (Absolute #) 0.06 x10^3/uL (0-0.4); Eosinophil % 0.6 % (0.00-5.0); Eosinophil (Absolute #) 0.11 x10^3/uL (0-0.5); Hematocrit 34.9 % (35-47); Hemoglobin 10.8 g/dL (12.0-16.0); IMMATURE GRAN # 0.14 x10^3u/L (0.00-0.03); IMMATURE GRAN % 0.7 % (0.00-0.4); Lymphocyte (Absolute #) 1.93 x10^3/uL (1.0-4.6); Lymphocytes % 9.9 % (24.0-44.0); Mean Cell Volume 83.9 fL (78-100); Mean Corpuscular Hgb Concent. 30.9 g/dL (32-36); Mean Platelet Volume 8.8 fL (7.5-11.0); Monocyte (Absolute #) 1.52 x10^3/uL (0.0-1.3); Monocytes % 7.8 % (0.0-12.0); Neutrophil % 80.7 % (36.0-66.0); Platelet Count 646 x10^3/uL (150-450); Red Blood Count 4.16 x10^6/uL (4.1-5.4); Red Cell Distribution Width 22.5 % (11.5-14.0); White Blood Count 19.5 x10^3/uL (4.0-10.5)
[2022-04-28 11:41] VITALS: PULSE 107
[2022-04-28] MEDS ORDERED: Sodium Chloride 0.9% 1000 ML 1,000 ML ONE (11:51)
[2022-04-28 11:52] LABS: ALBUMIN 4.6 g/dL (3.5-5.0); ALKALINE PHOSPHATASE 126 U/L (38-126); ANION GAP 14.9 MEQ/L (5-15); BLOOD UREA NITROGEN 12 mg/dL (7-17); CHLORIDE 100 mmol/L (98-107); Calcium 9.4 mg/dL (8.4-10.2); Carbon Dioxide 28 mmol/L (22-30); Creatinine 1 0.38 mg/dL (0.52-1.04); EST GLOMERULAR FILTRATION RATE > 60.0 ML/MIN; Glucose 111 mg/dL (74-106); Potassium 4.2 mmol/L (3.5-5.1); SGOT/AST 26 U/L (14-36); SGPT/ALT 25 U/L (0-35); SODIUM 139 mmol/L (137-145); Total Protein 8.1 g/dL (6.3-8.2)
[2022-04-28] MEDS ORDERED: Zithromax 500 MG/ 250 ML NaCl Premix 500 MG/250 ML IVPB IV STA (12:05)
[2022-04-28] MEDS ORDERED: ROCEPHIN 1 Gm-D5w 50 ml Bag** 1 G/50 ML IVPB IV STA (12:05)
[2022-04-28] MEDS ORDERED: ROCEPHIN 1 Gm-D5w 50 ml Bag** 1 G/50 ML IVPB IV ONE (12:42)
[2022-04-28] MEDS ORDERED: Zithromax 500 MG/ 250 ML NaCl Premix 500 MG/250 ML IVPB IV ONE (13:19)
[2022-04-28 14:04] LABS: Slide Review 1 YES
--- NOTE | 2022-04-28 20:20 | XRAY ---
Indication: Short of breath. Comparison: February 15, 2022 PA/lateral chest again hyperinflated with minimal right midlung fibrosis/scarring and left mid to lower lung suture material. Remaining heart and lungs unremarkable. Bony thorax intact. No new/acute findings.
== END 2022-04-28 14:42 | disposition home or self-care (01) ==
LOC: ED 11:02
DX: J44.1 Chronic obstructive pulmonary disease with (acute) exacerbation (principal); R06.02 Shortness of breath; R05.1 Acute cough; E78.5 Hyperlipidemia, unspecified; I10 Essential (primary) hypertension; Z79.01 Long term (current) use of anticoagulants; Z79.52 Long term (current) use of systemic steroids; Z79.899 Other long term (current) drug therapy
CPT/HCPCS: 36000; 36415; 71046; 80053; 84484; 85025; 93005; 94640; 96365; 99284; 99291; J0456; J0696; A9270-GY

== ENCOUNTER 2022-10-30 06:02 | Day surgery (SDC) | payer MEDICARE ==
[~2022-10-30 06:02] MED LIST: Lactated Ringers 1,000 ML IV SCH
[2022-10-30 06:44] VITALS: RESP 18
[2022-10-30] MEDS ORDERED: DIPRIVAN 200 MG/20 ML IV ONE ×2 (07:52→08:18)
[2022-10-30] MEDS ORDERED: Xylocaine-Mpf 2% 5 Ml Vial ONE (07:52)
[2022-10-30 08:57] VITALS: BP 108/67; PULSE 70; TEMP 97; O2SAT 100
--- NOTE | 2022-10-30 15:19 | OP ---
SURGERY DATE/TIME: 10/30/2022 0756 PREOPERATIVE DIAGNOSIS: Anemia. POSTOPERATIVE DIAGNOSES: 1) Mild gastritis. 2) Small descending colon polyp. 3) Sigmoid diverticulosis. PROCEDURES: 1) Esophagogastroduodenoscopy. 2) Colonoscopy with cold forceps biopsy. SURGEON: Dr. Adam. ANESTHESIA: Medications were given by the anesthesia department. HISTORY: The patient is a 67-year-old white female presenting now for endoscopic evaluation due to presence of anemia. The patient was felt the need to have endoscopic evaluation. She was appraised of the risks of the procedure including the risk of perforation, phlebitis, untoward reaction to medication, bleeding and missed lesions. The patient verbalized her understanding and desired to have the procedure performed. DESCRIPTION OF PROCEDURE: The patient was given the medications by the anesthesia department. She had continuous pulse oximetry, ECG monitoring and intermittent blood pressure monitoring during the examination. She was placed in the left lateral decubitus position. A bite block was placed and the flexible Olympus gastroscope was used to intubate the oropharynx. A view of the larynx was obtained and was normal. The scope was easily introduced in the esophagus which was normal throughout its length. The stomach was entered where normal gastric rugal folds were seen and these distended nicely with insufflation of air. The scope was passed along the greater curvature of the stomach to the antrum. The pylorus encountered and intubated. The duodenum inspected and found to be normal. The scope is withdrawn towards the stomach again. A retroflex view was obtained of the lesser curvature, fundus and cardia regions of the stomach and these appeared to be essentially normal. The scope was then removed from the patient. Next, a digital rectal examination was performed and revealed normal anal sphincter tone and no masses. The flexible Olympus pediatric colonoscope was used to intubate the rectum. A view of the colon was developed sequentially to the cecum. Upon insertion and withdrawal was noted sigmoid diverticulosis that was moderate in nature. There was also a small polyp in the descending colon which was biopsied and basically destroyed using passage of the cold forceps biopsy. No other mucosal lesions being encountered the scope was removed from the patient who tolerated the procedure well and was sent to OP recovery in good condition. The prep was noted to be fair to good.
== END 2022-10-30 09:00 | disposition home or self-care (01) ==
LOC: SDC 06:02
PROVIDERS: ATTEND Family Medicine
DX: K57.30 Diverticulosis of large intestine without perforation or abscess without bleeding (principal); K29.70 Gastritis, unspecified, without bleeding; D64.9 Anemia, unspecified; K63.5 Polyp of colon
CPT/HCPCS: J2704

== ENCOUNTER 2023-07-25 13:57 | Observation (INO) | payer MEDICARE ==
[2023-07-25] MEDS ORDERED: Zofran 4 MG/2 ML VIAL ONE (14:09)
[2023-07-25] MEDS ORDERED: BABY ASPIRIN 81 MG CHEW ONE (14:10)
[2023-07-25] MEDS ORDERED: SUBLIMAZE 100 MCG/2 ML ONE (14:10)
[2023-07-25] MEDS: SUBLIMAZE 100 MCG/2 ML IV ONE (14:16)
[2023-07-25] MEDS: Zofran 4 MG/2 ML VIAL IV ONE (14:17)
[2023-07-25] MEDS: BABY ASPIRIN 81 MG CHEW PO ONE (14:20)
[2023-07-25] MEDS ORDERED: DUONEB 0.5-3 MG/3 ml Neb IH ONE (14:22)
[2023-07-25] MEDS: DUONEB 0.5-3 MG/3 ml Neb IH ONE (14:23)
[2023-07-25] MEDS ORDERED: MORPHINE SULFATE 4 MG INJ ONE (14:24)
[2023-07-25] MEDS: MORPHINE SULFATE 4 MG INJ IV ONE (14:27)
[2023-07-25 14:41] LABS: Absolute Neutrophil Ct (ANC) 9.62 x10^3/uL (1.56-6.13); BASOPHIL % 0.3 % (0.1-1.2); Basophil (Absolute #) 0.04 x10^3/uL (0.01-0.08); Eosinophil % 3.1 % (0.7-5.8); Eosinophil (Absolute #) 0.41 x10^3/uL (0.04-0.36); Hematocrit 37.6 % (34.1-44.9); Hemoglobin 11.8 g/dL (11.2-15.7); IMMATURE GRAN % 0.8 % (0.001-0.429); Lymphocyte (Absolute #) 2.22 x10^3/uL (1.18-3.74); Lymphocytes % 16.7 % (19.3-51.7); Mean Cell Volume 84.9 fL (79.4-94.8); Mean Corpuscular Hemoglobin 26.6 pg (25.6-32.2); Mean Corpuscular Hgb Concent. 31.4 g/dL (32.2-35.5); Mean Platelet Volume 9.1 fL (9.4-12.3); Monocyte (Absolute #) 0.94 x10^3/uL (0.24-0.86); Monocytes % 7.1 % (4.7-12.5); Platelet Count 631 x10^3/uL (182-369); Red Blood Count 4.43 x10^6/uL (3.93-5.22); White Blood Count 13.3 x10^3/uL (3.98-10.04)
[2023-07-25 15:05] LABS: ALBUMIN 4.7 g/dL (3.5-5.0); ANION GAP 13.9 MEQ/L (5-15); BILIRUBIN,TOTAL 0.3 mg/dL (0.2-1.3); Calcium 9.8 mg/dL (8.4-10.2); Creatinine 1 0.51 mg/dL (0.52-1.04); NT PRO BNPII 38.4 pg/mL (<300); Total Protein 8.3 g/dL (6.3-8.2)
--- NOTE | 2023-07-25 15:10 | XRAY ---
Indication: Chest pain. Comparison: May 17, 2022 Portable chest again demonstrates COPD and left lung suture material. Remaining lungs clear. Heart and mediastinal structures within normal limits. Bony thorax intact again with osteopenia. Impression: Continued nonacute chest with chronic features.
--- NOTE | 2023-07-25 15:59 | ERPHSYRPT ---
- History of Present Illness Time Seen by Provider: 07/25/23 13:58 Historian: patient Exam Limitations: no limitations Patient Subjective Stated Complaint: Pt c/o of waking a couple of days of a sore throat and then waking this morning with alphonso upper chest pain that goes to the back, pt was told a couple of years ago that she had afib Triage Nursing Assessment: Pt was brought to the ER by EMS, hypertensive, rates pain as 6/10, pain goes across her upper chest and into her back, nauseous but denies vomiting, A-fib is the heart hx given, pulses normal, skin n/w/d, wears 2.5 L NC at home, doesn't appear to be in any distress Physician History: 68-year-old female with history of paroxysmal atrial fibrillation on Eliquis, COPD with chronic respiratory failure and 2-1/2 L oxygen is sent in ER from primary care office with chest pain. Patient reports she woke up couple days ago with soreness in the throat followed by cough and chest pain. Soreness in her throat is improved but still having pain in the chest across with some radiation to the back moderate intensity without any significant aggravating or relieving factors. Denies any significant shortness of breath. Denies any fever or chills. No known sick contact. Denies any history of coronary artery disease or recent cardiac workup done. Aspirin Treatment Today: no aspirin today Allergies/Adverse Reactions: Iodinated Contrast Media [Iodinated Contrast Media - IV Dye] Allergy (Severe, Verified 07/25/23 14:09) Itching hydrocodone [From Vicodin] Allergy (Verified 07/25/23 14:09) Nausea and Vomiting iodine Allergy (Verified 07/25/23 14:09) Itching prochlorperazine [From Compazine] Allergy (Verified 07/25/23 14:09) propoxyphene [From Darvon] Allergy (Verified 07/25/23 14:09) Nausea and Vomiting Home Medications: Albuterol/Ipratropium Mdi [Combivent Inhaler] 1 puff IH QID PRN 11/29/12 [History] Zolpidem Tartrate [Ambien] 10 mg PO HS 04/29/16 [History] Albuterol/Ipratropium 3ml Neb* [DUONEB 0.5-3 MG/3 ml Neb] 3 ml IH UD PRN 06/04/17 [History] Apixaban [Eliquis 5 mg Tablet] 1 tab PO BID 10/30/21 [History] Metoprolol Tartrate 25 mg [Lopressor 25MG Tab] 1 mg PO DAILY 10/30/21 [History] Omeprazole 40 mg PO BID 10/30/21 [History] Promethazine HCl 25 mg [Phenergan 25 mg] 1 tab PO BID PRN 10/30/21 [History] Atorvastatin Calcium 40 mg PO HS 07/25/23 [History] Fluticasone/Umeclidin/Vilanter [Trelegy Ellipta 100-62.5-25] 1 inh PO DAILY 07/25/23 [History] Hx Tetanus, Diphtheria Vaccination/Date Given: No Hx Influenza Vaccination/Date Given: Yes Hx Pneumococcal Vaccination/Date Given: Yes Travel Risk - International Travel Have you traveled outside of the country in past 3 weeks: No - Emerging Infectious Disease Are you exhibiting symptoms associated with any current EIDs: No - Review of Systems Constitutional: No Symptoms Ears, Nose, & Throat: No Symptoms Respiratory: No Symptoms Cardiac: Chest Pain Abdominal/Gastrointestinal: No Symptoms Genitourinary Symptoms: No Symptoms Musculoskeletal: No Symptoms Skin: No Symptoms Neurological: No Symptoms Endocrine: No Symptoms Hematologic/Lymphatic: No Symptoms - Past Medical History Pertinent Past Medical History: Yes Neurological History: TIA ENT History: No Pertinent History Cardiac History: Arrhythmia, High Cholesterol, Hypertension Respiratory History: COPD, Other Endocrine Medical History: No Pertinent History Musculoskeletal History: No Pertinent History GI Medical History: GERD, Hernia History: No Pertinent History Psycho-Social History: No Pertinent History Female Reproductive Disorders: No Pertinent History Other Medical History: hiatal hernia,anemia, respiratory failure and lung nodules - Past Surgical History Past Surgical History: Yes Neuro Surgical History: No Pertinent History Cardiac: No Pertinent History Respiratory: No Pertinent History Gastrointestinal: Appendectomy, Cholecystectomy, Exploratory Laparoscopy Genitourinary: No Pertinent History Musculoskeletal: Orthopedic Surgery Female Surgical History: Hysterectomy Other Surgical History: 4 surgeries on right foot - Social History Smoking Status: Former smoker How long have you smoked: 30 yrs Exposure to second hand smoke: No Drug Use: none Patient Lives Alone: Yes - Social Determinants of Health Will the patient participate in the screening: Yes Do you worry about a steady place to live?: No Do you have any problems with any of the following?: No known problems In the past 12 months,have you had to go without utilities?: No Transportation Issues: No Has anyone in your support network made you feel unsafe?: No Have you or anyone in your house had to go without enough: No - Nursing Vital Signs Nursing Vital Signs: Initial Vital Signs Temperature 98.2 F 07/25/23 13:59 Pulse Rate 77 07/25/23 13:59 Respiratory Rate 20 07/25/23 13:59 Blood Pressure 145/101 07/25/23 13:59 O2 Sat by Pulse Oximetry 97 07/25/23 13:59 Pain Scale Pain Intensity 0 - Physical Exam General Appearance: no apparent distress, alert Eye Exam: PERRL/EOMI Ears, Nose, Throat Exam: normal ENT inspection, TMs normal, pharynx normal, moist mucous membranes Neck Exam: normal inspection, non-tender, supple, full range of motion Respiratory Exam: normal breath sounds, lungs clear Cardiovascular Exam: regular rate/rhythm, normal heart sounds Gastrointestinal/Abdomen Exam: soft, normal bowel sounds, No tenderness Back Exam: normal inspection, normal range of motion Extremity Exam: normal range of motion Neurologic Exam: alert, oriented x 3, cooperative, applied research director II-XII nml as tested Skin Exam: normal color SpO2 Interpretation: normal SpO2: 99 O2 Delivery: Room Air - Course EKG Interpreted by Me: RATE ([id number]), Sinus Rhythm, NORMAL AXIS, NORMAL INTERVALS, NORMAL QRS Ordered Tests: Active Orders 24 hr Category Date Time Status Bedrest ROUTINE Activity 07/25/23 17:44 Active Up With Assistance ROUTINE Activity 07/25/23 17:44 Active Call Admit Doctor for Orders ON ADMISSION Care 07/25/23 17:44 Active Cleaner Greaser STAT Care 07/25/23 14:03 Completed Code Status Order ROUTINE Care 07/25/23 17:44 Active EKG-ER Only STAT Care 07/25/23 14:02 Completed Fall Protocol ROUTINE Care 07/25/23 17:44 Active IV Insertion STAT Care 07/25/23 14:02 Completed Oxygen-ED Only Nasal Cannula 2 lpm Care 07/25/23 14:[address] in Observation ROUTINE Care 07/25/23 17:44 Active Telemetry q6h Care 07/25/23 17:44 Active CHEST 1 VIEW (PORTABLE) Stat Exams 07/25/23 14:03 Completed BLOOD CULTURE Stat Lab 07/25/23 14:36 Received CBC W DIFF Stat Lab 07/25/23 14:25 Completed CMP Stat Lab 07/25/23 14:25 Completed LIPASE Stat Lab 07/25/23 14:25 Completed NT PRO BNPII Stat Lab 07/25/23 14:25 Completed PROCALCITONIN Stat Lab 07/25/23 14:25 Completed TROPONIN Q4H Lab 07/25/23 14:25 Completed TROPONIN Q4H Lab 07/25/23 18:15 Completed TROPONIN Q4H Lab 07/25/23 22:15 Ordered Oxygen Nasal Cannula 2 lpm RT 07/25/23 17:44 Active Pulse Oximetry CONTINUOUS RT 07/25/23 17:44 Active Respiratory Therapy Assessment DAILY RT 07/25/23 14:25 Completed Respiratory Therapy Consult ONCE RT 07/25/23 17:44 Completed Transfer Order Routine Transfer 07/25/23 Completed Medication Summary Generic Name Dose Route Start Last Admin Trade Name Freq PRN Reason Stop Dose Admin Acetaminophen 650 mg 07/25/23 18:06 Acetaminophen 650 Mg Supp.Rect ME 08/24/23 18:05 Q4H PRN PRN PAIN AND/OR FEVER Albuterol/Ipratropium 3 ml 07/25/23 18:04 07/25/23 18:50 Ipratropium/Albuterol Sulfate 3 Ml Ampul.Neb IH 08/24/23 18:03 3 ml UD PRN Administration SHORTNESS OF BREATH Aspirin 81 mg 07/26/23 10:00 Aspirin 81 Mg Tablet.Ec PO 08/25/23 09:59 DAILY [facility] Enoxaparin Sodium 40 mg 07/26/23 10:00 Enoxaparin Sodium 40 Mg/0.4 Ml Syringe SQ 08/25/23 09:59 DAILY [facility] Metoprolol Tartrate 1 mg 07/25/23 22:00 Metoprolol Tartrate 25 Mg Tab PO 08/24/23 21:59 BID [facility] Nitroglycerin 0.4 mg 07/25/23 18:10 Nitroglycerin 0.4 Mg Tablet Bottle SL 08/24/23 18:09 Q5MIN PRN MR X 3 PRN CHEST PAIN Non-Formulary Medication 1 puff 07/25/23 22:00 07/25/23 18:53 Albuterol/Ipratropium Mdi [Combivent Inhaler] IH 08/24/23 21:59 Not Given QID MONICA Non-Formulary Medication 1 tab 07/25/23 22:00 Apixaban [Eliquis 5 Mg Tablet] PO 08/24/23 21:59 BID MONICA Non-Formulary Medication 2.5 mg 07/26/23 10:00 Enalapril Maleate [Enalapril Maleate] PO 08/25/23 09:59 DAILY MONICA Non-Formulary Medication 20 mg 07/26/23 10:00 Famotidine [Famotidine] PO 08/25/23 09:59 DAILY [facility] Non-Formulary Medication 40 mg 07/25/23 22:00 Omeprazole [Omeprazole] PO 08/24/23 21:59 BID MONICA Non-Formulary Medication 1 inh 07/26/23 10:00 Fluticasone/Umeclidin/Vilanter [Trelegy Ellipta 100-62.5-25] PO 08/25/23 09:59 DAILY [facility] Promethazine HCl mg 07/25/23 22:00 Promethazine Hcl 25 Mg Tablet PO 08/24/23 21:59 BID [facility] Simvastatin 40 mg 07/25/23 22:00 Simvastatin 20 Mg Tablet PO 08/24/23 21:59 HS [facility] Tramadol HCl 50 mg 07/25/23 18:12 07/25/23 18:48 Tramadol Hcl 50 Mg Tablet PO 08/24/23 18:11 50 mg QID PRN PRN Administration PAIN Zolpidem Tartrate 10 mg 07/25/23 22:00 Zolpidem Tartrate 10 Mg Tablet PO 08/24/23 21:59 HS [facility] Discontinued Medications Generic Name Dose Route Start Last Admin Trade Name Freq PRN Reason Stop Dose Admin Albuterol/Ipratropium 3 ml 07/25/23 14:04 07/25/23 14:23 Ipratropium/Albuterol Sulfate 3 Ml Ampul.Neb IH 07/25/23 14:05 3 ml STAT ONE Administration Albuterol/Ipratropium Confirm 07/25/23 14:22 Ipratropium/Albuterol Sulfate 3 Ml Ampul.Neb Administered 07/25/23 14:23 Dose 3 ml IH .STK-MED ONE Aspirin 324 mg 06/13/24 14:02 07/25/23 14:20 Aspirin 81 Mg Tab.Chew PO 07/25/23 14:03 Not Given STAT ONE Aspirin Confirm 07/25/23 14:10 Aspirin 81 Mg Tab.Chew Administered 07/25/23 14:11 Dose 324 mg .ROUTE .STK-MED ONE Atorvastatin Calcium 40 mg 07/25/23 22:00 Atorvastatin Calcium 40 Mg Tablet PO 08/24/23 21:59 HS MONICA Fentanyl Citrate 50 mcg 07/25/23 14:02 07/25/23 14:16 Fentanyl Citrate 100 Mcg/2 Ml* Vial IV 07/25/23 14:03 Not Given STAT ONE Fentanyl Citrate Confirm 07/25/23 14:10 Fentanyl Citrate 100 Mcg/2 Ml* Vial Administered 07/25/23 14:11 Dose 100 mcg .ROUTE .STK-MED ONE Morphine Sulfate 4 mg 07/25/23 14:20 07/25/23 14:27 Morphine Sulfate 4 Mg/Ml Injection IV 07/25/23 14:21 4 mg STAT ONE Administration Morphine Sulfate Confirm 07/25/23 14:24 Morphine Sulfate 4 Mg/Ml Injection Administered 07/25/23 14:25 Dose 4 mg .ROUTE .STK-MED ONE Ondansetron HCl 4 mg 07/25/23 14:02 07/25/23 14:17 Ondansetron Hcl 4 Mg/2 Ml Vial IV 07/25/23 14:03 4 mg STAT ONE Administration Ondansetron HCl Confirm 07/25/23 14:09 Ondansetron Hcl 4 Mg/2 Ml Vial Administered 07/25/23 14:10 Dose 4 mg .ROUTE .STK-MED ONE Lab/Rad Data: Laboratory Result Diagrams 07/25/23 14:25 07/25/23 14:25 Laboratory Results 07/25/23 07/25/23 07/25/23 Range/Units 14:40 14:25 14:25 WBC (3.98-10.04) x10^3/uL RBC (3.93-5.22) x10^6/uL Hgb (11.2-15.7) g/dL Hct (34.1-44.9) % MCV (79.4-94.8) fL MCH (25.6-32.2) pg MCHC (32.2-35.5) g/dL RDW (11.7-14.4) % Plt Count (182-369) x10^3/uL MPV (9.4-12.3) fL Gran % (34.0-71.1) % Immature Gran % (Auto) (0.001-0.429) % Nucleat RBC Rel Count (0.00-0.2) % Eos # (Auto) (0.04-0.36) x10^3/uL Immature Gran # (Auto) (0.001-0.031) x10^3u/L Absolute Lymphs (auto) (1.18-3.74) x10^3/uL Absolute Monos (auto) (0.24-0.86) x10^3/uL Absolute Nucleated RBC (0.00-0.012) x10^3u/L Lymphocytes % (19.3-51.7) % Monocytes % (4.7-12.5) % Eosinophils % (0.7-5.8) % Basophils % (0.1-1.2) % Absolute Granulocytes (1.56-6.13) x10^3/uL Basophils # (0.01-0.08) x10^3/uL D-Dimer < 0.19 (0.0-0.50) mg/L Sodium 141 (135-145) mmol/L Potassium 4.0 (3.5-5.1) mmol/L Chloride 105 (98-107) mmol/L Carbon Dioxide 27 (22-30) mmol/L Anion Gap 13.9 (5-15) MEQ/L BUN 12 (7-17) mg/dL Creatinine 0.51 L (0.52-1.04) mg/dL Estimated GFR 101.0 ML/MIN Glucose 150 H (74-106) mg/dL Calcium 9.8 (8.4-10.2) mg/dL Total Bilirubin 0.30 (0.2-1.3) mg/dL AST 23 (14-36) U/L ALT 21 (0-35) U/L Alkaline Phosphatase 88 (38-126) U/L Troponin I < 0.012 (0.000-0.033) ng/mL NT-Pro-B Natriuret Pep 38.4 (<300) pg/mL Serum Total Protein 8.3 H (6.3-8.2) g/dL Albumin 4.7 (3.5-5.0) g/dL Lipase 33 (23-300) U/L Procalcitonin 0.051 (0.030-0.080) ng/mL 07/25/23 Range/Units 14:25 WBC 13.3 H (3.98-10.04) x10^3/uL RBC 4.43 (3.93-5.22) x10^6/uL Hgb 11.8 (11.2-15.7) g/dL Hct 37.6 (34.1-44.9) % MCV 84.9 (79.4-94.8) fL MCH 26.6 (25.6-32.2) pg MCHC 31.4 L (32.2-35.5) g/dL RDW 18.0 H (11.7-14.4) % Plt Count 631 H (182-369) x10^3/uL MPV 9.1 L (9.4-12.3) fL Gran % 72.0 H (34.0-71.1) % Immature Gran % (Auto) 0.8 H (0.001-0.429) % Nucleat RBC Rel Count 0.0 (0.00-0.2) % Eos # (Auto) 0.41 H (0.04-0.36) x10^3/uL Immature Gran # (Auto) 0.10 H (0.001-0.031) x10^3u/L Absolute Lymphs (auto) 2.22 (1.18-3.74) x10^3/uL Absolute Monos (auto) 0.94 H (0.24-0.86) x10^3/uL Absolute Nucleated RBC 0.00 (0.00-0.012) x10^3u/L Lymphocytes % 16.7 L (19.3-51.7) % Monocytes % 7.1 (4.7-12.5) % Eosinophils % 3.1 (0.7-5.8) % Basophils % 0.3 (0.1-1.2) % Absolute Granulocytes 9.62 H (1.56-6.13) x10^3/uL Basophils # 0.04 (0.01-0.08) x10^3/uL D-Dimer (0.0-0.50) mg/L Sodium (135-145) mmol/L Potassium (3.5-5.1) mmol/L Chloride (98-107) mmol/L Carbon Dioxide (22-30) mmol/L Anion Gap (5-15) MEQ/L BUN (7-17) mg/dL Creatinine (0.52-1.04) mg/dL Estimated GFR ML/MIN Glucose (74-106) mg/dL Calcium (8.4-10.2) mg/dL Total Bilirubin (0.2-1.3) mg/dL AST (14-36) U/L ALT (0-35) U/L Alkaline Phosphatase (38-126) U/L Troponin I (0.000-0.033) ng/mL NT-Pro-B Natriuret Pep (<300) pg/mL Serum Total Protein (6.3-8.2) g/dL Albumin (3.5-5.0) g/dL Lipase (23-300) U/L Procalcitonin (0.030-0.080) ng/mL - Progress Progress: improved, re-examined Air Movement: good Progress Note: 07/25/23 17:13 68-year-old is evaluated for chest pain. Patient is given symptomatic treatment, on reevaluation feeling better but still have some discomfort. EKG is normal sinus rhythm with no acute ischemic changes and negative initial troponin. Workup showed white count of 13, fairly unremarkable chemistries and chest x-ray negative for any acute cardiopulmonary findings. Patient is anticoagulated on Eliquis. She is on 2-1/2 L oxygen which is her usual baseline and saturation around 99%. Less worried about PE. I believe patient would bene fit with trending of cardiac enzymes and have recommended observation admission. I have discussed with Dr. Eden, reviewed history, workup and patient is being admitted. Antibiotics given: No Discussed with Dr.: Other (Dr. Grant) Will see patient in: hospital (observation) Counseled pt/family regarding: lab results, diagnosis, need for follow-up, rad results Medical Desision Making - Discussion of managment Care discussed with:: hospitalist (Dr. Grant) Reviewed:: Test results Agreed on:: Treatment plan Will see patient: in hospital - Diagnostic Testing Diagnostic test were ordered, analyzed, and reviewed by me: Yes Radiological Interpretation: Reviewed by me - Risk of complications The pt has a mod risk of morbidity or mortality based on: Need for prescription drug management The pt has a high risk of morbidity or mortality based on: Decision regarding hospitilization or escalation of hosp level of care - Departure Departure Disposition: Observation Clinical Impression: Chest pain, rule out acute myocardial infarction Condition: Stable Critical Care Time: No
[2023-07-25 17:03] LABS: PROCALCITONIN 0.051 ng/mL (0.030-0.080)
--- NOTE | 2023-07-25 17:54 | PCM.HP ---
History of Present Illness - Chief Complaint Chief Complaint: Chest pain Date: 07/25/23 (17:48) History of Present Illness: is a 68 year old female admitted with chest pain for 24 hours. The pain is aching pressure sensation that radiates to both shoulders. No provocative or palliative factors. She had dyspnea and nausea with the pain. She had mild palpitations. She denies exertional pain and has no history of heart disease. She denies edema. She has had mild cough and sore throat but no fever. She reports chronic epigastric pain and tenderness and reports some diarrhea yesterday and today. No urinary complaints. PMH includes COPD and she is on oxygen at home. Also Atrial Fib, HTN, HLD, GERD and history of TIA. - Review of Systems Constitutional: No Symptoms, No Fever, No Chills Eyes: No Symptoms Ears, Nose, & Throat: No Symptoms, Throat Pain, No Ear Pain Respiratory: Cough, Short Of Breath, No Wheezing Cardiac: Chest Pain, Palpitations, No Edema, No Syncope Abdominal/Gastrointestinal: Abdominal Pain, Nausea, Diarrhea, No Vomiting Genitourinary Symptoms: No Symptoms, No Dysuria, No Frequency, No Hematuria Musculoskeletal: No Symptoms Skin: No Symptoms Neurological: No Symptoms Psychological: No Symptoms Endocrine: No Symptoms Hematologic/Lymphatic: No Symptoms Immunological/Allergic: No Symptoms All Other Systems: Reviewed and Negative Medications & Allergies Home Medications: Home Medication List Albuterol/Ipratropium Mdi [Combivent Inhaler] 1 puff IH QID 11/29/12 [History Confirmed 07/25/23] Zolpidem Tartrate [Ambien] 10 mg PO HS 04/29/16 [History Confirmed 07/25/23] Albuterol/Ipratropium 3ml Neb* [DUONEB 0.5-3 MG/3 ml Neb] 3 ml IH UD PRN 06/04/17 [History Confirmed 07/25/23] Apixaban [Eliquis 5 mg Tablet] 1 tab PO BID 10/30/21 [History Confirmed 07/25/23] Metoprolol Tartrate 25 mg [Lopressor 25MG Tab] 1 mg PO BID 10/30/21 [History Confirmed 07/25/23] Omeprazole 40 mg PO BID 10/30/21 [History Confirmed 07/25/23] Promethazine HCl 25 mg [Phenergan 25 mg] 1 tab PO BID 10/30/21 [History Confirmed 07/25/23] Famotidine 20 mg PO DAILY 07/02/23 [History Confirmed 07/25/23] Enalapril Maleate 2.5 mg PO DAILY 07/25/23 [History Confirmed 07/25/23] Fluticasone/Umeclidin/Vilanter [Trelegy Ellipta 100-62.5-25] 1 inh PO DAILY 07/25/23 [History Confirmed 07/25/23] Allergies/Adverse Reactions: Allergies Allergy/AdvReac Type Severity Reaction Status Date / Time Iodinated Contrast Media Allergy Severe Itching Verified 07/25/23 14:09 [Iodinated Contrast Media - IV Dye] acetaminophen [From Vicodin] Allergy Nausea and Verified 07/25/23 14:09 Vomiting hydrocodone [From Vicodin] Allergy Nausea and Verified 07/25/23 14:09 Vomiting iodine Allergy Itching Verified 07/25/23 14:09 prochlorperazine Allergy Verified 07/25/23 14:09 [From Compazine] propoxyphene [From Darvon] Allergy Nausea and Verified 07/25/23 14:09 Vomiting - Past Medical History Past Medical History: Yes Neurological History: TIA ENT History: No Pertinent History Cardiac History: Arrhythmia, High Cholesterol, Hypertension Respiratory History: COPD, Other Endocrine Medical History: No Pertinent History Musculoskelatal History: No Pertinent History GI Medical History: GERD, Hernia History: No Pertinent History Pyscho-Social History: No Pertinent History Reproductive Disorders: No Pertinent History Comment: hiatal hernia,anemia, respiratory failure and lung nodules - Past Surgical History Past Surgical History: Yes Neuro Surgical History: No Pertinent History Cardiac History: No Pertinent History Respiratory Surgery: No Pertinent History GI Surgical History: Appendectomy, Cholecystectomy, Exploratory Laparoscopy Genitourinary Surgical Hx: No Pertinent History Musculskeletal Surgical Hx: Orthopedic Surgery Female Surgical History: Hysterectomy Other Surgical History: 4 surgeries on right foot - Social History Smoking Status: Former smoker How long have you smoked: 30 yrs Exposure to second hand smoke: No Alcohol: None Drug Use: none - Social Determinants of Health Will the patient participate in the screening: Yes Do you worry about a steady place to live?: No Do you have any problems with any of the following?: No known problems In the past 12 months,have you had to go without utilities?: No Have you or anyone in your house had to go without enough: No Transportation Issues: No Has anyone in your support network made you feel unsafe?: No - Physical Exam Vital Signs: Vital Signs - 24 hr Temp Pulse Resp BP BP Pulse Ox 07/25/23 17:16 99 07/25/23 17:10 63 14 160/88 99 07/25/23 17:00 67 16 100 07/25/23 16:50 65 18 100 07/25/23 16:40 66 13 99 07/25/23 16:30 69 20 07/25/23 16:20 66 14 148/90 07/25/23 16:10 66 14 07/25/23 16:00 75 19 98 07/25/23 15:50 66 21 100 07/25/23 15:40 71 10 L 100 07/25/23 15:30 71 14 100 07/25/23 15:20 75 18 152/92 99 07/25/23 15:10 74 17 99 07/25/23 15:02 82 12 99 07/25/23 14:59 98.2 F 73 20 158/92 98 07/25/23 14:25 81 22 98 07/25/23 14:01 82 19 145/101 97 07/25/23 13:59 98.2 F 77 20 145/101 97 General Appearance: mild distress Neurologic Exam: alert, oriented x 3, cooperative, 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 Eye Exam: PERRL/EOMI, eyes nml inspection Ears, Nose, Throat Exam: normal ENT inspection Neck Exam: normal inspection, non-tender, supple, full range of motion Respiratory Exam: normal breath sounds, lungs clear, No chest tenderness Cardiovascular Exam: regular rate/rhythm, normal heart sounds, normal peripheral pulses, No murmur Gastrointestinal/Abdomen Exam: soft, normal bowel sounds, tenderness, No distention, No mass Pelvic Exam: not done Rectal Exam: deferred Back Exam: normal inspection Extremity Exam: normal inspection Skin Exam: normal color Lymphatic Exam: No adenopathy Results - Labs Lab/Micro Results: Lab Results-Last 24 Hours 07/25/23 07/25/23 07/25/23 Range/Units 14:25 14:25 14:25 WBC 13.3 H (3.98-10.04) x10^3/uL RBC 4.43 (3.93-5.22) x10^6/uL Hgb 11.8 (11.2-15.7) g/dL Hct 37.6 (34.1-44.9) % MCV 84.9 (79.4-94.8) fL MCH 26.6 (25.6-32.2) pg MCHC 31.4 L (32.2-35.5) g/dL RDW 18.0 H (11.7-14.4) % Plt Count 631 H (182-369) x10^3/uL MPV 9.1 L (9.4-12.3) fL Gran % 72.0 H (34.0-71.1) % Immature Gran % (Auto) 0.8 H (0.001-0.429) % Nucleat RBC Rel Count 0.0 (0.00-0.2) % Eos # (Auto) 0.41 H (0.04-0.36) x10^3/uL Immature Gran # (Auto) 0.10 H (0.001-0.031) x10^3u/L Absolute Lymphs (auto) 2.22 (1.18-3.74) x10^3/uL Absolute Monos (auto) 0.94 H (0.24-0.86) x10^3/uL Absolute Nucleated RBC 0.00 (0.00-0.012) x10^3u/L Lymphocytes % 16.7 L (19.3-51.7) % Monocytes % 7.1 (4.7-12.5) % Eosinophils % 3.1 (0.7-5.8) % Basophils % 0.3 (0.1-1.2) % Absolute Granulocytes 9.62 H (1.56-6.13) x10^3/uL Basophils # 0.04 (0.01-0.08) x10^3/uL Sodium 141 (135-145) mmol/L Potassium 4.0 (3.5-5.1) mmol/L Chloride 105 (98-107) mmol/L Carbon Dioxide 27 (22-30) mmol/L Anion Gap 13.9 (5-15) MEQ/L BUN 12 (7-17) mg/dL Creatinine 0.51 L (0.52-1.04) mg/dL Estimated GFR 101.0 ML/MIN Glucose 150 H (74-106) mg/dL Calcium 9.8 (8.4-10.2) mg/dL Total Bilirubin 0.30 (0.2-1.3) mg/dL AST 23 (14-36) U/L ALT 21 (0-35) U/L Alkaline Phosphatase 88 (38-126) U/L Troponin I < 0.012 (0.000-0.033) ng/mL NT-Pro-B Natriuret Pep 38.4 (<300) pg/mL Serum Total Protein 8.3 H (6.3-8.2) g/dL Albumin 4.7 (3.5-5.0) g/dL Lipase 33 (23-300) U/L Procalcitonin 0.051 (0.030-0.080) ng/mL - Radiology Impressions Radiology Exams & Impressions: Radiology Procedures Category Date Time Status CHEST 1 VIEW (PORTABLE) Stat Exams 07/25/23 14:03 Completed - Other Procedures and Tests Respiratory Therapy 07/25/23 17:44 Oxygen Nasal Cannula 2 lpm Respiratory Therapy Consult ONCE Assessment/Plan (1) Acute chest pain Current Visit: No Status: Acute Assessment & Plan: Patient admitted with Chest pain. EKG and troponin negative Check DDimer Consider CTA of chest Plan repeat EKG and troponin to rule out [place] Plan echocardiogram Will likely need outpatient stress test Code(s): R07.9 - CHEST PAIN, UNSPECIFIED (2) Atrial fibrillation Current Visit: Yes Status: Chronic Assessment & Plan: Continue home meds including DOAC. Rated controlled with current meds. Code(s): I48.91 - UNSPECIFIED ATRIAL FIBRILLATION (3) Chronic respiratory failure Current Visit: Yes Status: Chronic Assessment & Plan: Patient is on 2-2 1/2 L oxygen at home Continue oxygen as needed Code(s): J96.10 - CHRONIC RESPIRATORY FAILURE, UNSP W HYPOXIA OR HYPERCAPNIA (4) COPD (chronic obstructive pulmonary disease) Current Visit: No Status: Chronic Assessment & Plan: Does not appear in acute exacerbation Continue home meds Bronchodilators prn (5) Leukocytosis Current Visit: No Status: Acute Assessment & Plan: WBC=13,300. Will trend wbc Code(s): D72.829 - ELEVATED WHITE BLOOD CELL COUNT, UNSPECIFIED (6) Thrombocytosis Current Visit: No Status: Chronic Assessment & Plan: Esmi=[id number]. Recheck in am (7) Hypercholesterolemia Current Visit: No Status: Chronic Assessment & Plan: Rrnl=505,00. Recheck in am Continue statin Code(s): E78.0 - PURE HYPERCHOLESTEROLEMIA * DO NOT USE * (8) Hypertension Current Visit: No Status: Chronic Qualifiers: Hypertension type: essential hypertension Qualified Code(s): I10 - Essential (primary) hypertension Assessment & Plan: Continue home meds Code(s): I10 - ESSENTIAL (PRIMARY) HYPERTENSION Telemedicine Encounter - Telemedicine Encounter Telemedicine Encounter: The entirety of this encounter was performed via Telemedicine" , This visit was conducted via telemedicine after consent obtained. A real time audiovisual connection was used between my location and the patients location at the hospital. Labs and imaging reviewed. Discussed with ER provider. Complex medical decision making. David Grant MD [employer]
[2023-07-25] MEDS ORDERED: FEVERALL 650 MG PR PRN (18:06)
[2023-07-25] MEDS ORDERED: Nitrostat 0.4 MG Tablet SL PRN (18:10)
[2023-07-25] MEDS: ULTRAM 50 MG PO PRN (18:48)
[2023-07-25] MEDS: DUONEB 0.5-3 MG/3 ml Neb IH PRN (18:50)
[2023-07-25] MEDS: [UNRECOGNIZED DRUG - OTHER] IH SCH (18:53)
[2023-07-25] MEDS: ALBUTEROL IH SCH (18:53)
[2023-07-25 21:32] VITALS: O2SAT 99
[2023-07-25] MEDS ORDERED: ELIQUIS 2.5 MG TABLET ONE (21:32)
[2023-07-25] MEDS ORDERED: Protonix 40MG Tablet ONE (21:37)
[2023-07-25] MEDS: ZOCOR 20MG PO SCH (21:59)
[2023-07-25] MEDS: Ambien 10 MG PO SCH (21:59)
[2023-07-25] MEDS: Lopressor 25MG Tab PO SCH (21:59)
[2023-07-25] MEDS: NON-FORMULARY ITEM (Apixaban*** [Eliquis 5 Mg Tablet***] 5 MG Tablet) PO SCH (21:59)
[2023-07-25] MEDS: Protonix 40MG Tablet PO SCH (22:00)
[2023-07-25] MEDS ORDERED: LIPITOR 40MG PO SCH (22:00)
[2023-07-25] MEDS: NON-FORMULARY ITEM (Omeprazole [Omeprazole] 40 MG Capsule.Dr) PO SCH (22:03)
[2023-07-26 04:07] VITALS: RESP 16
--- NOTE | 2023-07-26 05:08 | PCM.NOTE ---
Date and Time: 07/26/23 0500 Subjective Assessment: is a 68 year old female with a pmhx of COPD (2.5L baseline oxygen), Atrial Fib(Eliquis), HTN, HLD, GERD and history of TIA admitted with Chest pain 07/25/23. Patient also having symptoms of sore throat, diarrhea, and cough. Workup with negative EKG and trops x 3. Vitals stable. CXR non-acute with chronic features. Plan for repeat ekg and echo this morning. Possible stress test as OP. Objective Data Vital Signs: Vital Signs - 24 hr Temp Pulse Resp BP BP Pulse Ox 07/26/23 04:00 98.5 F 71 16 105/55 99 07/25/23 23:53 97.8 F 72 19 103/56 99 07/25/23 21:33 99 07/25/23 20:12 71 16 98 07/25/23 20:00 97.1 F 83 20 142/78 99 07/25/23 17:45 97.1 F 83 20 142/78 99 07/25/23 17:44 93 L 07/25/23 17:10 63 14 160/88 99 07/25/23 17:00 67 16 100 07/25/23 16:50 65 18 100 07/25/23 16:40 66 13 99 07/25/23 16:30 69 20 07/25/23 16:20 66 14 148/90 07/25/23 16:10 66 14 07/25/23 16:00 75 19 98 07/25/23 15:50 66 21 100 07/25/23 15:40 71 10 L 100 07/25/23 15:30 71 14 100 07/25/23 15:20 75 18 152/92 99 07/25/23 15:10 74 17 99 07/25/23 15:02 82 12 99 07/25/23 14:59 98.2 F 73 20 158/92 98 07/25/23 14:25 81 22 98 07/25/23 14:01 82 19 145/101 97 07/25/23 13:59 98.2 F 77 20 145/101 97 Pain Assessment - Last Documented Pain Intensity 0 Pain Scale Used 0-10 Pain Scale Intake and Output: Intake & Output 07/23/23 07/24/23 07/25/23 07/26/23 11:59 11:59 11:59 11:59 Weight 72.7 kg Lab Results: Lab Results-Last 24 Hours 07/25/23 07/25/23 07/25/23 Range/Units 14:25 14:25 14:25 WBC 13.3 H (3.98-10.04) x10^3/uL RBC 4.43 (3.93-5.22) x10^6/uL Hgb 11.8 (11.2-15.7) g/dL Hct 37.6 (34.1-44.9) % MCV 84.9 (79.4-94.8) fL MCH 26.6 (25.6-32.2) pg MCHC 31.4 L (32.2-35.5) g/dL RDW 18.0 H (11.7-14.4) % Plt Count 631 H (182-369) x10^3/uL MPV 9.1 L (9.4-12.3) fL Gran % 72.0 H (34.0-71.1) % Immature Gran % (Auto) 0.8 H (0.001-0.429) % Nucleat RBC Rel Count 0.0 (0.00-0.2) % Eos # (Auto) 0.41 H (0.04-0.36) x10^3/uL Immature Gran # (Auto) 0.10 H (0.001-0.031) x10^3u/L Absolute Lymphs (auto) 2.22 (1.18-3.74) x10^3/uL Absolute Monos (auto) 0.94 H (0.24-0.86) x10^3/uL Absolute Nucleated RBC 0.00 (0.00-0.012) x10^3u/L Lymphocytes % 16.7 L (19.3-51.7) % Monocytes % 7.1 (4.7-12.5) % Eosinophils % 3.1 (0.7-5.8) % Basophils % 0.3 (0.1-1.2) % Absolute Granulocytes 9.62 H (1.56-6.13) x10^3/uL Basophils # 0.04 (0.01-0.08) x10^3/uL D-Dimer (0.0-0.50) mg/L Sodium 141 (135-145) mmol/L Potassium 4.0 (3.5-5.1) mmol/L Chloride 105 (98-107) mmol/L Carbon Dioxide 27 (22-30) mmol/L Anion Gap 13.9 (5-15) MEQ/L BUN 12 (7-17) mg/dL Creatinine 0.51 L (0.52-1.04) mg/dL Estimated GFR 101.0 ML/MIN Glucose 150 H (74-106) mg/dL Calcium 9.8 (8.4-10.2) mg/dL Total Bilirubin 0.30 (0.2-1.3) mg/dL AST 23 (14-36) U/L ALT 21 (0-35) U/L Alkaline Phosphatase 88 (38-126) U/L Troponin I < 0.012 (0.000-0.033) ng/mL NT-Pro-B Natriuret Pep 38.4 (<300) pg/mL Serum Total Protein 8.3 H (6.3-8.2) g/dL Albumin 4.7 (3.5-5.0) g/dL Lipase 33 (23-300) U/L Procalcitonin 0.051 (0.030-0.080) ng/mL 07/25/23 07/25/23 07/25/23 Range/Units 14:40 18:15 22:15 WBC (3.98-10.04) x10^3/uL RBC (3.93-5.22) x10^6/uL Hgb (11.2-15.7) g/dL Hct (34.1-44.9) % MCV (79.4-94.8) fL MCH (25.6-32.2) pg MCHC (32.2-35.5) g/dL RDW (11.7-14.4) % Plt Count (182-369) x10^3/uL MPV (9.4-12.3) fL Gran % (34.0-71.1) % Immature Gran % (Auto) (0.001-0.429) % Nucleat RBC Rel Count (0.00-0.2) % Eos # (Auto) (0.04-0.36) x10^3/uL Immature Gran # (Auto) (0.001-0.031) x10^3u/L Absolute Lymphs (auto) (1.18-3.74) x10^3/uL Absolute Monos (auto) (0.24-0.86) x10^3/uL Absolute Nucleated RBC (0.00-0.012) x10^3u/L Lymphocytes % (19.3-51.7) % Monocytes % (4.7-12.5) % Eosinophils % (0.7-5.8) % Basophils % (0.1-1.2) % Absolute Granulocytes (1.56-6.13) x10^3/uL Basophils # (0.01-0.08) x10^3/uL D-Dimer < 0.19 (0.0-0.50) mg/L Sodium (135-145) mmol/L Potassium (3.5-5.1) mmol/L Chloride (98-107) mmol/L Carbon Dioxide (22-30) mmol/L Anion Gap (5-15) MEQ/L BUN (7-17) mg/dL Creatinine (0.52-1.04) mg/dL Estimated GFR ML/MIN Glucose (74-106) mg/dL Calcium (8.4-10.2) mg/dL Total Bilirubin (0.2-1.3) mg/dL AST (14-36) U/L ALT (0-35) U/L Alkaline Phosphatase (38-126) U/L Troponin I < 0.012 < 0.012 (0.000-0.033) ng/mL NT-Pro-B Natriuret Pep (<300) pg/mL Serum Total Protein (6.3-8.2) g/dL Albumin (3.5-5.0) g/dL Lipase (23-300) U/L Procalcitonin (0.030-0.080) ng/mL Radiology Exams: Radiology Procedures Category Date Time Status CHEST 1 VIEW (PORTABLE) Stat Exams 07/25/23 14:03 Completed ECHO W/2D AND DOPPLER [US] Routine Exams 07/25/23 18:13 Ordered Assessment/Plan (1) Acute chest pain Current Visit: No Status: Acute Assessment & Plan: -EKG and trops unremarkable- will repeat this a.m. -DDimer WNL -Echo pending -Nitro prn Code(s): R07.9 - CHEST PAIN, UNSPECIFIED (2) Atrial fibrillation Current Visit: Yes Status: Chronic Assessment & Plan: -Rate controlled - continue home meds Eliquis/metoprolol Code(s): I48.91 - UNSPECIFIED ATRIAL FIBRILLATION (3) Chronic respiratory failure Current Visit: Yes Status: Chronic Assessment & Plan: -at baseline 2.5L, supplemental oxygen with goal spo2 88-92% -RT eval -continue home meds -CXR non-acute with chronic features Code(s): J96.10 - CHRONIC RESPIRATORY FAILURE, UNSP W HYPOXIA OR HYPERCAPNIA (4) Leukocytosis Current Visit: No Status: Acute Code(s): D72.829 - ELEVATED WHITE BLOOD CELL COUNT, UNSPECIFIED (5) COPD (chronic obstructive pulmonary disease) Current Visit: No Status: Chronic Assessment & Plan: -Does not appear to be in exacerbation -at baseline oxygen of 2.5L -RT eval -NEB/INH PRN -Supplemental oxygen with spo2 goal 88-92% -CXR non-acute (6) Hypercholesterolemia Current Visit: No Status: Chronic Assessment & Plan: -continue home meds Code(s): E78.0 - PURE HYPERCHOLESTEROLEMIA * DO NOT USE * (7) Hypertension Current Visit: No Status: Chronic Qualifiers: Hypertension type: essential hypertension Qualified Code(s): I10 - Essential (primary) hypertension Assessment & Plan: -stable, continue home meds Code(s): I10 - ESSENTIAL (PRIMARY) HYPERTENSION (8) Thrombocytosis Current Visit: No Status: Chronic Assessment & Plan: -most likely reactive, will trend (9) Leukocytosis Current Visit: Yes Status: Acute Assessment & Plan: -? reactive vs infective process, cxr negative, will obtain UA and trend VTE: Eliquis PPI : famotidine Dispo: 1-2 days Code: Full status Code(s): D72.829 - ELEVATED WHITE BLOOD CELL COUNT, UNSPECIFIED
[2023-07-26 05:14] LABS: Absolute Neutrophil Ct (ANC) 7.41 x10^3/uL (1.56-6.13); BASOPHIL % 0.4 % (0.1-1.2); Basophil (Absolute #) 0.05 x10^3/uL (0.01-0.08); Eosinophil (Absolute #) 0.45 x10^3/uL (0.04-0.36); Hematocrit 34.2 % (34.1-44.9); Hemoglobin 10.8 g/dL (11.2-15.7); IMMATURE GRAN # 0.04 x10^3u/L (0.001-0.031); IMMATURE GRAN % 0.4 % (0.001-0.429); Lymphocyte (Absolute #) 2.24 x10^3/uL (1.18-3.74); Lymphocytes % 20.1 % (19.3-51.7); Mean Cell Volume 84.2 fL (79.4-94.8); Mean Corpuscular Hemoglobin 26.6 pg (25.6-32.2); Mean Corpuscular Hgb Concent. 31.6 g/dL (32.2-35.5); Mean Platelet Volume 9.3 fL (9.4-12.3); Monocyte (Absolute #) 0.95 x10^3/uL (0.24-0.86); Monocytes % 8.5 % (4.7-12.5); Neutrophil % 66.6 % (34.0-71.1); Platelet Count 586 x10^3/uL (182-369); Red Blood Count 4.06 x10^6/uL (3.93-5.22); Red Cell Distribution Width 18.2 % (11.7-14.4); White Blood Count 11.1 x10^3/uL (3.98-10.04)
[2023-07-26 05:27] LABS: ALBUMIN 4.1 g/dL (3.5-5.0); ANION GAP 11.5 MEQ/L (5-15); BILIRUBIN,TOTAL 0.2 mg/dL (0.2-1.3); Calcium 9.5 mg/dL (8.4-10.2); Creatinine 1 0.55 mg/dL (0.52-1.04); EST GLOMERULAR FILTRATION RATE 99.2 ML/MIN; Total Protein 7.3 g/dL (6.3-8.2)
[2023-07-26] MEDS ORDERED: ULTRAM 50 MG ONE (06:34)
[2023-07-26] MEDS ORDERED: MEDICATION INTERVENTION MC SCH ×2 (07:15)
[2023-07-26] MEDS: PHENERGAN 25 MG PO PRN (08:28)
[2023-07-26] MEDS: ECOTRIN 81 MG PO SCH (08:29)
[2023-07-26] MEDS: ELIQUIS 2.5 MG TABLET PO SCH (08:30)
[2023-07-26] MEDS: Pepcid 20 MG PO SCH (08:30)
[2023-07-26] MEDS: Vasotec 10 MG PO SCH (08:31)
[2023-07-26] MEDS: PHENERGAN 25 MG PO SCH (09:11)
[2023-07-26 09:15] LABS: Iron 42 ug/dL (37-170); Iron Saturation 18 % (20-39); TIBC 230 ug/dL (265-462)
[2023-07-26] MEDS ORDERED: NON-FORMULARY ITEM (Famotidine [Famotidine] 40 MG Tablet) PO SCH (10:00)
[2023-07-26] MEDS ORDERED: NON-FORMULARY ITEM (Fluticasone/Umeclidin/Vilanter [Trelegy Ellipta 100-62.5-25] 1 EACH Bl PO SCH (10:00)
[2023-07-26] MEDS ORDERED: ENOXAPARIN SODIUM SQ SCH (10:00)
[2023-07-26] MEDS ORDERED: ENALAPRIL MALEATE 2.5 MG PO SCH (10:00)
[2023-07-26 10:21] LABS: Ferritin 130 ng/mL (11.1-264); Folate (Folic Acid) > 16.6 ng/mL (2.76 - >20); Vitamin B12 623 pg/mL (239-931)
[2023-07-26] MEDS: Toprol-Xl 25MG Tablets PO SCH (11:10)
--- NOTE | 2023-07-26 11:12 | PCM.DS ---
Discharge Summary Date of Admission: 07/25/23 17:35 Date of Discharge: 07/26/23 Admitting Physician: RIO LATHAM MD Primary Care Provider: YU PORRAS Allergies Allergies Iodinated Contrast Media [Iodinated Contrast Media - IV Dye] Allergy (Severe, Verified 07/25/23 14:09) Itching hydrocodone [From Vicodin] Allergy (Verified 07/25/23 14:09) Nausea and Vomiting iodine Allergy (Verified 07/25/23 14:09) Itching prochlorperazine [From Compazine] Allergy (Verified 07/25/23 14:09) propoxyphene [From Darvon] Allergy (Verified 07/25/23 14:09) Nausea and Vomiting Hospital Summary - Hospital Course Hospital Course: is a 68 year old female with a pmhx of COPD (2.5L baseline oxygen), Atrial Fib(Eliquis), HTN, HLD, GERD and history of TIA admitted with Chest pain 07/25/23. Patient also having symptoms of sore throat, diarrhea, and cough. Workup with EKG NS - no ST elevation/deviations x 2 and normal trops x 3. DDimer negative. Vitals stable. CXR non-acute with chronic features. No longer with chest pain, does have remaining pressure, much improved from admission. Patient follows with Dr. Carrion (cardiology) as OP. Echo obtained. Will have her follow up next week with cardiology for further evaluation and possible stress test as OP. Discharge Note New Diagnosis: CP New Medications: none Follow Up: Cardiology Latest Assessment & Plan (1) Acute chest pain Current Visit: No Status: Acute Assessment & Plan: -EKG and trops unremarkable -DDimer WNL -Echo pending - patient to follow up next week with Dr. Decker -Nitro prn Code(s): R07.9 - CHEST PAIN, UNSPECIFIED (2) Atrial fibrillation Current Visit: Yes Status: Chronic Assessment & Plan: -Rate controlled - continue home meds Eliquis/metoprolol Code(s): I48.91 - UNSPECIFIED ATRIAL FIBRILLATION (3) Chronic respiratory failure Current Visit: Yes Status: Chronic Assessment & Plan: -at baseline 2.5L, supplemental oxygen with goal spo2 88-92% -RT eval -continue home meds -CXR non-acute with chronic features Code(s): J96.10 - CHRONIC RESPIRATORY FAILURE, UNSP W HYPOXIA OR HYPERCAPNIA (4) Leukocytosis Current Visit: No Status: Acute Code(s): D72.829 - ELEVATED WHITE BLOOD CELL COUNT, UNSPECIFIED (5) COPD (chronic obstructive pulmonary disease) Current Visit: No Status: Chronic Assessment & Plan: -Does not appear to be in exacerbation -at baseline oxygen of 2.5L -RT eval -NEB/INH PRN -Supplemental oxygen with spo2 goal 88-92% -CXR non-acute (6) Hypercholesterolemia Current Visit: No Status: Chronic Assessment & Plan: -continue home meds Code(s): E78.0 - PURE HYPERCHOLESTEROLEMIA * DO NOT USE * (7) Hypertension Current Visit: No Status: Chronic Qualifiers: Hypertension type: essential hypertension Qualified Code(s): I10 - Essential (primary) hypertension Assessment & Plan: -stable, continue home meds Code(s): I10 - ESSENTIAL (PRIMARY) HYPERTENSION (8) Thrombocytosis Current Visit: No Status: Chronic Assessment & Plan: -most likely reactive, pt does have iron deficiency anemia (9) Leukocytosis Current Visit: Yes Status: Acute Assessment & Plan: -? reactive vs infective process, cxr negative - improved I spent 35 minutes [id number] with the patient on the day of discharge performing discharge exam, discussing hospital stay and discharge instructions with patient and caregivers, preparation of discharge records, prescriptions & referral forms and addressing any questions/concerns the patient had as documented above. - Vitals & Intake/Output Vital Signs: Vital Signs Temperature 97.8 F 07/26/23 06:57 Pulse Rate 75 07/26/23 06:57 Respiratory Rate 16 07/26/23 06:57 Blood Pressure 135/61 07/26/23 06:57 O2 Sat by Pulse Oximetry 99 07/26/23 06:57 Intake & Output: Intake & Output 07/23/23 07/24/23 07/25/23 07/26/23 11:59 11:59 11:59 11:59 Intake Total 120 Balance 120 Weight 72.7 kg - Lab Result Diagrams: 07/26/23 04:25 07/26/23 04:25 Lab Results-Last 24 Hrs: Lab Results-Last 24 Hours 07/25/23 07/25/23 07/25/23 Range/Units 14:25 14:25 14:25 WBC 13.3 H (3.98-10.04) x10^3/uL RBC 4.43 (3.93-5.22) x10^6/uL Hgb 11.8 (11.2-15.7) g/dL Hct 37.6 (34.1-44.9) % MCV 84.9 (79.4-94.8) fL MCH 26.6 (25.6-32.2) pg MCHC 31.4 L (32.2-35.5) g/dL RDW 18.0 H (11.7-14.4) % Plt Count 631 H (182-369) x10^3/uL MPV 9.1 L (9.4-12.3) fL Gran % 72.0 H (34.0-71.1) % Immature Gran % (Auto) 0.8 H (0.001-0.429) % Nucleat RBC Rel Count 0.0 (0.00-0.2) % Eos # (Auto) 0.41 H (0.04-0.36) x10^3/uL Immature Gran # (Auto) 0.10 H (0.001-0.031) x10^3u/L Absolute Lymphs (auto) 2.22 (1.18-3.74) x10^3/uL Absolute Monos (auto) 0.94 H (0.24-0.86) x10^3/uL Absolute Nucleated RBC 0.00 (0.00-0.012) x10^3u/L Lymphocytes % 16.7 L (19.3-51.7) % Monocytes % 7.1 (4.7-12.5) % Eosinophils % 3.1 (0.7-5.8) % Basophils % 0.3 (0.1-1.2) % Absolute Granulocytes 9.62 H (1.56-6.13) x10^3/uL Basophils # 0.04 (0.01-0.08) x10^3/uL D-Dimer (0.0-0.50) mg/L Sodium 141 (135-145) mmol/L Potassium 4.0 (3.5-5.1) mmol/L Chloride 105 (98-107) mmol/L Carbon Dioxide 27 (22-30) mmol/L Anion Gap 13.9 (5-15) MEQ/L BUN 12 (7-17) mg/dL Creatinine 0.51 L (0.52-1.04) mg/dL Estimated GFR 101.0 ML/MIN Glucose 150 H (74-106) mg/dL Calcium 9.8 (8.4-10.2) mg/dL Iron (37-170) ug/dL TIBC (265-462) ug/dL Iron Saturation (20-39) % Ferritin (11.1-264) ng/mL Total Bilirubin 0.30 (0.2-1.3) mg/dL AST 23 (14-36) U/L ALT 21 (0-35) U/L Alkaline Phosphatase 88 (38-126) U/L Troponin I < 0.012 (0.000-0.033) ng/mL NT-Pro-B Natriuret Pep 38.4 (<300) pg/mL Serum Total Protein 8.3 H (6.3-8.2) g/dL Albumin 4.7 (3.5-5.0) g/dL Lipase 33 (23-300) U/L Vitamin B12 (239-931) pg/mL Folic Acid (2.76 - >20) ng/mL Procalcitonin 0.051 (0.030-0.080) ng/mL 07/25/23 07/25/23 07/25/23 Range/Units 14:40 18:15 22:15 WBC (3.98-10.04) x10^3/uL RBC (3.93-5.22) x10^6/uL Hgb (11.2-15.7) g/dL Hct (34.1-44.9) % MCV (79.4-94.8) fL MCH (25.6-32.2) pg MCHC (32.2-35.5) g/dL RDW (11.7-14.4) % Plt Count (182-369) x10^3/uL MPV (9.4-12.3) fL Gran % (34.0-71.1) % Immature Gran % (Auto) (0.001-0.429) % Nucleat RBC Rel Count (0.00-0.2) % Eos # (Auto) (0.04-0.36) x10^3/uL Immature Gran # (Auto) (0.001-0.031) x10^3u/L Absolute Lymphs (auto) (1.18-3.74) x10^3/uL Absolute Monos (auto) (0.24-0.86) x10^3/uL Absolute Nucleated RBC (0.00-0.012) x10^3u/L Lymphocytes % (19.3-51.7) % Monocytes % (4.7-12.5) % Eosinophils % (0.7-5.8) % Basophils % (0.1-1.2) % Absolute Granulocytes (1.56-6.13) x10^3/uL Basophils # (0.01-0.08) x10^3/uL D-Dimer < 0.19 (0.0-0.50) mg/L Sodium (135-145) mmol/L Potassium (3.5-5.1) mmol/L Chloride (98-107) mmol/L Carbon Dioxide (22-30) mmol/L Anion Gap (5-15) MEQ/L BUN (7-17) mg/dL Creatinine (0.52-1.04) mg/dL Estimated GFR ML/MIN Glucose (74-106) mg/dL Calcium (8.4-10.2) mg/dL Iron (37-170) ug/dL TIBC (265-462) ug/dL Iron Saturation (20-39) % Ferritin (11.1-264) ng/mL Total Bilirubin (0.2-1.3) mg/dL AST (14-36) U/L ALT (0-35) U/L Alkaline Phosphatase (38-126) U/L Troponin I < 0.012 < 0.012 (0.000-0.033) ng/mL NT-Pro-B Natriuret Pep (<300) pg/mL Serum Total Protein (6.3-8.2) g/dL Albumin (3.5-5.0) g/dL Lipase (23-300) U/L Vitamin B12 (239-931) pg/mL Folic Acid (2.76 - >20) ng/mL Procalcitonin (0.030-0.080) ng/mL 07/26/23 07/26/23 07/26/23 Range/Units 04:25 04:25 05:15 WBC 11.1 H (3.98-10.04) x10^3/uL RBC 4.06 (3.93-5.22) x10^6/uL Hgb 10.8 L (11.2-15.7) g/dL Hct 34.2 (34.1-44.9) % MCV 84.2 (79.4-94.8) fL MCH 26.6 (25.6-32.2) pg MCHC 31.6 L (32.2-35.5) g/dL RDW 18.2 H (11.7-14.4) % Plt Count 586 H (182-369) x10^3/uL MPV 9.3 L (9.4-12.3) fL Gran % 66.6 (34.0-71.1) % Immature Gran % (Auto) 0.4 (0.001-0.429) % Nucleat RBC Rel Count 0.0 (0.00-0.2) % Eos # (Auto) 0.45 H (0.04-0.36) x10^3/uL Immature Gran # (Auto) 0.04 H (0.001-0.031) x10^3u/L Absolute Lymphs (auto) 2.24 (1.18-3.74) x10^3/uL Absolute Monos (auto) 0.95 H (0.24-0.86) x10^3/uL Absolute Nucleated RBC 0.00 (0.00-0.012) x10^3u/L Lymphocytes % 20.1 (19.3-51.7) % Monocytes % 8.5 (4.7-12.5) % Eosinophils % 4.0 (0.7-5.8) % Basophils % 0.4 (0.1-1.2) % Absolute Granulocytes 7.41 H (1.56-6.13) x10^3/uL Basophils # 0.05 (0.01-0.08) x10^3/uL D-Dimer (0.0-0.50) mg/L Sodium 140 (135-145) mmol/L Potassium 4.0 (3.5-5.1) mmol/L Chloride 103 (98-107) mmol/L Carbon Dioxide 30 (22-30) mmol/L Anion Gap 11.5 (5-15) MEQ/L BUN 12 (7-17) mg/dL Creatinine 0.55 (0.52-1.04) mg/dL Estimated GFR 99.2 ML/MIN Glucose 92 (74-106) mg/dL Calcium 9.5 (8.4-10.2) mg/dL Iron (37-170) ug/dL TIBC (265-462) ug/dL Iron Saturation (20-39) % Ferritin 130 (11.1-264) ng/mL Total Bilirubin 0.20 (0.2-1.3) mg/dL AST 23 (14-36) U/L ALT 17 (0-35) U/L Alkaline Phosphatase 83 (38-126) U/L Troponin I (0.000-0.033) ng/mL NT-Pro-B Natriuret Pep (<300) pg/mL Serum Total Protein 7.3 (6.3-8.2) g/dL Albumin 4.1 (3.5-5.0) g/dL Lipase (23-300) U/L Vitamin B12 623 (239-931) pg/mL Folic Acid > 16.6 (2.76 - >20) ng/mL Procalcitonin (0.030-0.080) ng/mL 07/26/23 Range/Units 05:15 WBC (3.98-10.04) x10^3/uL RBC (3.93-5.22) x10^6/uL Hgb (11.2-15.7) g/dL Hct (34.1-44.9) % MCV (79.4-94.8) fL MCH (25.6-32.2) pg MCHC (32.2-35.5) g/dL RDW (11.7-14.4) % Plt Count (182-369) x10^3/uL MPV (9.4-12.3) fL Gran % (34.0-71.1) % Immature Gran % (Auto) (0.001-0.429) % Nucleat RBC Rel Count (0.00-0.2) % Eos # (Auto) (0.04-0.36) x10^3/uL Immature Gran # (Auto) (0.001-0.031) x10^3u/L Absolute Lymphs (auto) (1.18-3.74) x10^3/uL Absolute Monos (auto) (0.24-0.86) x10^3/uL Absolute Nucleated RBC (0.00-0.012) x10^3u/L Lymphocytes % (19.3-51.7) % Monocytes % (4.7-12.5) % Eosinophils % (0.7-5.8) % Basophils % (0.1-1.2) % Absolute Granulocytes (1.56-6.13) x10^3/uL Basophils # (0.01-0.08) x10^3/uL D-Dimer (0.0-0.50) mg/L Sodium (135-145) mmol/L Potassium (3.5-5.1) mmol/L Chloride (98-107) mmol/L Carbon Dioxide (22-30) mmol/L Anion Gap (5-15) MEQ/L BUN (7-17) mg/dL Creatinine (0.52-1.04) mg/dL Estimated GFR ML/MIN Glucose (74-106) mg/dL Calcium (8.4-10.2) mg/dL Iron 42 (37-170) ug/dL TIBC 230 L (265-462) ug/dL Iron Saturation 18 L (20-39) % Ferritin (11.1-264) ng/mL Total Bilirubin (0.2-1.3) mg/dL AST (14-36) U/L ALT (0-35) U/L Alkaline Phosphatase (38-126) U/L Troponin I (0.000-0.033) ng/mL NT-Pro-B Natriuret Pep (<300) pg/mL Serum Total Protein (6.3-8.2) g/dL Albumin (3.5-5.0) g/dL Lipase (23-300) U/L Vitamin B12 (239-931) pg/mL Folic Acid (2.76 - >20) ng/mL Procalcitonin (0.030-0.080) ng/mL - Radiology Exams Ordered Rad Exams-Entire Visit: Radiology Procedures Category Date Time Status CHEST 1 VIEW (PORTABLE) Stat Exams 07/25/23 14:03 Completed ECHO W/2D AND DOPPLER [US] Routine Exams 07/26/23 18:13 Taken - Procedures and Test Procedures and Tests throughout Hospitalization: Therapy Orders & Screens 07/25/23 14:25 Respiratory Therapy Assessment DAILY Comment: 07/25/23 17:44 Oxygen Nasal Cannula 2 lpm Comment: Respiratory Therapy Consult ONCE Comment: Reason For Exam: 07/25/23 18:06 EKG [id number] Comment: Diagnosis: Chest pain 07/25/23 18:19 Respiratory Therapy Assessment QID Comment: Diagnosis: Chest pain Discharge Exam General Appearance: no apparent distress Neurologic Exam: alert, oriented x 3, cooperative Eye Exam: PERRL Ears, Nose, Throat Exam: normal ENT inspection Neck Exam: normal inspection Respiratory Exam: normal breath sounds, lungs clear Cardiovascular Exam: regular rate/rhythm, normal heart sounds Gastrointestinal/Abdomen Exam: soft, normal bowel sounds Pelvic Exam: deferred Rectal Exam: deferred Back Exam: normal inspection Extremity Exam: normal inspection Final Diagnosis/Problem List - Final Discharge Diagnosis/Problem (1) Acute chest pain Current Visit: No Status: Resolved Code(s): R07.9 - CHEST PAIN, UNSPECIFIED (2) Atrial fibrillation Current Visit: Yes Status: Chronic Code(s): I48.91 - UNSPECIFIED ATRIAL FIBR ILLATION (3) Chronic respiratory failure Current Visit: Yes Status: Chronic Code(s): J96.10 - CHRONIC RESPIRATORY FAILURE, UNSP W HYPOXIA OR HYPERCAPNIA (4) COPD (chronic obstructive pulmonary disease) Current Visit: No Status: Chronic (5) Hypercholesterolemia Current Visit: No Status: Chronic Code(s): E78.0 - PURE HYPERCHOLESTEROLEMIA * DO NOT USE * (6) Hypertension Current Visit: No Status: Chronic Code(s): I10 - ESSENTIAL (PRIMARY) HYPE RTENSION (7) Thrombocytosis Current Visit: No Status: Chronic (8) Leukocytosis Current Visit: Yes Status: Resolved Code(s): D72.829 - ELEVATED WHITE BLOOD CELL COUNT, UNSPECIFIED - Discharge Disposition: Home, Self-Care Condition: Stable Prescriptions: Continue Albuterol/Ipratropium Mdi [Combivent Inhaler] 1 puff IH QID PRN PRN Reason: Shortness Of Breath Zolpidem Tartrate [Ambien] 10 mg PO HS Albuterol/Ipratropium 3ml Neb* [DUONEB 0.5-3 MG/3 ml Neb] 3 ml IH UD PRN PRN Reason: Shortness Of Breath Promethazine HCl 25 mg [Phenergan 25 mg] 1 tab PO BID PRN PRN Reason: Nausea Omeprazole 40 mg PO BID Apixaban [Eliquis 5 mg Tablet] 1 tab PO BID Fluticasone/Umeclidin/Vilanter [Trelegy Ellipta 100-62.5-25] 1 inh PO DAILY Atorvastatin Calcium 40 mg PO HS Metoprolol Succinate 25 mg Xl* [Toprol-Xl 25MG Tablets] 25 mg PO DAILY Follow up with: YU PORRAS [Primary Care Provider] - 08/02/23 10:15 am ANGEL DECKER [CONSULTING PHYSICIAN] - 1 Week (at [facility])
[2023-07-26 11:50] VITALS: BP 101/57; PULSE 71; TEMP 98.5
[2023-07-26 12:07] LABS: Appearance Clear (Clear); Bacteria None Seen /HPF (None Seen); Bilirubin Negative (Negative); Blood Negative (Negative); Epithelial Cells None Seen /HPF (None Seen); Glucose, Urine Negative (Negative); Hyaline Casts NONE SEEN /LPF (0-2); Ketones Negative (Negative); Leukocyte Esterase Trace (Negative); Nitrite Negative (Negative); Protein,Urine Dip Negative (Negative); RBC 0-2 /HPF (0-5); Urobilinogen 0.2 mg/dL (0.2); WBC 0-2 /HPF (0-5)
[2023-07-26 12:14] LABS: ADD URINE CULTURE? NO (NO)
== END 2023-07-26 13:55 | disposition home or self-care (01) ==
LOC: ED 13:57 → MED SURG 17:35
PROVIDERS: ADMIT Internal Medicine; ATTEND Internal Medicine
DX: R07.9 Chest pain, unspecified (principal); I48.91 Unspecified atrial fibrillation; J96.10 Chronic respiratory failure, unspecified whether with hypoxia or hypercapnia; D72.829 Elevated white blood cell count, unspecified; J44.9 Chronic obstructive pulmonary disease, unspecified; I10 Essential (primary) hypertension; E78.5 Hyperlipidemia, unspecified; D75.839 Thrombocytosis, unspecified; Z79.01 Long term (current) use of anticoagulants; Z79.899 Other long term (current) drug therapy; Z86.73 Personal history of transient ischemic attack (TIA), and cerebral infarction without residual deficits
CPT/HCPCS: 36000; 36415; 71045; 80053; 81001; 82607; 82728; 82746; 83540; 83550; 83690; 83880; 84145; 84484; 85025; 85379; 87040; 93005; 93041; 93306; 94640; 94762; 96374; 96375; 99285; Q3014; J2270; J2405; J3010; A9270-GY

== ENCOUNTER 2024-11-20 10:22 | Emergency (ER) | payer MEDICARE ==
--- NOTE | 2024-11-20 10:41 | ERPHSYRPT ---
- History of Present Illness Time Seen by Provider: 11/20/24 10:23 Source: patient Exam Limitations: no limitations Patient Subjective Stated Complaint: patient was seen and treated for UTi in [facility] office yesterday, they gave her cipro she took first dose last nite and this morning shes having extreme pain in back and left side radiating around Triage Nursing Assessment: patient came into er by wheelchair she did not have her 02 she left at home she says she woke up this morning after starting cipro yesterday for uti and she is having extreme pain in her back radiating to the fron on left side and nausea. patient is alert and orientedx3, pupils perrla, lung sounds diminished , skin warm dry and intact no edema noted. Physician History: 69-year-old female presents to the emergency room with flank pain patient reports she has recently been treated for UTI she is on ciprofloxacin she was started yesterday after being tested for urinary tract infection on Saturday patient reports ongoing nausea denies any vomiting reports decreased p.o. intake denies any chest pain but reports the pain is around her left flank it is intermittent in nature now in ED for further eval Timing/Duration: yesterday Quality: aching Onset Location: left flank Pain Radiation: none Severity of Pain-Max: mild Severity of Pain-Current: mild Prior abdominal problems: UTI Modifying Factors: Improves With: urinating Associated Symptoms: urinary frequency, No abdominal pain, No fever Allergies/Adverse Reactions: Iodinated Contrast Media [Iodinated Contrast Media - IV Dye] Allergy (Severe, Verified 11/20/24 11:19) Itching hydrocodone [From Vicodin] Allergy (Verified 11/20/24 11:19) Nausea and Vomiting iodine Allergy (Verified 11/20/24 11:19) Itching prochlorperazine [From Compazine] Allergy (Verified 11/20/24 11:19) propoxyphene [From Darvon] Allergy (Verified 11/20/24 11:19) Nausea and Vomiting Home Medications: Albuterol/Ipratropium Mdi [Combivent Inhaler] 1 puff IH QID PRN 11/29/12 [History] Zolpidem Tartrate [Ambien] 10 mg PO HS 04/29/16 [History] Albuterol/Ipratropium 3ml Neb* [DUONEB 0.5-3 MG/3 ml Neb] 3 ml IH UD PRN 06/04/17 [History] Apixaban [Eliquis 5 mg Tablet] 2.5 tab PO BID 10/30/21 [History] Omeprazole 40 mg PO BID 10/30/21 [History] Promethazine HCl 25 mg [Phenergan 25 mg] 1 tab PO BID PRN 10/30/21 [History] Atorvastatin Calcium 40 mg PO HS 07/25/23 [History] Fluticasone/Umeclidin/Vilanter [Trelegy Ellipta 100-62.5-25] 1 inh PO DAILY 07/25/23 [History] Metoprolol Succinate 25 mg Xl* [Toprol-Xl 25MG Tablets] 25 mg PO DAILY 07/26/23 [History] Hx Tetanus, Diphtheria Vaccination/Date Given: No Hx Influenza Vaccination/Date Given: Yes Hx Pneumococcal Vaccination/Date Given: Yes Travel Risk - International Travel Have you traveled outside of the country in past 3 weeks: No - Emerging Infectious Disease Are you exhibiting symptoms associated with any current EIDs: No - Review of Systems Constitutional: No Fever, No Chills Eyes: No Symptoms Ears, Nose, & Throat: No Symptoms Respiratory: No Cough, No Dyspnea Cardiac: No Chest Pain, No Edema, No Syncope Abdominal/Gastrointestinal: No Abdominal Pain, No Nausea, No Vomiting, No Diarrhea Genitourinary Symptoms: Frequency, Flank Pain, No Dysuria Musculoskeletal: No Back Pain, No Neck Pain Skin: No Rash Neurological: No Dizziness, No Focal Weakness, No Sensory Changes Psychological: No Symptoms Endocrine: No Symptoms All Other Systems: Reviewed and Negative - Past Medical History Pertinent Past Medical History: Yes Neurological History: TIA ENT History: No Pertinent History Cardiac History: Arrhythmia, High Cholesterol, Hypertension Respiratory History: COPD, Other Endocrine Medical History: No Pertinent History Musculoskeletal History: No Pertinent History GI Medical History: GERD, Hernia History: No Pertinent History Psycho-Social History: No Pertinent History Female Reproductive Disorders: No Pertinent History Other Medical History: hiatal hernia,anemia, respiratory failure and lung nodules - Past Surgical History Past Surgical History: Yes Neuro Surgical History: No Pertinent History Cardiac: No Pertinent History Respiratory: No Pertinent History Gastrointestinal: Appendectomy, Cholecystectomy, Exploratory Laparoscopy Genitourinary: No Pertinent History Musculoskeletal: Orthopedic Surgery Female Surgical History: Hysterectomy Other Surgical History: 4 surgeries on right foot - Social History Smoking Status: Former smoker How long have you smoked: 30 yrs Exposure to second hand smoke: No Drug Use: none - Social Determinants of Health Will the patient participate in the screening: Yes Do you worry about a steady place to live?: No Do you have any problems with any of the following?: No known problems In the past 12 months,have you had to go without utilities?: No Transportation Issues: No Has anyone in your support network made you feel unsafe?: No Have you or anyone in your house had to go w/o enough food: No - Nursing Vital Signs Nursing Vital Signs: Initial Vital Signs Temperature 98.3 F 11/20/24 10:23 Pulse Rate 94 H 11/20/24 10:23 Respiratory Rate 20 11/20/24 10:23 Blood Pressure 154/75 11/20/24 10:23 O2 Sat by Pulse Oximetry 97 11/20/24 10:23 Pain Scale Pain Intensity 10 - Physical Exam General Appearance: no apparent distress, alert Eye Exam: PERRL/EOMI, eyes nml inspection Ears, Nose, Throat Exam: normal ENT inspection, TMs normal, pharynx normal, moist mucous membranes Neck Exam: normal inspection, non-tender, supple, full range of motion Respiratory Exam: normal breath sounds, lungs clear, No respiratory distress Cardiovascular Exam: regular rate/rhythm, normal heart sounds, normal peripheral pulses Gastrointestinal/Abdomen Exam: soft, No tenderness, No mass Back Exam: normal inspection, normal range of motion, No CVA tenderness, No vertebral tenderness Extremity Exam: normal inspection, normal range of motion, pelvis stable Neurologic Exam: alert, oriented x 3, cooperative, dip painter II-XII nml as tested, normal mood/affect, sensation nml, No motor deficits Skin Exam: normal color, warm, dry Lymphatic Exam: No adenopathy SpO2: 97 - Course Nursing assessment & vital signs reviewed: Yes EKG Interpreted by Me: RATE, Sinus Rhythm (96), Non-specific ST Changes, Other (no stemi) Ordered Tests: Active Orders 24 hr Category Date Time Status EKG-ER Only STAT Care 11/20/24 10:46 Active IV Insertion STAT Care 11/20/24 10:37 Active ABDOMEN AND PELVIS W/0 CONTRAS [CT] Stat Exams 11/20/24 10:41 Completed CHEST WITHOUT CONTRAST [CT] Stat Exams 11/20/24 11:03 Completed CBC W DIFF Stat Lab 11/20/24 10:45 Completed CMP Stat Lab 11/20/24 10:45 Completed LIPASE Stat Lab 11/20/24 10:45 Completed Lactic Acid Stat Lab 11/20/24 10:35 Completed PROTIME WITH INR Stat Lab 11/20/24 10:45 Completed PTT Stat Lab 11/20/24 10:45 Completed TROPONIN Q2H Lab 11/20/24 10:45 Completed TROPONIN Q2H Lab 11/20/24 13:00 Completed TROPONIN Q2H Lab 11/20/24 15:00 Ordered UA W/RFX UR CULTURE Stat Lab 11/20/24 10:24 Completed Medication Summary Discontinued Medications Generic Name Dose Route Start Last Admin Trade Name Freq PRN Reason Stop Dose Admin Sodium Chloride 1,000 mls @ 999 mls/hr 11/20/24 10:37 11/20/24 11:55 Sodium Chloride 0.9% 1000 Ml IV 11/20/24 11:37 Infused .Q1H1M STA Infusion Sodium Chloride Confirm 11/20/24 10:48 Sodium Chloride 0.9% 1000 Ml Administered 11/20/24 10:49 Dose 1,000 mls @ ud .ROUTE .STK-MED ONE Ondansetron HCl 4 mg 11/20/24 10:36 11/20/24 10:49 Ondansetron Hcl 4 Mg/2 Ml Vial IV 11/20/24 10:37 4 mg STAT ONE Administration Ondansetron HCl Confirm 11/20/24 10:48 Ondansetron Hcl 4 Mg/2 Ml Vial Administered 11/20/24 10:49 Dose 4 mg .ROUTE .STK-MED ONE Ondansetron HCl 4 mg 11/20/24 12:47 11/20/24 12:59 Ondansetron Hcl 4 Mg/2 Ml Vial IV 11/20/24 12:48 4 mg STAT ONE Administration Ondansetron HCl Confirm 11/20/24 12:56 Ondansetron Hcl 4 Mg/2 Ml Vial Administered 11/20/24 12:57 Dose 4 mg .ROUTE .STK-MED ONE Lab/Rad Data: Laboratory Result Diagrams 11/20/24 10:45 11/20/24 10:45 Laboratory Results 10/10/25 10/10/25 10/10/25 Range/Units 13:00 10:50 10:45 WBC (3.98-10.04) x10^3/uL RBC (3.93-5.22) x10^6/uL Hgb (11.2-15.7) g/dL Hct (34.1-44.9) % MCV (79.4-94.8) fL MCH (25.6-32.2) pg MCHC (32.2-35.5) g/dL RDW (11.7-14.4) % Plt Count (182-369) x10^3/uL MPV (9.4-12.3) fL Gran % (34.0-71.1) % Immature Gran % (Auto) (0.001-0.429) % Nucleat RBC Rel Count (0.00-0.2) % Eos # (Auto) (0.04-0.36) x10^3/uL Immature Gran # (Auto) (0.001-0.031) x10^3u/L Absolute Lymphs (auto) (1.18-3.74) x10^3/uL Absolute Monos (auto) (0.24-0.86) x10^3/uL Absolute Nucleated RBC (0.00-0.012) x10^3u/L Lymphocytes % (19.3-51.7) % Monocytes % (4.7-12.5) % Eosinophils % (0.7-5.8) % Basophils % (0.1-1.2) % Absolute Granulocytes (1.56-6.13) x10^3/uL Basophils # (0.01-0.08) x10^3/uL PT (9.4-12.5) SECONDS INR (0.8-3.0) APTT (25.1-36.5) SECONDS Sodium (135-145) mmol/L Potassium (3.5-5.1) mmol/L Chloride (98-107) mmol/L Carbon Dioxide (22-30) mmol/L Anion Gap (5-15) MEQ/L BUN (7-17) mg/dL Creatinine (0.52-1.04) mg/dL Estimated GFR ML/MIN Glucose (74-106) mg/dL Lactic Acid (0.4-2.0) Calcium (8.4-10.2) mg/dL Total Bilirubin (0.2-1.3) mg/dL AST (14-36) U/L ALT (0-35) U/L Alkaline Phosphatase (38-126) U/L Troponin I < 0.012 < 0.012 (0.000-0.033) ng/mL Serum Total Protein (6.3-8.2) g/dL Albumin (3.5-5.0) g/dL Lipase (23-300) U/L Urine Color (Yellow) Urine Appearance (Clear) Urine pH (4.6-8.0) Ur Specific Carson (1.005-1.030) Urine Protein (Negative) Urine Glucose (UA) (Negative) mg/dL Urine Ketones (Negative) Urine Blood (Negative) Urine Nitrite (Negative) Urine Bilirubin (Negative) Urine Urobilinogen (0.2) mg/dL Ur Leukocyte Esterase (Negative) U Hyaline Cast (Auto) (0-2) /LPF Urine Microscopic RBC (0-5) /HPF Urine Microscopic WBC (0-5) /HPF Ur Epithelial Cells (None Seen) /HPF Urine Bacteria (None Seen) /HPF Urine Mucus (NEGATIVE) /HPF Urine Culture Reflexed (NO) Influenza Type A Ag NEGATIVE (NEGATIVE) Influenza Type B Ag NEGATIVE (NEGATIVE) RSV (PCR) NEGATIVE (NEGATIVE) SARS-CoV-2 (PCR) NEGATIVE (NEGATIVE) 11/20/24 11/20/24 11/20/24 Range/Units 10:45 10:45 10:45 WBC 16.8 H (3.98-10.04) x10^3/uL RBC 4.38 (3.93-5.22) x10^6/uL Hgb 12.6 (11.2-15.7) g/dL Hct 40.3 (34.1-44.9) % MCV 92.0 (79.4-94.8) fL MCH 28.8 (25.6-32.2) pg MCHC 31.3 L (32.2-35.5) g/dL RDW 13.2 (11.7-14.4) % Plt Count 593 H (182-369) x10^3/uL MPV 9.1 L (9.4-12.3) fL Gran % 70.3 (34.0-71.1) % Immature Gran % (Auto) 0.5 H (0.001-0.429) % Nucleat RBC Rel Count 0.0 (0.00-0.2) % Eos # (Auto) 0.82 H (0.04-0.36) x10^3/uL Immature Gran # (Auto) 0.09 H (0.001-0.031) x10^3u/L Absolute Lymphs (auto) 3.02 (1.18-3.74) x10^3/uL Absolute Monos (auto) 0.99 H (0.24-0.86) x10^3/uL Absolute Nucleated RBC 0.00 (0.00-0.012) x10^3u/L Lymphocytes % 18.0 L (19.3-51.7) % Monocytes % 5.9 (4.7-12.5) % Eosinophils % 4.9 (0.7-5.8) % Basophils % 0.4 (0.1-1.2) % Absolute Granulocytes 11.78 H (1.56-6.13) x10^3/uL Basophils # 0.07 (0.01-0.08) x10^3/uL PT 11.5 (9.4-12.5) SECONDS INR 1.03 (0.8-3.0) APTT 30.5 (25.1-36.5) SECONDS Sodium 138 (135-145) mmol/L Potassium 4.0 (3.5-5.1) mmol/L Chloride 99 (98-107) mmol/L Carbon Dioxide 28 (22-30) mmol/L Anion Gap 15.1 H (5-15) MEQ/L BUN 13 (7-17) mg/dL Creatinine 0.57 (0.52-1.04) mg/dL Estimated GFR 97.7 ML/MIN Glucose 140 H (74-106) mg/dL Lactic Acid (0.4-2.0) Calcium 9.8 (8.4-10.2) mg/dL Total Bilirubin 0.40 (0.2-1.3) mg/dL AST 23 (14-36) U/L ALT 22 (0-35) U/L Alkaline Phosphatase 108 (38-126) U/L Troponin I (0.000-0.033) ng/mL Serum Total Protein 8.2 (6.3-8.2) g/dL Albumin 4.8 (3.5-5.0) g/dL Lipase 57 (23-300) U/L Urine Color (Yellow) Urine Appearance (Clear) Urine pH (4.6-8.0) Ur Specific Carson (1.005-1.030) Urine Protein (Negative) Urine Glucose (UA) (Negative) mg/dL Urine Ketones (Negative) Urine Blood (Negative) Urine Nitrite (Negative) Urine Bilirubin (Negative) Urine Urobilinogen (0.2) mg/dL Ur Leukocyte Esterase (Negative) U Hyaline Cast (Auto) (0-2) /LPF Urine Microscopic RBC (0-5) /HPF Urine Microscopic WBC (0-5) /HPF Ur Epithelial Cells (None Seen) /HPF Urine Bacteria (None Seen) /HPF Urine Mucus (NEGATIVE) /HPF Urine Culture Reflexed (NO) Influenza Type A Ag (NEGATIVE) Influenza Type B Ag (NEGATIVE) RSV (PCR) (NEGATIVE) SARS-CoV-2 (PCR) (NEGATIVE) 11/20/24 11/20/24 Range/Units 10:35 10:24 WBC (3.98-10.04) x10^3/uL RBC (3.93-5.22) x10^6/uL Hgb (11.2-15.7) g/dL Hct (34.1-44.9) % MCV (79.4-94.8) fL MCH (25.6-32.2) pg MCHC (32.2-35.5) g/dL RDW (11.7-14.4) % Plt Count (182-369) x10^3/uL MPV (9.4-12.3) fL Gran % (34.0-71.1) % Immature Gran % (Auto) (0.001-0.429) % Nucleat RBC Rel Count (0.00-0.2) % Eos # (Auto) (0.04-0.36) x10^3/uL Immature Gran # (Auto) (0.001-0.031) x10^3u/L Absolute Lymphs (auto) (1.18-3.74) x10^3/uL Absolute Monos (auto) (0.24-0.86) x10^3/uL Absolute Nucleated RBC (0.00-0.012) x10^3u/L Lymphocytes % (19.3-51.7) % Monocytes % (4.7-12.5) % Eosinophils % (0.7-5.8) % Basophils % (0.1-1.2) % Absolute Granulocytes (1.56-6.13) x10^3/uL Basophils # (0.01-0.08) x10^3/uL PT (9.4-12.5) SECONDS INR (0.8-3.0) APTT (25.1-36.5) SECONDS Sodium (135-145) mmol/L Potassium (3.5-5.1) mmol/L Chloride (98-107) mmol/L Carbon Dioxide (22-30) mmol/L Anion Gap (5-15) MEQ/L BUN (7-17) mg/dL Creatinine (0.52-1.04) mg/dL Estimated GFR ML/MIN Glucose (74-106) mg/dL Lactic Acid 1.0 (0.4-2.0) Calcium (8.4-10.2) mg/dL Total Bilirubin (0.2-1.3) mg/dL AST (14-36) U/L ALT (0-35) U/L Alkaline Phosphatase (38-126) U/L Troponin I (0.000-0.033) ng/mL Serum Total Protein (6.3-8.2) g/dL Albumin (3.5-5.0) g/dL Lipase (23-300) U/L Urine Color Dark Yellow A (Yellow) Urine Appearance Clear (Clear) Urine pH 5.5 (4.6-8.0) Ur Specific Carson >=1.030 A (1.005-1.030) Urine Protein 30 (Negative) Urine Glucose (UA) Negative (Negative) mg/dL Urine Ketones 15 A (Negative) Urine Blood Negative (Negative) Urine Nitrite Negative (Negative) Urine Bilirubin Negative (Negative) Urine Urobilinogen 1.0 A (0.2) mg/dL Ur Leukocyte Esterase Negative (Negative) U Hyaline Cast (Auto) NONE SEEN (0-2) /LPF Urine Microscopic RBC 3-5 (0-5) /HPF Urine Microscopic WBC 3-5 (0-5) /HPF Ur Epithelial Cells Rare (None Seen) /HPF Urine Bacteria None Seen (None Seen) /HPF Urine Mucus Few A (NEGATIVE) /HPF Urine Culture Reflexed NO (NO) Influenza Type A Ag (NEGATIVE) Influenza Type B Ag (NEGATIVE) RSV (PCR) (NEGATIVE) SARS-CoV-2 (PCR) (NEGATIVE) - Progress Progress: improved Progress Note: 11/20/24 12:44 Lungs again demonstrates diffuse centrilobular pulmonary emphysema, minimal scattered fibrosis/scarring bilaterally, benign 5 mm right upper lobe noncalcified nodule, and left lower lobe postsurgical changes. Slight increasing left lower lobe pleural-parenchymal thickening/scarring again presumed postsurgical. Superior segment left lower lobe also demonstrates new irregular subpleural nodularity measuring 2.0 x 2.9 cm. Posterior lateral right lower lobe also demonstrates new 7 x 12 mm irregular noncalcified nodularity (image 35). No effusion. Heart not enlarged again with scattered coronary calcifications. Aorta remains mildly arteriosclerotic without aneurysm. No pathologic mediastinal lymphadenopathy. Bony thorax intact again with osteopenia and old left lateral [address] abdomen/pelvis reported separately. Impression: 1. New left lower and right lower lobe irregular noncalcified nodularities as detailed. Findings indeterminate. PET-CT may yield further information. 2. Again chronic findings including pulmonary emphysema, pulmonary fibrosis/scarring, benign right upper lobe noncalcified micronodule, left lower lobe postsurgical changes, chronic bony findings, and arteriosclerotic disease. 11/20/24 13:01 Procedures: [id number] CT/ABDOMEN AND PELVIS W/0 CONTRAS Indication: Flank pain with inspiration. UTI. Multiple contiguous axial images obtained through the abdomen and pelvis without contrast using renal stone protocol. Comparison: April 25, 2021. CT chest reported separately. No renal calculus or evidence for obstructive uropathy in either system. New 9 mm left mid renal exophytic cyst and 9 mm right lower renal cortical cyst. Noncontrasted stomach and bowel loops appear nonobstructed. Again scattered sigmoid diverticulosis without diverticulitis, appendectomy, cholecystectomy, and hysterectomy. No free fluid/air. Remaining liver, pancreas, spleen, adrenal glands, kidneys, ureters, and bladder are unremarkable for noncontrast exam. Again mild scattered aortoiliac calcifications without AAA. Osseous structures intact again with osteopenia and minimal degenerative changes throughout spine. Impression: 1. Continued negative renal calculus or evidence for obstructive uropathy. New subcentimeter renal cyst bilaterally. 2. Again chronic findings including colonic diverticulosis, arteriosclerotic disease, and chronic bony findings. 3. No acute findings on this noncontrast exam. 11/20/24 14:52 patient informed about the lung nodules, and the renal cysts, patient urine results are improving, advised to continue the antiboitics will rx antiemetic for home use. advised close return precautions. and to follow up for a PET CT scan for the lung nodules. - Departure Departure Disposition: Home Clinical Impression: Lung nodules, Renal cyst, Nausea UTI (urinary tract infection) Qualifiers: Urinary tract infection type: site unspecified Hematuria presence: without hematuria Qualified Code(s): N39.0 - Urinary tract infection, site not specified Condition: Stable Critical Care Time: No Referrals: [facility] PORRAS [Primary Care Provider, [facility]] - Follow up/PCP as directed Instructions: Urinary tract infections in adults, Pulmonary nodule, Flank pain - ED discharge instructions, Flank pain Prescriptions: Ondansetron ODT 4 MG [Zofran Odt 4 mg] 4 mg PO Q6HPRN PRN #10 tab PRN Reason: Nausea
[2024-11-20 10:46] VITALS: TEMP 98.2
[2024-11-20] MEDS ORDERED: Zofran 4 MG/2 ML VIAL ONE ×2 (10:48→12:56)
[2024-11-20] MEDS: Zofran 4 MG/2 ML VIAL IV ONE ×2 (10:49→12:59)
[2024-11-20 10:52] LABS: BASOPHIL % 0.4 % (0.1-1.2); Basophil (Absolute #) 0.07 x10^3/uL (0.01-0.08); Eosinophil (Absolute #) 0.82 x10^3/uL (0.04-0.36); Hematocrit 40.3 % (34.1-44.9); Hemoglobin 12.6 g/dL (11.2-15.7); IMMATURE GRAN # 0.09 x10^3u/L (0.001-0.031); IMMATURE GRAN % 0.5 % (0.001-0.429); Lymphocyte (Absolute #) 3.02 x10^3/uL (1.18-3.74); Mean Corpuscular Hemoglobin 28.8 pg (25.6-32.2); Mean Corpuscular Hgb Concent. 31.3 g/dL (32.2-35.5); Monocyte (Absolute #) 0.99 x10^3/uL (0.24-0.86); NUCLEATED RBC # 0.00 x10^3u/L (0.00-0.012); NUCLEATED RBC % 0.0 % (0.00-0.2); Platelet Count 593 x10^3/uL (182-369); Red Blood Count 4.38 x10^6/uL (3.93-5.22); White Blood Count 16.8 x10^3/uL (3.98-10.04)
[2024-11-20 11:05] LABS: Calcium 9.8 mg/dL (8.4-10.2); Carbon Dioxide 28.0 mmol/L (22-30); Creatinine 1 0.57 mg/dL (0.52-1.04); EST GLOMERULAR FILTRATION RATE 97.7 ML/MIN; Glucose 140.0 mg/dL (74-106); Potassium 4.0 mmol/L (3.5-5.1); SGOT/AST 23.0 U/L (14-36); SGPT/ALT 22.0 U/L (0-35); Total Protein 8.2 g/dL (6.3-8.2)
[2024-11-20 11:07] LABS: INR 1.03 (0.8-3.0); PROTIME 11.5 SECONDS (9.4-12.5); PTT 30.5 SECONDS (25.1-36.5)
[2024-11-20 11:39] LABS: INFLUENZA A NEGATIVE (NEGATIVE); INFLUENZA B NEGATIVE (NEGATIVE); RESPIRATORY SYNCTIAL VIRUS NEGATIVE (NEGATIVE); SARS-CoV-2 Xpert Express NEGATIVE (NEGATIVE)
[2024-11-20 11:47] LABS: Glucose, Urine Negative (Negative); Protein,Urine Dip 30 (Negative)
--- NOTE | 2024-11-20 12:41 | XRAY ---
Indication: Flank pain with inspiration. Multiple contiguous axial images obtained through the chest without contrast. Comparison: March 09, 2024 Lungs again demonstrates diffuse centrilobular pulmonary emphysema, minimal scattered fibrosis/scarring bilaterally, benign 5 mm right upper lobe noncalcified nodule, and left lower lobe postsurgical changes. Slight increasing left lower lobe pleural-parenchymal thickening/scarring again presumed postsurgical. Superior segment left lower lobe also demonstrates new irregular subpleural nodularity measuring 2.0 x 2.9 cm. Posterior lateral right lower lobe also demonstrates new 7 x 12 mm irregular noncalcified nodularity (image 35). No effusion. Heart not enlarged again with scattered coronary calcifications. Aorta remains mildly arteriosclerotic without aneurysm. No pathologic mediastinal lymphadenopathy. Bony thorax intact again with osteopenia and old left lateral [address] abdomen/pelvis reported separately. Impression: 1. New left lower and right lower lobe irregular noncalcified nodularities as detailed. Findings indeterminate. PET-CT may yield further information. 2. Again chronic findings including pulmonary emphysema, pulmonary fibrosis/scarring, benign right upper lobe noncalcified micronodule, left lower lobe postsurgical changes, chronic bony findings, and arteriosclerotic disease.
--- NOTE | 2024-11-20 12:47 | XRAY ---
Indication: Flank pain with inspiration. UTI. Multiple contiguous axial images obtained through the abdomen and pelvis without contrast using renal stone protocol. Comparison: April 25, 2021. CT chest reported separately. No renal calculus or evidence for obstructive uropathy in either system. New 9 mm left mid renal exophytic cyst and 9 mm right lower renal cortical cyst. Noncontrasted stomach and bowel loops appear nonobstructed. Again scattered sigmoid diverticulosis without diverticulitis, appendectomy, cholecystectomy, and hysterectomy. No free fluid/air. Remaining liver, pancreas, spleen, adrenal glands, kidneys, ureters, and bladder are unremarkable for noncontrast exam. Again mild scattered aortoiliac calcifications without AAA. Osseous structures intact again with osteopenia and minimal degenerative changes throughout spine. Impression: 1. Continued negative renal calculus or evidence for obstructive uropathy. New subcentimeter renal cyst bilaterally. 2. Again chronic findings including colonic diverticulosis, arteriosclerotic disease, and chronic bony findings. 3. No acute findings on this noncontrast exam.
[2024-11-20 12:57] VITALS: RESP 20
[2024-11-20 13:01] VITALS: O2SAT 97
[2024-11-20 15:02] VITALS: BP 139/65; PULSE 74
== END 2024-11-20 15:53 | disposition home or self-care (01) ==
LOC: ED 10:22
DX: N39.0 Urinary tract infection, site not specified (principal); R91.8 Other nonspecific abnormal finding of lung field; N28.1 Cyst of kidney, acquired; R11.0 Nausea; R10.9 Unspecified abdominal pain; I10 Essential (primary) hypertension; Z79.01 Long term (current) use of anticoagulants; Z79.899 Other long term (current) drug therapy